=== PATIENT | male | born 1945 | race Caucasian/White ===

== ENCOUNTER 2016-09-23 19:52 | Observation (INO) | payer MEDICARE, BC ==
[2016-09-23] MEDS ORDERED: ASPIRIN 81 MG CHEW PO STA (20:30)
--- NOTE | 2016-09-23 20:42 | ED ---
General Adult HPI <NestorPepe - Last Filed: 09/23/16 22:08> - General Source: patient Mode of arrival: ambulatory Limitations: no limitations <Valery Fernandez - Last Filed: 09/23/16 22:27> - General Chief complaint: Extremity Problem,Nontraumatic Stated complaint: R arm injury Time Seen by Provider: 09/23/16 20:24 - History of Present Illness Initial comments: 71-year-old male patient presents to emergency department today for evaluation of right arm swelling and pain after he struck it on a mirror on his truck. The patient states that the area swelled up and seems bruised. Patient states that he is able to move the wrist and elbow without any difficulty. Patient states he does take anticoagulants which causes him to bruise and swell however he was concerned that he might have broken his arm. During exam patient noticed to be diaphoretic when asked about chest pain or shortness of breath he states that he is having some left posterior shoulder pain, shortness of breath , and was nauseated on the ride here. Patient states that he has had heart attack in the past and does have a pacemaker. Patient states that the pain in his shoulder has been intermittent and sharp. He states that he has his nitro with him however has not had to take a tablet. He denies any headache, neck pain, dizziness, weakness, abdominal pain, vomiting, hematuria, dysuria, urinary urgency or urinary frequency. Denies any trouble with bowel movements. (Valery Fernandez) - Related Data Home Medications Medication Instructions Recorded Confirmed Allopurinol [Zyloprim] 100 mg PO DAILY 04/23/15 09/23/16 Carvedilol [Coreg] 18.75 mg PO BID 04/23/15 09/23/16 Warfarin [Coumadin] 2.5 mg PO HS 07/04/15 09/23/16 Zolpidem Tartrate [Ambien] 10 mg PO HS 07/04/15 09/23/16 Multivitamins, Thera [Multivitamin 1 tab PO DAILY 12/17/15 09/23/16 (formulary)] [place]-3 Fatty Acids/Fish Oil [Fish 1 cap PO DAILY 12/17/15 09/23/16 Oil 1,000 mg Softgel] Cholecalciferol [Vitamin D3] 2,000 unit PO DAILY 12/22/15 09/23/16 Vitamin B Complex 1 cap PO DAILY 12/22/15 09/23/16 Furosemide [Lasix] 20 mg PO DAILY@1300 09/23/16 09/23/16 Furosemide [Lasix] 60 mg PO QAM 09/23/16 09/23/16 LORazepam [Ativan] 0.5 mg PO TID PRN 09/23/16 09/23/16 Previous Rx's Medication Instructions Recorded Isosorbide Mononitrate ER [Imdur] 30 mg PO DAILY #30 tab.er.24h 12/18/15 Aspirin 81 mg PO DAILY #30 chew 12/24/15 Atorvastatin [Lipitor] 80 mg PO HS #30 tab 12/24/15 Clopidogrel [Plavix] 75 mg PO DAILY #30 tab 12/24/15 Lisinopril [Zestril] 10 mg PO DAILY #30 tab 12/24/15 Nitroglycerin Sl Tabs [Nitrostat] 0.4 mg SUBLINGUAL Q5M PRN #25 tab 12/24/15 Allergies Allergy/AdvReac Type Severity Reaction Status Date / Time No Known Allergies Allergy Verified 09/23/16 21:31 Review of Systems ROS Other: All systems not noted in ROS Statement are negative. <Pepe Baez - Last Filed: 09/23/16 22:08> ROS Other: All systems not noted in ROS Statement are negative. <Valery Fernandez - Last Filed: 09/23/16 22:27> ROS Statement: Those systems with pertinent positive or pertinent negative responses have been documented in the HPI. Past Medical History Past Medical History: Heart Failure, Hyperlipidemia, Hypertension, Myocardial Infarction ([place]) Additional Past Medical History / Comment(s): gout Last Myocardial Infarction Date:: 2004 History of Any Multi-Drug Resistant Organisms: None Reported Past Surgical History: Back Surgery, Heart Catheterization With Stent, Pacemaker Past Anesthesia/Blood Transfusion Reactions: No Reported Reaction Date of Last Stent Placement:: 2013 Type of Cardiac Device: Permanent Pacemaker, AICD Device Placement Date:: 07-29-14 Past Psychological History: No Psychological Hx Reported Smoking Status: Former smoker Past Alcohol Use History: Daily Past Drug Use History: None Reported - Past Family History Father Family Medical History: CVA/TIA, Dementia Mother Family Medical History: CVA/TIA, Diabetes Mellitus, Skin Disorder Additional Family Medical History / Comment(s): skin CA <Valery Fernandez - Last Filed: 09/23/16 22:27> General Exam Limitations: no limitations General appearance: alert, in no apparent distress Head exam: Present: atraumatic, normocephalic, normal inspection Eye exam: Present: normal appearance, PERRL, EOMI. Absent: scleral icterus, conjunctival injection, periorbital swelling ENT exam: Present: normal exam, normal oropharynx, mucous membranes moist Neck exam: Present: normal inspection. Absent: tenderness, meningismus, lymphadenopathy Respiratory exam: Present: normal lung sounds bilaterally. Absent: respiratory distress, wheezes, rales, rhonchi, stridor Cardiovascular Exam: Present: regular rate, normal rhythm, normal heart sounds. Absent: systolic murmur, diastolic murmur, rubs, gallop, clicks GI/Abdominal exam: Present: soft, normal bowel sounds. Absent: distended, tenderness, guarding, rebound, rigid Extremities exam: Present: full ROM, normal capillary refill, other (Right forearm swelling and ecchymosis noted to the dorsal aspect near the antecubital fossa. Patient has full range of motion without pain or limitation to the right elbow, right wrist, and hand.). Absent: normal inspection, tenderness, pedal edema, joint swelling, calf tenderness Back exam: Present: normal inspection Neurological exam: Present: alert, oriented X3, CN II-XII intact Psychiatric exam: Present: normal affect, normal mood Skin exam: Present: warm, intact, normal color, diaphoretic. Absent: dry, rash <Valery Fernandez M - Last Filed: 09/23/16 22:27> Course <Pepe Baez - Last Filed: 09/23/16 22:08> <Valery Fernandez - Last Filed: 09/23/16 22:27> Vital Signs 09/23/16 20:00 Temperature 98.0 F Pulse Rate 69 Respiratory 20 Rate Blood Pressure 157/77 O2 Sat by Pulse 99 Oximetry - Reevaluation(s) Reevaluation #1: 09/23/16 22:09 Patient reevaluated by myself, Dr. Baez. Patient resting comfortably in bed. Patient did have left shoulder discomfort that was similar to his previous heart problems however has resolved at this time. Patient originally presented for striking his right forearm on the mere of his truck. Results reviewed. Troponin is slightly elevated however patient is on Coumadin which is therapeutic and does have a history of chronic elevation of his troponin. Case was discussed in detail with Dr. Clark, who will admit his patient. He agrees with no heparin at this time. Cardiology will be consult. (Pepe Baez) EKG Findings - EKG Comments: EKG Findings:: EKG obtained at 2034 reveals that patient is ventricularly paced at 62 bpm. QRS duration is 206. QTc 528. QTC 535. <Valery Fernandez - Last Filed: 09/23/16 22:27> Medical Decision Making - Lab Data Result diagrams: 09/23/16 20:41 09/23/16 20:41 <Pepe Baez - Last Filed: 09/23/16 22:08> - Lab Data Result diagrams: 09/23/16 20:41 09/23/16 20:41 - Radiology Data Radiology results: report reviewed, image reviewed <Valery Fernandez - Last Filed: 09/23/16 22:27> - Medical Decision Making 71-year-old male patient presented to the emergency department initially for a right forearm injury. During examination but no patient to be diaphoretic and he reported left upper back pain, nausea, and shortness of breath that started on his way here. Due to patient's cardiac history did do an EKG and labs which did show an elevated troponin at 0.054. Patient does seem to have a chronically elevated troponin however patient's symptoms are concerning for unstable angina. Dr. Baez my attending did speak to Dr. Clark who agreed to admit the patient for further evaluation. Patient does take Coumadin and INR at this time is 2.2. Patient will not be started on heparin at this time. Cardiology consultation was entered. (Valery Fernandez) - Lab Data Lab Results 09/23/16 09/23/16 09/23/16 Range/Units 20:41 20:41 20:41 WBC 8.7 (3.8-10.6) k/uL RBC 4.17 L (4.30-5.90) m/uL Hgb 13.8 (13.0-17.5) gm/dL Hct 40.0 (39.0-53.0) % MCV 95.8 (80.0-100.0) fL MCH 33.1 (25.0-35.0) pg MCHC 34.6 (31.0-37.0) g/dL RDW 14.7 (11.5-15.5) % Plt Count 153 (150-450) k/uL Neutrophils % 59 % Lymphocytes % 27 % Monocytes % 8 % Eosinophils % 3 % Basophils % 1 % Neutrophils # 5.2 (1.3-7.7) k/uL Lymphocytes # 2.4 (1.0-4.8) k/uL Monocytes # 0.7 (0-1.0) k/uL Eosinophils # 0.2 (0-0.7) k/uL Basophils # 0.1 (0-0.2) k/uL PT (9.0-12.0) sec INR (<1.2) APTT (22.0-30.0) sec Sodium 145 (137-145) mmol/L Potassium 4.1 (3.5-5.1) mmol/L Chloride 106 (98-107) mmol/L Carbon Dioxide 27 (22-30) mmol/L Anion Gap 12 mmol/L BUN 22 H (9-20) mg/dL Creatinine 1.00 (0.66-1.25) mg/dL Est GFR (MDRD) Af Amer >60 (>60 ml/min/1.73 sqM) Est GFR (MDRD) Non-Af >60 (>60 ml/min/1.73 sqM) Glucose 134 H (74-99) mg/dL Calcium 9.7 (8.4-10.2) mg/dL Magnesium 1.6 (1.6-2.3) mg/dL Total Bilirubin 0.4 (0.2-1.3) mg/dL AST 44 (17-59) U/L ALT 48 (21-72) U/L Alkaline Phosphatase 120 (38-126) U/L Total Creatine Kinase 81 (55-170) U/L CK-MB (CK-2) 1.5 (0.0-2.4) ng/mL CK-MB (CK-2) Rel Index 1.9 Troponin I 0.054 H* (0.000-0.034) ng/mL Total Protein 6.8 (6.3-8.2) g/dL Albumin 4.1 (3.5-5.0) g/dL 09/23/16 Range/Units 20:41 WBC (3.8-10.6) k/uL RBC (4.30-5.90) m/uL Hgb (13.0-17.5) gm/dL Hct (39.0-53.0) % MCV (80.0-100.0) fL MCH (25.0-35.0) pg MCHC (31.0-37.0) g/dL RDW (11.5-15.5) % Plt Count (150-450) k/uL Neutrophils % % Lymphocytes % % Monocytes % % Eosinophils % % Basophils % % Neutrophils # (1.3-7.7) k/uL Lymphocytes # (1.0-4.8) k/uL Monocytes # (0-1.0) k/uL Eosinophils # (0-0.7) k/uL Basophils # (0-0.2) k/uL PT 21.0 H (9.0-12.0) sec INR 2.2 H (<1.2) APTT 36.0 H (22.0-30.0) sec Sodium (137-145) mmol/L Potassium (3.5-5.1) mmol/L Chloride (98-107) mmol/L Carbon Dioxide (22-30) mmol/L Anion Gap mmol/L BUN (9-20) mg/dL Creatinine (0.66-1.25) mg/dL Est GFR (MDRD) Af Amer (>60 ml/min/1.73 sqM) Est GFR (MDRD) Non-Af (>60 ml/min/1.73 sqM) Glucose (74-99) mg/dL Calcium (8.4-10.2) mg/dL Magnesium (1.6-2.3) mg/dL Total Bilirubin (0.2-1.3) mg/dL AST (17-59) U/L ALT (21-72) U/L Alkaline Phosphatase (38-126) U/L Total Creatine Kinase (55-170) U/L CK-MB (CK-2) (0.0-2.4) ng/mL CK-MB (CK-2) Rel Index Troponin I (0.000-0.034) ng/mL Total Protein (6.3-8.2) g/dL Albumin (3.5-5.0) g/dL - Radiology Data Two-view of the forearm were obtained and showed spraining on the olecranon process of the ulna. The wrist joint appears intact. See no fracture nor dislocation. Impression by Dr. Sims shows mild posterior soft tissue swelling over the proximal ulna. No fracture. Two-view x-ray of the chest is obtained and shows that the heart is enlarged. There is no heart failure. There is left axillar pacemaker with a lead tips in the right ventricle. There is no pleural effusion. Bony thorax is intact. There are chest leads. Impression by Dr. Sims shows cardiomegaly. No active cardiopulmonary disease. No change. (Valery Fernandez) Disposition <Pepe Baez - Last Filed: 09/23/16 22:08> Decision to Admit Reason: Admit from EC Decision Date: 09/23/16 Decision Time: 22:19 <Valery Fernandez - Last Filed: 09/23/16 22:27> Clinical Impression: Unstable angina, Elevated troponin Disposition: ADMITTED IP TO THIS [facility] Condition: Fair Referrals: Giovanni Clark MD [Primary Care Provider] - 1-2 days
[2016-09-23 20:50] LABS: Basophils # (A) 0.1 k/uL (0-0.2); Basophils % (A) 1 %; CH 32.1; CHCM 33.7; Eosinophils # (A) 0.2 k/uL (0-0.7); Eosinophils % (A) 3 %; HDW 2.61; HGB 13.8 gm/dL (13.0-17.5); Luc # (Auto) 0.28; Luc % (Auto) 3; Lymphocytes # (A) 2.4 k/uL (1.0-4.8); Lymphocytes % (A) 27 %; MCH 33.1 pg (25.0-35.0); MCHC 34.6 g/dL (31.0-37.0); MCV 95.8 fL (80.0-100.0); Mean Platelet Volume 8.6; Monocytes # (A) 0.7 k/uL (0-1.0); Monocytes % (A) 8 %; Neutrophils # (A) 5.2 k/uL (1.3-7.7); Neutrophils % (A) 59 %; RBC 4.17 m/uL (4.30-5.90); RDW 14.7 % (11.5-15.5); WBC 8.7 k/uL (3.8-10.6); WBC (Perox) 8.88
[2016-09-23 21:00] LABS: INR 2.2 (<1.2)
[2016-09-23 21:09] LABS: ALT 48 U/L (21-72); AST 44 U/L (17-59); Alkaline Phosphatase 120 U/L (38-126); Anion Gap 12 mmol/L; Blood Urea Nitrogen 22 mg/dL (9-20); Calcium 9.7 mg/dL (8.4-10.2); Carbon Dioxide 27 mmol/L (22-30); Chloride 106 mmol/L (98-107); Glucose 134 mg/dL (74-99); Magnesium 1.6 mg/dL (1.6-2.3); Non-African American GFR(MDRD) >60 (>60 ml/min/1.73 sqM); Potassium 4.1 mmol/L (3.5-5.1); Sodium 145 mmol/L (137-145); Total Bilirubin 0.4 mg/dL (0.2-1.3); Total Protein 6.8 g/dL (6.3-8.2)
[2016-09-23 21:28] LABS: Creatine Kinase MB 1.5 ng/mL (0.0-2.4)
[2016-09-23 21:29] LABS: Troponin I 0.054 ng/mL (0.000-0.034)
--- NOTE | 2016-09-23 21:36 | XR ---
EXAMINATION TYPE: XR chest 2V DATE OF EXAM: 09/23/2016 COMPARISON: 12/21/2015 HISTORY: Chest pain TECHNIQUE: Frontal and lateral views of the chest are obtained. FINDINGS: Heart is enlarged. There is no heart failure. There is left axillary pacemaker with the le ad tips in the right ventricle. There is no pleural effusion. Bony thorax is intact. There are chest leads. IMPRESSION: Cardiomegaly. No active cardiopulmonary disease. No change.
--- NOTE | 2016-09-23 21:43 | XR ---
EXAMINATION TYPE: XR forearm RT DATE OF EXAM: 09/23/2016 COMPARISON: NONE HISTORY: Pain TECHNIQUE: 2 views FINDINGS: There is spurring on the olecranon process of the ulna. The wrist joint appears intact. I s ee no fracture nor dislocation. IMPRESSION: There is mild posterior soft tissue swelling over the proximal ulna. No fracture.
[2016-09-23] MEDS ORDERED: NITROGLYCERIN SL TABS 0.4 MG TAB SUBLINGUAL PRN (22:16)
[2016-09-23 23:07] VITALS: BMI 31.6
[2016-09-23] MEDS: WARFARIN 2.5 MG TAB PO SCH (23:39)
[2016-09-23] MEDS: ATORVASTATIN 80 MG TAB PO SCH (23:39)
[2016-09-23] MEDS: ZOLPIDEM 10 MG TAB PO SCH (23:39)
[2016-09-23] MEDS: CARVEDILOL 12.5 MG TAB PO SCH (23:39)
[2016-09-24 03:34] LABS: Cholesterol 89 mg/dL (<200); HDL Cholesterol 40 mg/dL (40-60)
[2016-09-24 03:42] LABS: Creatine Kinase MB 1.6 ng/mL (0.0-2.4)
[2016-09-24 03:45] LABS: Troponin I 0.081 ng/mL (0.000-0.034)
[2016-09-24] MEDS ORDERED: LORazepam 0.5 MG TAB PO PRN (08:22)
[2016-09-24] MEDS ORDERED: NITROGLYCERIN SL TABS 0.4 MG TAB SUBLINGUAL PRN (08:22)
--- NOTE | 2016-09-24 08:22 | P.PN ---
Subjective Principal diagnosis: Chest pressure with nausea and diaphoresis. This is a history and physical on a 71-year-old white male essentially admitted because he was having symptoms after injuring his arm/right elbow in a window. He came into the emergency room because he was concerned that he injured his elbow or fractured it. The patient also is worried about possible muscular skeletal damage her however, during the evaluation, he started developing shortness of breath of left shoulder pain and diaphoresis. Some mild nausea was also noted. Consequently, because of his history of stent placement 3 months ago, his appropriately admitted. Troponins been slightly elevated during this time. However, after aspirin therapy he is stabilized and not had any more symptomatology. He is therefore admitted for unstable angina with history of right upper extremity, and previous status post stent placement. Objective - Vital Signs Vital signs: Vital Signs Temp 98.1 F 09/24/16 04:00 Pulse 59 L 09/24/16 04:00 Resp 16 09/24/16 04:00 BP 124/59 09/24/16 04:00 Pulse Ox 100 09/24/16 04:00 Intake & Output 09/23/16 09/24/16 09/24/16 18:59 06:59 18:59 Weight 103.1 kg Other: Voiding Method Toilet # Voids 1 - Constitutional General appearance: Present: obese - EENT Eyes: Absent: abnormal pupil - Respiratory Respiratory: bilateral: CTA - Cardiovascular Rhythm: regular Heart sounds: normal: S1, S2 - Gastrointestinal General gastrointestinal: Present: soft. Absent: tenderness, umbilical hernia - Integumentary Integumentary: Absent: cellulitis - Neurologic Neurologic: Present: CNII-XII intact. Absent: focal deficits - Labs CBC & Chem 7: 09/23/16 20:41 09/23/16 20:41 Labs: Abnormal Lab Results - Last 24 Hours (Table) 09/23/16 09/23/16 09/23/16 Range/Units 20:41 20:41 20:41 RBC 4.17 L (4.30-5.90) m/uL PT (9.0-12.0) sec INR (<1.2) APTT (22.0-30.0) sec BUN 22 H (9-20) mg/dL Glucose 134 H (74-99) mg/dL Troponin I 0.054 H* (0.000-0.034) ng/mL 09/23/16 09/24/16 Range/Units 20:41 02:42 RBC (4.30-5.90) m/uL PT 21.0 H (9.0-12.0) sec INR 2.2 H (<1.2) APTT 36.0 H (22.0-30.0) sec BUN (9-20) mg/dL Glucose (74-99) mg/dL Troponin I 0.081 H* (0.000-0.034) ng/mL Assessment and Plan (1) Elevated troponin Status: Acute (2) Unstable angina Status: Acute (3) AICD (automatic cardioverter/defibrillator) present Status: Acute (4) CAD (coronary artery disease) Status: Acute (5) Ischemic cardiomyopathy Status: Acute Plan: Cardiology is consulted for appropriate evaluation. Question need for repeat cardiac catheterization. Otherwise, rule out myocardial infraction. Reconcile home medications. The patient does not wish to be a full code at this time. Change CODE STATUS. See orders otherwise. Time with Patient: Greater than 30
[2016-09-24 08:57] LABS: Creatine Kinase MB 1.5 ng/mL (0.0-2.4)
[2016-09-24] MEDS ORDERED: ASPIRIN 325 MG TAB PO SCH (09:00)
[2016-09-24] MEDS ORDERED: NON-FORMULARY DRUG (Omega-3 Fatty Acids/Fish Oil [Fish Oil 1,000 Mg Softgel] 1 CAP) PO SCH (09:00)
[2016-09-24 09:05] LABS: Troponin I 0.062 ng/mL (0.000-0.034)
--- NOTE | 2016-09-24 09:07 | P.CRDCN ---
History of Present Illness Consult date: 09/24/16 Requesting physician: Giovanni Clark Consult reason: chest pain Chief complaint: Right arm pain and swelling History of present illness: This is a pleasant 71-year-old gentleman who follows regularly with Dr. Blanche Myers in the office. He has a known history of coronary artery disease with prior stent placement he has history of circumflex stent and most recently underwent stenting of the RCA in December 2015. Patient also has history of hyperlipidemia, paroxysmal atrial fibrillation, hypertension, dual chamber AICD , and ascending aortic aneurysm. Patient was working outside, apparently hit his right arm against the near on his truck, it became quite swollen and red. Because the patient is on blood thinners at home he was concerned about bleeding and came to the emergency room. On the way to the emergency room patient became quite diaphoretic, short of breath and nauseated and had some mild discomfort in the left upper arm. For this reason cardiology consultation was requested. EKG on arrival here showed a ventricular paced rhythm with underlying atrial fibrillation. Chest x-ray reveals cardiomegaly with no active cardiopulmonary disease. X-ray of the forearm reveals mild posterior soft tissue swelling over the proximal ulna with no evidence of fracture. Blood pressure on arrival here 157/77, heart rate in the 60s, 99% on room air. CBC normal, potassium 4.1, BUN 22, creatinine 1.0. Troponins 0.054, 0.081. Patient does state that he recently had a stress test performed in the office with Dr. Myers. Upon reviewing his old records, patient is also noted to have abnormal troponins consistently. At the time of my examination this morning he is currently pain-free. No diaphoresis, no shortness of breath. Past Medical History Past Medical History: Heart Failure, Hyperlipidemia, Hypertension, Myocardial Infarction ([place]) Additional Past Medical History / Comment(s): gout Last Myocardial Infarction Date:: 2015 History of Any Multi-Drug Resistant Organisms: None Reported Past Surgical History: Back Surgery, Heart Catheterization With Stent, Pacemaker Additional Past Surgical History / Comment(s): stents x3 Past Anesthesia/Blood Transfusion Reactions: No Reported Reaction Date of Last Stent Placement:: 2015 Type of Cardiac Device: Permanent Pacemaker, AICD Device Placement Date:: 07-29-14 Past Psychological History: Anxiety Smoking Status: Former smoker Past Alcohol Use History: Daily Additional Past Alcohol Use History / Comment(s): drinks 2 drinks of whiskey daily Past Drug Use History: None Reported - Past Family History Father Family Medical History: CVA/TIA, Dementia Mother Family Medical History: CVA/TIA, Diabetes Mellitus, Skin Disorder Additional Family Medical History / Comment(s): skin CA Medications and Allergies Home Medications Medication Instructions Recorded Confirmed Type Allopurinol [Zyloprim] 100 mg PO DAILY 04/23/15 09/23/16 History Carvedilol [Coreg] 18.75 mg PO BID 04/23/15 09/23/16 History Warfarin [Coumadin] 2.5 mg PO HS 07/04/15 09/23/16 History Zolpidem Tartrate [Ambien] 10 mg PO HS 07/04/15 09/23/16 History Multivitamins, Thera [Multivitamin 1 tab PO DAILY 12/17/15 09/23/16 History (formulary)] [place]-3 Fatty Acids/Fish Oil [Fish 1 cap PO DAILY 12/17/15 09/23/16 History Oil 1,000 mg Softgel] Cholecalciferol [Vitamin D3] 2,000 unit PO DAILY 12/22/15 09/23/16 History Vitamin B Complex 1 cap PO DAILY 12/22/15 09/23/16 History Furosemide [Lasix] 20 mg PO DAILY@1300 09/23/16 09/23/16 History Furosemide [Lasix] 60 mg PO QAM 09/23/16 09/23/16 History LORazepam [Ativan] 0.5 mg PO TID PRN 09/23/16 09/23/16 History Allergies Allergy/AdvReac Type Severity Reaction Status Date / Time No Known Allergies Allergy Verified 09/23/16 22:53 Physical Exam Vitals: Vital Signs Temp Pulse Pulse Resp BP BP Pulse Ox 09/24/16 08:00 97.2 F L 60 128/70 100 09/24/16 04:00 98.1 F 59 L 16 124/59 100 09/23/16 23:59 60 16 09/23/16 23:54 97.3 F L 60 16 128/67 99 09/23/16 22:37 59 L 0 L 129/75 100 09/23/16 22:16 99 09/23/16 20:00 98.0 F 69 20 157/77 99 Intake and Output 0809/24/16 09/24/16 22:59 06:59 14:59 Other: Voiding Method Toilet # Voids 1 Weight 103.1 kg 103.1 kg PHYSICAL EXAMINATION: HEENT: Head is atraumatic, normocephalic. Pupils equal, round. Neck is supple. There is no elevated jugular venous pressure. HEART EXAMINATION: Heart S1-S2 irregularly irregular, systolic ejection murmur is heard. CHEST EXAMINATION: Lungs are clear to auscultation and precussion. No chest wall tenderness is noted on palpation or with deep breathing. ABDOMEN: Soft, nontender. Bowel sounds are heard. No organomegaly noted. EXTREMITIES: 2+ peripheral pulses with no evidence of peripheral edema and no calf tenderness noted]. Mild swelling noted to the right upper extremity, [place] wrap in place. NEUROLOGIC [patient is awake, alert and oriented -3.] . Results 09/23/16 20:41 09/23/16 20:41 Cardiac Enzymes 09/23/16 09/23/16 09/24/16 Range/Units 20:41 20:41 02:42 AST 44 (17-59) U/L CK-MB (CK-2) 1.5 1.6 (0.0-2.4) ng/mL Troponin I 0.054 H* 0.081 H* (0.000-0.034) ng/mL Coagulation 09/23/16 Range/Units 20:41 PT 21.0 H (9.0-12.0) sec APTT 36.0 H (22.0-30.0) sec Lipids 09/24/16 Range/Units 02:41 Triglycerides 109 (<150) mg/dL Cholesterol 89 (<200) mg/dL HDL Cholesterol 40 (40-60) mg/dL CBC 09/23/16 Range/Units 20:41 WBC 8.7 (3.8-10.6) k/uL RBC 4.17 L (4.30-5.90) m/uL Hgb 13.8 (13.0-17.5) gm/dL Hct 40.0 (39.0-53.0) % Plt Count 153 (150-450) k/uL Comprehensive Metabolic Panel 09/23/16 Range/Units 20:41 Sodium 145 (137-145) mmol/L Potassium 4.1 (3.5-5.1) mmol/L Chloride 106 (98-107) mmol/L Carbon Dioxide 27 (22-30) mmol/L BUN 22 H (9-20) mg/dL Creatinine 1.00 (0.66-1.25) mg/dL Glucose 134 H (74-99) mg/dL Calcium 9.7 (8.4-10.2) mg/dL AST 44 (17-59) U/L ALT 48 (21-72) U/L Alkaline Phosphatase 120 (38-126) U/L Total Protein 6.8 (6.3-8.2) g/dL Albumin 4.1 (3.5-5.0) g/dL Current Medications Generic Name Dose Route Start Last Admin Trade Name Freq PRN Reason Stop Dose Admin Allopurinol 100 mg 09/24/16 09:00 Zyloprim PO DAILY [facility] Aspirin 325 mg 09/24/16 09:00 Aspirin PO DAILY [facility] Atorvastatin Calcium 80 mg 09/23/16 23:15 09/23/16 23:39 Lipitor PO 80 mg HS [facility] Administration Carvedilol 18.75 mg 09/23/16 23:15 09/23/16 23:39 Coreg PO 18.75 mg BID [facility] Administration Cholecalciferol 2,000 unit 09/24/16 09:00 Vitamin D3 PO DAILY [facility] Clopidogrel Bisulfate 75 mg 09/24/16 09:00 Plavix PO DAILY [facility] Folic Acid 1 each 09/24/16 09:00 Folbic PO DAILY [facility] Furosemide 20 mg 09/24/16 13:00 Lasix PO DAILY@1300 [facility] Furosemide 60 mg 09/24/16 09:00 Lasix PO QAM [facility] Isosorbide Mononitrate 30 mg 09/24/16 09:00 Imdur PO DAILY [facility] Lisinopril 10 mg 09/24/16 09:00 Zestril PO DAILY [facility] Lorazepam 0.5 mg 09/24/16 08:22 Ativan PO TID PRN Anxiety Multivitamins 1 each 09/24/16 12:00 Theragran PO DAILY@1200 [facility] Nitroglycerin 0.4 mg 09/23/16 22:16 Nitrostat SUBLINGUAL Q5M PRN Chest Pain Nitroglycerin 0.4 mg 09/24/16 08:22 Nitrostat SUBLINGUAL Q5M PRN Chest Pain Warfarin Sodium 2.5 mg 09/23/16 23:15 09/23/16 23:39 Coumadin PO 2.5 mg HS [facility] Administration Zolpidem Tartrate 10 mg 09/23/16 23:15 09/23/16 23:39 Ambien PO 10 mg HS [facility] Administration Intake and Output 09/23/16 09/24/16 09/24/16 22:59 06:59 14:59 Other: Voiding Method Toilet # Voids 1 Weight 103.1 kg 103.1 kg 09/23/16 20:41 09/23/16 20:41 EKG Interpretations (text) EKG shows a ventricular paced rhythm with underlying atrial fibrillation. Assessment and Plan Plan: Assessment and plan #1 symptoms of diaphoresis, shortness of breath, and nausea with mild left arm discomfort. Abnormal troponins, suggesting possible acute coronary syndrome. EKG shows ventricular paced rhythm with underlying A. fib. #2 known history of coronary artery disease with prior circumflex and RCA stenting #3 ischemic cardiomyopathy with prior AICD implant #4 paroxysmal atrial fibrillation, on anticoagulation in the form of Coumadin. INR 2.2. Number 5 hypertension #6 hyperlipidemia Plan We will obtain an echocardiogram with Doppler study. We will also request a third troponin be obtained. States he recently had a stress test performed, we will get a copy of this from the office. Further recommendations to follow. DNP note has been reviewed, I agree with a documented findings and plan of care. Patient was seen and examined.
[2016-09-24] MEDS ORDERED: MULTIVITAMINS, THERA 1 EACH TAB PO SCH (12:00)
[2016-09-24] MEDS: CHOLECALCIFEROL 1,000 UNIT TAB PO SCH (12:30)
[2016-09-24] MEDS: ALLOPURINOL 100 MG TAB PO SCH (12:30)
[2016-09-24] MEDS: CLOPIDOGREL 75 MG TAB PO SCH (12:30)
[2016-09-24] MEDS: CYANOCOBALAMIN-FA-PYRIDOXINE 1 EACH TAB PO SCH (12:30)
[2016-09-24] MEDS: CARVEDILOL 12.5 MG TAB PO SCH ×2 (12:30→20:01)
[2016-09-24] MEDS: ISOSORBIDE MONONITRATE ER 30 MG TAB.ER.24H PO SCH (12:31)
[2016-09-24] MEDS: FUROSEMIDE 40 MG TAB PO SCH (12:31)
[2016-09-24] MEDS: LISINOPRIL 10 MG TAB PO SCH (12:33)
[2016-09-24] MEDS ORDERED: FUROSEMIDE 20 MG TAB PO SCH (13:00)
[2016-09-24] MEDS: WARFARIN 2.5 MG TAB PO SCH (20:01)
[2016-09-24] MEDS: ATORVASTATIN 80 MG TAB PO SCH (20:01)
--- NOTE | 2016-09-24 21:16 | ECHOF ---
Referral Reason:assess lvf MEASUREMENTS -------- HEIGHT: 157.5 cm WEIGHT: 103.0 kg BP: 128/70 IVSd: 1.2 cm (0.6 - 1.1) LVIDd: 6.0 cm (3.9 - 5.3) LVPWd: 1.0 cm (0.6 - 1.1) IVSs: 1.6 cm LVIDs: 5.0 cm LVPWs: 1.2 cm LA Diam: 4.7 cm (2.7 - 3.8) LAESV Index (A-L): 49.63 ml/m Ao Diam: 4.1 cm (2.0 - 3.7) AV Cusp: 2.4 cm (1.5 - 2.6) LA Diam: 5.0 cm (2.7 - 3.8) MV EXCURSION: 26.941 mm (> 18.000) MV EF SLOPE: 46 mm/s (70 - 150) EPSS: 1.7 cm MV E Sarthak: 0.76 m/s MV DecT: 122 ms MV A Sarthak: 0.20 m/s MV E/A Ratio: 3.85 RAP: 15.00 mmHg RVSP: 62.15 mmHg FINDINGS -------- Paced rhythm. This was a technically adequate study. There is mild concentric left ventricular hypertrophy. There is severe global hypokinesis of LV . Overall left ventricular systolic function is severely impaired with, an EF between 20 - 25 %. Base of LV contracts better. Consider Takatsubo apical ballooning Syndrome The right ventricle is normal in size. LA is severely dilated >40 ml/m2 The right atrial size is normal. 1.5MG OF DEFINITY UTLIZED: 2 OR MORE WALL SEGMENTS NOT VISUALIZED. There is mild aortic valve sclerosis. Trace to mild aortic regurgitation. Mild mitral annular calcification present. Mild mitral regurgitation is present. Mild tricuspid regurgitation present. There is moderate pulmonary hypertension. The right ventricular systolic pressure, as measured by Doppler, is 62.15mmHg. Trace/mild (physiologic) pulmonic regurgitation. The aortic root size is normal. There is no pericardial effusion. CONCLUSIONS -------- 1. There is mild concentric left ventricular hypertrophy. 2. Mild tricuspid regurgitation present. 3. There is moderate pulmonary hypertension. 4. The right ventricular systolic pressure, as measured by Doppler, is 62.15mmHg. 5. Trace/mild (physiologic) pulmonic regurgitation. 6. There is no pericardial effusion. 7. There is severe global hypokinesis of LV . 8. Overall left ventricular systolic function is severely impaired with, an EF between 20 - 25 %. 9. LA is severely dilated >40 ml/m2 10. 1.5MG OF DEFINITY UTLIZED: 2 OR MORE WALL SEGMENTS NOT VISUALIZED. 11. There is mild aortic valve sclerosis. 12. Trace to mild aortic regurgitation. 13. Mild mitral annular calcification present. 14. Mild mitral regurgitation is present. [employer] INSTRUCTOR: Heaven Garcia RDCS
[2016-09-24] MEDS: ZOLPIDEM 10 MG TAB PO SCH (21:59)
[2016-09-25 05:12] VITALS: TEMP 97.1
[2016-09-25] MEDS: ISOSORBIDE MONONITRATE ER 30 MG TAB.ER.24H PO SCH (08:00)
[2016-09-25] MEDS: ALLOPURINOL 100 MG TAB PO SCH (08:00)
[2016-09-25] MEDS: CLOPIDOGREL 75 MG TAB PO SCH (08:00)
[2016-09-25] MEDS: CYANOCOBALAMIN-FA-PYRIDOXINE 1 EACH TAB PO SCH (08:00)
[2016-09-25] MEDS: LISINOPRIL 10 MG TAB PO SCH (08:00)
[2016-09-25] MEDS: CARVEDILOL 12.5 MG TAB PO SCH (08:01)
[2016-09-25] MEDS: FUROSEMIDE 40 MG TAB PO SCH (08:02)
[2016-09-25 08:08] VITALS: BP 140/62; PULSE 56; RESP 18
--- NOTE | 2016-09-25 08:35 | P.DS ---
Providers Date of admission: 09/23/16 22:10 Expected date of discharge: 09/25/16 Attending physician: Giovanni Clark Consults: 09/23/16 22:09 Consult Physician Urgent Consulting Provider: Swetha Lemos Consult Reason/Comments: chest pain Do you want consulting provider notified?: Yes Primary care physician: Giovanni Clark - Discharge Diagnosis(es) (1) Elevated troponin Current Visit: Yes Status: Acute (2) Unstable angina Current Visit: Yes Status: Acute (3) AICD (automatic cardioverter/defibrillator) present Current Visit: No Status: Acute (4) CAD (coronary artery disease) Current Visit: No Status: Acute (5) Ischemic cardiomyopathy Current Visit: No Status: Acute Hospital Course: The patient is here essentially because of having chest pain after injuring his right upper extremity. The patient did echo cardiac which did not show any new changes. The patient and somatically still had elevation of troponin. He has had recent stress testing. Is now somewhat a symptomatic and walking without difficulty. He will be discharged once cleared by cardiology. Patient Condition at Discharge: Fair Plan - Discharge Summary New Discharge Prescriptions: Continue Allopurinol [Zyloprim] 100 mg PO DAILY Carvedilol [Coreg] 18.75 mg PO BID Warfarin [Coumadin] 2.5 mg PO HS Zolpidem Tartrate [Ambien] 10 mg PO HS [place]-3 Fatty Acids/Fish Oil [Fish Oil 1,000 mg Softgel] 1 cap PO DAILY Multivitamins, Thera [Multivitamin (formulary)] 1 tab PO DAILY Isosorbide Mononitrate ER [Imdur] 30 mg PO DAILY #30 tab.er.24h Vitamin B Complex 1 cap PO DAILY Cholecalciferol [Vitamin D3] 2,000 unit PO DAILY Aspirin 81 mg PO DAILY #30 chew Atorvastatin [Lipitor] 80 mg PO HS #30 tab Clopidogrel [Plavix] 75 mg PO DAILY #30 tab Lisinopril [Zestril] 10 mg PO DAILY #30 tab Nitroglycerin Sl Tabs [Nitrostat] 0.4 mg SUBLINGUAL Q5M PRN #25 tab PRN Reason: Chest Pain Furosemide [Lasix] 60 mg PO QAM Furosemide [Lasix] 20 mg PO DAILY@1300 LORazepam [Ativan] 0.5 mg PO TID PRN PRN Reason: Anxiety Discharge Medication List Allopurinol [Zyloprim] 100 mg PO DAILY 04/23/15 [History] Carvedilol [Coreg] 18.75 mg PO BID 04/23/15 [History] Warfarin [Coumadin] 2.5 mg PO HS 07/04/15 [History] Zolpidem Tartrate [Ambien] 10 mg PO HS 07/04/15 [History] Multivitamins, Thera [Multivitamin (formulary)] 1 tab PO DAILY 12/17/15 [History ] [place]-3 Fatty Acids/Fish Oil [Fish Oil 1,000 mg Softgel] 1 cap PO DAILY [History] Isosorbide Mononitrate ER [Imdur] 30 mg PO DAILY #30 tab.er.24h 12/18/15 [Rx] Cholecalciferol [Vitamin D3] 2,000 unit PO DAILY 12/22/15 [History] Vitamin B Complex 1 cap PO DAILY 12/22/15 [History] Aspirin 81 mg PO DAILY #30 chew 12/24/15 [Rx] Atorvastatin [Lipitor] 80 mg PO HS #30 tab 12/24/15 [Rx] Clopidogrel [Plavix] 75 mg PO DAILY #30 tab 12/24/15 [Rx] Lisinopril [Zestril] 10 mg PO DAILY #30 tab 12/24/15 [Rx] Nitroglycerin Sl Tabs [Nitrostat] 0.4 mg SUBLINGUAL Q5M PRN #25 tab 12/24/15 [Rx ] Furosemide [Lasix] 20 mg PO DAILY@1300 09/23/16 [History] Furosemide [Lasix] 60 mg PO QAM 09/23/16 [History] LORazepam [Ativan] 0.5 mg PO TID PRN 09/23/16 [History] Follow up Appointment(s)/Referral(s): Giovanni Clark MD [Primary Care Provider] - 1 Week Discharge Disposition: HOME SELF-CARE
[2016-09-25] MEDS ORDERED: ASPIRIN 81 MG CHEW PO SCH (09:00)
[2016-09-25] MEDS: CHOLECALCIFEROL 1,000 UNIT TAB PO SCH (09:28)
--- NOTE | 2016-09-25 11:53 | P.PN ---
Subjective Principal diagnosis: Right arm pain This is a pleasant 71-year-old gentleman who follows regularly with Dr. Blanche Myers in the office. He has a known history of coronary artery disease with prior stent placement he has history of circumflex stent and most recently underwent stenting of the RCA in December 2015. Patient also has history of hyperlipidemia, paroxysmal atrial fibrillation, hypertension, dual chamber AICD , and ascending aortic aneurysm. Patient was working outside, apparently hit his right arm against the near on his truck, it became quite swollen and red. Because the patient is on blood thinners at home he was concerned about bleeding and came to the emergency room. On the way to the emergency room patient became quite diaphoretic, short of breath and nauseated and had some mild discomfort in the left upper arm. For this reason cardiology consultation was requested. EKG on arrival here showed a ventricular paced rhythm with underlying atrial fibrillation. Chest x-ray reveals cardiomegaly with no active cardiopulmonary disease. X-ray of the forearm reveals mild posterior soft tissue swelling over the proximal ulna with no evidence of fracture. Blood pressure on arrival here 157/77, heart rate in the 60s, 99% on room air. CBC normal, potassium 4.1, BUN 22, creatinine 1.0. Troponins 0.054, 0.081. Patient does state that he recently had a stress test performed in the office with Dr. Myers. Upon reviewing his old records, patient is also noted to have abnormal troponins consistently. At the time of my examination this morning he is currently pain-free. No diaphoresis, no shortness of breath. 09/25/2016. Patient seen and examined this morning, he's been up ambulating in the hallway most of the day today. Denies any chest pain, still having some mild discomfort in that right arm, denies any diaphoresis, no shortness of breath. From cardiology's perspective, he should be able to be discharged home and follow-up with Dr. Myers as scheduled in the office. Objective - Vital Signs Vital signs: Vital Signs Temp 97.1 F L 09/25/16 08:00 Pulse 56 L 09/25/16 08:00 Resp 18 09/25/16 08:00 BP 140/62 09/25/16 08:00 Pulse Ox 97 09/25/16 08:00 Intake & Output 09/24/16 09/25/1609/25/17 18:59 06:59 18:59 Intake Total 480 300 Output Total 250 1 Balance 230 299 Weight 100.8 kg Intake: Oral 480 300 Blood Product 0 Output: Urine 250 Stool 1 Other: # Voids 1 1 - Exam PHYSICAL EXAMINATION: HEENT: Head is atraumatic, normocephalic. Pupils equal, round. Neck is supple. There is no elevated jugular venous pressure. HEART EXAMINATION: Heart S1-S2 irregularly irregular, systolic ejection murmur is heard. CHEST EXAMINATION: Lungs are clear to auscultation and precussion. No chest wall tenderness is noted on palpation or with deep breathing. ABDOMEN: Soft, nontender. Bowel sounds are heard. No organomegaly noted. EXTREMITIES: 2+ peripheral pulses with no evidence of peripheral edema and no calf tenderness noted]. Mild swelling noted to the right upper extremity, [place] wrap in place. NEUROLOGIC [patient is awake, alert and oriented -3.] . - Labs CBC & Chem 7: 09/23/16 20:41 09/23/16 20:41 Assessment and Plan Plan: Assessment and plan #1 symptoms of right arm pain and swelling. Abnormal troponins, patient is known in the past to always have troponins in this range. EKG shows ventricular paced rhythm with underlying A. fib. #2 known history of coronary artery disease with prior circumflex and RCA stenting #3 ischemic cardiomyopathy with prior AICD implant #4 paroxysmal atrial fibrillation, on anticoagulation in the form of Coumadin. INR 2.2. Number 5 hypertension #6 hyperlipidemia Plan From cardiology's perspective, patient may be able to be discharged home once cleared by the primary. He does have a follow-up appointment with Dr. Blanche Myers as an outpatient which he has been instructed to keep. DNP note has been reviewed, I agree with a documented findings and plan of care. Patient was seen and examined.
== END 2016-09-25 11:07 | disposition home or self-care (01) ==
LOC: EC 19:52 → 6SEL 22:10
PROVIDERS: ADMIT Family Medicine; ATTEND Family Medicine
DX: I25.110 Atherosclerotic heart disease of native coronary artery with unstable angina pectoris (principal); S49.91XA Unspecified injury of right shoulder and upper arm, initial encounter; W22.09XA Striking against other stationary object, initial encounter; I11.0 Hypertensive heart disease with heart failure; I50.9 Heart failure, unspecified; E78.5 Hyperlipidemia, unspecified; M10.9 Gout, unspecified; F41.9 Anxiety disorder, unspecified; I25.5 Ischemic cardiomyopathy; I48.0 Paroxysmal atrial fibrillation; I25.2 Old myocardial infarction; Z95.810 Presence of automatic (implantable) cardiac defibrillator; Z79.899 Other long term (current) drug therapy; Z79.01 Long term (current) use of anticoagulants; Z79.02 Long term (current) use of antithrombotics/antiplatelets; Z79.82 Long term (current) use of aspirin; Z95.5 Presence of coronary angioplasty implant and graft; Z87.891 Personal history of nicotine dependence; Z86.73 Personal history of transient ischemic attack (TIA), and cerebral infarction without residual deficits
CPT/HCPCS: 99285; 36415; 93005; 80061; 80053; 82550 ×2; 82553 ×2; 83735; 84484 ×2; 85025; 85610; 85730; 71020; 73090; G0378 ×3; C8929; Q9957; 93306

== ENCOUNTER 2017-05-27 10:50 | Inpatient (IN) | payer MEDICARE, BC ==
[2017-05-27] MEDS ORDERED: methylPREDNISolone SOD SUCCI 125 MG/2 ML VIAL IV STA (11:13)
[2017-05-27] MEDS ORDERED: IPRATROPIUM-ALBUTEROL 3 ML NEB INHALATION STA (11:13)
--- NOTE | 2017-05-27 11:20 | ED ---
SOB HPI - General Chief Complaint: Shortness of Breath Stated Complaint: LEAH, NAUSEA, Hx PACEMAKER Time Seen by Provider: 05/27/17 11:05 Source: patient, RN notes reviewed Mode of arrival: wheelchair Limitations: no limitations - History of Present Illness Initial Comments: This is a 72-year-old male with a history of heart disease with a pacemaker defibrillator implanted who presents with complaints of generally not feeling well for past 2 days with shortness of breath some sweats exertional dyspnea no chest pain he has had phlegm with some pale yellow color. No overt chest pain B states he did take some nitroglycerin last night it did help somewhat. No known history of congestive heart failure but per his he does have a "weak heart". He also complains some dry mouth and tingling to his hands and arms bilaterally. He denies any other complaints no peripheral edema no other modifying factors. He is a former smoker who quit about 20 years ago but he smoked for many years before that. He denies any diagnosed history of COPD MD Complaint: shortness of breath - Related Data Home Medications Medication Instructions Recorded Confirmed Allopurinol [Zyloprim] 100 mg PO DAILY 04/23/15 09/23/16 Carvedilol [Coreg] 18.75 mg PO BID 04/23/15 09/23/16 Warfarin [Coumadin] 2.5 mg PO HS 07/04/15 09/23/16 Zolpidem Tartrate [Ambien] 10 mg PO HS 07/04/15 09/23/16 Multivitamins, Thera [Multivitamin 1 tab PO DAILY 12/17/15 09/23/16 (formulary)] [place]-3 Fatty Acids/Fish Oil [Fish 1 cap PO DAILY 12/17/15 09/23/16 Oil 1,000 mg Softgel] Cholecalciferol [Vitamin D3] 2,000 unit PO DAILY 12/22/15 09/23/16 Vitamin B Complex 1 cap PO DAILY 12/22/15 09/23/16 Furosemide [Lasix] 20 mg PO DAILY@1300 09/23/16 09/23/16 Furosemide [Lasix] 60 mg PO QAM 09/23/16 09/23/16 LORazepam [Ativan] 0.5 mg PO TID PRN 09/23/16 09/23/16 Previous Rx's Medication Instructions Recorded Isosorbide Mononitrate ER [Imdur] 30 mg PO DAILY #30 tab.er.24h 12/18/15 Aspirin 81 mg PO DAILY #30 chew 12/24/15 Atorvastatin [Lipitor] 80 mg PO HS #30 tab 12/24/15 Clopidogrel [Plavix] 75 mg PO DAILY #30 tab 12/24/15 Lisinopril [Zestril] 10 mg PO DAILY #30 tab 12/24/15 Nitroglycerin Sl Tabs [Nitrostat] 0.4 mg SUBLINGUAL Q5M PRN #25 tab 12/24/15 Allergies Allergy/AdvReac Type Severity Reaction Status Date / Time No Known Allergies Allergy Verified 05/27/17 11:03 Review of Systems ROS Statement: Those systems with pertinent positive or pertinent negative responses have been documented in the HPI. ROS Other: All systems not noted in ROS Statement are negative. Past Medical History Past Medical History: Heart Failure, CVA/TIA, Hyperlipidemia, Hypertension Additional Past Medical History / Comment(s): gout Last Myocardial Infarction Date:: 2015 History of Any Multi-Drug Resistant Organisms: None Reported Past Surgical History: Back Surgery, Heart Catheterization With Stent, Pacemaker Additional Past Surgical History / Comment(s): stents x3 Past Anesthesia/Blood Transfusion Reactions: No Reported Reaction Date of Last Stent Placement:: 2015 Type of Cardiac Device: Permanent Pacemaker, AICD Device Placement Date:: 07-29-14 Past Psychological History: Anxiety Smoking Status: Former smoker Past Alcohol Use History: Daily Past Drug Use History: None Reported - Past Family History Father Family Medical History: CVA/TIA, Dementia Mother Family Medical History: CVA/TIA, Diabetes Mellitus, Skin Disorder Additional Family Medical History / Comment(s): skin CA General Exam - General Exam Comments Initial Comments: This is a well-developed well-nourished awake alert oriented times female he is audibly wheezing while trying to talk. Limitations: no limitations General appearance: alert, in distress Head exam: Present: atraumatic, normocephalic, normal inspection Eye exam: Present: normal appearance, PERRL, EOMI. Absent: scleral icterus, conjunctival injection, periorbital swelling ENT exam: Present: mucous membranes dry Neck exam: Present: normal inspection, full ROM. Absent: tenderness, meningismus, lymphadenopathy Respiratory exam: Present: wheezes, decreased breath sounds. Absent: respiratory distress, rales, rhonchi, stridor Cardiovascular Exam: Present: regular rate, normal rhythm, normal heart sounds. Absent: systolic murmur, diastolic murmur, rubs, gallop, clicks GI/Abdominal exam: Present: soft, normal bowel sounds. Absent: distended, tenderness, guarding, rebound, rigid Extremities exam: Present: normal inspection, full ROM, normal capillary refill. Absent: tenderness, pedal edema, joint swelling, calf tenderness Back exam: Present: normal inspection Neurological exam: Present: alert, oriented X3, CN II-XII intact Psychiatric exam: Present: normal affect, normal mood Skin exam: Present: warm, dry, intact, normal color. Absent: rash Course Vital Signs 05/27/17 05/27/17 05/27/17 10:59 11:31 11:42 Temperature Pulse Rate 60 60 64 Respiratory 20 Rate Blood Pressure 154/79 O2 Sat by Pulse 100 Oximetry 05/27/17 11:43 Temperature 98.2 F Pulse Rate 57 L Respiratory 20 Rate Blood Pressure O2 Sat by Pulse 99 Oximetry - Reevaluation(s) Reevaluation #1: 05/27/17 13:02 Reevaluation patient reveals he has some improvement with respect to go more cough he still somewhat short of breath. He still denies any chest pain though on later questioning he states he did have some left shoulder pain yesterday. Medical Decision Making - Medical Decision Making I did discuss findings with the patient and his . Patient will be admitted he does have elevation of his troponin there is a component of reversible airway disease he also has elevated BNP indicating some failure. Will be admitted case will be discussed with Dr. Clark cardiology will be consulted patient does see Dr. JOE Myers - Lab Data Result diagrams: 05/27/17 11:33 05/27/17 11:33 Lab Results 05/27/17 05/27/17 05/27/17 Range/Units 11:33 11:33 11:33 WBC 8.6 (3.8-10.6) k/uL RBC 3.98 L (4.30-5.90) m/uL Hgb 12.8 L (13.0-17.5) gm/dL Hct 38.0 L (39.0-53.0) % MCV 95.6 (80.0-100.0) fL MCH 32.2 (25.0-35.0) pg MCHC 33.6 (31.0-37.0) g/dL RDW 14.6 (11.5-15.5) % Plt Count 141 L (150-450) k/uL Neutrophils % 76 % Lymphocytes % 16 % Monocytes % 6 % Eosinophils % 1 % Basophils % 0 % Neutrophils # 6.6 (1.3-7.7) k/uL Lymphocytes # 1.4 (1.0-4.8) k/uL Monocytes # 0.5 (0-1.0) k/uL Eosinophils # 0.1 (0-0.7) k/uL Basophils # 0.0 (0-0.2) k/uL PT (9.0-12.0) sec INR (<1.2) APTT (22.0-30.0) sec Sodium 145 (137-145) mmol/L Potassium 4.0 (3.5-5.1) mmol/L Chloride 104 (98-107) mmol/L Carbon Dioxide 27 (22-30) mmol/L Anion Gap 14 mmol/L BUN 24 H (9-20) mg/dL Creatinine 0.96 (0.66-1.25) mg/dL Est GFR (CKD-EPI)AfAm >90 (>60 ml/min/1.73 sqM) Est GFR (CKD-EPI)NonAf 79 (>60 ml/min/1.73 sqM) Glucose 117 H (74-99) mg/dL Calcium 9.6 (8.4-10.2) mg/dL Magnesium 1.6 (1.6-2.3) mg/dL Total Bilirubin 0.7 (0.2-1.3) mg/dL AST 48 (17-59) U/L ALT 50 (21-72) U/L Alkaline Phosphatase 83 (38-126) U/L Total Creatine Kinase 49 L (55-170) U/L CK-MB (CK-2) 1.9 (0.0-2.4) ng/mL CK-MB (CK-2) Rel Index 3.9 Troponin I 0.063 H* (0.000-0.034) ng/mL NT-Pro-B Natriuret Pep pg/mL Total Protein 6.2 L (6.3-8.2) g/dL Albumin 3.7 (3.5-5.0) g/dL 05/27/17 05/27/17 Range/Units 11:33 11:33 WBC (3.8-10.6) k/uL RBC (4.30-5.90) m/uL Hgb (13.0-17.5) gm/dL Hct (39.0-53.0) % MCV (80.0-100.0) fL MCH (25.0-35.0) pg MCHC (31.0-37.0) g/dL RDW (11.5-15.5) % Plt Count (150-450) k/uL Neutrophils % % Lymphocytes % % Monocytes % % Eosinophils % % Basophils % % Neutrophils # (1.3-7.7) k/uL Lymphocytes # (1.0-4.8) k/uL Monocytes # (0-1.0) k/uL Eosinophils # (0-0.7) k/uL Basophils # (0-0.2) k/uL PT 18.8 H (9.0-12.0) sec INR 2.1 H (<1.2) APTT 32.8 H (22.0-30.0) sec Sodium (137-145) mmol/L Potassium (3.5-5.1) mmol/L Chloride (98-107) mmol/L Carbon Dioxide (22-30) mmol/L Anion Gap mmol/L BUN (9-20) mg/dL Creatinine (0.66-1.25) mg/dL Est GFR (CKD-EPI)AfAm (>60 ml/min/1.73 sqM) Est GFR (CKD-EPI)NonAf (>60 ml/min/1.73 sqM) Glucose (74-99) mg/dL Calcium (8.4-10.2) mg/dL Magnesium (1.6-2.3) mg/dL Total Bilirubin (0.2-1.3) mg/dL AST (17-59) U/L ALT (21-72) U/L Alkaline Phosphatase (38-126) U/L Total Creatine Kinase (55-170) U/L CK-MB (CK-2) (0.0-2.4) ng/mL CK-MB (CK-2) Rel Index Troponin I (0.000-0.034) ng/mL NT-Pro-B Natriuret Pep 1950 pg/mL Total Protein (6.3-8.2) g/dL Albumin (3.5-5.0) g/dL - EKG Data -: EKG Interpreted by Me (Some PVCs are noted. This is compared with an EKG dated showing si) - Radiology Data Radiology results: report reviewed (No acute findings or is evidence cardiomegaly and pacer for bladder is noted with wires appear to be intact), image reviewed Critical Care Time Critical Care Time: Yes Critical Care Time: 35 minutes of critical care time which includes initial presentation with history physical labs x-rays reevaluation patient responsive therapy discuss with the patient family regarding findings discussed with the admitting physician admission orders and documentation of the above. Disposition Clinical Impression: Non-ST elevation myocardial infarction (NSTEMI), Diastolic congestive heart failure, Acute bronchospasm Disposition: ADMITTED IP TO THIS [facility] Condition: Stable Is patient prescribed a controlled substance at discharge?: No Referrals: Giovanni Clark MD [Primary Care Provider] - 1-2 days
[2017-05-27 11:56] LABS: Basophils % (A) 0 %; Eosinophils # (A) 0.1 k/uL (0-0.7); Eosinophils % (A) 1 %; HGB 12.8 gm/dL (13.0-17.5); Lymphocytes # (A) 1.4 k/uL (1.0-4.8); Lymphocytes % (A) 16 %; MCH 32.2 pg (25.0-35.0); MCHC 33.6 g/dL (31.0-37.0); MCV 95.6 fL (80.0-100.0); Mean Platelet Volume 8.8; Monocytes # (A) 0.5 k/uL (0-1.0); Monocytes % (A) 6 %; Neutrophils # (A) 6.6 k/uL (1.3-7.7); Neutrophils % (A) 76 %; Platelet Count 141 k/uL (150-450); RBC 3.98 m/uL (4.30-5.90); RDW 14.6 % (11.5-15.5); WBC 8.6 k/uL (3.8-10.6)
[2017-05-27 12:03] LABS: ALT 50 U/L (21-72); AST 48 U/L (17-59); Albumin 3.7 g/dL (3.5-5.0); Alkaline Phosphatase 83 U/L (38-126); Anion Gap 14 mmol/L; Blood Urea Nitrogen 24 mg/dL (9-20); Calcium 9.6 mg/dL (8.4-10.2); Carbon Dioxide 27 mmol/L (22-30); Chloride 104 mmol/L (98-107); Glucose 117 mg/dL (74-99); Magnesium 1.6 mg/dL (1.6-2.3); Sodium 145 mmol/L (137-145); Total Bilirubin 0.7 mg/dL (0.2-1.3); Total Protein 6.2 g/dL (6.3-8.2)
--- NOTE | 2017-05-27 12:07 | XR ---
EXAMINATION TYPE: XR chest 2V DATE OF EXAM: 05/27/2017 COMPARISON: 09/23/2016 HISTORY: 72-year-old male difficulty in breathing, shortness of breath TECHNIQUE: PA and lateral views FINDINGS: Left anterior chest wall ICD generator with 2 right ventricular leads. Heart borderline enlarged. Mil d diffuse interstitial prominence is unchanged. No consolidation or pleural effusion. Mild hyperinfla tion. IMPRESSION: 1. Stable borderline heart size. 2. Chronic changes, possible underlying COPD. 3. No acute change seen.
[2017-05-27 12:12] LABS: INR 2.1 (<1.2); Partial Thromboplastin Time 32.8 sec (22.0-30.0); Prothrombin Time 18.8 sec (9.0-12.0)
[2017-05-27 12:26] LABS: Creatine Kinase MB 1.9 ng/mL (0.0-2.4)
[2017-05-27 12:30] LABS: Troponin I 0.063 ng/mL (0.000-0.034)
[2017-05-27] MEDS ORDERED: FUROSEMIDE 10 MG/ML 4 ML VIAL IV STA (12:41)
[2017-05-27] MEDS ORDERED: HEPARIN SODIUM,PORCINE 5,000 UNIT/ML 1 ML VIAL IV ONE (13:54)
[2017-05-27] MEDS ORDERED: NITROGLYCERIN SL TABS 0.4 MG TAB SUBLINGUAL PRN (13:54)
[2017-05-27] MEDS ORDERED: HEPARIN SOD,PORK IN 0.45% NACL 25,000 UNIT in 0.45% NACL 1 500ML.BAG IV SCH (14:00)
[2017-05-27] MEDS: NITROGLYCERIN OINT 1 INCH/GM PACKET TOPICAL SCH (17:24)
[2017-05-27] MEDS: CARVEDILOL 6.25 MG TAB PO SCH (17:25)
[2017-05-27 18:22] LABS: Creatine Kinase MB 1.9 ng/mL (0.0-2.4)
[2017-05-27 18:24] LABS: Troponin I 0.053 ng/mL (0.000-0.034)
[2017-05-27] MEDS: ATORVASTATIN 80 MG TAB PO SCH (22:32)
[2017-05-27] MEDS: LORazepam 0.5 MG TAB PO PRN (22:32)
[2017-05-27] MEDS: WARFARIN 2.5 MG TAB PO SCH (22:32)
[2017-05-27] MEDS: ZOLPIDEM 10 MG TAB PO SCH (22:32)
[2017-05-28 00:26] LABS: Creatine Kinase MB 1.5 ng/mL (0.0-2.4)
[2017-05-28 00:28] LABS: Troponin I 0.044 ng/mL (0.000-0.034)
[2017-05-28] MEDS: NITROGLYCERIN OINT 1 INCH/GM PACKET TOPICAL SCH (00:30)
[2017-05-28] MEDS: CARVEDILOL 6.25 MG TAB PO SCH ×2 (06:13→17:24)
[2017-05-28 06:39] LABS: Cholesterol 134 mg/dL (<200); HDL Cholesterol 57 mg/dL (40-60); LDL Cholesterol,Calculated 62 mg/dL (0-99); Triglycerides 75 mg/dL (<150)
[2017-05-28] MEDS: ISOSORBIDE MONONITRATE ER 30 MG TAB.ER.24H PO SCH (08:14)
[2017-05-28] MEDS: ALLOPURINOL 100 MG TAB PO SCH (08:14)
[2017-05-28] MEDS: ASPIRIN 81 MG PO SCH (08:14)
[2017-05-28] MEDS: LISINOPRIL 10 MG TAB PO SCH (08:15)
[2017-05-28] MEDS: CLOPIDOGREL 75 MG TAB PO SCH (08:15)
--- NOTE | 2017-05-28 08:42 | P.PN ---
Progress Note - Text This is an addendum to the dictated cardiology consultation. The patient has a known history of severe cardiomyopathy, post ICD implantation who presented with symptoms of cough, diaphoresis and wheezing was progressive dyspnea. He had minimal chest discomfort yesterday. He is followed on a regular basis at Dr. Myers. He denies any dizziness or palpitation ,no significant peripheral edema, no PND nor orthopnea. His physical examination shows scattered wheezes bilaterally. There is no evidence of peripheral edema. His presentation is consistent with respiratory infection, I do not see any evidence to suggest acute coronary syndrome or decompensated CHF. From the cardiac standpoint we will continue on the present medical regimen. We will follow his renal function closely and depending on his progress further recommendations will be made. Thank you for this consult we will follow with you.
--- NOTE | 2017-05-28 08:59 | P.CRDCN ---
History of Present Illness Consult date: 05/28/17 Requesting physician: Giovanni Clark Reason for Consult (text): NSTEMI, CHF Chief complaint: wheezing History of present illness: This is a pleasant 72-year-old gentleman who follows with Dr. JOE Myers in the office. 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 He presented to the emergency department mostly with complaints of wheezing and hoarseness in his voice. About 2 days ago he was sitting in a chair and broke out in a cold sweat she had no complaints of chest discomfort, palpitations, dizziness or syncope at that time. He did take one sublingual nitro and felt that that improved his symptoms of sweating. After that he began developing wheezing as well as change in his voice without hoarseness and also some shortness of breath at rest and with exertion. He's been coughing up initially a dark colored sputum which lightens up and becomes a pale yellow throughout the day. Patient has been exposed to influenza approximately 3 weeks ago. However he denies any fever but has not been feeling well over the last week with a decrease in his appetite. He did notice some mild chest pressure yesterday that lasted only a brief time. His symptoms of wheezing and shortness of breath improved quite a bit with breathing treatments in the ER. Upon arrival to the emergency department EKG showed underlying atrial fibrillation with paced ventricular rhythm. Laboratory values showed a mild troponin leak of 0.063, 0.053 and 0.044. In reviewing previous troponin results it appears patient's troponins are chronically mildly elevated. NT proBNP came back at 1950. Chest x-ray showed no signs of failure. He has no edema and has not had any weight gain. He has no orthopnea or PND. Past Medical History Past Medical History: Coronary Artery Disease (CAD), Heart Failure, CVA/TIA, Eye Disorder, Hyperlipidemia, Hypertension Additional Past Medical History / Comment(s): gout, cardomyopathy, previous charting listed mi 2016 pt unable to verify. arthrits rt index finger, cataracts , aaa, anxiety. Last Myocardial Infarction Date:: 2016 History of Any Multi-Drug Resistant Organisms: None Reported Past Surgical History: AICD, Back Surgery, Heart Catheterization With Stent, Pacemaker Additional Past Surgical History / Comment(s): stents x3, back fusion Past Anesthesia/Blood Transfusion Reactions: No Reported Reaction Date of Last Stent Placement:: 2015 Type of Cardiac Device: Permanent Pacemaker, AICD Device Placement Date:: 07-29-14 Smoking Status: Former smoker - Past Family History Father Family Medical History: CVA/TIA, Dementia Mother Family Medical History: CVA/TIA, Diabetes Mellitus, Skin Disorder Additional Family Medical History / Comment(s): skin CA Medications and Allergies Home Medications Medication Instructions Recorded Confirmed Type Allopurinol [Zyloprim] 100 mg PO DAILY 04/23/15 05/27/17 History Carvedilol [Coreg] 18.75 mg PO BID 04/23/15 05/27/17 History Warfarin [Coumadin] 2.5 mg PO SUMOTUWETHSA 07/04/15 05/27/17 History Zolpidem Tartrate [Ambien] 10 mg PO HS 07/04/15 05/27/17 History Multivitamins, Thera [Multivitamin 1 tab PO DAILY 12/17/15 05/27/17 History (formulary)] [place]-3 Fatty Acids/Fish Oil [Fish 1 cap PO DAILY 12/17/15 05/27/17 History Oil 1,000 mg Softgel] Cholecalciferol [Vitamin D3] 2,000 unit PO DAILY 12/22/15 05/27/17 History Vitamin B Complex 1 cap PO DAILY 12/22/15 05/27/17 History Aspirin 81 mg PO DAILY #30 chew 12/24/15 05/27/17 Rx Atorvastatin [Lipitor] 80 mg PO HS #30 tab 12/24/15 05/27/17 Rx Clopidogrel [Plavix] 75 mg PO DAILY #30 tab 12/24/15 05/27/17 Rx Lisinopril [Zestril] 10 mg PO DAILY #30 tab 12/24/15 05/27/17 Rx Nitroglycerin Sl Tabs [Nitrostat] 0.4 mg SUBLINGUAL Q5M PRN #25 tab 12/24/15 Rx Furosemide [Lasix] 20 mg PO DAILY@1430 09/23/16 05/27/17 History Furosemide [Lasix] 60 mg PO QAM 09/23/16 05/27/17 History LORazepam [Ativan] 0.5 mg PO DAILY 09/23/16 05/27/17 History Isosorbide Mononitrate ER [Imdur] 60 mg PO DAILY 05/27/17 05/27/17 History LORazepam [Ativan] 0.5 mg PO DAILY PRN 05/27/17 05/27/17 History Warfarin [Coumadin] 5 mg PO FR 05/27/17 05/27/17 History Allergies Allergy/AdvReac Type Severity Reaction Status Date / Time No Known Allergies Allergy Verified 05/27/17 14:28 Physical Exam Vitals: Vital Signs Temp Pulse Pulse Resp BP BP Pulse Ox 05/28/17 03:10 97.6 F 60 18 141/73 94 L 05/28/17 00:00 98.1 F 60 18 129/71 95 05/27/17 19:56 97.3 F L 60 18 127/87 98 05/27/17 15:21 18 05/27/17 15:20 96.4 F L 61 18 131/72 95 05/27/17 14:55 97.8 F 59 L 17 118/64 98 05/27/17 11:43 98.2 F 57 L 20 99 05/27/17 11:42 64 05/27/17 11:31 60 05/27/17 10:59 60 20 154/79 100 Intake and Output 05/27/17 05/28/17 05/28/17 22:59 06:59 14:59 Intake Total 0 Output Total 475 Balance 0 -475 Intake: Intake, IV Titration 0 Amount Heparin Sod,Pork in 0.45% 0 NaCl 25,000 unit In 0.45 % NaCl 1 500ml.bag @ 12 UNITS/KG/HR 23.94 mls/hr IV .[id number] [facility] Rx#: [id number] Output: Urine 475 Other: # Voids 1 Weight 99.5 kg PHYSICAL EXAMINATION: HEENT: Head is atraumatic, normocephalic. Pupils equal, round. Neck is supple. There is no elevated jugular venous pressure. HEART EXAMINATION: Heart sounds irregularly irregular, S1 and S2 normal. No murmur or gallop heard. CHEST EXAMINATION: Lungs reveal expiratory wheezing throughout. No chest wall tenderness is noted on palpation or with deep breathing. ABDOMEN: Soft, obese, nontender. Bowel sounds are heard. No organomegaly noted. EXTREMITIES: 2+ peripheral pulses with no evidence of peripheral edema and no calf tenderness noted. NEUROLOGIC patient is awake, alert and oriented x3. . Results 05/27/17 11:33 05/27/17 11:33 Cardiac Enzymes 05/27/17 05/27/17 05/27/17 Range/Units 11:33 11:33 17:23 AST 48 (17-59) U/L CK-MB (CK-2) 1.9 1.9 (0.0-2.4) ng/mL Troponin I 0.063 H* 0.053 H* (0.000-0.034) ng/mL 05/27/17 Range/Units 23:24 AST (17-59) U/L CK-MB (CK-2) 1.5 (0.0-2.4) ng/mL Troponin I 0.044 H* (0.000-0.034) ng/mL Coagulation 05/27/17 Range/Units 11:33 PT 18.8 H (9.0-12.0) sec APTT 32.8 H (22.0-30.0) sec Lipids 05/28/17 Range/Units 05:58 Triglycerides 75 (<150) mg/dL Cholesterol 134 (<200) mg/dL HDL Cholesterol 57 (40-60) mg/dL CBC 05/27/17 Range/Units 11:33 WBC 8.6 (3.8-10.6) k/uL RBC 3.98 L (4.30-5.90) m/uL Hgb 12.8 L (13.0-17.5) gm/dL Hct 38.0 L (39.0-53.0) % Plt Count 141 L (150-450) k/uL Comprehensive Metabolic Panel 05/27/17 Range/Units 11:33 Sodium 145 (137-145) mmol/L Potassium 4.0 (3.5-5.1) mmol/L Chloride 104 (98-107) mmol/L Carbon Dioxide 27 (22-30) mmol/L BUN 24 H (9-20) mg/dL Creatinine 0.96 (0.66-1.25) mg/dL Glucose 117 H (74-99) mg/dL Calcium 9.6 (8.4-10.2) mg/dL AST 48 (17-59) U/L ALT 50 (21-72) U/L Alkaline Phosphatase 83 (38-126) U/L Total Protein 6.2 L (6.3-8.2) g/dL Albumin 3.7 (3.5-5.0) g/dL Current Medications Generic Name Dose Route Start Last Admin Trade Name Freq PRN Reason Stop Dose Admin Allopurinol 100 mg 05/28/17 09:00 Zyloprim PO DAILY [facility] Aspirin 81 mg 05/28/17 09:00 Aspirin PO DAILY [facility] Atorvastatin Calcium 80 mg 05/27/17 21:00 05/27/17 22:32 Lipitor PO 80 mg HS [facility] Administration Carvedilol 18.75 mg 05/27/17 17:30 05/28/17 06:13 Coreg PO 18.75 mg BID-W/MEALS [facility] Administration Cholecalciferol 2,000 unit 05/28/17 12:00 Vitamin D3 PO 1200 [facility] Clopidogrel Bisulfate 75 mg 05/28/17 09:00 Plavix PO DAILY [facility] Furosemide 60 mg 05/28/17 09:00 Lasix PO QAM [facility] Furosemide 20 mg 05/28/17 13:00 Lasix PO DAILY@1300 [facility] Isosorbide Mononitrate 30 mg 05/28/17 09:00 Imdur PO DAILY [facility] Lisinopril 10 mg 05/28/17 09:00 Zestril PO DAILY [facility] Lorazepam 0.5 mg 05/27/17 14:01 05/27/17 22:32 Ativan PO 0.5 mg TID PRN Administration Anxiety Multivitamins 1 each 05/28/17 12:00 Theragran PO 1200 [facility] Nitroglycerin 0.4 mg 05/27/17 13:54 Nitrostat SUBLINGUAL Q5M PRN Chest Pain Vitamin B Complex/Vit C/Vit E/Zinc 1 each 05/28/17 12:00 Z-Bec PO 1200 [facility] Warfarin Sodium 2.5 mg 05/27/17 21:00 05/27/17 22:32 Coumadin PO 2.5 mg HS [facility] Administration Zolpidem Tartrate 10 mg 05/27/17 21:00 05/27/17 22:32 Ambien PO 10 mg HS [facility] Administration Intake and Output 05/27/17 05/28/17 05/28/17 22:59 06:59 14:59 Intake Total 0 Output Total 475 Balance 0 -475 Intake: Intake, IV Titration 0 Amount Heparin Sod,Pork in 0.45% 0 NaCl 25,000 unit In 0.45 % NaCl 1 500ml.bag @ 12 UNITS/KG/HR 23.94 mls/hr IV .[id number] [facility] Rx#: [id number] Output: Urine 475 Other: # Voids 1 Weight 99.5 kg 05/27/17 11:33 05/27/17 11:33 EKG Interpretations (text) Atrial fibrillation with ventricular paced rhythm Assessment and Plan Assessment: #1 symptoms of wheezing, cough and shortness of breath likely related to upper respiratory infection #2 cardiomyopathy, combination of ischemic and nonischemic with last known ejection fraction of 20-25%, status post AICD #3 chronic atrial fibrillation #4 known CAD, status post multivessel PCI #5 Plan: From cardiology perspective, we do not believe the patient is an over heart failure. Refill most of the patient's symptoms are due to a an upper respiratory infection. Patient's troponins are minimally elevated however this appears to be normal for the patient. We will obtain a 2-D echo with Doppler And likely pursue further evaluation as an outpatient once URI has improved. We will continue to follow the patient provide further recommendations accordingly. SPINE SPECIALIST note has been reviewed, I agree with a documented findings and plan of care. Patient was seen and examined.
[2017-05-28] MEDS ORDERED: FUROSEMIDE 20 MG TAB PO SCH ×2 (09:00→13:00)
[2017-05-28] MEDS ORDERED: ASPIRIN 325 MG TAB PO SCH (09:00)
[2017-05-28] MEDS ORDERED: NON-FORMULARY DRUG (Omega-3 Fatty Acids/Fish Oil [Fish Oil 1,000 Mg Softgel] 1 CAP) PO SCH (09:00)
--- NOTE | 2017-05-28 10:32 | ECHOF ---
Referral Reason:chest pressure, shortness of breath MEASUREMENTS -------- HEIGHT: 180.3 cm WEIGHT: 99.3 kg BP: 145/76 RVIDd: 3.1 cm (< 3.3) IVSd: 1.4 cm (0.6 - 1.1) LVIDd: 5.0 cm (3.9 - 5.3) LVPWd: 1.5 cm (0.6 - 1.1) IVSs: 1.9 cm LVIDs: 3.6 cm LVPWs: 1.9 cm LAESV Index (A-L): 57.56 ml/m Ao Diam: 3.1 cm (2.0 - 3.7) AV Cusp: 2.0 cm (1.5 - 2.6) LA Diam: 4.5 cm (2.7 - 3.8) MV EXCURSION: 18.742 mm (> 18.000) MV EF SLOPE: 66 mm/s (70 - 150) EPSS: 1.2 cm MV E Sarthak: 0.77 m/s MV DecT: 215 ms MV A Sarthak: 0.28 m/s MV E/A Ratio: 2.76 AR PHT: 528 ms RAP: 5.00 mmHg RVSP: 20.28 mmHg FINDINGS -------- Pacerwire seen in RV and RA. AICD This was a technically difficult study with suboptimal views. The left ventricular size is normal. There is mild concentric left ventricular hypertrophy. There is moderate global hypokinesis of LV . Overall left ventricular systolic function is moderate-sammi rely impaired with, an EF between 30 - 35 %. The right ventricle is normal in size. LA is severely dilated >40 ml/m2 The right atrium is normal in size. Aortic valve is trileaflet and is mildly thickened. There is mild aortic regurgitation. The mitral valve leaflets are mildly thickened. Mild mitral regurgitation is present. Mild tricuspid regurgitation present. The right ventricular systolic pressure, as measured by Doppl er, is 20.28mmHg. Pulmonic valve appears structurally normal. The aortic root size is normal. Echo free space indicative of a pericardial fat pad. Lumason used CONCLUSIONS -------- 1. Pacerwire seen in RV and RA. 2. AICD 3. This was a technically difficult study with suboptimal views. 4. The left ventricular size is normal. 5. There is mild concentric left ventricular hypertrophy. 6. The right ventricle is normal in size. 7. LA is severely dilated >40 ml/m2 8. The right atrium is normal in size. 9. Lumason used 10. Aortic valve is trileaflet and is mildly thickened. 11. There is mild aortic regurgitation. 12. The mitral valve leaflets are mildly thickened. 13. Mild mitral regurgitation is present. 14. Mild tricuspid regurgitation present. 15. The right ventricular systolic pressure, as measured by Doppler, is 20.28mmHg. 16. Pulmonic valve appears structurally normal. 17. The aortic root size is normal. 18. Echo free space indicative of a pericardial fat pad. SPLITTER TENDER: Ivon Johnson RDCS
[2017-05-28] MEDS: CHOLECALCIFEROL 1,000 UNIT TAB PO SCH (11:59)
[2017-05-28] MEDS: MULTIVITAMINS, THERA 1 EACH TAB PO SCH (12:00)
[2017-05-28] MEDS: B COMPLEX-VIT C-VIT E-ZINC 1 EACH TAB PO SCH (12:00)
[2017-05-28] MEDS ORDERED: TEMAZEPAM 15 MG CAP PO PRN (19:47)
[2017-05-28] MEDS ORDERED: ALPRAZolam 0.25 MG TAB PO PRN (19:47)
[2017-05-28] MEDS: WARFARIN 2.5 MG TAB PO SCH (20:35)
[2017-05-28] MEDS: ATORVASTATIN 80 MG TAB PO SCH (20:35)
[2017-05-28] MEDS: FUROSEMIDE 10 MG/ML 4 ML VIAL IV SCH (20:35)
--- NOTE | 2017-05-28 20:40 | HP ---
HISTORY AND PHYSICAL I am covering for Dr. Clark. CHIEF COMPLAINT: Shortness of breath. HISTORY OF PRESENT ILLNESS: This 72-year-old gentleman with a past medical history of multiple medical problems, including CAD, history of CHF, CVA, TIA, hypertension, hyperlipidemia, history of gout, cardiomyopathy, history AICD, back surgery, history of CAD and stent, being followed by Dr. Clark in the outpatient setting, was complaining of shortness of breath. The patient also had exertional shortness of breath which is progressive in nature. The patient came to [facility] and was admitted for further evaluation and treatment. Chest x-ray showed some chronic changes. A 2D echo showed ejection fraction about 35% to 40% as well as dilatation of the LA. BNP was elevated up to 1950. Troponins were 0.063 and 0.053 and 0.044. An EKG done on admission showed wide-complex QRS complex. There is no history of any fever, rigor or chills. No history of headache, loss of consciousness, seizures. PAST MEDICAL HISTORY: 1. History of CAD. 2. History of CHF. 3. CVA, TIA. 4. Hypertension. 5. Hyperlipidemia. 6. Gout. 7. Cardiomyopathy. 8. History of CAD, stent. 9. AICD. HOME MEDICATIONS: 1. Ambien 10 mg at bedtime. 2. Coumadin 5 mg p.o. Thursday and Coumadin 2.5 mg Thursday, Thursday, Thursday, Thursday, , Thursday. 3. Vitamin B complex 1 p.o. daily. 4. Fish oil 1 p.o. daily. 5. Nitrostat 0.4 sublingually p.r.n. 6. Multivitamins 1 p.o. daily. 7. Zestril 10 mg p.o. daily. 8. Ativan 0.5 mg daily p.r.n. 9. Imdur 60 mg p.o. daily. 10.Lasix 60 mg each morning and 20 mg daily. 11.Plavix 75 mg p.o. daily. 12.Vitamin D3 2000 daily. 13.Coreg 18.75 mg p.o. b.i.d. 14.Lipitor 80 mg at bedtime. 15.Aspirin 81 mg p.o. daily. 16.Zyloprim 100 mg p.o. daily. ALLERGIES: NONE. FAMILY HISTORY: History of CVA, TIA, dementia, skin cancer. SOCIAL HISTORY: Occasional alcohol. Previous history of smoking. The patient used to be a landa. REVIEW OF SYSTEMS: ENT: No diminished hearing. No diminished vision. CARDIOVASCULAR SYSTEM: As mentioned earlier. RESPIRATORY SYSTEM: As mentioned earlier. GI: No nausea, vomiting. : No dysuria or retention. NERVOUS SYSTEM: No numbness, weakness. ALLERGY/IMMUNOLOGY: No asthma, hayfever. MUSCULOSKELETAL: As mentioned earlier. HEMATOLOGY/ONCOLOGY: No history of anemia. ENDOCRINE: No history of diabetes, hypothyroidism. CONSTITUTIONAL: As mentioned earlier. DERMATOLOGY: Negative. RHEUMATOLOGY: Negative. PSYCHIATRY: As mentioned earlier. PHYSICAL EXAMINATION: Patient alert and oriented x3. Pulse is 60, blood pressure 142/83, respirations 16, temperature 97.3, pulse ox 97% on room air. HEENT: Conjunctivae normal. NECK: No jugular venous distention. No carotid bruit. No lymph node enlargement. CARDIOVASCULAR SYSTEM: S1, S2 muffled. No S3. No S4. RESPIRATORY SYSTEM: Breath sounds diminished at the bases. A few scattered rhonchi. No crackles. ABDOMEN: Soft, non-tender. No mass palpable. LEGS: No edema. No swelling. NERVOUS SYSTEM: Higher functions as mentioned earlier. Moves all 4 limbs. No focal motor or sensory deficit. LYMPHATICS: No lymph node palpable in neck, axillae or groin. SKIN: No ulcer, rash, bleeding. LABS: WBC 8.6, hemoglobin 12.8, platelets 141. PT is 18.8. INR is 2.1, APTT 32.2. Sodium 140, potassium 4. CO2 is 27. BUN is 24, creatinine 0.96. Glucose 117. Calcium is 9.6 and creatine kinase 49. Troponin 0.063, 0.053 and 0.044. Lipid panel is within normal limits. Chest x-ray noted. EKG reviewed. ASSESSMENT: 1. Shortness of breath for evaluation; possibly congestive heart failure, acute exacerbation, with acute on chronic diastolic dysfunction. 2. Rule out chronic obstructive pulmonary disease. 3. Troponin 0.053, indeterminate. 4. Anemia, chronic. 5. History of coronary artery disease. 6. History of cerebrovascular accident, transient ischemic attack. 7. History of hypertension. 8. Hyperlipidemia. 9. History of cardiomyopathy. 10.History of gout. 11.History of automated implantable cardioverter defibrillator. 12.Degenerative joint disease. 13.Coronary artery disease, stent. 14.History of anxiety. 15.Remote history of nicotine dependence. RECOMMENDATIONS AND DISCUSSION: In this 72-year-old gentleman who presented with multiple complex medical issues, we will monitor the patient closely, continue the current medications, continue with symptomatic treatment. We will initiate intravenous diuretics and also closely monitor with Cardiology. Also recommend a pulmonary consultation because of the presence of wheezing as well as the patient's history of smoking as well as exposure to farm environment. Resume the rest of medication. Monitor PT/INR closely. Repeat labs. Guarded prognosis because of multiple complex medical issues. The patient probably had CHF with elements of both systolic and diastolic elements. Guarded prognosis because of the multiple complex medical issues. Further recommendations to follow. A copy of this dictation is being forwarded to Dr. Clark, who is the primary physician. MMHERNESTO / MAGGIN: [id number] /
[2017-05-28] MEDS: LORazepam 0.5 MG TAB PO PRN (22:11)
[2017-05-28] MEDS: ZOLPIDEM 10 MG TAB PO SCH (22:11)
[2017-05-29 06:43] LABS: Basophils % (A) 0 %; Eosinophils % (A) 0 %; HCT 37.6 % (39.0-53.0); HGB 12.6 gm/dL (13.0-17.5); Lymphocytes # (A) 1.9 k/uL (1.0-4.8); Lymphocytes % (A) 14 %; MCH 32.4 pg (25.0-35.0); MCHC 33.6 g/dL (31.0-37.0); MCV 96.5 fL (80.0-100.0); Mean Platelet Volume 8.1; Monocytes # (A) 0.6 k/uL (0-1.0); Monocytes % (A) 4 %; Neutrophils # (A) 10.7 k/uL (1.3-7.7); Neutrophils % (A) 80 %; Platelet Count 155 k/uL (150-450); RDW 14.8 % (11.5-15.5); WBC 13.4 k/uL (3.8-10.6)
[2017-05-29 06:49] LABS: INR 2.1 (<1.2); Prothrombin Time 19.1 sec (9.0-12.0)
[2017-05-29] MEDS: CARVEDILOL 6.25 MG TAB PO SCH ×2 (06:53→19:42)
[2017-05-29 07:09] LABS: Calcium 9.4 mg/dL (8.4-10.2); Potassium 4.3 mmol/L (3.5-5.1)
[2017-05-29] MEDS: ALLOPURINOL 100 MG TAB PO SCH (08:27)
[2017-05-29] MEDS: CLOPIDOGREL 75 MG TAB PO SCH (08:27)
[2017-05-29] MEDS: ASPIRIN 81 MG PO SCH (08:27)
[2017-05-29] MEDS: FUROSEMIDE 10 MG/ML 4 ML VIAL IV SCH ×2 (08:27→15:58)
[2017-05-29] MEDS: ISOSORBIDE MONONITRATE ER 30 MG TAB.ER.24H PO SCH (08:28)
[2017-05-29] MEDS: LISINOPRIL 10 MG TAB PO SCH (08:30)
[2017-05-29] MEDS: B COMPLEX-VIT C-VIT E-ZINC 1 EACH TAB PO SCH (08:30)
[2017-05-29] MEDS: CHOLECALCIFEROL 1,000 UNIT TAB PO SCH (08:31)
[2017-05-29] MEDS: MULTIVITAMINS, THERA 1 EACH TAB PO SCH (08:31)
[2017-05-29] MEDS ORDERED: ISOSORBIDE MONONITRATE ER 30 MG TAB.ER.24H PO STA (10:03)
[2017-05-29] MEDS: cefTRIAXone IN SWFI 1,000 MG/10 ML SYRINGE IVP SCH (11:35)
[2017-05-29] MEDS: methylPREDNISolone SOD SUCCI 40 MG/ML 1 ML VIAL IV SCH ×3 (11:35→23:34)
[2017-05-29 12:04] LABS: Glucose,Whole Blood 94 mg/dL (75-99)
--- NOTE | 2017-05-29 12:31 | P.CNPUL ---
History of Present Illness Consult date: 05/29/17 Reason for consult: dyspnea, cough, asthma, COPD, pneumonia Chief complaint: Cough shortness of breath with exertional dyspnea 2-3 days History of present illness: This is a 72-year-old male with a history of heart disease with a pacemaker defibrillator implanted who presents with complaints of generally not feeling well for past 2 days with shortness of breath some sweats exertional dyspnea no chest pain he has had phlegm with some pale yellow color. No overt chest pain , a shunt states he did take some nitroglycerin last night it did help somewhat. Story of congestive heart failure but per his he does have a "weak heart". He also complains some dry mouth and tingling to his hands and arms bilaterally. He denies any other complaints no peripheral edema no other modifying factors. He is a former smoker who quit about 20 years ago but he smoked for many years before that. He denies any diagnosed history of COPD, patient has been eval by cardiovascular services on a echocardiogram performed earlier today reviewed, patient has a severely dilated LA, mild pulmonary hypertension noted, ejection fraction of 30-35% Patient noted to have audible wheezing as I walked into the room he is complaining of shortness of breath on minimal activity and exertion he does have cough which is predominantly dry nonproductive his labs and medications reviewed patient is not being started on IV steroids breathing treatments and antibiotics Review of Systems All systems: negative Past Medical History Past Medical History: Coronary Artery Disease (CAD), Heart Failure, CVA/TIA, Eye Disorder, Hyperlipidemia, Hypertension Additional Past Medical History / Comment(s): gout, cardomyopathy, previous charting listed mi 2016 pt unable to verify. arthrits rt index finger, cataracts , aaa, anxiety. Last Myocardial Infarction Date:: 2015 History of Any Multi-Drug Resistant Organisms: None Reported Past Surgical History: AICD, Back Surgery, Heart Catheterization With Stent, Pacemaker Additional Past Surgical History / Comment(s): stents x3, back fusion Past Anesthesia/Blood Transfusion Reactions: No Reported Reaction Date of Last Stent Placement:: 2015 Type of Cardiac Device: Permanent Pacemaker, AICD Device Placement Date:: 07-29-14 Smoking Status: Former smoker - Past Family History Father Family Medical History: CVA/TIA, Dementia Mother Family Medical History: CVA/TIA, Diabetes Mellitus, Skin Disorder Additional Family Medical History / Comment(s): skin CA Medications and Allergies Home Medications Medication Instructions Recorded Confirmed Type Allopurinol [Zyloprim] 100 mg PO DAILY 04/23/15 05/27/17 History Carvedilol [Coreg] 18.75 mg PO BID 04/23/15 05/27/17 History Warfarin [Coumadin] 2.5 mg PO SUMOTUWETHSA 07/04/15 05/27/17 History Zolpidem Tartrate [Ambien] 10 mg PO HS 07/04/15 05/27/17 History Multivitamins, Thera [Multivitamin 1 tab PO DAILY 12/17/15 05/27/17 History (formulary)] [place]-3 Fatty Acids/Fish Oil [Fish 1 cap PO DAILY 12/17/15 05/27/17 History Oil 1,000 mg Softgel] Cholecalciferol [Vitamin D3] 2,000 unit PO DAILY 12/22/15 05/27/17 History Vitamin B Complex 1 cap PO DAILY 12/22/15 05/27/17 History Aspirin 81 mg PO DAILY #30 chew 12/24/15 05/27/17 Rx Atorvastatin [Lipitor] 80 mg PO HS #30 tab 12/24/15 05/27/17 Rx Clopidogrel [Plavix] 75 mg PO DAILY #30 tab 12/24/15 05/27/17 Rx Lisinopril [Zestril] 10 mg PO DAILY #30 tab 12/24/15 05/27/17 Rx Nitroglycerin Sl Tabs [Nitrostat] 0.4 mg SUBLINGUAL Q5M PRN #25 tab 12/24/15 Rx Furosemide [Lasix] 20 mg PO DAILY@1430 09/23/16 05/27/17 History Furosemide [Lasix] 60 mg PO QAM 09/23/16 05/27/17 History LORazepam [Ativan] 0.5 mg PO DAILY 09/23/16 05/27/17 History Isosorbide Mononitrate ER [Imdur] 60 mg PO DAILY 05/27/17 05/27/17 History LORazepam [Ativan] 0.5 mg PO DAILY PRN 05/27/17 05/27/17 History Warfarin [Coumadin] 5 mg PO FR 05/27/17 05/27/17 History Allergies Allergy/AdvReac Type Severity Reaction Status Date / Time No Known Allergies Allergy Verified 05/27/17 14:28 Physical Exam Vitals: Vital Signs Temp Pulse Resp BP Pulse Ox 05/29/17 04:15 98.8 F 60 18 128/71 98 05/29/17 00:15 97.5 F L 56 L 17 128/63 96 05/28/17 19:50 97.2 F L 61 17 132/73 100 05/28/17 15:21 97.3 F L 60 16 142/83 98 Intake and Output 05/28/17 05/29/17 05/29/17 22:59 06:59 14:59 Intake Total 250 Output Total 400 800 400 Balance -400 -550 -400 Intake: IV 10 0.9 10 Oral 240 Output: Urine 400 800 400 Other: Voiding Method Toilet Toilet Weight 99.5 kg This is a well-developed well-nourished awake alert oriented times he has audibly wheezing while trying to talk. Limitations: no limitations General appearance: alert, in distress Head exam: Present: atraumatic, normocephalic, normal inspection Eye exam: Present: normal appearance, PERRL, EOMI. no evidence of scleral icterus, conjunctival injection, periorbital swelling ENT exam: Present: mucous membranes dry Neck exam: Present: normal inspection, full ROM. No evidence of tenderness, meningismus, lymphadenopathy Respiratory exam: Noted bilateral inspiratory and expiratory wheezes, decreased breath sounds. Lungs with mild respiratory distress, no evidence of rales, rhonchi, stridor Cardiovascular Exam: Present: regular rate, normal rhythm, normal heart sounds. No evidence of systolic murmur, diastolic murmur, rubs, gallop, clicks GI/Abdominal exam: Present: soft, normal bowel sounds. No evidence of distended , tenderness, guarding, rebound, rigid Extremities exam: Present: normal inspection, full ROM, normal capillary refill. No evidence of tenderness, pedal edema, joint swelling, calf tenderness Back exam: Present: normal inspection Neurological exam: Present: alert, oriented X3, CN II-XII intact Psychiatric exam: Present: normal affect, normal mood Skin exam: Present: warm, dry, intact, normal color. No rash Results - Laboratory Findings CBC and BMP: 05/29/17 05:47 05/29/17 05:47 PT/INR, D-dimer PT 19.1 sec (9.0-12.0) H 05/29/17 05:47 INR 2.1 (<1.2) H 05/29/17 05:47 Abnormal lab findings: Abnormal Labs 05/27/17 05/27/17 05/27/17 11:33 11:33 11:33 WBC RBC 3.98 L Hgb 12.8 L Hct 38.0 L Plt Count 141 L Neutrophils # PT INR APTT Carbon Dioxide BUN 24 H Glucose 117 H Total Creatine Kinase 49 L Troponin I 0.063 H* Total Protein 6.2 L 05/27/17 05/27/17 05/27/17 11:33 17:23 23:24 WBC RBC Hgb Hct Plt Count Neutrophils # PT 18.8 H INR 2.1 H APTT 32.8 H Carbon Dioxide BUN Glucose Total Creatine Kinase 48 L 39 L Troponin I 0.053 H* 0.044 H* Total Protein 05/29/17 05/29/17 05/29/17 05:47 05:47 05:47 WBC 13.4 H RBC 3.90 L Hgb 12.6 L Hct 37.6 L Plt Count Neutrophils # 10.7 H PT 19.1 H INR 2.1 H APTT Carbon Dioxide 32 H BUN 33 H Glucose 124 H Total Creatine Kinase Troponin I Total Protein - Diagnostic Findings Chest x-ray: report reviewed, image reviewed Assessment and Plan Assessment: Acute COPD exacerbation Tracheobronchitis Early Sirs-like process versus sepsis Acute asthma Chronic systolic heart failure baseline ejection fraction of 30% Baseline chronic persistent asthma and COPD Hypertension and hypertensive cardiovascular disease Dyslipidemia and chronic gout Plan: Gentle rehydration Broad-spectrum antibiotics with IV Rocephin Breathing treatment with nebulizers including DuoNeb and Pulmicort IV Solu-Medrol Continue current cardiac care along with anticoagulation Deep breathing sense incentive spirometry Further recommendations pending plan of care as per clinical response of the patient Time with Patient: Greater than 30
[2017-05-29] MEDS: INSULIN ASPART 100 UNIT/ML 1 ML 10 ML VIAL SQ SCH ×3 (12:33→21:17)
[2017-05-29] MEDS: IPRATROPIUM-ALBUTEROL 3 ML NEB INHALATION SCH ×3 (13:12→19:54)
[2017-05-29 13:54] VITALS: BMI 30.6
--- NOTE | 2017-05-29 14:34 | CDI ---
Last Revision, January 2017 Documentation Clarification Form Date: 05/29/2017 2:31:00 PM From: Olga ReichKhalilDANNIE, CCDS Admit Date: 05/27/2017 1:54:00 PM Patient Name: Juan Jackson Visit Number: [id number] Discharge Date: 05/30/2017 ATTENTION: The Clinical Documentation Specialists (CDI) and [facility] Coding Staff appreciate your assistance in clarifying documentation. Please respond to the clarification below the line at the bottom and electronically sign. The CDI & [facility] Coding staff will review the response and follow-up if needed. Please note: Queries are made part of the Legal Health Record. If you have any questions, please contact the author of this message via ITS. Dr. Flynn Cheung: Asthma is documented in the 05/29 pulmonary consult as Acute Asthma and also as Chronic Persistent Asthma. . Patient history/risk factors: COPD, CHF, Hypertension, Ischemic Cardiomyopathy & SSS with a pacemaker. Clinical Indicators: Presented with SOB w/exertion. Radiology: CXR: Chronic changes, possible COPD. Vital Signs: T 98.2, P 60-57*, R 20 (sob, labored), BP 154/79, PO 100 RA Treatment: Albuterol INH, IV Solumedrol, IV Lasix, IV Heparin, Nitro sl, IV Rocephin, O2 on standby In your professional opinion, can you please clarify the asthma diagnoses, if known? Acute Exacerbation Status asthmaticus Acute lower respiratory infection COPD (specify with or without exacerbation) Chronic obstructive bronchitis Other, please specify Unable to determine Severity: o Mild intermittent o Mild persistent o Moderate persistent o Severe persistent o Other, please specify o Unable to determine Form or Type: o Cough variant o Childhood o Exercise induced bronchospasm o Extrinsic allergic o Idiosyncratic o Intrinsic nonallergic o Late-onset o Mixed o Other, please specify o Unable to determine Please continue to document in your progress notes and discharge summary in order to capture severity of illness and risk of mortality. Include clinical findings that support your diagnosis. MTDD
--- NOTE | 2017-05-29 15:12 | P.PN ---
Subjective Progress Note Date: 05/29/17 This is a pleasant 72-year-old gentleman who follows with Dr. JOE Myers in the office. 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 He presented to the emergency department mostly with complaints of wheezing and hoarseness in his voice. About 2 days ago he was sitting in a chair and broke out in a cold sweat she had no complaints of chest discomfort, palpitations, dizziness or syncope at that time. He did take one sublingual nitro and felt that that improved his symptoms of sweating. After that he began developing wheezing as well as change in his voice without hoarseness and also some shortness of breath at rest and with exertion. He's been coughing up initially a dark colored sputum which lightens up and becomes a pale yellow throughout the day. Patient has been exposed to influenza approximately 3 weeks ago. However he denies any fever but has not been feeling well over the last week with a decrease in his appetite. He did notice some mild chest pressure yesterday that lasted only a brief time. His symptoms of wheezing and shortness of breath improved quite a bit with breathing treatments in the ER. Upon arrival to the emergency department EKG showed underlying atrial fibrillation with paced ventricular rhythm. Laboratory values showed a mild troponin leak of 0.063, 0.053 and 0.044. In reviewing previous troponin results it appears patient's troponins are chronically mildly elevated. NT proBNP came back at 1950. Chest x-ray showed no signs of failure. He has no edema and has not had any weight gain. He has no orthopnea or PND. 05/29/17 - patient was seen and examined today. He is feeling quite a bit better. He feels his wheezing and hoarseness has improved quite a bit. He has not been up ambulating much. Pulmonary was in to see the patient and started him on breathing treatments and Solu-Medrol. Vital signs are stable. Objective - Vital Signs Vital signs: Vital Signs Temp 97.1 F L 05/29/17 12:00 Pulse 62 05/29/17 13:26 Resp 16 05/29/17 12:00 BP 130/71 05/29/17 12:00 Pulse Ox 98 05/29/17 12:56 Intake & Output 05/28/17 05/29/17 05/29/17 18:59 06:59 18:59 Intake Total 250 520 Output Total 875 800 400 Balance -875 -550 120 Weight 99.5 kg 99.5 kg Intake: IV 10 0.9 10 Oral 240 520 Output: Urine 875 800 400 Other: Voiding Method Toilet Toilet - Exam PHYSICAL EXAMINATION: HEENT: Head is atraumatic, normocephalic. Pupils equal, round. Neck is supple. There is no elevated jugular venous pressure. HEART EXAMINATION: Heart sounds irregularly irregular, S1 and S2 normal. No murmur or gallop heard. CHEST EXAMINATION: Lungs are clear throughout. No chest wall tenderness is noted on palpation or with deep breathing. ABDOMEN: Soft, obese, nontender. Bowel sounds are heard. No organomegaly noted. EXTREMITIES: 2+ peripheral pulses with no evidence of peripheral edema and no calf tenderness noted. NEUROLOGIC patient is awake, alert and oriented x3. - Labs CBC & Chem 7: 05/29/17 05:47 05/29/17 05:47 Labs: Abnormal Lab Results - Last 24 Hours (Table) 05/29/17 05/29/17 05/29/17 Range/Units 05:47 05:47 05:47 WBC 13.4 H (3.8-10.6) k/uL RBC 3.90 L (4.30-5.90) m/uL Hgb 12.6 L (13.0-17.5) gm/dL Hct 37.6 L (39.0-53.0) % Neutrophils # 10.7 H (1.3-7.7) k/uL PT 19.1 H (9.0-12.0) sec INR 2.1 H (<1.2) Carbon Dioxide 32 H (22-30) mmol/L BUN 33 H (9-20) mg/dL Glucose 124 H (74-99) mg/dL Microbiology - Last 24 Hours (Table) 05/27/17 11:33 Blood Culture - Preliminary Blood No Growth after 48 hours Assessment and Plan Assessment: #1 symptoms of wheezing, cough and shortness of breath likely related to upper respiratory infection as well as acute COPD exacerbation #2 cardiomyopathy, combination of ischemic and nonischemic with last known ejection fraction of 20-25%, status post AICD #3 chronic atrial fibrillation #4 known CAD, status post multivessel PCI Plan: From cardiology perspective, medications were reviewed and we will continue the same. We will continue to follow the patient provide further recommendations accordingly. [employer] note has been reviewed, I agree with a documented findings and plan of care. Patient was seen and examined.
[2017-05-29 17:03] LABS: Glucose,Whole Blood 154 mg/dL (75-99)
--- NOTE | 2017-05-29 17:14 | PN ---
PROGRESS NOTE DATE OF SERVICE: 05/29/2017 I am covering for Dr. Clark. HISTORY OF PRESENT ILLNESS: This 72-year-old gentleman admitted with shortness of breath with possibly a combination of CHF acute exacerbation and COPD also. Dr. Cheung saw the patient from pulmonary point of view and recommended IV steroids and continue to monitoring also. No chest pain. No palpitations. No fever. EXAM: Alert and oriented x3. Pulse 60, blood pressure 130/75, respirations 16, temperature 97.1, pulse ox 98% on room air. HEENT: Conjunctivae normal. NECK: No jugular venous distention. CARDIOVASCULAR: S1, S2 muffled. RESPIRATORY: Breath sounds diminished in the bases. A few scattered rhonchi. No crackles. ABDOMEN: Soft, nontender. No mass palpable. LEGS: No edema. NERVOUS SYSTEM: No focal deficits. LAB STUDIES: WBC 13, hemoglobin 12.6. Troponins are noted. ASSESSMENT: 1. Shortness of breath, possibly multifactorial, possibly congestive heart failure acute exacerbation with acute on chronic diastolic dysfunction, as well as chronic obstructive pulmonary disease or bronchial asthma acute exacerbation. 2. Troponin 0.05 indeterminate. 3. Anemia, chronic. 4. History of coronary artery disease. 5. History of cerebrovascular accident, transient ischemic attack. 6. Hypertension. 7. Hyperlipidemia. 8. History of cardiomyopathy. 9. History of gout. RECOMMENDATIONS AND DISCUSSION: I recommend to continue current management and symptomatic treatment. Closely follow with Cardiology and pulmonology. Continue the steroids. Monitor blood sugars closely. Further recommendations to follow. MMODL / IJN: [id number] /
[2017-05-29 18:19] LABS: Hemoglobin A1C 6.9 % (4.0-6.0)
[2017-05-29] MEDS: BUDESONIDE 0.5 MG/2 ML NEBU INHALATION SCH (19:54)
[2017-05-29 21:10] LABS: Glucose,Whole Blood 228 mg/dL (75-99)
[2017-05-29] MEDS: ATORVASTATIN 80 MG TAB PO SCH (21:10)
[2017-05-29] MEDS: WARFARIN 2.5 MG TAB PO SCH (21:10)
[2017-05-29] MEDS: LORazepam 0.5 MG TAB PO PRN (21:10)
[2017-05-30 05:43] LABS: Glucose,Whole Blood 145 mg/dL (75-99)
[2017-05-30 06:35] LABS: Anion Gap 14 mmol/L; Blood Urea Nitrogen 39 mg/dL (9-20); Calcium 9.9 mg/dL (8.4-10.2); Carbon Dioxide 31 mmol/L (22-30); Chloride 97 mmol/L (98-107); Glucose 152 mg/dL (74-99); Potassium 4.4 mmol/L (3.5-5.1); Sodium 142 mmol/L (137-145)
[2017-05-30 06:37] LABS: INR 2.3 (<1.2); Prothrombin Time 20.4 sec (9.0-12.0)
[2017-05-30 06:40] LABS: Basophils % (A) 0 %; Eosinophils % (A) 0 %; HCT 42.6 % (39.0-53.0); HGB 13.8 gm/dL (13.0-17.5); Lymphocytes # (A) 0.9 k/uL (1.0-4.8); Lymphocytes % (A) 7 %; MCH 31.3 pg (25.0-35.0); MCHC 32.4 g/dL (31.0-37.0); MCV 96.7 fL (80.0-100.0); Mean Platelet Volume 8.9; Monocytes # (A) 0.3 k/uL (0-1.0); Monocytes % (A) 2 %; Neutrophils % (A) 91 %; Platelet Count 172 k/uL (150-450); RBC 4.41 m/uL (4.30-5.90); RDW 14.4 % (11.5-15.5); WBC 13.2 k/uL (3.8-10.6)
[2017-05-30] MEDS: INSULIN ASPART 100 UNIT/ML 1 ML 10 ML VIAL SQ SCH ×2 (07:00→12:19)
[2017-05-30] MEDS: BUDESONIDE 0.5 MG/2 ML NEBU INHALATION SCH (07:43)
[2017-05-30] MEDS: IPRATROPIUM-ALBUTEROL 3 ML NEB INHALATION SCH ×2 (07:43→12:37)
[2017-05-30] MEDS: ASPIRIN 81 MG PO SCH (08:47)
[2017-05-30] MEDS: LISINOPRIL 10 MG TAB PO SCH (08:47)
[2017-05-30] MEDS: CLOPIDOGREL 75 MG TAB PO SCH (08:47)
[2017-05-30] MEDS: ALLOPURINOL 100 MG TAB PO SCH (08:47)
[2017-05-30] MEDS: CARVEDILOL 6.25 MG TAB PO SCH (08:47)
[2017-05-30] MEDS: FUROSEMIDE 10 MG/ML 4 ML VIAL IV SCH (08:50)
[2017-05-30] MEDS: methylPREDNISolone SOD SUCCI 40 MG/ML 1 ML VIAL IV SCH (08:50)
--- NOTE | 2017-05-30 08:56 | P.PN ---
Subjective Progress Note Date: 05/30/17 Principal diagnosis: Acute COPD exacerbation, tracheobronchitis, severe degree of ischemic cardiomyopathy with chronic systolic heart failure, coronary artery disease 05/30/2017, patient seen eval reexamined during the rounds from [facility] standpoint doing much better wheezing is improved but still get mild degree or shortness of breath and finds wheezing on force expiration patient expresses that he wants to go home and finish his therapy does not want to stay in the hospital even though I recommended to stay on IV medicine with a high risk of readmission but he insisted, I've provided the scripts to him would recommend a follow-up in outpatient setting This is a 72-year-old male with a history of heart disease with a pacemaker defibrillator implanted who presents with complaints of generally not feeling well for past 2 days with shortness of breath some sweats exertional dyspnea no chest pain he has had phlegm with some pale yellow color. No overt chest pain , a shunt states he did take some nitroglycerin last night it did help somewhat. Story of congestive heart failure but per his he does have a "weak heart". He also complains some dry mouth and tingling to his hands and arms bilaterally. He denies any other complaints no peripheral edema no other modifying factors. He is a former smoker who quit about 20 years ago but he smoked for many years before that. He denies any diagnosed history of COPD, patient has been eval by cardiovascular services on a echocardiogram performed earlier today reviewed, patient has a severely dilated LA, mild pulmonary hypertension noted, ejection fraction of 30-35% Patient noted to have audible wheezing as I walked into the room he is complaining of shortness of breath on minimal activity and exertion he does have cough which is predominantly dry nonproductive his labs and medications reviewed patient is not being started on IV steroids breathing treatments and antibiotics Objective - Vital Signs Vital signs: Vital Signs Temp 97.1 F L 05/30/17 03:18 Pulse 61 05/30/17 03:23 Resp 17 05/30/17 03:23 BP 132/69 05/30/17 03:18 Pulse Ox 97 05/30/17 03:18 Intake & Output 05/29/17 05/30/17 05/30/17 18:59 06:59 18:59 Intake Total 520 500 Output Total 1650 Balance -1130 500 Weight 99.5 kg 98.8 kg Intake: Oral 520 500 Output: Urine 1650 Other: Voiding Method Toilet Toilet # Voids 5 1 - Exam This is a well-developed well-nourished awake alert oriented times he has audibly wheezing while trying to talk. Limitations: no limitations General appearance: alert, in distress Head exam: Present: atraumatic, normocephalic, normal inspection Eye exam: Present: normal appearance, PERRL, EOMI. no evidence of scleral icterus, conjunctival injection, periorbital swelling ENT exam: Present: mucous membranes dry Neck exam: Present: normal inspection, full ROM. No evidence of tenderness, meningismus, lymphadenopathy Respiratory exam: Noted significant improvement and wheezing very fine expiratory wheezes are present on forced expiration Cardiovascular Exam: Present: regular rate, normal rhythm, normal heart sounds. No evidence of systolic murmur, diastolic murmur, rubs, gallop, clicks GI/Abdominal exam: Present: soft, normal bowel sounds. No evidence of distended , tenderness, guarding, rebound, rigid Extremities exam: Present: normal inspection, full ROM, normal capillary refill. No evidence of tenderness, pedal edema, joint swelling, calf tenderness Back exam: Present: normal inspection Neurological exam: Present: alert, oriented X3, CN II-XII intact Psychiatric exam: Present: normal affect, normal mood Skin exam: Present: warm, dry, intact, normal color. No rash - Labs CBC & Chem 7: 05/30/17 05:44 05/30/17 05:44 Labs: Abnormal Lab Results - Last 24 Hours (Table) 05/29/17 05/29/17 05/30/17 Range/Units 17:01 21:09 05:41 WBC (3.8-10.6) k/uL Neutrophils # (1.3-7.7) k/uL Lymphocytes # (1.0-4.8) k/uL PT (9.0-12.0) sec INR (<1.2) Chloride (98-107) mmol/L Carbon Dioxide (22-30) mmol/L BUN (9-20) mg/dL Glucose (74-99) mg/dL POC Glucose (mg/dL) 154 H 228 H 145 H (75-99) mg/dL 04/21/18 04/21/18 04/21/18 Range/Units 05:44 05:44 05:44 WBC 13.2 H (3.8-10.6) k/uL Neutrophils # 12.0 H (1.3-7.7) k/uL Lymphocytes # 0.9 L (1.0-4.8) k/uL PT 20.4 H (9.0-12.0) sec INR 2.3 H (<1.2) Chloride 97 L (98-107) mmol/L Carbon Dioxide 31 H (22-30) mmol/L BUN 39 H (9-20) mg/dL Glucose 152 H (74-99) mg/dL POC Glucose (mg/dL) (75-99) mg/dL Microbiology - Last 24 Hours (Table) 05/27/17 11:33 Blood Culture - Preliminary Blood No Growth after 48 hours Assessment and Plan Assessment: Acute COPD exacerbation Tracheobronchitis Early Sirs-like process versus sepsis Acute asthma Chronic systolic heart failure baseline ejection fraction of 30% Baseline chronic persistent asthma and COPD Hypertension and hypertensive cardiovascular disease Dyslipidemia and chronic gout Plan: Gentle rehydration Broad-spectrum antibiotics with IV Rocephin however can finish up or antibiotics at home Breathing treatment with nebulizers including DuoNeb and Pulmicort, currently patient is not interested in more nebulizer therapy for now IV Solu-Medrol, as per patient request being switched to oral Continue current cardiac care along with anticoagulation Deep breathing sense incentive spirometry Further recommendations pending plan of care as per clinical response of the patient Time with Patient: Greater than 30
[2017-05-30 08:58] VITALS: BP 169/80; PULSE 60
[2017-05-30] MEDS ORDERED: ISOSORBIDE MONONITRATE ER 60 MG TAB.ER.24H PO SCH (09:00)
[2017-05-30] MEDS: cefTRIAXone IN SWFI 1,000 MG/10 ML SYRINGE IVP SCH (10:13)
[2017-05-30] MEDS ORDERED: CEFUROXIME 250 MG TAB PO SCH (11:00)
[2017-05-30 11:40] LABS: Glucose,Whole Blood 136 mg/dL (75-99)
--- NOTE | 2017-05-30 12:03 | PN ---
PROGRESS NOTE Mr. Jackson is a 72-year-old male with known history of coronary artery disease with history of ischemic and non-ischemic cardiomyopathy who presented with symptoms of progressive dyspnea, cough and upper respiratory infection. He is feeling much better today. He is ambulating without difficulty, denying any dizziness or palpitation. Denies any nausea. No cough or fever. He continues to be on: 1. Aspirin 81 mg daily. 2. Lipitor 80 mg daily. 3. Coreg 18.75 mg twice a day. 4. Plavix 75 mg daily. 5. Lasix 40 mg IV every 12 hours. 6. Isosorbide mononitrate 60 mg daily. 7. Lisinopril 10 mg daily. 8. Coumadin. PHYSICAL EXAMINATION: Blood pressure is running in the 130s over 60s with a heart rate in the 60s. LUNGS: No wheezes. Mild decrease in breath sounds. HEART: Regular rate and rhythm. S1, S2. No S3. No rub. ABDOMEN: Soft, nontender, obese. EXTREMITIES: No edema. LAB DATA: Lab data revealed BUN and creatinine of 39 and 0.9, potassium 4.4, INR of 2.3. Hemoglobin is 13.8. IMPRESSION: 1. Progressive dyspnea with upper respiratory infection, improved. 2. History of coronary artery disease with history of ischemic cardiomyopathy, stable. No clear evidence of active ischemic heart disease. 3. Status post ICD implant. 4. Chronic persistent atrial fibrillation. RECOMMENDATION: From the cardiac standpoint, I will switch him to oral diuretic, increase his level of activity. He should be able to be discharged home today and follow up on a regular basis with Dr. Russel Myers. MMARSALANL / IJN: [id number] /
[2017-05-30] MEDS: B COMPLEX-VIT C-VIT E-ZINC 1 EACH TAB PO SCH (12:24)
[2017-05-30] MEDS: CHOLECALCIFEROL 1,000 UNIT TAB PO SCH (12:24)
[2017-05-30] MEDS: MULTIVITAMINS, THERA 1 EACH TAB PO SCH (12:24)
[2017-05-30 14:04] VITALS: RESP 18; TEMP 97.4
[2017-05-30] MEDS ORDERED: FUROSEMIDE 40 MG TAB PO SCH (16:00)
--- NOTE | 2017-05-30 19:24 | DS ---
DISCHARGE SUMMARY I am covering for Dr. Clark. FINAL DIAGNOSES: 1. Shortness of breath, possibly multifactorial, with congestive heart failure acute exacerbation, acute on chronic diastolic dysfunction, as well as possibly chronic obstructive pulmonary disease or bronchial asthma acute exacerbation with tracheobronchitis. 2. Troponin 0.05, indeterminate. 3. Anemia, chronic. 4. History of coronary artery disease. 5. Cerebrovascular accident and transient ischemic attack. 6. Hypertension. 7. Hyperlipidemia. 8. History of cardiomyopathy. 9. History of gout. HISTORY OF PRESENT ILLNESS: This 72-year-old gentleman with a past medical history of multiple medical problems including shortness of breath which is probably multifactorial, treated symptomatically. Cardiology and Pulmonology saw the patient, recommended outpatient followup. On exam, vitals are stable. Cardiovascular, S1 and S2. Respiratory, no rhonchi, no crackles. Abdomen is soft. Nervous system, no deficits. Cardiology and Pulmonology cleared the patient for discharge. DIET: Cardiac. ACTIVITIES: Limited. FOLLOWUP: 1. Follow up with Cardiology, Dr. Russel Myers, in one week. 2. Follow up with Dr. Clark as advised. 3. Follow up with Dr. Cheung in one week. MEDICATIONS: 1. Ventolin 1 to 2 puffs t.i.d. and p.r.n. 2. Zyloprim 100 mg p.o. daily. 3. Aspirin 81 mg daily. 4. Lipitor 80 mg at bedtime. 5. Pulmicort 0.5 b.i.d. 6. Coreg 18.75 mg p.o. b.i.d. 7. Ceftin 250 mg p.o. b.i.d. for 3 days. 8. Vitamin D3, 2000 daily. 9. Plavix 75 mg p.o. daily. 10.Lasix 20 mg p.o. daily and 60 mg a.m. 11.Imdur 60 mg p.o. daily. 12.Zestril 10 mg. 13.Ativan 0.5 daily. 14.Multivitamins 1 p.o. daily. 15.Nitrostat 0.4 mg p.r.n. 16.[place]-3 fatty acids. 17.Vitamin B complex. 18.Coumadin 2.5 mg and 5 mg as before. 19.Ambien 10 mg at bedtime. 20.Steroid dose pack. 21.Prednisone taper 30 for 2 days, 20 for 2 days, 10 for 2 days. MMODL / IJN: [id number] /
--- NOTE | 2017-06-01 09:30 | CDI ---
Last Revision, January 2017 Documentation Clarification Form Date: 06/01/2017 9:53:00 AM From: Olga ReichKhalilDANNIE thomas, CCDS Admit Date: 05/27/2017 1:54:00 PM Patient Name: Juan Jackson Visit Number: [id number] Discharge Date: 05/30/2017 ATTENTION: The Clinical Documentation Specialists (CDI) and [facility] Coding Staff appreciate your assistance in clarifying documentation. Please respond to the clarification below the line at the bottom and electronically sign. The CDI & [facility] Coding staff will review the response and follow-up if needed. Please note: Queries are made part of the Legal Health Record. If you have any questions, please contact the author of this message via ITS. Dr. Ariel Worley: There is conflicting documentation in the record: Per the attending notes: Acute Exacerbation of Diastolic CHF. Per the cardiology notes: Chronic Systolic CHF History/Risk Factors: COPD, CHF, CAD, CVA or TIA. Previous LHC w/stent & Pacemaker. Clinical Indicators: Presented with sob & wheezing VS: P 60 - 57*, R 20 (sob, labored), BP 154/79, PO 100 RA BNP: 1950 Echocardiogram Results: Systolic function moderately-severely impaired EF 30-35% . Chest X Ray: Borderline heart size, Chronic changes, possible underlying COPD. Treatment: Albuterol INH, IV Solumedrol, IV Lasix, IV Heparin In your professional opinion, can you please clarify the acuity and type of CHF if known? Systolic Heart Failure: o Acute o Chronic o Acute on Chronic Diastolic Heart Failure: o Acute o Chronic o Acute on Chronic Systolic & Diastolic Heart Failure: o Acute o Chronic o Acute on Chronic Heart Failure Unable to Determine Other, please specify Please continue to document in your progress notes and discharge summary in order to capture severity of illness and risk of mortality. Include clinical findings that support your diagnosis. Acute on Chronic systolic Heart Failure MTDD
--- NOTE | 2017-06-01 12:06 | CDI ---
Last Revision, January 2017 Documentation Clarification Form Date: 06/01/2017 12:03:00 PM From: Olga Khalil, DANNIE, CCDS Admit Date: 05/29/2017 10:44:00 PM Patient Name: José Manuel Gonzalez Visit Number: [id number] Discharge Date: ATTENTION: The Clinical Documentation Specialists (CDI) and [facility] Coding Staff appreciate your assistance in clarifying documentation. Please respond to the clarification below the line at the bottom and electronically sign. The CDI & [facility] Coding staff will review the response and follow-up if needed. Please note: Queries are made part of the Legal Health Record. If you have any questions, please contact the author of this message via ITS. Dr. Trace Howard: Per your documentation in the History & Physical and the 05/31 progress note: "Acute delirium from sepsis." History/Risk factors: Osteomyelitis, MRSA, DM II, Hypertension. Clinical Indicators: Presented with pain, redness & swelling to left ankle. Became progressively more septic, transferred to ICU, underwent emergent I&D of left ankle. Diagnosed with septic shock, lethargic. VS: T 98.0 - 101.5; P 107, R 19-22; BP 125/75, 112/59; PO 94 RA - 84 RA Labs: WBC 20.3-23.0, Neut 18.9 Treatment: IV antibiotics, Insulin sl scale, IV toradol, IV Ms, IV fl boluses, IV fluids. Consults: ID, Pulmonary/Critical Care, Orthopedic In your professional opinion, can you please clarify the specific type of encephalopathy, if known? Anoxic Encephalopathy Metabolic Encephalopathy Septic Encephalopathy Toxic Encephalopathy Traumatic Encephalopathy Other, please specify Unable to determine Please continue to document in your progress notes and discharge summary in order to capture severity of illness and risk of mortality. Include clinical findings that support your diagnosis. MTDD
== END 2017-05-30 14:53 | disposition home or self-care (01) | DRG 190 ==
LOC: EC 10:50 → 6SEL 13:54
PROVIDERS: ADMIT Family Medicine; ATTEND Family Medicine
DX: J44.1 Chronic obstructive pulmonary disease with (acute) exacerbation (principal); I50.23 Acute on chronic systolic (congestive) heart failure; I48.1 Persistent atrial fibrillation; J45.31 Mild persistent asthma with (acute) exacerbation; I11.0 Hypertensive heart disease with heart failure; I25.10 Atherosclerotic heart disease of native coronary artery without angina pectoris; R77.8 Other specified abnormalities of plasma proteins; I25.5 Ischemic cardiomyopathy; J44.0 Chronic obstructive pulmonary disease with (acute) lower respiratory infection; M1A.9XX0 Chronic gout, unspecified, without tophus (tophi); E78.5 Hyperlipidemia, unspecified; D64.9 Anemia, unspecified; I27.20 Pulmonary hypertension, unspecified; J40 Bronchitis, not specified as acute or chronic; M19.90 Unspecified osteoarthritis, unspecified site; Z86.73 Personal history of transient ischemic attack (TIA), and cerebral infarction without residual deficits; Z95.5 Presence of coronary angioplasty implant and graft; Z95.810 Presence of automatic (implantable) cardiac defibrillator; Z79.01 Long term (current) use of anticoagulants; Z79.02 Long term (current) use of antithrombotics/antiplatelets; Z79.82 Long term (current) use of aspirin; Z79.899 Other long term (current) drug therapy; Z87.891 Personal history of nicotine dependence; I25.2 Old myocardial infarction; Z80.8 Family history of malignant neoplasm of other organs or systems; Z83.3 Family history of diabetes mellitus
CPT/HCPCS: 36415; 71046; 80048; 80053; 80061; 82550; 82553; 83036; 83735; 83880; 84484; 85025; 85610; 85730; 87040; 93005; 93306; 94640; 96374; 96375; 99291

== ENCOUNTER → 2017-07-14 | Outpatient (CLI) | payer MEDICARE, BC ==
--- NOTE | 2017-07-15 07:12 | US ---
EXAMINATION TYPE: US kidneys/renal and bladder DATE OF EXAM: 07/14/2017 COMPARISON: CLINICAL HISTORY: R79.89 ELEV BUN AND CREAT LEVEL. HX of bilateral renal cysts. No pain. Abnormal lab s. EXAM MEASUREMENTS: Right Kidney: 10.8 x 5.1 x 4.7 cm Left Kidney: 10.8 x 5.4 x 5.5 cm Right Kidney: Cortical thinning. Upper pole exophytic cystic appearing lesion = 1.9 x 1.5 x 1.9 cm Left Kidney: Multiple lower pole cystic appearing lesions seen. Mid cystic appearing lesion = 1.9 x 1.6 x 1.7 cm Bladder: wnl Bilateral Jets not seen There is no evidence for hydronephrosis at this point in time. No nephrolithiasis is seen. No solid masses are identified. The urinary bladder is anechoic. Bilateral ureteral jets are seen. IMPRESSION: 1. Renal atrophic change. 2. Renal cortical cysts.
== END | disposition home or self-care (01) ==
LOC: RADUSWWP 15:34
PROVIDERS: ATTEND Family Medicine
DX: N28.1 Cyst of kidney, acquired (principal); N26.1 Atrophy of kidney (terminal)
CPT/HCPCS: 76770

== ENCOUNTER 2017-08-07 11:19 | Emergency (ER) | payer MEDICARE, BC ==
[2017-08-07 11:32] VITALS: PULSE 60; TEMP 98.5
--- NOTE | 2017-08-07 11:59 | ED ---
General Adult HPI - General Chief complaint: Shortness of Breath Stated complaint: Difficulty Breathing Time Seen by Provider: 08/07/17 11:20 Source: patient, RN notes reviewed Mode of arrival: ambulatory Limitations: no limitations - History of Present Illness Initial comments: This is a 72-year-old male with a past medical history significant for congestive heart failure. Patient comes in today stating that over the last 3- 4 days been more short of breath. Patient states anytime he exerts himself he is becoming more short of breath. Patient states his pain is worse outside but he is also short of breath even getting out of his chair going to the bathroom inside. Patient denies any chest pain or palpitations. Patient denies any abdominal pain patient denies any headache patient denies numbness weakness. Patient denies being lightheaded or dizzy. Patient denies any increase in cough. Patient denies any recent fever chills. Patient denies any recent injury or trauma. Patient denies any recent trips or travel. - Related Data Home Medications Medication Instructions Recorded Confirmed Allopurinol [Zyloprim] 100 mg PO DAILY 04/23/15 08/07/17 Carvedilol [Coreg] 18.75 mg PO BID 04/23/15 08/07/17 Warfarin [Coumadin] 2.5 mg PO [place]ETHSA 07/04/15 08/07/17 Zolpidem Tartrate [Ambien] 10 mg PO HS PRN 07/04/15 08/07/17 Multivitamins, Thera [Multivitamin 1 tab PO DAILY 12/17/15 08/07/17 (formulary)] [place]-3 Fatty Acids/Fish Oil [Fish 1 cap PO DAILY 12/17/15 08/07/17 Oil 1,000 mg Softgel] Cholecalciferol [Vitamin D3] 1,000 unit PO DAILY 12/22/15 08/07/17 Vitamin B Complex 1 cap PO DAILY 12/22/15 08/07/17 Isosorbide Mononitrate ER [Imdur] 60 mg PO DAILY 05/27/17 08/07/17 LORazepam [Ativan] 0.5 mg PO BID 05/27/17 08/07/17 Albuterol Inhaler [Ventolin Hfa 1 - 2 puff INHALATION Q8HR PRN 08/07/17 08/07/17 Inhaler] Furosemide [Lasix] 40 mg PO BID 08/07/17 08/07/17 Isosorbide Mononitrate ER [Imdur] 30 mg PO DAILY 08/07/17 08/07/17 Warfarin [Coumadin] 3.75 mg PO TUFR 08/07/17 08/07/17 Previous Rx's Medication Instructions Recorded Aspirin 81 mg PO DAILY #30 chew 12/24/15 Atorvastatin [Lipitor] 80 mg PO HS #30 tab 12/24/15 Clopidogrel [Plavix] 75 mg PO DAILY #30 tab 12/24/15 Lisinopril [Zestril] 10 mg PO DAILY #30 tab 12/24/15 Nitroglycerin Sl Tabs [Nitrostat] 0.4 mg SUBLINGUAL Q5M PRN #25 tab 12/24/15 Allergies Allergy/AdvReac Type Severity Reaction Status Date / Time No Known Allergies Allergy Verified 08/07/17 11:58 Review of Systems ROS Statement: Those systems with pertinent positive or pertinent negative responses have been documented in the HPI. ROS Other: All systems not noted in ROS Statement are negative. Past Medical History Past Medical History: Coronary Artery Disease (CAD), Heart Failure, CVA/TIA, Eye Disorder, Hyperlipidemia, Hypertension Additional Past Medical History / Comment(s): gout, cardomyopathy, previous charting listed mi 2016 pt unable to verify. arthrits rt index finger, cataracts , aaa, anxiety. Last Myocardial Infarction Date:: 2015 History of Any Multi-Drug Resistant Organisms: None Reported Past Surgical History: AICD, Back Surgery, Heart Catheterization With Stent, Pacemaker Additional Past Surgical History / Comment(s): stents x3, back fusion Past Anesthesia/Blood Transfusion Reactions: No Reported Reaction Date of Last Stent Placement:: 2015 Type of Cardiac Device: Permanent Pacemaker, AICD Device Placement Date:: 07-29-14 Past Psychological History: Anxiety Smoking Status: Former smoker Past Alcohol Use History: Daily Past Drug Use History: None Reported - Past Family History Father Family Medical History: CVA/TIA, Dementia Mother Family Medical History: CVA/TIA, Diabetes Mellitus, Skin Disorder Additional Family Medical History / Comment(s): skin CA General Exam - General Exam Comments Initial Comments: GENERAL: Patient is well-developed and well-nourished. Patient is nontoxic and well- hydrated and is in mild distress. ENT: Neck is soft and supple. No significant lymphadenopathy is noted. Oropharynx is clear. Moist mucous membranes. Neck has full range of motion without eliciting any pain. EYES: The sclera were anicteric and conjunctiva were pink and moist. Extraocular movements were intact and pupils were equal round and reactive to light. Eyelids were unremarkable. PULMONARY: Unlabored respirations. Good breath sounds bilaterally. No audible rales rhonchi or wheezing was noted. CARDIOVASCULAR: There is a regular rate and rhythm without any murmurs gallops or rubs. ABDOMEN: Soft and nontender with normal bowel sounds. No palpable organomegaly was noted. There is no palpable pulsatile mass. SKIN: Skin is clear with no lesions or rashes and otherwise unremarkable. NEUROLOGIC: Patient is alert and oriented x3. Cranial nerves II through XII are grossly intact. Motor and sensory are also intact. Normal speech, volume and content. Symmetrical smile. MUSCULOSKELETAL: Normal extremities with adequate strength and full range of motion. No lower extremity swelling or edema. No calf tenderness. LYMPHATICS: No significant lymphadenopathy is noted PSYCHIATRIC: Normal psychiatric evaluation. Normal interpersonal interactions appears functionally intact in deals appropriately with others. No signs of depression. No signs of anxiety. Limitations: no limitations Course Vital Signs 08/07/17 08/07/17 08/07/17 11:29 12:29 12:59 Temperature 98.5 F Pulse Rate 60 60 Respiratory 18 20 18 Rate Blood Pressure 129/79 132/74 O2 Sat by Pulse 98 100 Oximetry 08/07/17 08/07/17 14:11 15:29 Temperature Pulse Rate 60 60 Respiratory 18 18 Rate Blood Pressure 136/80 128/60 O2 Sat by Pulse 100 98 Oximetry Medical Decision Making - Medical Decision Making EKG shows a ventricular paced rhythm at 60 bpm QRS is 210 QT interval is 540 QTC is 548. Patient's EKG shows no acute changes. Chest x-ray shows no acute abnormality Patient was feeling considerably better and did not want to be admitted stated he would follow-up with Dr. Clark tomorrow if the office is open and if she get any worse he stated he would come back to the emergency department. Patient states he thinks he was short of breath because he's been too much time outside working in the hot weather gets him. Patient is in no distress lungs are clear at this point - Lab Data Result diagrams: 08/07/17 12:23 08/07/17 12:23 Lab Results 08/07/17 08/07/17 08/07/17 Range/Units 12:23 12:23 12:23 WBC 7.8 (3.8-10.6) k/uL RBC 3.67 L (4.30-5.90) m/uL Hgb 12.4 L (13.0-17.5) gm/dL Hct 36.7 L (39.0-53.0) % MCV 100.0 (80.0-100.0) fL MCH 33.8 (25.0-35.0) pg MCHC 33.8 (31.0-37.0) g/dL RDW 14.5 (11.5-15.5) % Plt Count 155 (150-450) k/uL Neutrophils % 72 % Lymphocytes % 17 % Monocytes % 8 % Eosinophils % 2 % Basophils % 0 % Neutrophils # 5.5 (1.3-7.7) k/uL Lymphocytes # 1.3 (1.0-4.8) k/uL Monocytes # 0.6 (0-1.0) k/uL Eosinophils # 0.1 (0-0.7) k/uL Basophils # 0.0 (0-0.2) k/uL Macrocytosis Slight PT (9.0-12.0) sec INR (<1.2) APTT (22.0-30.0) sec D-Dimer (<0.60) mg/L FEU Sodium 142 (137-145) mmol/L Potassium 4.0 (3.5-5.1) mmol/L Chloride 103 (98-107) mmol/L Carbon Dioxide 28 (22-30) mmol/L Anion Gap 11 mmol/L BUN 24 H (9-20) mg/dL Creatinine 0.90 (0.66-1.25) mg/dL Est GFR (CKD-EPI)AfAm >90 (>60 ml/min/1.73 sqM) Est GFR (CKD-EPI)NonAf 85 (>60 ml/min/1.73 sqM) Glucose 178 H (74-99) mg/dL Calcium 9.7 (8.4-10.2) mg/dL Magnesium 1.7 (1.6-2.3) mg/dL Total Bilirubin 0.7 (0.2-1.3) mg/dL AST 34 (17-59) U/L ALT 36 (21-72) U/L Alkaline Phosphatase 60 (38-126) U/L Total Creatine Kinase 44 L (55-170) U/L CK-MB (CK-2) 1.0 (0.0-2.4) ng/mL CK-MB (CK-2) Rel Index 2.3 Troponin I 0.034 (0.000-0.034) ng/mL NT-Pro-B Natriuret Pep pg/mL Total Protein 6.4 (6.3-8.2) g/dL Albumin 4.1 (3.5-5.0) g/dL 08/07/17 08/07/17 Range/Units 12:23 12:23 WBC (3.8-10.6) k/uL RBC (4.30-5.90) m/uL Hgb (13.0-17.5) gm/dL Hct (39.0-53.0) % MCV (80.0-100.0) fL MCH (25.0-35.0) pg MCHC (31.0-37.0) g/dL RDW (11.5-15.5) % Plt Count (150-450) k/uL Neutrophils % % Lymphocytes % % Monocytes % % Eosinophils % % Basophils % % Neutrophils # (1.3-7.7) k/uL Lymphocytes # (1.0-4.8) k/uL Monocytes # (0-1.0) k/uL Eosinophils # (0-0.7) k/uL Basophils # (0-0.2) k/uL Macrocytosis PT 14.6 H (9.0-12.0) sec INR 1.6 H (<1.2) APTT 28.5 (22.0-30.0) sec D-Dimer 0.42 (<0.60) mg/L FEU Sodium (137-145) mmol/L Potassium (3.5-5.1) mmol/L Chloride (98-107) mmol/L Carbon Dioxide (22-30) mmol/L Anion Gap mmol/L BUN (9-20) mg/dL Creatinine (0.66-1.25) mg/dL Est GFR (CKD-EPI)AfAm (>60 ml/min/1.73 sqM) Est GFR (CKD-EPI)NonAf (>60 ml/min/1.73 sqM) Glucose (74-99) mg/dL Calcium (8.4-10.2) mg/dL Magnesium (1.6-2.3) mg/dL Total Bilirubin (0.2-1.3) mg/dL AST (17-59) U/L ALT (21-72) U/L Alkaline Phosphatase (38-126) U/L Total Creatine Kinase (55-170) U/L CK-MB (CK-2) (0.0-2.4) ng/mL CK-MB (CK-2) Rel Index Troponin I (0.000-0.034) ng/mL NT-Pro-B Natriuret Pep 1200 pg/mL Total Protein (6.3-8.2) g/dL Albumin (3.5-5.0) g/dL Disposition Clinical Impression: Dyspnea Disposition: HOME SELF-CARE Instructions: COPD (Chronic Obstructive Pulmonary Disease) (ED) Is patient prescribed a controlled substance at d/c from ED?: No Referrals: Giovanni Clark MD [Primary Care Provider] - 1-2 days Time of Disposition: 15:34
[2017-08-07 12:39] LABS: Basophils % (A) 0 %; Eosinophils # (A) 0.1 k/uL (0-0.7); Eosinophils % (A) 2 %; HCT 36.7 % (39.0-53.0); HGB 12.4 gm/dL (13.0-17.5); Lymphocytes # (A) 1.3 k/uL (1.0-4.8); Lymphocytes % (A) 17 %; MCH 33.8 pg (25.0-35.0); MCHC 33.8 g/dL (31.0-37.0); Macrocytosis Slight; Mean Platelet Volume 8.8; Monocytes # (A) 0.6 k/uL (0-1.0); Monocytes % (A) 8 %; Neutrophils # (A) 5.5 k/uL (1.3-7.7); Neutrophils % (A) 72 %; Platelet Count 155 k/uL (150-450); RBC 3.67 m/uL (4.30-5.90); RDW 14.5 % (11.5-15.5); WBC 7.8 k/uL (3.8-10.6)
[2017-08-07 12:51] LABS: ALT 36 U/L (21-72); AST 34 U/L (17-59); Albumin 4.1 g/dL (3.5-5.0); Alkaline Phosphatase 60 U/L (38-126); Anion Gap 11 mmol/L; Blood Urea Nitrogen 24 mg/dL (9-20); Calcium 9.7 mg/dL (8.4-10.2); Carbon Dioxide 28 mmol/L (22-30); Chloride 103 mmol/L (98-107); Glucose 178 mg/dL (74-99); Magnesium 1.7 mg/dL (1.6-2.3); Sodium 142 mmol/L (137-145); Total Bilirubin 0.7 mg/dL (0.2-1.3); Total Protein 6.4 g/dL (6.3-8.2)
[2017-08-07 12:55] LABS: D-Dimer 0.42 mg/L FEU (<0.60); INR 1.6 (<1.2); Partial Thromboplastin Time 28.5 sec (22.0-30.0); Prothrombin Time 14.6 sec (9.0-12.0)
[2017-08-07 13:00] VITALS: RESP 18
--- NOTE | 2017-08-07 13:03 | XR ---
EXAMINATION TYPE: XR chest 2V DATE OF EXAM: 08/07/2017 COMPARISON: 05/27/2017 HISTORY: 72 year-old male shortness of breath, difficulty breathing TECHNIQUE: Frontal and lateral views FINDINGS: Heart mildly enlarged. Stable from prior. Left anterior chest wall ICD generator with 2 right ventric ular leads. Atherosclerotic arch calcification. Coronary vasculature within normal limits. [place] at electasis right midlung. There is some patchy posterior basilar opacity on the lateral view. Mild hyp erinflation. IMPRESSION: 1. Mild cardiomegaly. 2. Mild hyperinflation, possible underlying COPD. 3. Patchy posterior basilar opacity on the lateral view could represent atelectasis or developing pne umonia.
[2017-08-07 13:11] LABS: Troponin I 0.034 ng/mL (0.000-0.034)
[2017-08-07 16:17] VITALS: BP 129/66
== END 2017-08-07 16:15 | disposition home or self-care (01) ==
LOC: EC 11:19
DX: R06.00 Dyspnea, unspecified (principal); I25.10 Atherosclerotic heart disease of native coronary artery without angina pectoris; I11.0 Hypertensive heart disease with heart failure; I50.9 Heart failure, unspecified; M10.9 Gout, unspecified; F41.9 Anxiety disorder, unspecified; Z86.73 Personal history of transient ischemic attack (TIA), and cerebral infarction without residual deficits; Z95.810 Presence of automatic (implantable) cardiac defibrillator; Z95.5 Presence of coronary angioplasty implant and graft; Z87.891 Personal history of nicotine dependence; Z79.01 Long term (current) use of anticoagulants; Z79.899 Other long term (current) drug therapy
CPT/HCPCS: 36415; 71046; 80053; 82550; 82553; 83735; 83880; 84484; 85025; 85379; 85610; 85730; 87040; 93005; 99285

== ENCOUNTER 2018-01-30 11:48 | Observation (INO) | payer MEDICARE, BC ==
[2018-01-30] MEDS ORDERED: ALBUTEROL NEBULIZED 2.5 MG/3 ML INHALATION STA (12:16)
[2018-01-30] MEDS ORDERED: IPRATROPIUM 0.5 MG/2.5 ML NEBU INHALATION STA (12:16)
[2018-01-30] MEDS ORDERED: DEXAMETHASONE SOD PHOSPHATE 10 MG/ML 1 ML VIAL IV STA (12:17)
--- NOTE | 2018-01-30 12:19 | ED ---
General Adult HPI - General Chief complaint: Shortness of Breath Stated complaint: SOB Time Seen by Provider: 01/30/18 12:10 Source: patient, RN notes reviewed, old records reviewed Mode of arrival: ambulatory Limitations: no limitations - History of Present Illness Initial comments: 72-year-old male presents for evaluation of cough and dyspnea. Patient was seen by his primary care physician 2 weeks ago, diagnosed with pneumonia, started on antibiotic. Patient will complete his antibiotic course today states he is not feeling better. Denies fever or chills. He does report rhinorrhea and mild sore throat. Patient denies chest pain but has had some epigastric abdominal pain over the past 24 hours. Patient denies radiating chest pain. He does have history of CAD and congestive heart failure. He is on Coumadin, Plavix, and diuretics. No lower extremity edema. Cough productive of white sputum. - Related Data Home Medications Medication Instructions Recorded Confirmed Allopurinol [Zyloprim] 100 mg PO DAILY 04/23/15 01/30/18 Carvedilol [Coreg] 12.5 mg PO BID 04/23/15 01/30/18 Warfarin [Coumadin] 2.5 mg PO SUTUWETHFRSA 07/04/15 01/30/18 Zolpidem Tartrate [Ambien] 10 mg PO HS PRN 07/04/15 01/30/18 Multivitamins, Thera [Multivitamin 1 tab PO DAILY 12/17/15 01/30/18 (formulary)] [place]-3 Fatty Acids/Fish Oil [Fish 1 cap PO DAILY 12/17/15 01/30/18 Oil 1,000 mg Softgel] Cholecalciferol [Vitamin D3] 1,000 unit PO DAILY 12/22/15 01/30/18 Vitamin B Complex 1 cap PO DAILY 12/22/15 01/30/18 Isosorbide Mononitrate ER [Imdur] 30 mg PO DAILY 05/27/17 01/30/18 LORazepam [Ativan] 0.5 mg PO BID PRN 05/27/17 01/30/18 Furosemide [Lasix] 40 mg PO BID 11/10/17 01/30/18 Warfarin [Coumadin] 3.75 mg PO MO 01/30/18 01/30/18 Previous Rx's Medication Instructions Recorded Aspirin 81 mg PO DAILY #30 chew 12/24/15 Atorvastatin [Lipitor] 80 mg PO HS #30 tab 12/24/15 Clopidogrel [Plavix] 75 mg PO DAILY #30 tab 12/24/15 Lisinopril [Zestril] 10 mg PO DAILY #30 tab 12/24/15 Nitroglycerin Sl Tabs [Nitrostat] 0.4 mg SUBLINGUAL Q5M PRN #25 tab 12/24/15 Allergies Allergy/AdvReac Type Severity Reaction Status Date / Time No Known Allergies Allergy Verified 01/30/18 13:31 Review of Systems ROS Statement: Those systems with pertinent positive or pertinent negative responses have been documented in the HPI. ROS Other: All systems not noted in ROS Statement are negative. Past Medical History Past Medical History: Coronary Artery Disease (CAD), Heart Failure, CVA/TIA, Eye Disorder, Hyperlipidemia, Hypertension Additional Past Medical History / Comment(s): gout, cardomyopathy, previous charting listed mi 2016 pt unable to verify. arthrits rt index finger, cataracts , aaa, anxiety. Last Myocardial Infarction Date:: 2015 History of Any Multi-Drug Resistant Organisms: None Reported Past Surgical History: AICD, Back Surgery, Heart Catheterization With Stent, Pacemaker Additional Past Surgical History / Comment(s): stents x3, back fusion Past Anesthesia/Blood Transfusion Reactions: No Reported Reaction Date of Last Stent Placement:: 2015 Type of Cardiac Device: Permanent Pacemaker, AICD Device Placement Date:: 07-29-14 Past Psychological History: Anxiety Smoking Status: Former smoker Past Alcohol Use History: Daily Past Drug Use History: None Reported - Past Family History Father Family Medical History: CVA/TIA, Dementia Mother Family Medical History: CVA/TIA, Diabetes Mellitus, Skin Disorder Additional Family Medical History / Comment(s): skin CA General Exam Limitations: no limitations General appearance: alert, in no apparent distress Head exam: Present: atraumatic, normocephalic Eye exam: Present: normal appearance, PERRL ENT exam: Present: normal exam Neck exam: Present: normal inspection. Absent: tenderness, meningismus Respiratory exam: Present: wheezes, stridor, decreased breath sounds Cardiovascular Exam: Present: regular rate, normal rhythm GI/Abdominal exam: Present: soft. Absent: distended, tenderness Extremities exam: Present: normal inspection, normal capillary refill. Absent: pedal edema Neurological exam: Present: alert, oriented X3, CN II-XII intact. Absent: motor sensory deficit Psychiatric exam: Present: normal affect, normal mood Skin exam: Present: warm, dry, intact. Absent: cyanosis, diaphoretic Course Vital Signs 01/30/18 01/30/18 01/30/18 11:52 12:37 13:01 Temperature 97.9 F Pulse Rate 89 60 75 Respiratory 26 H 22 Rate Blood Pressure 131/67 128/79 O2 Sat by Pulse 99 99 Oximetry 01/30/18 01/30/18 13:11 15:00 Temperature Pulse Rate 65 71 Respiratory 16 Rate Blood Pressure 125/62 O2 Sat by Pulse 98 Oximetry EKG Findings - EKG Comments: EKG Findings:: EKG: Demand pacemaker underlying atrial fibrillation left axis deviation, rate of 63, QRS duration 120, QTC 47, poor baseline secondary to artifact and dyspnea. Medical Decision Making - Medical Decision Making 72-year-old male history of COPD, remote history of tobacco, history of CHF presenting with several weeks of dyspnea and cough. On exam patient has both his current extremity wheezing. Chest x-rays obtained, there was bronchitis and concern for pulmonary vascular congestion, no focal pneumonia. Patient has normal white blood cell count, stable hemoglobin, both BNP and troponin are elevated. Symptoms likely related to a combination of bronchitis and heart failure. Patient is anticoagulated with an INR of 2.1. Troponin will be trended. He will be treated for heart failure, placed on Lasix for also be treated for reactive airway disease, started on steroids and bronchodilators. Admitted with cardiology on consult. Case discussed with the admitting physician. - Lab Data Result diagrams: 01/30/18 12:15 01/30/18 12:15 Lab Results 01/30/18 01/30/18 01/30/18 Range/Units 12:15 12:15 12:15 WBC 9.7 (3.8-10.6) k/uL RBC 4.07 L (4.30-5.90) m/uL Hgb 13.2 (13.0-17.5) gm/dL Hct 40.2 (39.0-53.0) % MCV 98.6 (80.0-100.0) fL MCH 32.5 (25.0-35.0) pg MCHC 33.0 (31.0-37.0) g/dL RDW 15.0 (11.5-15.5) % Plt Count 139 L (150-450) k/uL Neutrophils % 69 % Lymphocytes % 15 % Monocytes % 8 % Eosinophils % 6 % Basophils % 1 % Neutrophils # 6.7 (1.3-7.7) k/uL Lymphocytes # 1.4 (1.0-4.8) k/uL Monocytes # 0.7 (0-1.0) k/uL Eosinophils # 0.6 (0-0.7) k/uL Basophils # 0.1 (0-0.2) k/uL Macrocytosis Slight PT (9.0-12.0) sec INR (<1.2) APTT (22.0-30.0) sec Sodium 142 (137-145) mmol/L Potassium 4.2 (3.5-5.1) mmol/L Chloride 101 (98-107) mmol/L Carbon Dioxide 30 (22-30) mmol/L Anion Gap 11 mmol/L BUN 22 H (9-20) mg/dL Creatinine 1.08 (0.66-1.25) mg/dL Est GFR (CKD-EPI)AfAm 79 (>60 ml/min/1.73 sqM) Est GFR (CKD-EPI)NonAf 68 (>60 ml/min/1.73 sqM) Glucose 133 H (74-99) mg/dL Plasma Lactic Acid Chuy (0.7-2.0) mmol/L Calcium 10.2 (8.4-10.2) mg/dL Magnesium 1.7 (1.6-2.3) mg/dL Total Bilirubin 0.6 (0.2-1.3) mg/dL AST 36 (17-59) U/L ALT 35 (21-72) U/L Alkaline Phosphatase 80 (38-126) U/L Total Creatine Kinase 65 (55-170) U/L CK-MB (CK-2) 1.3 (0.0-2.4) ng/mL CK-MB (CK-2) Rel Index 2.0 Troponin I 0.057 H* (0.000-0.034) ng/mL NT-Pro-B Natriuret Pep pg/mL Total Protein 6.8 (6.3-8.2) g/dL Albumin 4.1 (3.5-5.0) g/dL Influenza Type A RNA (Not Detectd) Influenza Type B (PCR) (Not Detectd) 01/30/18 01/30/18 01/30/18 Range/Units 12:15 12:15 12:15 WBC (3.8-10.6) k/uL RBC (4.30-5.90) m/uL Hgb (13.0-17.5) gm/dL Hct (39.0-53.0) % MCV (80.0-100.0) fL MCH (25.0-35.0) pg MCHC (31.0-37.0) g/dL RDW (11.5-15.5) % Plt Count (150-450) k/uL Neutrophils % % Lymphocytes % % Monocytes % % Eosinophils % % Basophils % % Neutrophils # (1.3-7.7) k/uL Lymphocytes # (1.0-4.8) k/uL Monocytes # (0-1.0) k/uL Eosinophils # (0-0.7) k/uL Basophils # (0-0.2) k/uL Macrocytosis PT 20.8 H (9.0-12.0) sec INR 2.1 H (<1.2) APTT 36.3 H (22.0-30.0) sec Sodium (137-145) mmol/L Potassium (3.5-5.1) mmol/L Chloride (98-107) mmol/L Carbon Dioxide (22-30) mmol/L Anion Gap mmol/L BUN (9-20) mg/dL Creatinine (0.66-1.25) mg/dL Est GFR (CKD-EPI)AfAm (>60 ml/min/1.73 sqM) Est GFR (CKD-EPI)NonAf (>60 ml/min/1.73 sqM) Glucose (74-99) mg/dL Plasma Lactic Acid Chuy 2.1 H* (0.7-2.0) mmol/L Calcium (8.4-10.2) mg/dL Magnesium (1.6-2.3) mg/dL Total Bilirubin (0.2-1.3) mg/dL AST (17-59) U/L ALT (21-72) U/L Alkaline Phosphatase (38-126) U/L Total Creatine Kinase (55-170) U/L CK-MB (CK-2) (0.0-2.4) ng/mL CK-MB (CK-2) Rel Index Troponin I (0.000-0.034) ng/mL NT-Pro-B Natriuret Pep 1320 pg/mL Total Protein (6.3-8.2) g/dL Albumin (3.5-5.0) g/dL Influenza Type A RNA (Not Detectd) Influenza Type B (PCR) (Not Detectd) 01/30/18 Range/Units 12:15 WBC (3.8-10.6) k/uL RBC (4.30-5.90) m/uL Hgb (13.0-17.5) gm/dL Hct (39.0-53.0) % MCV (80.0-100.0) fL MCH (25.0-35.0) pg MCHC (31.0-37.0) g/dL RDW (11.5-15.5) % Plt Count (150-450) k/uL Neutrophils % % Lymphocytes % % Monocytes % % Eosinophils % % Basophils % % Neutrophils # (1.3-7.7) k/uL Lymphocytes # (1.0-4.8) k/uL Monocytes # (0-1.0) k/uL Eosinophils # (0-0.7) k/uL Basophils # (0-0.2) k/uL Macrocytosis PT (9.0-12.0) sec INR (<1.2) APTT (22.0-30.0) sec Sodium (137-145) mmol/L Potassium (3.5-5.1) mmol/L Chloride (98-107) mmol/L Carbon Dioxide (22-30) mmol/L Anion Gap mmol/L BUN (9-20) mg/dL Creatinine (0.66-1.25) mg/dL Est GFR (CKD-EPI)AfAm (>60 ml/min/1.73 sqM) Est GFR (CKD-EPI)NonAf (>60 ml/min/1.73 sqM) Glucose (74-99) mg/dL Plasma Lactic Acid Chuy (0.7-2.0) mmol/L Calcium (8.4-10.2) mg/dL Magnesium (1.6-2.3) mg/dL Total Bilirubin (0.2-1.3) mg/dL AST (17-59) U/L ALT (21-72) U/L Alkaline Phosphatase (38-126) U/L Total Creatine Kinase (55-170) U/L CK-MB (CK-2) (0.0-2.4) ng/mL CK-MB (CK-2) Rel Index Troponin I (0.000-0.034) ng/mL NT-Pro-B Natriuret Pep pg/mL Total Protein (6.3-8.2) g/dL Albumin (3.5-5.0) g/dL Influenza Type A RNA Not Detected (Not Detectd) Influenza Type B (PCR) Not Detected (Not Detectd) Disposition Clinical Impression: Elevated troponin, Ischemic cardiomyopathy, Acute exacerbation of chronic obstructive airways disease, CHF (congestive heart failure) Disposition: ADMITTED IP TO THIS [facility] Condition: Stable Is patient prescribed a controlled substance at d/c from ED?: No Referrals: Giovanni Clark MD [Primary Care Provider] - 1-2 days Decision to Admit Reason: Admit from EC Decision Date: 01/30/18 Decision Time: 15:16
[2018-01-30 12:47] LABS: Basophils # (A) 0.1 k/uL (0-0.2); Basophils % (A) 1 %; Eosinophils # (A) 0.6 k/uL (0-0.7); Eosinophils % (A) 6 %; HCT 40.2 % (39.0-53.0); HGB 13.2 gm/dL (13.0-17.5); Lymphocytes # (A) 1.4 k/uL (1.0-4.8); Lymphocytes % (A) 15 %; MCH 32.5 pg (25.0-35.0); MCV 98.6 fL (80.0-100.0); Macrocytosis Slight; Mean Platelet Volume 8.8; Monocytes # (A) 0.7 k/uL (0-1.0); Monocytes % (A) 8 %; Neutrophils # (A) 6.7 k/uL (1.3-7.7); Neutrophils % (A) 69 %; Platelet Count 139 k/uL (150-450); RBC 4.07 m/uL (4.30-5.90); WBC 9.7 k/uL (3.8-10.6)
[2018-01-30 13:01] LABS: Albumin 4.1 g/dL (3.5-5.0); Calcium 10.2 mg/dL (8.4-10.2); INR 2.1 (<1.2); Magnesium 1.7 mg/dL (1.6-2.3); Partial Thromboplastin Time 36.3 sec (22.0-30.0); Potassium 4.2 mmol/L (3.5-5.1); Prothrombin Time 20.8 sec (9.0-12.0); Total Bilirubin 0.6 mg/dL (0.2-1.3); Total Protein 6.8 g/dL (6.3-8.2)
[2018-01-30 13:20] LABS: Creatine Kinase MB 1.3 ng/mL (0.0-2.4)
[2018-01-30 13:24] LABS: Troponin I 0.057 ng/mL (0.000-0.034)
--- NOTE | 2018-01-30 13:44 | XR ---
EXAMINATION TYPE: XR chest 2V DATE OF EXAM: 01/30/2018 COMPARISON: 11/10/2017 HISTORY: 72-year-old male difficulty breathing TECHNIQUE: PA and lateral views FINDINGS: Heart is mildly enlarged. Mild elongation thoracic aorta. Mild atherosclerotic arch calcifications. M ild interstitial prominence and peribronchial cuffing is unchanged. Left anterior chest wall pacer AI CD generator with 2 right ventricular leads. No consolidation or pleural effusion. IMPRESSION: Mild cardiomegaly and chronic changes, possible bronchitis or asthma. Correlate to exclude mild pulmo nary vascular congestion.
[2018-01-30] MEDS ORDERED: FUROSEMIDE 10 MG/ML 4 ML VIAL IV STA (14:05)
[2018-01-30] MEDS ORDERED: ACETAMINOPHEN TAB 325 MG TAB PO PRN (14:59)
[2018-01-30] MEDS ORDERED: NALOXONE 0.4 MG/ML 1 ML VIAL IV PRN (14:59)
[2018-01-30] MEDS ORDERED: NITROGLYCERIN SL TABS 0.4 MG TAB SUBLINGUAL PRN (15:05)
--- NOTE | 2018-01-30 15:58 | P.HPIM ---
History of Present Illness 72-year-old pleasant gentleman came in with compensative cough has been going on for about 3-4 days. Patient was diagnosed with the pneumonia recently recently completed the antibiotic therapy. Patient has chronic dry cough this time patient's cough is productive bringing up yellowish sputum. Patient denied any fever chills chest x-ray did not show any pneumonic process patient used to be a smoker 20 years ago never had any history of COPD does have history of congestive heart failure ejection fraction of 25% patient chest x- ray did show mild pulmonary edema patient denied not toxic dyspnea proximal nocturnal dyspnea minimally elevated BNP of 1100. Patient does have history of atrial fibrillation on Coumadin. Patient was recently on steroids as well patient is complaining of epigastric abdominal burning sensation worse when he eats. She has minimally elevated troponin of 0.05 EKG did not show any new acute ST-T wave changes. Patient was wheezing earlier when he came. Improved with breathing treatments. Review of Systems REVIEW OF SYSTEMS: CONSTITUTIONAL: No fever, no malaise, no fatigue. HEENT: No recent visual problems or hearing problems. Denied any sore throat. CARDIOVASCULAR: No chest pain, orthopnea, PND, no palpitations, no syncope. PULMONARY: N no hemoptysis. GASTROINTESTINAL: No diarrhea, no nausea, no vomiting, no abdominal pain. NEUROLOGICAL: No headaches, no weakness, no numbness. HEMATOLOGICAL: Denies any bleeding or petechiae. GENITOURINARY: Denies any burning micturition, frequency, or urgency. MUSCULOSKELETAL/RHEUMATOLOGICAL: Denies any joint pain, swelling, or any muscle pain. ENDOCRINE: Denies any polyuria or polydipsia. The rest of the 14-point review of systems is negative. Past Medical History Past Medical History: Coronary Artery Disease (CAD), Heart Failure, CVA/TIA, Eye Disorder, Hyperlipidemia, Hypertension Additional Past Medical History / Comment(s): gout, cardomyopathy, previous charting listed mi 2016 pt unable to verify. arthrits rt index finger, cataracts , aaa, anxiety. Last Myocardial Infarction Date:: 2016 History of Any Multi-Drug Resistant Organisms: None Reported Past Surgical History: AICD, Back Surgery, Heart Catheterization With Stent, Pacemaker Additional Past Surgical History / Comment(s): stents x3, back fusion Past Anesthesia/Blood Transfusion Reactions: No Reported Reaction Date of Last Stent Placement:: 2016 Type of Cardiac Device: Permanent Pacemaker, AICD Device Placement Date:: 07-29-14 Past Psychological History: Anxiety Smoking Status: Former smoker Past Alcohol Use History: Daily Past Drug Use History: None Reported - Past Family History Father Family Medical History: CVA/TIA, Dementia Mother Family Medical History: CVA/TIA, Diabetes Mellitus, Skin Disorder Additional Family Medical History / Comment(s): skin CA Medications and Allergies Home Medications Medication Instructions Recorded Confirmed Type Allopurinol [Zyloprim] 100 mg PO DAILY 04/23/15 01/30/18 History Carvedilol [Coreg] 12.5 mg PO BID 04/23/15 01/30/18 History Warfarin [Coumadin] 2.5 mg PO SUTUWETHFRSA 07/04/15 01/30/18 History Zolpidem Tartrate [Ambien] 10 mg PO HS PRN 07/04/15 01/30/18 History Multivitamins, Thera [Multivitamin 1 tab PO DAILY 12/17/15 01/30/18 History (formulary)] [place]-3 Fatty Acids/Fish Oil [Fish 1 cap PO DAILY 12/17/15 01/30/18 History Oil 1,000 mg Softgel] Cholecalciferol [Vitamin D3] 1,000 unit PO DAILY 12/22/15 01/30/18 History Vitamin B Complex 1 cap PO DAILY 12/22/15 01/30/18 History Aspirin 81 mg PO DAILY #30 chew 12/24/15 01/30/18 Rx Atorvastatin [Lipitor] 80 mg PO HS #30 tab 12/24/15 01/30/18 Rx Clopidogrel [Plavix] 75 mg PO DAILY #30 tab 12/24/15 01/30/18 Rx Lisinopril [Zestril] 10 mg PO DAILY #30 tab 12/24/15 01/30/18 Rx Nitroglycerin Sl Tabs [Nitrostat] 0.4 mg SUBLINGUAL Q5M PRN #25 tab 12/24/15 Rx Isosorbide Mononitrate ER [Imdur] 30 mg PO DAILY 05/27/17 01/30/18 History LORazepam [Ativan] 0.5 mg PO BID PRN 05/27/17 01/30/18 History Furosemide [Lasix] 40 mg PO BID 11/10/17 01/30/18 History Warfarin [Coumadin] 3.75 mg PO MO 01/30/18 01/30/18 History Allergies Allergy/AdvReac Type Severity Reaction Status Date / Time No Known Allergies Allergy Verified 01/30/18 13:31 Physical Exam Vitals: Vital Signs Temp Pulse Resp BP Pulse Ox 01/30/18 15:00 71 16 125/62 98 01/30/18 14:30 64 16 123/66 98 01/30/18 13:30 61 15 126/72 99 01/30/18 13:11 65 01/30/18 13:01 75 01/30/18 12:37 60 22 128/79 99 01/30/18 11:52 97.9 F 89 26 H 131/67 99 Intake and Output 01/30/18 01/30/18 01/30/18 06:59 14:59 22:59 Other: Weight 99.79 kg PHYSICAL EXAMINATION: GENERAL: The patient is alert and oriented x3, not in any acute distress. Well developed, well nourished. HEENT: Pupils are round and equally reacting to light. EOMI. No scleral icterus. No conjunctival pallor. Normocephalic, atraumatic. No pharyngeal erythema. No thyromegaly. CARDIOVASCULAR: S1 and S2 present. No murmurs, rubs, or gallops. PULMONARY: Decreased air entry into bilateral lung mcmanus no significant wheezing was appreciated ABDOMEN: Soft, nontender, nondistended, normoactive bowel sounds. No palpable organomegaly. MUSCULOSKELETAL: No joint swelling or deformity. EXTREMITIES: No cyanosis, clubbing, or pedal edema. NEUROLOGICAL: Gross neurological examination did not reveal any focal deficits. SKIN: No rashes. Results CBC & Chem 7: 01/30/18 12:15 01/30/18 12:15 Labs: Abnormal Lab Results - Last 24 Hours (Table) 01/30/18 01/30/18 01/30/18 Range/Units 12:15 12:15 12:15 RBC 4.07 L (4.30-5.90) m/uL Plt Count 139 L (150-450) k/uL PT (9.0-12.0) sec INR (<1.2) APTT (22.0-30.0) sec BUN 22 H (9-20) mg/dL Glucose 133 H (74-99) mg/dL Plasma Lactic Acid Chuy (0.7-2.0) mmol/L Troponin I 0.057 H* (0.000-0.034) ng/mL 01/30/18 01/30/18 Range/Units 12:15 12:15 RBC (4.30-5.90) m/uL Plt Count (150-450) k/uL PT 20.8 H (9.0-12.0) sec INR 2.1 H (<1.2) APTT 36.3 H (22.0-30.0) sec BUN (9-20) mg/dL Glucose (74-99) mg/dL Plasma Lactic Acid Chuy 2.1 H* (0.7-2.0) mmol/L Troponin I (0.000-0.034) ng/mL Assessment and Plan Plan: -Short of breath most probably secondary to bronchitis and undiagnosed COPD patient was started on oral steroids inhalational treatments. Since oral steroids and tract with Coumadin not decrease the dose of Coumadin. Patient was started on doxycycline for bronchitis no pneumonia at this time. -Congestive heart failure chronic systolic dysfunction ischemic cardiac myopathy ejection fraction of 25% with mild acute exacerbation patient will be switched to IV steroids today probably can be switched back to oral steroids tomorrow. Patient has an AICD -Atrial fibrillation: Presently rate controlled chronic A. fib will be resumed on Coumadin at a lower dose because of its interaction with systemic steroids. Coreg will be continued -Coronary artery disease -Hyperlipidemia -Hypertension next and-chronic cough probably secondary to lisinopril which will be switched to losartan Minimally elevated troponins are do not believe secondary to myocardial infarction patient does have chronic elevations of troponin and this elevation of troponin is secondary to to hypoxemia rather than microinfarction. -Epigastric abdominal burning sensation: Secondary to stress ulcers and steroid induced gastritis. Patient was started on Protonix
[2018-01-30] MEDS: PANTOPRAZOLE 40 MG/10 ML VIAL IVP SCH ×2 (16:19→20:50)
[2018-01-30] MEDS: predniSONE 20 MG TAB PO SCH (16:20)
[2018-01-30] MEDS: ALBUTEROL NEBULIZED 2.5 MG/3 ML INHALATION SCH ×2 (16:31→19:24)
[2018-01-30 17:40] LABS: Creatine Kinase MB 1.3 ng/mL (0.0-2.4)
[2018-01-30 17:53] LABS: Troponin I 0.039 ng/mL (0.000-0.034)
[2018-01-30] MEDS ORDERED: WARFARIN 2.5 MG TAB PO SCH ×2 (18:00→18:57)
[2018-01-30] MEDS: CARVEDILOL 12.5 MG TAB PO SCH (18:04)
[2018-01-30] MEDS ORDERED: LORazepam 0.5 MG TAB PO PRN (18:54)
[2018-01-30] MEDS ORDERED: guaiFENesin SYRUP 100MG/5ML 200 MG/10 ML CUP PO PRN (18:58)
[2018-01-30] MEDS ORDERED: ATORVASTATIN 80 MG TAB PO SCH (21:00)
[2018-01-30] MEDS ORDERED: FUROSEMIDE 10 MG/ML 4 ML VIAL IV SCH (21:00)
[2018-01-30] MEDS: ZOLPIDEM 10 MG TAB PO PRN ×2 (22:05→22:06)
[2018-01-30] MEDS: DOXYCYCLINE 50 MG CAP PO SCH (22:05)
[2018-01-31 00:36] LABS: Creatine Kinase MB 1.2 ng/mL (0.0-2.4); Troponin I 0.041 ng/mL (0.000-0.034)
[2018-01-31 06:33] LABS: INR 1.8 (<1.2); Prothrombin Time 17.8 sec (9.0-12.0)
[2018-01-31] MEDS: CARVEDILOL 12.5 MG TAB PO SCH (06:47)
[2018-01-31] MEDS: ALBUTEROL NEBULIZED 2.5 MG/3 ML INHALATION SCH ×2 (07:38→11:14)
[2018-01-31] MEDS ORDERED: ASPIRIN 81 MG PO SCH (09:00)
[2018-01-31] MEDS ORDERED: CLOPIDOGREL 75 MG TAB PO SCH (09:00)
[2018-01-31] MEDS ORDERED: LISINOPRIL 10 MG TAB PO SCH (09:00)
[2018-01-31] MEDS ORDERED: LOSARTAN 50 MG TAB PO SCH (09:00)
[2018-01-31] MEDS: PANTOPRAZOLE 40 MG/10 ML VIAL IVP SCH (10:44)
[2018-01-31] MEDS: predniSONE 20 MG TAB PO SCH (10:45)
[2018-01-31] MEDS: DOXYCYCLINE 50 MG CAP PO SCH (10:45)
--- NOTE | 2018-01-31 11:13 | P.CRDCN ---
History of Present Illness Consult date: 01/31/18 History of present illness: This is a 72-year-old female with history of multivessel coronary artery disease and multiple percutaneous interventions, ischemic cardiomyopathy, chronic atrial fibrillation and history of single-chamber AICD implantation with an ejection fraction of 20-50%. Patient was admitted yesterday to the hospital with complaints of epigastric burning pain and some increasing shortness of breath. Patient has known abdominal aortic aneurysm which was infrarenal. Last measurement showed 4.2 cm aneurysm. Since admission patient was treated with IV Lasix with improvement of his symptoms. Patient's troponin was mildly elevated but they're not consistent with acute myocardial injury pattern. Patient is feeling much better and wants to be discharged home. His proBNP is elevated but less than previous values. EKG showed pacemaker rhythm. Patient seemed to be stable enough to be discharged. Patient will have follow -up with Dr. JOE Myers in about one week to 10 days Review of Systems As per the chart Past Medical History Past Medical History: Coronary Artery Disease (CAD), Heart Failure, CVA/TIA, Eye Disorder, Hyperlipidemia, Hypertension Additional Past Medical History / Comment(s): gout, cardomyopathy, previous charting listed mi 2016 pt unable to verify. arthrits rt index finger, cataracts , aaa, anxiety. Last Myocardial Infarction Date:: 2015 History of Any Multi-Drug Resistant Organisms: None Reported Past Surgical History: AICD, Back Surgery, Heart Catheterization With Stent, Pacemaker Additional Past Surgical History / Comment(s): stents x3, back fusion Past Anesthesia/Blood Transfusion Reactions: No Reported Reaction Date of Last Stent Placement:: 2015 Type of Cardiac Device: Permanent Pacemaker, AICD Device Placement Date:: 07-29-14 Smoking Status: Former smoker - Past Family History Father Family Medical History: CVA/TIA, Dementia Mother Family Medical History: CVA/TIA, Diabetes Mellitus, Skin Disorder Additional Family Medical History / Comment(s): skin CA Medications and Allergies Home Medications Medication Instructions Recorded Confirmed Type Allopurinol [Zyloprim] 100 mg PO DAILY 04/23/15 01/30/18 History Carvedilol [Coreg] 12.5 mg PO BID 04/23/15 01/30/18 History Warfarin [Coumadin] 2.5 mg PO SUTUWETHFRSA 07/04/15 01/30/18 History Zolpidem Tartrate [Ambien] 10 mg PO HS PRN 07/04/15 01/30/18 History Multivitamins, Thera [Multivitamin 1 tab PO DAILY 12/17/15 01/30/18 History (formulary)] [place]-3 Fatty Acids/Fish Oil [Fish 1 cap PO DAILY 12/17/15 01/30/18 History Oil 1,000 mg Softgel] Cholecalciferol [Vitamin D3] 1,000 unit PO DAILY 12/22/15 01/30/18 History Vitamin B Complex 1 cap PO DAILY 12/22/15 01/30/18 History Aspirin 81 mg PO DAILY #30 chew 12/24/15 01/30/18 Rx Atorvastatin [Lipitor] 80 mg PO HS #30 tab 12/24/15 01/30/18 Rx Clopidogrel [Plavix] 75 mg PO DAILY #30 tab 12/24/15 01/30/18 Rx Lisinopril [Zestril] 10 mg PO DAILY #30 tab 12/24/15 01/30/18 Rx Nitroglycerin Sl Tabs [Nitrostat] 0.4 mg SUBLINGUAL Q5M PRN #25 tab 12/24/15 Rx Isosorbide Mononitrate ER [Imdur] 30 mg PO DAILY 05/27/17 01/30/18 History LORazepam [Ativan] 0.5 mg PO BID PRN 05/27/17 01/30/18 History Furosemide [Lasix] 40 mg PO BID 11/10/17 01/30/18 History Warfarin [Coumadin] 3.75 mg PO MO 01/30/18 01/30/18 History Allergies Allergy/AdvReac Type Severity Reaction Status Date / Time No Known Allergies Allergy Verified 01/30/18 13:31 Physical Exam Vitals: Vital Signs Temp Pulse Pulse Resp BP BP Pulse Ox 01/31/18 07:51 64 01/31/18 07:39 61 97 01/31/18 03:18 98.4 F 54 L 18 150/92 96 01/30/18 23:00 59 L 16 125/69 96 01/30/18 21:00 98.4 F 60 16 134/79 97 01/30/18 19:31 74 01/30/18 19:25 72 96 01/30/18 17:00 98.1 F 58 L 18 124/73 96 01/30/18 16:41 70 01/30/18 16:33 63 01/30/18 16:00 58 L 16 126/58 96 01/30/18 15:00 71 16 125/62 98 01/30/18 14:30 64 16 123/66 98 01/30/18 13:30 61 15 126/72 99 01/30/18 13:11 65 01/30/18 13:01 75 01/30/18 12:37 60 22 128/79 99 01/30/18 11:52 97.9 F 89 26 H 131/67 99 Intake and Output 01/30/18 01/31/18 01/31/18 22:59 06:59 14:59 Other: # Voids 1 Weight 101.9 kg GENERAL EXAM: Patient is alert and oriented and doesn't appear to be in any acute distress. He is up and walking in the hallways without any distress HEENT: Normocephalic. Normal reaction of pupils, equal size, normal range of extraocular motion. No erythema or exudates in the throat. NECK: No masses, no nuchal rigidity. CHEST: No chest wall deformity. LUNGS: Equal air entry with no crackles or wheeze. Diminished breath sounds at bases HEART: S1 and S2 normal with no audible mumurs or gallops. Regular rhythm, femorals equal on both sides.. ABDOMEN: No hepatosplenomegaly, normal bowel sounds, no guarding or rigidity. SKIN: No rashes CENTRAL NERVOUS SYSTEM: No focal deficits. EXTREMITIES: No cyanosis, clubbing or edema. Results 01/30/18 12:15 01/30/18 12:15 Cardiac Enzymes 01/30/18 01/30/18 01/30/18 Range/Units 12:15 12:15 17:00 AST 36 (17-59) U/L CK-MB (CK-2) 1.3 1.3 (0.0-2.4) ng/mL Troponin I 0.057 H* 0.039 H* (0.000-0.034) ng/mL 01/30/18 Range/Units 23:42 AST (17-59) U/L CK-MB (CK-2) 1.2 (0.0-2.4) ng/mL Troponin I 0.041 H* (0.000-0.034) ng/mL Coagulation 12/22/18 12/23/18 Range/Units 12:15 05:43 PT 20.8 H 17.8 H (9.0-12.0) sec APTT 36.3 H (22.0-30.0) sec CBC 01/30/18 Range/Units 12:15 WBC 9.7 (3.8-10.6) k/uL RBC 4.07 L (4.30-5.90) m/uL Hgb 13.2 (13.0-17.5) gm/dL Hct 40.2 (39.0-53.0) % Plt Count 139 L (150-450) k/uL Comprehensive Metabolic Panel 01/30/18 Range/Units 12:15 Sodium 142 (137-145) mmol/L Potassium 4.2 (3.5-5.1) mmol/L Chloride 101 (98-107) mmol/L Carbon Dioxide 30 (22-30) mmol/L BUN 22 H (9-20) mg/dL Creatinine 1.08 (0.66-1.25) mg/dL Glucose 133 H (74-99) mg/dL Calcium 10.2 (8.4-10.2) mg/dL AST 36 (17-59) U/L ALT 35 (21-72) U/L Alkaline Phosphatase 80 (38-126) U/L Total Protein 6.8 (6.3-8.2) g/dL Albumin 4.1 (3.5-5.0) g/dL Current Medications Generic Name Dose Route Start Last Admin Trade Name Freq PRN Reason Stop Dose Admin Acetaminophen 650 mg 01/30/18 14:59 Tylenol Tab PO Q6HR PRN Mild Pain or Fever > 100.5 Albuterol Sulfate 2.5 mg 01/30/18 16:00 01/31/18 07:38 Ventolin Nebulized INHALATION 2.5 mg RT-QID DAVID Administration Aspirin 81 mg 01/31/18 09:00 01/31/18 10:45 Aspirin PO 81 mg DAILY DAVID Administration Atorvastatin Calcium 80 mg 01/30/18 21:00 01/30/18 20:50 Lipitor PO 80 mg HS DAVID Administration Carvedilol 12.5 mg 01/30/18 17:30 01/31/18 06:47 Coreg PO 12.5 mg BID-W/MEALS DAVID Administration Clopidogrel Bisulfate 75 mg 01/31/18 09:00 01/31/18 10:45 Plavix PO 75 mg DAILY DAVID Administration Doxycycline Monohydrate 100 mg 01/30/18 21:00 01/31/18 10:45 Vibramycin PO 100 mg BID DAVDI Administration Guaifenesin 200 mg 01/30/18 18:58 01/31/18 03:16 Robitussin PO 200 mg Q4H PRN Administration Cough Lorazepam 0.5 mg 01/30/18 18:54 01/30/18 20:50 Ativan PO 0.5 mg BID PRN Administration Anxiety Losartan Potassium 50 mg 01/31/18 09:00 01/31/18 10:45 Cozaar PO 50 mg DAILY DAVID Administration Naloxone HCl 0.2 mg 01/30/18 14:59 Narcan IV Q2M PRN Opioid Reversal Nitroglycerin 0.4 mg 01/30/18 15:05 Nitrostat SUBLINGUAL Q5M PRN Chest Pain Pantoprazole Sodium 40 mg 01/30/18 15:49 01/31/18 10:44 Protonix IVP 40 mg BID DAVID Administration Prednisone 40 mg 01/30/18 16:00 01/31/18 10:45 PO 40 mg DAILY DAVID Administration Warfarin Sodium 2.5 mg 01/30/18 18:57 01/30/18 20:50 Coumadin PO 2.5 mg DAILY@1800 DAVID Administration Zolpidem Tartrate 10 mg 01/30/18 18:54 01/30/18 22:06 Ambien PO 10 mg HS PRN Administration Insomnia Intake and Output 01/30/18 01/31/18 01/31/18 22:59 06:59 14:59 Other: # Voids 1 Weight 101.9 kg 01/30/18 12:15 01/30/18 12:15 EKG Interpretations (text) Pacemaker rhythm Assessment and Plan (1) Chronic systolic CHF (congestive heart failure) Current Visit: Yes Status: Acute Code(s): I50.22 - CHRONIC SYSTOLIC ( CONGESTIVE) HEART FAILURE SNOMED Code(s): 679461765 (2) Acute exacerbation of chronic obstructive airways disease Current Visit: Yes Status: Acute Code(s): J44.1 - CHRONIC OBSTRUCTIVE PULMONARY DISEASE W (ACUTE) EXACERBATION SNOMED Code(s): 959736308 (3) Elevated troponin Current Visit: Yes Status: Acute Code(s): R74.8 - ABNORMAL LEVELS OF OTHER SERUM ENZYMES SNOMED Code(s): 489978491 (4) Ischemic cardiomyopathy Current Visit: Yes Status: Acute Code(s): I25.5 - ISCHEMIC CARDIOMYOPATHY SNOMED Code(s): 914318893 (5) AICD (automatic cardioverter/defibrillator) present Current Visit: No Status: Acute Code(s): Z95.810 - PRESENCE OF AUTOMATIC ( IMPLANTABLE) CARDIAC DEFIBRILLATOR SNOMED Code(s): 864362025 (6) Aortic aneurysm Current Visit: No Status: Acute Code(s): I71.9 - AORTIC ANEURYSM OF UNSPECIFIED SITE, WITHOUT RUPTURE SNOMED Code(s): 10277993 Plan: Patient is clinically stable and tolerating activity. He could be discharged home. Follow-up with Dr. JOE Myers in one week. The dose of the Lasix could be increased to 80 mg. Follow-up BMP as an outpatient
[2018-01-31 11:19] VITALS: RESP 16; TEMP 97.8
--- NOTE | 2018-01-31 11:49 | P.DS ---
Providers Date of admission: 01/30/18 14:59 Attending physician: René Anderson Consults: 01/30/18 15:04 Consult Physician Routine Consulting Provider: Mireya Myers Consult Reason/Comments: CHF Do you want consulting provider notified?: Yes Primary care physician: Giovanni Clark [facility] Course: 72-year-old pleasant gentleman came in with compensative cough has been going on for about 3-4 days. Patient was diagnosed with the pneumonia recently recently completed the antibiotic therapy. Patient has chronic dry cough this time patient's cough is productive bringing up yellowish sputum. Patient denied any fever chills chest x-ray did not show any pneumonic process patient used to be a smoker 20 years ago never had any history of COPD does have history of congestive heart failure ejection fraction of 25% patient chest x- ray did show mild pulmonary edema patient denied not toxic dyspnea proximal nocturnal dyspnea minimally elevated BNP of 1100. Patient does have history of atrial fibrillation on Coumadin. Patient was recently on steroids as well patient is complaining of epigastric abdominal burning sensation worse when he eats. She has minimally elevated troponin of 0.05 EKG did not show any new acute ST-T wave changes. Patient was wheezing earlier when he came. Improved with breathing treatments. 01/31/2018 Patient is clinically doing well will be discharged today. Patient is bit bit bradycardic because of which I'm cutting down the dose of beta armen. Patient was evaluated by cardiology no further intervention patient has chronic elevation and mild elevation of troponins. Patient's gastritis symptoms improved will discharge him was a short course of steroids along with Prilosec twice a day and doxycycline for 3 days for bronchitis. Patient's INR need to be tested in about 3 days as Coumadin interacts with the prednisone PHYSICAL EXAMINATION: GENERAL: The patient is alert and oriented x3, not in any acute distress. Well developed, well nourished. HEENT: Pupils are round and equally reacting to light. EOMI. No scleral icterus. No conjunctival pallor. Normocephalic, atraumatic. No pharyngeal erythema. No thyromegaly. CARDIOVASCULAR: S1 and S2 present. No murmurs, rubs, or gallops. PULMONARY: Chest is clear to auscultation, no wheezing or crackles. ABDOMEN: Soft, nontender, nondistended, normoactive bowel sounds. No palpable organomegaly. MUSCULOSKELETAL: No joint swelling or deformity. EXTREMITIES: No cyanosis, clubbing, or pedal edema. NEUROLOGICAL: Gross neurological examination did not reveal any focal deficits. SKIN: No rashes. Assessment and Plan Plan: -Short of breath most probably secondary to bronchitis and undiagnosed COPD patient was started on oral steroids inhalational treatments. -Congestive heart failure chronic systolic dysfunction ischemic cardio myopathy ejection fraction of 25% with mild acute exacerbation patient is presently euvolemic can continue his home dose of Lasix Patient has an AICD -Atrial fibrillation: Presently rate controlled mildly bradycardic cutting down the dose of beta armen -Coronary artery disease -Hyperlipidemia -Hypertension -chronic cough probably secondary to lisinopril which was switched to losartan Minimally elevated troponins are do not believe secondary to myocardial infarction patient does have chronic elevations of troponin and this elevation of troponin is secondary to to hypoxemia rather than myocardial infarction -Epigastric abdominal burning sensation: Secondary to stress ulcers and steroid induced gastritis. Being discharged on Prilosec Patient Condition at Discharge: Stable Plan - Discharge Summary Discharge Rx Participant: No New Discharge Prescriptions: New Budesonide-Formot 160-4.5 Mcg [Symbicort 160-4.5 Mcg Inhaler] 2 puff INHALATION BID #1 inhaler Carvedilol [Coreg*] 6.25 mg PO BID-W/MEALS tab Doxycycline Monohydrate [Monodox] 100 mg PO BID 3 Days #6 cap Losartan [Cozaar] 50 mg PO DAILY #30 tab Omeprazole [PriLOSEC] 20 mg PO AC-BID #60 capsule. predniSONE 10 mg PO DAILY #15 tab Continue Allopurinol [Zyloprim] 100 mg PO DAILY Warfarin [Coumadin] 2.5 mg PO SUTUWETHFRSA Zolpidem Tartrate [Ambien] 10 mg PO HS PRN PRN Reason: Insomnia [place]-3 Fatty Acids/Fish Oil [Fish Oil 1,000 mg Softgel] 1 cap PO DAILY Multivitamins, Thera [Multivitamin (formulary)] 1 tab PO DAILY Vitamin B Complex 1 cap PO DAILY Cholecalciferol [Vitamin D3] 1,000 unit PO DAILY Aspirin 81 mg PO DAILY #30 chew Atorvastatin [Lipitor] 80 mg PO HS #30 tab Clopidogrel [Plavix] 75 mg PO DAILY #30 tab Nitroglycerin Sl Tabs [Nitrostat] 0.4 mg SUBLINGUAL Q5M PRN #25 tab PRN Reason: Chest Pain Isosorbide Mononitrate ER [Imdur] 30 mg PO DAILY LORazepam [Ativan] 0.5 mg PO BID PRN PRN Reason: Anxiety Furosemide [Lasix] 40 mg PO BID Warfarin [Coumadin] 3.75 mg PO MO Discontinued Carvedilol [Coreg] 12.5 mg PO BID Lisinopril [Zestril] 10 mg PO DAILY #30 tab Discharge Medication List Allopurinol [Zyloprim] 100 mg PO DAILY 04/23/15 [History] Warfarin [Coumadin] 2.5 mg PO SUTUWETHFRSA 07/04/15 [History] Zolpidem Tartrate [Ambien] 10 mg PO HS PRN 07/04/15 [History] Multivitamins, Thera [Multivitamin (formulary)] 1 tab PO DAILY 12/17/15 [History ] [place]-3 Fatty Acids/Fish Oil [Fish Oil 1,000 mg Softgel] 1 cap PO DAILY [History] Cholecalciferol [Vitamin D3] 1,000 unit PO DAILY 12/22/15 [History] Vitamin B Complex 1 cap PO DAILY 12/22/15 [History] Aspirin 81 mg PO DAILY #30 chew 12/24/15 [Rx] Atorvastatin [Lipitor] 80 mg PO HS #30 tab 12/24/15 [Rx] Clopidogrel [Plavix] 75 mg PO DAILY #30 tab 12/24/15 [Rx] Nitroglycerin Sl Tabs [Nitrostat] 0.4 mg SUBLINGUAL Q5M PRN #25 tab 12/24/15 [Rx ] Isosorbide Mononitrate ER [Imdur] 30 mg PO DAILY 05/27/17 [History] LORazepam [Ativan] 0.5 mg PO BID PRN 05/27/17 [History] Furosemide [Lasix] 40 mg PO BID 11/10/17 [History] Warfarin [Coumadin] 3.75 mg PO MO 01/30/18 [History] Budesonide-Formot 160-4.5 Mcg [Symbicort 160-4.5 Mcg Inhaler] 2 puff INHALATION BID #1 inhaler 01/31/18 [Rx] Carvedilol [Coreg*] 6.25 mg PO BID-W/MEALS tab 12/23/18 [Rx] Doxycycline Monohydrate [Monodox] 100 mg PO BID 3 Days #6 cap 01/31/18 [Rx] Losartan [Cozaar] 50 mg PO DAILY #30 tab 01/31/18 [Rx] Omeprazole [PriLOSEC] 20 mg PO AC-BID #60 capsule. 01/31/18 [Rx] predniSONE 10 mg PO DAILY #15 tab 01/31/18 [Rx] Follow up Appointment(s)/Referral(s): Mireya Myers MD [STAFF PHYSICIAN] - 1 Week Giovanni Clark MD [Primary Care Provider] - 3 Days Ambulatory/Diagnostic Orders: Prothrombin Time INR [LAB.AMB] Time Frame: 3 Days, Location: None Selected Discharge Disposition: HOME SELF-CARE
[2018-01-31 13:34] VITALS: BP 121/64; PULSE 58
[2018-01-31] MEDS ORDERED: PANTOPRAZOLE 40 MG TABLET PO SCH (17:30)
[2018-01-31] MEDS ORDERED: WARFARIN 2.5 MG TAB PO SCH (18:00)
[2018-02-01] MEDS ORDERED: WARFARIN 1.25 MG TAB PO SCH (18:00)
== END 2018-01-31 14:30 | disposition home or self-care (01) ==
LOC: EC 11:48 → 3SCARD 14:59
PROVIDERS: ADMIT Internal Medicine; ATTEND Internal Medicine
DX: R06.02 Shortness of breath (principal); J44.1 Chronic obstructive pulmonary disease with (acute) exacerbation; I50.23 Acute on chronic systolic (congestive) heart failure; I11.0 Hypertensive heart disease with heart failure; I48.2 Chronic atrial fibrillation; R09.02 Hypoxemia; I25.10 Atherosclerotic heart disease of native coronary artery without angina pectoris; E78.5 Hyperlipidemia, unspecified; I25.5 Ischemic cardiomyopathy; K29.60 Other gastritis without bleeding; T38.0X5A Adverse effect of glucocorticoids and synthetic analogues, initial encounter; K27.9 Peptic ulcer, site unspecified, unspecified as acute or chronic, without hemorrhage or perforation; R77.8 Other specified abnormalities of plasma proteins; H57.9 Unspecified disorder of eye and adnexa; M10.9 Gout, unspecified; F41.9 Anxiety disorder, unspecified; I71.4 Abdominal aortic aneurysm, without rupture; H26.9 Unspecified cataract; M19.041 Primary osteoarthritis, right hand; Z95.810 Presence of automatic (implantable) cardiac defibrillator; Z95.5 Presence of coronary angioplasty implant and graft; Z79.01 Long term (current) use of anticoagulants; Z79.82 Long term (current) use of aspirin; Z79.02 Long term (current) use of antithrombotics/antiplatelets; Z79.899 Other long term (current) drug therapy; Z86.73 Personal history of transient ischemic attack (TIA), and cerebral infarction without residual deficits; I25.2 Old myocardial infarction; Z87.891 Personal history of nicotine dependence; Z98.1 Arthrodesis status; Z87.01 Personal history of pneumonia (recurrent); Z83.3 Family history of diabetes mellitus; Z82.3 Family history of stroke; Z80.8 Family history of malignant neoplasm of other organs or systems; Z81.8 Family history of other mental and behavioral disorders
CPT/HCPCS: 96376 ×2; 96374; 96375; 99285; 36415; 94640 ×3; 93005; 83880; 80053; 82550; 82553; 83605; 83735; 84484; 85025; 85610 ×2; 85730; 87040; 87502; 71046; G0378 ×2; J1100; J1940; J7512 ×2; C9113 ×2

== ENCOUNTER 2018-03-18 19:45 | Observation (INO) | payer MEDICARE, BC ==
[2018-03-18] MEDS ORDERED: SODIUM CHLORIDE 0.9% 500 ML 500 ML IV STA (20:13)
[2018-03-18] MEDS ORDERED: IPRATROPIUM 0.5 MG/2.5 ML NEBU INHALATION STA (20:22)
[2018-03-18] MEDS ORDERED: ALBUTEROL NEBULIZED 2.5 MG/3 ML INHALATION STA (20:22)
[2018-03-18] MEDS ORDERED: DEXAMETHASONE SOD PHOSPHATE 10 MG/ML 1 ML VIAL IV STA (20:25)
--- NOTE | 2018-03-18 20:27 | ED ---
General Adult HPI - General Chief complaint: Shortness of Breath Stated complaint: LEAH Time Seen by Provider: 03/18/18 19:52 Source: patient, family Mode of arrival: wheelchair Limitations: no limitations - History of Present Illness Initial comments: Dictation was produced using [employer] dictation software. please excuse any grammatical, word or spelling errors. Chief Complaint: 73-year-old male with past medical history of coronary artery disease, heart failure, CVA presents with cough and dyspnea. History of Present Illness: 73-year-old male. Patient states that he's been having symptoms of shortness of breath and cough for the past 2-3 days. Patient has breathing treatment apparatus at home however his symptoms have not improved with albuterol. Patient denies any constitutional symptoms. Denies any history of COPD or asthma. There is suspicion he has COPD however he has never formally been told this and denies any constitutional symptoms. Patient has no pain complex. Denies any worsening shortness of breath with lying flat. No lower extremity edema. The ROS documented in this emergency department record has been reviewed and confirmed by me. Those systems with pertinent positive or negative responses have been documented in the HPI. All other systems are other negative and/or noncontributory. PHYSICAL EXAM: General Impression: Alert and oriented x3, acute respiratory distress, tachypnea HEENT: Normocephalic atraumatic, extra-ocular movements intact, pupils equal and reactive to light bilaterally, mucous membranes moist. Cardiovascular: Heart regular rate and rhythm, S1&S2 audible, no murmurs, rubs or gallops Chest: Bilateral lung crackles and rhonchi Abdomen: Bowel sounds present, abdomen soft, non-tender, non-distended, no organomegaly Musculoskeletal: Pulses present and equal in all extremities, no peripheral edema Motor: Power 5/5 bilaterally, no focal deficits noted Neurological: CN II-XII grossly intact, no focal motor or sensory deficits noted Skin: Intact with no visualized rashes ED course: 73-year-old male presents with acute shortness of breath. Vital signs upon arrival shows respiratory rate of 24. Patient is showing signs of respiratory distress. He is not hypoxic. Rest of vital signs within acceptable limits. Patient has a AICD/pacemaker. He is on Coumadin. Laboratory evaluation obtained. CBC, coag panel, blood gases, metabolic panel was obtained. CBC, coag panel, blood gases obtained from the be within acceptable limits. Patient is on Coumadin with INR 2.4. Metabolic panel is within normal limits. Patient has magnesium 1.5. He is given IV magnesium. Patient reevaluated after being on BiPAP and given breathing treatment. Patient respiratory symptoms are improved. Patient be admitted for respiratory failure. Discussed patient case Dr. Clark who is willing to accept admission. Patient symptoms is a likely secondary to acute bronchitis. Patient troponin elevated likely secondary troponin leak. We will trend his troponins. EKG interpretation: Ventricular rate 77, right bundle branch block, QS 144, QTC 574. No KS prolongation, intermittently paced rhythm. There is no pacemaker spikes in front of each QRS complex - Related Data Home Medications Medication Instructions Recorded Confirmed Allopurinol [Zyloprim] 100 mg PO DAILY 04/23/15 03/18/18 Warfarin [Coumadin] 2.5 mg PO SUMOTUWETHSA 07/04/15 03/18/18 Zolpidem Tartrate [Ambien] 10 mg PO HS PRN 07/04/15 03/18/18 Multivitamins, Thera [Multivitamin 1 tab PO DAILY 12/17/15 03/18/18 (formulary)] [place]-3 Fatty Acids/Fish Oil [Fish 1 cap PO DAILY 12/17/15 03/18/18 Oil 1,000 mg Softgel] Cholecalciferol [Vitamin D3] 1,000 unit PO DAILY 12/22/15 03/18/18 Vitamin B Complex 1 cap PO DAILY 12/22/15 03/18/18 Isosorbide Mononitrate ER [Imdur] 30 mg PO BID 05/27/17 03/18/18 LORazepam [Ativan] 0.5 mg PO TID PRN 05/27/17 03/18/18 Furosemide [Lasix] 40 mg PO BID 11/10/17 03/18/18 Warfarin [Coumadin] 5 mg PO FR 01/30/18 03/18/18 Carvedilol [Coreg*] 12.5 mg PO TID 03/18/18 03/18/18 Lisinopril [Zestril] 10 mg PO DAILY 03/18/18 03/18/18 Previous Rx's Medication Instructions Recorded Aspirin 81 mg PO DAILY #30 chew 12/24/15 Atorvastatin [Lipitor] 80 mg PO HS #30 tab 12/24/15 Clopidogrel [Plavix] 75 mg PO DAILY #30 tab 12/24/15 Nitroglycerin Sl Tabs [Nitrostat] 0.4 mg SUBLINGUAL Q5M PRN #25 tab 12/24/15 Losartan [Cozaar] 50 mg PO DAILY #30 tab 01/31/18 Allergies Allergy/AdvReac Type Severity Reaction Status Date / Time No Known Allergies Allergy Verified 03/18/18 20:38 Review of Systems ROS Statement: Those systems with pertinent positive or pertinent negative responses have been documented in the HPI. ROS Other: All systems not noted in ROS Statement are negative. Past Medical History Past Medical History: Coronary Artery Disease (CAD), Heart Failure, CVA/TIA, Eye Disorder, Hyperlipidemia, Hypertension Additional Past Medical History / Comment(s): gout, cardomyopathy, previous charting listed mi 2016 pt unable to verify. arthrits rt index finger, cataracts , aaa, anxiety. Last Myocardial Infarction Date:: 2015 History of Any Multi-Drug Resistant Organisms: None Reported Past Surgical History: AICD, Back Surgery, Heart Catheterization With Stent, Pacemaker Additional Past Surgical History / Comment(s): stents x3, back fusion Past Anesthesia/Blood Transfusion Reactions: No Reported Reaction Date of Last Stent Placement:: 2015 Type of Cardiac Device: Permanent Pacemaker, AICD Device Placement Date:: 07-29-14 Past Psychological History: Anxiety Smoking Status: Former smoker Past Alcohol Use History: Occasional Past Drug Use History: None Reported - Past Family History Father Family Medical History: CVA/TIA, Dementia Mother Family Medical History: CVA/TIA, Diabetes Mellitus, Skin Disorder Additional Family Medical History / Comment(s): skin CA General Exam Limitations: no limitations Course Vital Signs 03/18/18 03/18/18 03/18/18 19:46 20:02 20:20 Temperature 97.7 F Pulse Rate 70 79 Respiratory 24 22 24 Rate Blood Pressure 161/73 150/83 O2 Sat by Pulse 97 99 Oximetry 03/18/18 03/18/18 20:39 21:06 Temperature 98.8 F Pulse Rate 66 63 Respiratory 20 Rate Blood Pressure 131/69 O2 Sat by Pulse 100 Oximetry Medical Decision Making - Lab Data Result diagrams: 03/18/18 20:10 03/18/18 20:10 Lab Results 03/18/18 03/18/1819 Range/Units 20:10 20:10 20:10 WBC 9.2 (3.8-10.6) k/uL RBC 4.11 L (4.30-5.90) m/uL Hgb 12.9 L (13.0-17.5) gm/dL Hct 40.2 (39.0-53.0) % MCV 97.9 (80.0-100.0) fL MCH 31.4 (25.0-35.0) pg MCHC 32.1 (31.0-37.0) g/dL RDW 14.4 (11.5-15.5) % Plt Count 191 (150-450) k/uL Neutrophils % 59 % Lymphocytes % 25 % Monocytes % 7 % Eosinophils % 7 % Basophils % 1 % Neutrophils # 5.4 (1.3-7.7) k/uL Lymphocytes # 2.3 (1.0-4.8) k/uL Monocytes # 0.6 (0-1.0) k/uL Eosinophils # 0.6 (0-0.7) k/uL Basophils # 0.1 (0-0.2) k/uL PT (9.0-12.0) sec INR (<1.2) APTT (22.0-30.0) sec VBG pH (7.31-7.41) VBG pCO2 (37-51) mmHg VBG HCO3 (24-28) mmol/L Sodium 143 (137-145) mmol/L Potassium 3.6 (3.5-5.1) mmol/L Chloride 106 (98-107) mmol/L Carbon Dioxide 24 (22-30) mmol/L Anion Gap 13 mmol/L BUN 21 H (9-20) mg/dL Creatinine 1.37 H (0.66-1.25) mg/dL Est GFR (CKD-EPI)AfAm 59 (>60 ml/min/1.73 sqM) Est GFR (CKD-EPI)NonAf 51 (>60 ml/min/1.73 sqM) Glucose 142 H (74-99) mg/dL Calcium 9.5 (8.4-10.2) mg/dL Magnesium 1.5 L (1.6-2.3) mg/dL Total Bilirubin 0.5 (0.2-1.3) mg/dL AST 38 (17-59) U/L ALT 32 (21-72) U/L Alkaline Phosphatase 82 (38-126) U/L Total Creatine Kinase 104 (55-170) U/L CK-MB (CK-2) 1.9 (0.0-2.4) ng/mL CK-MB (CK-2) Rel Index 1.8 Troponin I 0.095 H* (0.000-0.034) ng/mL NT-Pro-B Natriuret Pep pg/mL Total Protein 6.6 (6.3-8.2) g/dL Albumin 4.1 (3.5-5.0) g/dL 03/18/18 03/18/18 03/18/18 Range/Units 20:10 20:10 20:57 WBC (3.8-10.6) k/uL RBC (4.30-5.90) m/uL Hgb (13.0-17.5) gm/dL Hct (39.0-53.0) % MCV (80.0-100.0) fL MCH (25.0-35.0) pg MCHC (31.0-37.0) g/dL RDW (11.5-15.5) % Plt Count (150-450) k/uL Neutrophils % % Lymphocytes % % Monocytes % % Eosinophils % % Basophils % % Neutrophils # (1.3-7.7) k/uL Lymphocytes # (1.0-4.8) k/uL Monocytes # (0-1.0) k/uL Eosinophils # (0-0.7) k/uL Basophils # (0-0.2) k/uL PT 23.4 H (9.0-12.0) sec INR 2.4 H (<1.2) APTT 41.2 H (22.0-30.0) sec VBG pH 7.50 H (7.31-7.41) VBG pCO2 32 L (37-51) mmHg VBG HCO3 24 (24-28) mmol/L Sodium (137-145) mmol/L Potassium (3.5-5.1) mmol/L Chloride (98-107) mmol/L Carbon Dioxide (22-30) mmol/L Anion Gap mmol/L BUN (9-20) mg/dL Creatinine (0.66-1.25) mg/dL Est GFR (CKD-EPI)AfAm (>60 ml/min/1.73 sqM) Est GFR (CKD-EPI)NonAf (>60 ml/min/1.73 sqM) Glucose (74-99) mg/dL Calcium (8.4-10.2) mg/dL Magnesium (1.6-2.3) mg/dL Total Bilirubin (0.2-1.3) mg/dL AST (17-59) U/L ALT (21-72) U/L Alkaline Phosphatase (38-126) U/L Total Creatine Kinase (55-170) U/L CK-MB (CK-2) (0.0-2.4) ng/mL CK-MB (CK-2) Rel Index Troponin I (0.000-0.034) ng/mL NT-Pro-B Natriuret Pep 1210 pg/mL Total Protein (6.3-8.2) g/dL Albumin (3.5-5.0) g/dL Disposition Clinical Impression: Respiratory failure Disposition: ADMITTED IP TO THIS HOSP Condition: Fair Referrals: Giovanni Clark MD [Primary Care Provider] - 1-2 days Decision Time: 22:15
[2018-03-18 20:30] LABS: Basophils # (A) 0.1 k/uL (0-0.2); Basophils % (A) 1 %; Eosinophils # (A) 0.6 k/uL (0-0.7); Eosinophils % (A) 7 %; HCT 40.2 % (39.0-53.0); HGB 12.9 gm/dL (13.0-17.5); Lymphocytes # (A) 2.3 k/uL (1.0-4.8); Lymphocytes % (A) 25 %; MCH 31.4 pg (25.0-35.0); MCHC 32.1 g/dL (31.0-37.0); MCV 97.9 fL (80.0-100.0); Mean Platelet Volume 8.8; Monocytes # (A) 0.6 k/uL (0-1.0); Monocytes % (A) 7 %; Neutrophils # (A) 5.4 k/uL (1.3-7.7); Neutrophils % (A) 59 %; Platelet Count 191 k/uL (150-450); RBC 4.11 m/uL (4.30-5.90); RDW 14.4 % (11.5-15.5); WBC 9.2 k/uL (3.8-10.6)
[2018-03-18 20:39] LABS: Albumin 4.1 g/dL (3.5-5.0); Calcium 9.5 mg/dL (8.4-10.2); Magnesium 1.5 mg/dL (1.6-2.3); Potassium 3.6 mmol/L (3.5-5.1); Total Bilirubin 0.5 mg/dL (0.2-1.3); Total Protein 6.6 g/dL (6.3-8.2)
--- NOTE | 2018-03-18 20:43 | XR ---
EXAMINATION TYPE: XR chest 1V portable DATE OF EXAM: 03/18/2018 COMPARISON: 01/28/2018 HISTORY: Breathing TECHNIQUE: Single frontal view of the chest is obtained. FINDINGS: Heart is enlarged. There is no heart failure. Lungs are clear of consolidation. There is l eft axillary pacemaker with the lead tips in the right ventricle. IMPRESSION: Moderate cardiomegaly. No change compared to old exam. No heart failure seen.
[2018-03-18 20:46] LABS: INR 2.4 (<1.2); Partial Thromboplastin Time 41.2 sec (22.0-30.0); Prothrombin Time 23.4 sec (9.0-12.0)
[2018-03-18 20:55] LABS: Creatine Kinase MB 1.9 ng/mL (0.0-2.4)
[2018-03-18 21:00] LABS: Troponin I 0.095 ng/mL (0.000-0.034)
[2018-03-18 21:08] LABS: VBG PH 7.5 (7.31-7.41)
[2018-03-18] MEDS: MAGNESIUM SULFATE-D5W PMX 1 GM in DEXTROSE/WATER 1 100ML.BAG IVPB SCH ×2 (21:30→22:52)
[2018-03-18] MEDS ORDERED: IPRATROPIUM-ALBUTEROL 3 ML NEB INHALATION PRN (22:04)
[2018-03-18] MEDS ORDERED: WARFARIN 2.5 MG TAB PO SCH (22:30)
[2018-03-19] MEDS: ZOLPIDEM 10 MG TAB PO PRN ×2 (00:36→22:15)
[2018-03-19 02:20] VITALS: BMI 30.7
[2018-03-19] MEDS: CARVEDILOL 12.5 MG TAB PO SCH ×3 (06:45→17:32)
--- NOTE | 2018-03-19 08:00 | P.HPIM ---
History of Present Illness H&P Date: 03/19/18 Chief Complaint: Shortness of breath and dyspnea on exertion. This is a 73-year-old white male who states yesterday worsening dyspnea on exertion. Question element of COPD but the patient is never been told that he' s had this. The patient has history of pacemaker but no signs of heart failure on chest x-ray. He had element of hypoxia on admission and was placed on BiPAP and is not complaining of significant fatigue. He states worsening cough which is not cleared with breathing treatments at home. He is been compliant with his medication otherwise because of his respiratory failure he is appropriately admitted. Review of Systems Constitutional: Denies chills, Denies fever Eyes: denies blurred vision, denies pain Ears, nose, mouth and throat: Denies headache, Denies sore throat Cardiovascular: Denies chest pain, Denies shortness of breath Respiratory: Reports as per HPI Genitourinary: Denies dysuria Musculoskeletal: Denies myalgias Integumentary: Denies pruritus, Denies rash Neurological: Denies numbness, Denies weakness Past Medical History Past Medical History: Coronary Artery Disease (CAD), Heart Failure, CVA/TIA, Eye Disorder, Hyperlipidemia, Hypertension Additional Past Medical History / Comment(s): gout, cardomyopathy, previous charting listed mi 2016 pt unable to verify. arthrits rt index finger, cataracts , aaa, anxiety. Last Myocardial Infarction Date:: 2015 History of Any Multi-Drug Resistant Organisms: None Reported Past Surgical History: AICD, Back Surgery, Heart Catheterization With Stent, Pacemaker Additional Past Surgical History / Comment(s): stents x3, back fusion Past Anesthesia/Blood Transfusion Reactions: No Reported Reaction Date of Last Stent Placement:: 2015 Type of Cardiac Device: Permanent Pacemaker, AICD Device Placement Date:: 07-29-14 Past Psychological History: Anxiety Smoking Status: Former smoker Past Alcohol Use History: Occasional Additional Past Alcohol Use History / Comment(s): drinks 2 drinks of whiskey daily. quit smoking 1977, smoked 1 ppd. Past Drug Use History: None Reported - Past Family History Father Family Medical History: CVA/TIA, Dementia Mother Family Medical History: CVA/TIA, Diabetes Mellitus, Skin Disorder Additional Family Medical History / Comment(s): skin CA Medications and Allergies Home Medications Medication Instructions Recorded Confirmed Type Allopurinol [Zyloprim] 100 mg PO DAILY 04/23/15 03/18/18 History Warfarin [Coumadin] 2.5 mg PO SUMOTUWETHSA 07/04/15 03/18/18 History Zolpidem Tartrate [Ambien] 10 mg PO HS PRN 07/04/15 03/18/18 History Multivitamins, Thera [Multivitamin 1 tab PO DAILY 12/17/15 03/18/18 History (formulary)] [place]-3 Fatty Acids/Fish Oil [Fish 1 cap PO DAILY 12/17/15 03/18/18 History Oil 1,000 mg Softgel] Cholecalciferol [Vitamin D3] 1,000 unit PO DAILY 12/22/15 03/18/18 History Vitamin B Complex 1 cap PO DAILY 12/22/15 03/18/18 History Aspirin 81 mg PO DAILY #30 chew 12/24/15 03/18/18 Rx Atorvastatin [Lipitor] 80 mg PO HS #30 tab 12/24/15 03/18/18 Rx Clopidogrel [Plavix] 75 mg PO DAILY #30 tab 12/24/15 03/18/18 Rx Nitroglycerin Sl Tabs [Nitrostat] 0.4 mg SUBLINGUAL Q5M PRN #25 tab 12/24/1508/27 Rx Isosorbide Mononitrate ER [Imdur] 30 mg PO BID 05/27/17 03/18/18 History LORazepam [Ativan] 0.5 mg PO TID PRN 05/27/17 03/18/18 History Furosemide [Lasix] 40 mg PO BID 11/10/17 03/18/18 History Warfarin [Coumadin] 5 mg PO FR 01/30/18 03/18/18 History Losartan [Cozaar] 50 mg PO DAILY #30 tab 01/31/18 03/18/18 Rx Carvedilol [Coreg*] 12.5 mg PO TID 03/18/18 03/18/18 History Lisinopril [Zestril] 10 mg PO DAILY 03/18/18 03/18/18 History Allergies Allergy/AdvReac Type Severity Reaction Status Date / Time No Known Allergies Allergy Verified 03/18/18 20:38 Physical Exam Vitals: Vital Signs Temp Pulse Pulse Resp BP BP Pulse Ox 03/19/18 03:29 98 F 61 18 154/82 95 02/08/19 03:28 84 18 03/19/18 00:00 97.9 F 84 18 117/76 96 03/18/18 23:36 97.9 F 61 18 133/72 99 03/18/18 22:35 97.6 F 60 20 150/87 99 03/18/18 22:15 64 18 130/85 98 03/18/18 21:06 98.8 F 63 20 131/69 100 03/18/18 20:39 66 03/18/18 20:20 79 24 150/83 99 03/18/18 20:02 22 03/18/18 19:46 97.7 F 70 24 161/73 97 Intake and Output 03/18/18 03/19/18 03/19/18 22:59 06:59 14:59 Other: # Voids 1 1 Weight 100.698 kg 105.9 kg - Constitutional General appearance: mild distress, obese - EENT Eyes: EOMI - Neck Neck: no lymphadenopathy - Respiratory Respiratory: bilateral: diminished - Cardiovascular Rhythm: regular Heart sounds: normal: S1, S2 - Gastrointestinal General gastrointestinal: soft, no tenderness - Integumentary Integumentary: no cyanotic - Neurologic Neurologic: CNII-XII intact - Psychiatric Psychiatric: A&O x's 3, appropriate affect Results CBC & Chem 7: 03/18/18 20:10 03/18/18 20:10 Labs: Abnormal Lab Results - Last 24 Hours (Table) 03/18/18 03/18/18 03/18/18 Range/Units 20:10 20:10 20:10 RBC 4.11 L (4.30-5.90) m/uL Hgb 12.9 L (13.0-17.5) gm/dL PT (9.0-12.0) sec INR (<1.2) APTT (22.0-30.0) sec VBG pH (7.31-7.41) VBG pCO2 (37-51) mmHg BUN 21 H (9-20) mg/dL Creatinine 1.37 H (0.66-1.25) mg/dL Glucose 142 H (74-99) mg/dL Magnesium 1.5 L (1.6-2.3) mg/dL Troponin I 0.095 H* (0.000-0.034) ng/mL 03/18/18 03/18/18 03/19/18 Range/Units 20:10 20:57 01:51 RBC (4.30-5.90) m/uL Hgb (13.0-17.5) gm/dL PT 23.4 H (9.0-12.0) sec INR 2.4 H (<1.2) APTT 41.2 H (22.0-30.0) sec VBG pH 7.50 H (7.31-7.41) VBG pCO2 32 L (37-51) mmHg BUN (9-20) mg/dL Creatinine (0.66-1.25) mg/dL Glucose (74-99) mg/dL Magnesium (1.6-2.3) mg/dL Troponin I 0.080 H* (0.000-0.034) ng/mL Thrombosis Risk Factor Assmnt - Choose All That Apply Each Factor Represents 1 point: Abnormal pulmonary function (COPD), Obesity ( BMI >25) Other Risk Factors: Yes Each Risk Factor Represents 2 Points: Age 61-74 years Other congenital or acquired thrombophilia - If yes, enter type in comment: No Thrombosis Risk Factor Assessment Total Risk Factor Score: 4 Thrombosis Risk Factor Assessment Level: Moderate Risk Assessment and Plan (1) Respiratory failure Current Visit: Yes Status: Acute Code(s): J96.90 - RESPIRATORY FAILURE, UNSP , UNSP W HYPOXIA OR HYPERCAPNIA SNOMED Code(s): 679746415 (2) AICD (automatic cardioverter/defibrillator) present Current Visit: No Status: Acute Code(s): Z95.810 - PRESENCE OF AUTOMATIC ( IMPLANTABLE) CARDIAC DEFIBRILLATOR SNOMED Code(s): 070782415 (3) CAD (coronary artery disease) Current Visit: No Status: Acute Code(s): I25.10 - ATHSCL HEART DISEASE OF [place] CORONARY ARTERY W/O ANG PCTRS SNOMED Code(s): 91199797 (4) Dyspnea Current Visit: No Status: Acute Code(s): R06.00 - DYSPNEA, UNSPECIFIED SNOMED Code(s): 043148893 (5) HTN (hypertension) Current Visit: No Status: Acute Code(s): I10 - ESSENTIAL (PRIMARY) HYPERTENSION SNOMED Code(s): 78390631 (6) Hyperlipemia Current Visit: No Status: Acute Code(s): E78.5 - HYPERLIPIDEMIA, UNSPECIFIED SNOMED Code(s): 46484177 (7) Ischemic cardiomyopathy Current Visit: No Status: Acute Code(s): I25.5 - ISCHEMIC CARDIOMYOPATHY SNOMED Code(s): 009156365 Plan: We'll go ahead and ask pulmonology to see the patient. Check CBC and CMP in a.m. I doubt exacerbation of heart failure given chest x-ray and resolution with without significant diuresis. However, if the patient does decompensate we will ask cardiology to assist. See orders otherwise. Dr. Worley's covering for the weekend. Time with Patient: Greater than 30
[2018-03-19] MEDS: FUROSEMIDE 40 MG TAB PO SCH ×2 (08:38→15:31)
[2018-03-19] MEDS: ASPIRIN 81 MG PO SCH (08:38)
[2018-03-19] MEDS: LOSARTAN 50 MG TAB PO SCH (08:38)
[2018-03-19 08:53] LABS: INR 2.4 (<1.2); Prothrombin Time 23.6 sec (9.0-12.0)
[2018-03-19] MEDS: IPRATROPIUM-ALBUTEROL 3 ML NEB INHALATION SCH ×3 (11:07→20:11)
--- NOTE | 2018-03-19 12:05 | P.CNPUL ---
History of Present Illness Consult date: 03/19/18 Requesting physician: Giovanni Clark Reason for consult: dyspnea Chief complaint: shortness of breath History of present illness: HPI: Patient is being seen examined and evaluated today for consultation while covering for Dr. Cheung. This patient follows with Dr. Cheung in the office. The patient came into the hospital with shortness of breath cough and congestion that had been ongoing for the past 2 or 3 days. He has been using nebulizer treatments at home and his symptoms did not improve. He states he has a nebulizer at home and does use DuoNeb and budesonide. He states he has never been told he has COPD but he feels as if he does have COPD. Patient has a known ex-smoker and used to smoke 1 pack per day for approximately 40 years. His chest x-ray was reviewed and does show mild cardiomegaly. The patient did require BiPAP while in the emergency room due to desaturations and he was admitted to the hospital for further evaluation and treatment. He currently is afebrile. Upon examination he is resting up in bed on 3 L of supplemental oxygen via nasal cannula. Does have shortness of breath with exertion and activity. Does not utilize home oxygen. Does have a cough that is congested with pink/garcia sputum. Review of Systems 14 point review of systems was completed and is negative unless noted above in the HPI Past Medical History Past Medical History: Coronary Artery Disease (CAD), Heart Failure, CVA/TIA, Eye Disorder, Hyperlipidemia, Hypertension Additional Past Medical History / Comment(s): gout, cardomyopathy, previous charting listed mi 2016 pt unable to verify. arthrits rt index finger, cataracts , aaa, anxiety. Last Myocardial Infarction Date:: 2015 History of Any Multi-Drug Resistant Organisms: None Reported Past Surgical History: AICD, Back Surgery, Heart Catheterization With Stent, Pacemaker Additional Past Surgical History / Comment(s): stents x3, back fusion Past Anesthesia/Blood Transfusion Reactions: No Reported Reaction Date of Last Stent Placement:: 2015 Type of Cardiac Device: Permanent Pacemaker, AICD Device Placement Date:: 07-29-14 Past Psychological History: Anxiety Smoking Status: Former smoker Past Alcohol Use History: Occasional Additional Past Alcohol Use History / Comment(s): drinks 2 drinks of whiskey daily. quit smoking 1977, smoked 1 ppd. Past Drug Use History: None Reported - Past Family History Father Family Medical History: CVA/TIA, Dementia Mother Family Medical History: CVA/TIA, Diabetes Mellitus, Skin Disorder Additional Family Medical History / Comment(s): skin CA Medications and Allergies Home Medications Medication Instructions Recorded Confirmed Type Allopurinol [Zyloprim] 100 mg PO DAILY 04/23/15 03/18/18 History Warfarin [Coumadin] 2.5 mg PO SUMOTUWETHSA 07/04/15 03/18/18 History Zolpidem Tartrate [Ambien] 10 mg PO HS PRN 07/04/15 03/18/18 History Multivitamins, Thera [Multivitamin 1 tab PO DAILY 12/17/15 03/18/18 History (formulary)] Grandy-3 Fatty Acids/Fish Oil [Fish 1 cap PO DAILY 12/17/15 03/18/18 History Oil 1,000 mg Softgel] Cholecalciferol [Vitamin D3] 1,000 unit PO DAILY 12/22/15 03/18/18 History Vitamin B Complex 1 cap PO DAILY 12/22/15 03/18/18 History Aspirin 81 mg PO DAILY #30 chew 12/24/15 03/18/18 Rx Atorvastatin [Lipitor] 80 mg PO HS #30 tab 12/24/15 03/18/18 Rx Clopidogrel [Plavix] 75 mg PO DAILY #30 tab 12/24/15 03/18/18 Rx Nitroglycerin Sl Tabs [Nitrostat] 0.4 mg SUBLINGUAL Q5M PRN #25 tab 12/24/1508/27 Rx Isosorbide Mononitrate ER [Imdur] 30 mg PO BID 05/27/17 03/18/18 History LORazepam [Ativan] 0.5 mg PO TID PRN 05/27/17 03/18/18 History Furosemide [Lasix] 40 mg PO BID 11/10/17 03/18/18 History Warfarin [Coumadin] 5 mg PO FR 01/30/18 03/18/18 History Losartan [Cozaar] 50 mg PO DAILY #30 tab 01/31/18 03/18/18 Rx Carvedilol [Coreg*] 12.5 mg PO TID 03/18/18 03/18/18 History Lisinopril [Zestril] 10 mg PO DAILY 03/18/18 03/18/18 History Allergies Allergy/AdvReac Type Severity Reaction Status Date / Time No Known Allergies Allergy Verified 03/18/18 20:38 Physical Exam Vitals: Vital Signs Temp Pulse Pulse Resp BP BP Pulse Ox 03/19/18 11:20 98.0 F 63 18 130/74 100 03/19/18 11:19 68 03/19/18 11:14 72 03/19/18 08:41 60 18 03/19/18 08:40 60 18 135/65 99 03/19/18 03:29 98 F 61 18 154/82 95 03/19/18 03:28 84 18 03/19/18 00:00 97.9 F 84 18 117/76 96 03/18/18 23:36 97.9 F 61 18 133/72 99 03/18/18 22:35 97.6 F 60 20 150/87 99 03/18/18 22:15 64 18 130/85 98 03/18/18 21:06 98.8 F 63 20 131/69 100 03/18/18 20:39 66 03/18/18 20:20 79 24 150/83 99 03/18/18 20:02 22 03/18/18 19:46 97.7 F 70 24 161/73 97 Intake and Output 03/18/18 03/19/18 03/19/18 22:59 06:59 14:59 Intake Total 200 Balance 200 Intake: Oral 200 Other: Voiding Method Toilet Urinal # Voids 1 1 Weight 100.698 kg 105.9 kg GENERAL EXAM: Alert, active, comfortable in no apparent distress. HEAD: Normocephalic. EYES: Normal reaction of pupils, equal size. NOSE: Clear with pink turbinates. THROAT: No erythema or exudates. NECK: No masses, no JVD. CHEST: No chest wall deformity. LUNGS: Equal air entry with no crackles, wheeze, rhonchi or dullness. Bases diminished CVS: S1 and S2 normal with no audible mumurs, regular rhythm. ABDOMEN: No hepatosplenomegaly, normal bowel sounds, no guarding or rigidity. EXTREMITIES: No edema noted, pedal pulses palpable. CENTRAL NERVOUS SYSTEM: No focal deficits, tone is normal in all 4 extremities. Results - Laboratory Findings CBC and BMP: 03/18/18 20:10 03/18/18 20:10 PT/INR, D-dimer PT 23.6 sec (9.0-12.0) H 03/19/18 07:30 INR 2.4 (<1.2) H 03/19/18 07:30 Abnormal lab findings: Abnormal Labs 03/18/18 03/18/18 03/18/18 20:10 20:10 20:10 RBC 4.11 L Hgb 12.9 L PT INR APTT VBG pH VBG pCO2 BUN 21 H Creatinine 1.37 H Glucose 142 H Magnesium 1.5 L Troponin I 0.095 H* 03/18/18 03/18/18 03/19/18 20:10 20:57 01:51 RBC Hgb PT 23.4 H INR 2.4 H APTT 41.2 H VBG pH 7.50 H VBG pCO2 32 L BUN Creatinine Glucose Magnesium Troponin I 0.080 H* 03/19/18 03/19/18 07:30 07:30 RBC Hgb PT 23.6 H INR 2.4 H APTT VBG pH VBG pCO2 BUN Creatinine Glucose Magnesium Troponin I 0.058 H* - Diagnostic Findings Chest x-ray: report reviewed, image reviewed Assessment and Plan Assessment: Assessment Acute hypoxic respiratory failure requiring supplemental oxygen Acute exacerbation of COPD Possible tracheobronchitis History of CAD History of CHF Plan Pulmonary status stable, Ok to discharge from a pulmonary standpoint. Medications have been reviewed and will be continued as ordered. Hold off on systemic steroids at this point Short course of antibiotics Obtain sputum culture Initiate and encourage incentive spirometer Continue with pulmonary hygiene, coughing and deep breathing exercises, and supportive care. Supplemental oxygen to maintain oxygen saturations of 92% or better. Continue nebulizer treatments in the form of DuoNeb and budesonide. GI and DVT prophylaxis. We will continue to monitor labs/results and adjust treatment as necessary. Further recommendations pending. I, the signing physician performed an examination of the patient, discussed and directed their management with the nurse practitioner. I have reviewed the nurse practitioner's note and agree with the documented findings, orders and plan of care. Nurse practitioner acting as a scribe for the signing physician. Please note we are covering for Dr. Cheung
[2018-03-19] MEDS ORDERED: LORazepam 0.5 MG TAB PO PRN (17:36)
[2018-03-19] MEDS ORDERED: WARFARIN 5 MG TAB PO SCH (18:00)
[2018-03-19] MEDS: BUDESONIDE 0.5 MG/2 ML NEBU INHALATION SCH (20:11)
[2018-03-19] MEDS ORDERED: ATORVASTATIN 80 MG TAB PO SCH (21:00)
[2018-03-19] MEDS: FAMOTIDINE 20 MG TAB PO SCH (22:16)
[2018-03-19] MEDS: DOXYCYCLINE 100 MG CAP PO SCH (22:16)
[2018-03-19] MEDS: ISOSORBIDE MONONITRATE ER 30 MG TAB.ER.24H PO SCH (22:16)
[2018-03-20 01:17] VITALS: RESP 20
[2018-03-20] MEDS: CARVEDILOL 12.5 MG TAB PO SCH ×2 (06:21→12:28)
[2018-03-20 07:43] LABS: HCT 37.2 % (39.0-53.0); HGB 12.2 gm/dL (13.0-17.5); MCH 32.9 pg (25.0-35.0); MCHC 32.8 g/dL (31.0-37.0); MCV 100.4 fL (80.0-100.0); Macrocytosis Slight; Mean Platelet Volume 8.6; Platelet Count 167 k/uL (150-450); RBC 3.71 m/uL (4.30-5.90); RDW 14.7 % (11.5-15.5); WBC 13.3 k/uL (3.8-10.6)
[2018-03-20 07:57] LABS: Prothrombin Time 29.4 sec (9.0-12.0)
[2018-03-20 08:04] LABS: Albumin 3.8 g/dL (3.5-5.0); Calcium 9.2 mg/dL (8.4-10.2); Magnesium 1.8 mg/dL (1.6-2.3); Potassium 4.1 mmol/L (3.5-5.1); Total Bilirubin 0.5 mg/dL (0.2-1.3); Total Protein 6.3 g/dL (6.3-8.2)
[2018-03-20] MEDS: ASPIRIN 81 MG PO SCH (08:47)
[2018-03-20] MEDS: DOXYCYCLINE 100 MG CAP PO SCH (08:47)
[2018-03-20] MEDS: ISOSORBIDE MONONITRATE ER 30 MG TAB.ER.24H PO SCH (08:48)
[2018-03-20] MEDS: FUROSEMIDE 40 MG TAB PO SCH ×2 (08:48→14:33)
[2018-03-20] MEDS: FAMOTIDINE 20 MG TAB PO SCH (08:48)
[2018-03-20] MEDS: LOSARTAN 50 MG TAB PO SCH (08:48)
[2018-03-20] MEDS: IPRATROPIUM-ALBUTEROL 3 ML NEB INHALATION SCH ×2 (08:49→12:09)
[2018-03-20] MEDS: BUDESONIDE 0.5 MG/2 ML NEBU INHALATION SCH (08:49)
[2018-03-20] MEDS ORDERED: CHOLECALCIFEROL 1,000 UNIT TAB PO SCH (09:00)
[2018-03-20] MEDS ORDERED: CLOPIDOGREL 75 MG TAB PO SCH (09:00)
[2018-03-20] MEDS ORDERED: LISINOPRIL 10 MG TAB PO SCH (09:00)
[2018-03-20] MEDS ORDERED: ALLOPURINOL 100 MG TAB PO SCH (09:00)
[2018-03-20] MEDS ORDERED: MULTIVITAMINS, THERA 1 EACH TAB PO SCH (12:00)
--- NOTE | 2018-03-20 12:49 | P.PN ---
Subjective Progress Note Date: 03/20/18 HPI: Patient is being seen examined and evaluated today for consultation while covering for Dr. Cheung. This patient follows with Dr. Cheung in the office. The patient came into the hospital with shortness of breath cough and congestion that had been ongoing for the past 2 or 3 days. He has been using nebulizer treatments at home and his symptoms did not improve. He states he has a nebulizer at home and does use DuoNeb and budesonide. He states he has never been told he has COPD but he feels as if he does have COPD. Patient has a known ex-smoker and used to smoke 1 pack per day for approximately 40 years. His chest x-ray was reviewed and does show mild cardiomegaly. The patient did require BiPAP while in the emergency room due to desaturations and he was admitted to the hospital for further evaluation and treatment. He currently is afebrile. Upon examination he is resting up in bed on 3 L of supplemental oxygen via nasal cannula. Does have shortness of breath with exertion and activity. Does not utilize home oxygen. Does have a cough that is congested with pink/garcia sputum. 03/20/2018: Patient seen and examined. Patient states that he is feeling back to baseline. He is currently on room air with O2 saturation 98%. The patient denies any fevers or chills. He states he is planning to go home today. 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 Objective - Vital Signs Vital signs: Vital Signs Temp 97.4 F L 03/20/18 08:00 Pulse 60 03/20/18 12:26 Resp 20 03/20/18 08:00 BP 132/75 03/20/18 08:00 Pulse Ox 98 03/20/18 08:00 Intake & Output 03/19/18 03/20/18 03/20/18 18:59 06:59 18:59 Intake Total 640 480 360 Output Total 300 Balance 340 480 360 Weight 105.3 kg Intake: Oral 640 480 360 Output: Urine 300 Other: Voiding Method Toilet Toilet Toilet Urinal # Voids 1 3 - Exam GENERAL EXAM: Alert, active, comfortable in no apparent distress. HEAD: Normocephalic. EYES: Normal reaction of pupils, equal size. NOSE: Clear with pink turbinates. THROAT: No erythema or exudates. NECK: No masses, no JVD. CHEST: No chest wall deformity. LUNGS: Equal air entry with no crackles, wheeze, rhonchi or dullness. Bases diminished CVS: S1 and S2 normal with no audible mumurs, regular rhythm. ABDOMEN: No hepatosplenomegaly, normal bowel sounds, no guarding or rigidity. EXTREMITIES: No edema noted, pedal pulses palpable. CENTRAL NERVOUS SYSTEM: No focal deficits, tone is normal in all 4 extremities. - Labs CBC & Chem 7: 03/20/18 07:09 03/20/18 07:09 Labs: Abnormal Lab Results - Last 24 Hours (Table) 03/20/18 03/20/18 03/20/18 Range/Units 07:09 07:09 07:09 WBC 13.3 H (3.8-10.6) k/uL RBC 3.71 L (4.30-5.90) m/uL Hgb 12.2 L (13.0-17.5) gm/dL Hct 37.2 L (39.0-53.0) % MCV 100.4 H (80.0-100.0) fL PT 29.4 H (9.0-12.0) sec INR 3.0 H (<1.2) BUN 31 H (9-20) mg/dL Glucose 154 H (74-99) mg/dL Microbiology - Last 24 Hours (Table) 03/19/18 Unknown Gram Stain - Preliminary Sputum Assessment and Plan Assessment: Acute hypoxic respiratory failure requiring supplemental oxygen Acute exacerbation of COPD Possible tracheobronchitis History of CAD History of CHF Plan Pulmonary status stable, Ok to discharge from a pulmonary standpoint. Medications have been reviewed and will be continued as ordered. Hold off on systemic steroids at this point Short course of antibiotics Obtain sputum culture Initiate and encourage incentive spirometer Continue with pulmonary hygiene, coughing and deep breathing exercises, and supportive care. Supplemental oxygen to maintain oxygen saturations of 92% or better. Continue nebulizer treatments in the form of DuoNeb and budesonide. GI and DVT prophylaxis. Okay to DC from pulmonary standpoint. Patient should follow-up in 2-3 days. He should wear a mask when around inhalational exposures.
[2018-03-20 16:12] VITALS: BP 119/81; PULSE 67; TEMP 96.7
--- NOTE | 2018-03-20 16:19 | P.DS ---
Providers Date of admission: 03/18/18 22:04 Attending physician: Giovanni Clark Consults: 03/19/18 07:55 Consult Physician Routine Consulting Provider: Flynn Cheung Consult Reason/Comments: respiratory distress Do you want consulting provider notified?: Yes Primary care physician: Giovanni Clark Hospital Course: 73-year-old resident admitted for COPD exacerbation patient is clinically doing well until be discharged on doxycycline and weaning dose of steroids. Patient is on Coumadin because of Coumadin is in traction with systemic steroids and cutting down his Thursday 5 mg Coumadin 2.5 making it 2.5 mg daily and patient had INR checked in couple days. Patient is both on ANNA inhibitor and angiotensin receptor armen ANNA inhibitor was discontinued dose of angiotensin receptor armen armen armen was increased. Patient does have ischemic cardiomyopathy is on Lasix and patient is euvolemic at this time. PHYSICAL EXAMINATION: GENERAL: The patient is alert and oriented x3, not in any acute distress. Well developed, well nourished. HEENT: Pupils are round and equally reacting to light. EOMI. No scleral icterus. No conjunctival pallor. Normocephalic, atraumatic. No pharyngeal erythema. No thyromegaly. CARDIOVASCULAR: S1 and S2 present. No murmurs, rubs, or gallops. PULMONARY: Clear liquid air entry with minimal expiratory wheeze ABDOMEN: Soft, nontender, nondistended, normoactive bowel sounds. No palpable organomegaly. MUSCULOSKELETAL: No joint swelling or deformity. EXTREMITIES: No cyanosis, clubbing, or pedal edema. NEUROLOGICAL: Gross neurological examination did not reveal any focal deficits. SKIN: No rashes. Acute hypercapnic respiratory failure secondary to COPD exacerbation congestive heart failure ischemic myopathy hypertension Coronary artery disease Hyperlipidemia He is referred to Dr. Clark's dictation for further details of hospitalization course and other chronic medical problems Patient Condition at Discharge: Fair Plan - Discharge Summary Discharge Rx Participant: Yes New Discharge Prescriptions: New Doxycycline Monohydrate [Monodox] 100 mg PO BID 3 Days #6 cap predniSONE 10 mg PO DAILY #30 tab Continue Allopurinol [Zyloprim] 100 mg PO DAILY Zolpidem Tartrate [Ambien] 10 mg PO HS PRN PRN Reason: Insomnia Sibley-3 Fatty Acids/Fish Oil [Fish Oil 1,000 mg Softgel] 1 cap PO DAILY Multivitamins, Thera [Multivitamin (formulary)] 1 tab PO DAILY Vitamin B Complex 1 cap PO DAILY Cholecalciferol [Vitamin D3] 1,000 unit PO DAILY Aspirin 81 mg PO DAILY #30 chew Atorvastatin [Lipitor] 80 mg PO HS #30 tab Clopidogrel [Plavix] 75 mg PO DAILY #30 tab Nitroglycerin Sl Tabs [Nitrostat] 0.4 mg SUBLINGUAL Q5M PRN #25 tab PRN Reason: Chest Pain Isosorbide Mononitrate ER [Imdur] 30 mg PO BID LORazepam [Ativan] 0.5 mg PO TID PRN PRN Reason: Anxiety Furosemide [Lasix] 40 mg PO BID Carvedilol [Coreg*] 12.5 mg PO TID Changed Losartan [Cozaar] 100 mg PO DAILY #30 tab Warfarin [Coumadin] 2.5 mg PO DAILY #0 Discontinued Warfarin [Coumadin] 5 mg PO FR Lisinopril [Zestril] 10 mg PO DAILY Discharge Medication List Allopurinol [Zyloprim] 100 mg PO DAILY 04/23/15 [History] Zolpidem Tartrate [Ambien] 10 mg PO HS PRN 07/04/15 [History] Multivitamins, Thera [Multivitamin (formulary)] 1 tab PO DAILY 12/17/15 [History ] Sibley-3 Fatty Acids/Fish Oil [Fish Oil 1,000 mg Softgel] 1 cap PO DAILY [History] Cholecalciferol [Vitamin D3] 1,000 unit PO DAILY 12/22/15 [History] Vitamin B Complex 1 cap PO DAILY 12/22/15 [History] Aspirin 81 mg PO DAILY #30 chew 12/24/15 [Rx] Atorvastatin [Lipitor] 80 mg PO HS #30 tab 12/24/15 [Rx] Clopidogrel [Plavix] 75 mg PO DAILY #30 tab 12/24/15 [Rx] Nitroglycerin Sl Tabs [Nitrostat] 0.4 mg SUBLINGUAL Q5M PRN #25 tab 12/24/15 [Rx ] Isosorbide Mononitrate ER [Imdur] 30 mg PO BID 05/27/17 [History] LORazepam [Ativan] 0.5 mg PO TID PRN 05/27/17 [History] Furosemide [Lasix] 40 mg PO BID 11/10/17 [History] Carvedilol [Coreg*] 12.5 mg PO TID 03/18/18 [History] Doxycycline Monohydrate [Monodox] 100 mg PO BID 3 Days #6 cap 03/20/18 [Rx] Losartan [Cozaar] 100 mg PO DAILY #30 tab 03/20/18 [Rx] Warfarin [Coumadin] 2.5 mg PO DAILY #0 03/20/18 [Rx] predniSONE 10 mg PO DAILY #30 tab 03/20/18 [Rx] Follow up Appointment(s)/Referral(s): Giovanni Clark MD [Primary Care Provider] - 03/26/18 11:00 am (Thursday)
== END 2018-03-20 16:54 | disposition home or self-care (01) ==
LOC: EC 19:45 → 3SCARD 22:04 → INTOOBSV 22:04
PROVIDERS: ADMIT Family Medicine; ATTEND Family Medicine
DX: J44.1 Chronic obstructive pulmonary disease with (acute) exacerbation (principal); J96.01 Acute respiratory failure with hypoxia; I11.0 Hypertensive heart disease with heart failure; I50.9 Heart failure, unspecified; I25.5 Ischemic cardiomyopathy; I25.10 Atherosclerotic heart disease of native coronary artery without angina pectoris; E78.5 Hyperlipidemia, unspecified; H57.9 Unspecified disorder of eye and adnexa; M10.9 Gout, unspecified; F41.9 Anxiety disorder, unspecified; M19.041 Primary osteoarthritis, right hand; E66.9 Obesity, unspecified; Z68.32 Body mass index [BMI] 32.0-32.9, adult; I71.4 Abdominal aortic aneurysm, without rupture; Z79.01 Long term (current) use of anticoagulants; Z79.02 Long term (current) use of antithrombotics/antiplatelets; Z79.82 Long term (current) use of aspirin; Z79.899 Other long term (current) drug therapy; Z86.73 Personal history of transient ischemic attack (TIA), and cerebral infarction without residual deficits; Z87.891 Personal history of nicotine dependence; Z95.810 Presence of automatic (implantable) cardiac defibrillator; I25.2 Old myocardial infarction; Z98.1 Arthrodesis status; Z95.5 Presence of coronary angioplasty implant and graft; Z83.3 Family history of diabetes mellitus; Z80.8 Family history of malignant neoplasm of other organs or systems; Z82.3 Family history of stroke; Z81.8 Family history of other mental and behavioral disorders
CPT/HCPCS: 96366 ×3; 96365; 96375; 99285; 36415; 94660; 94640 ×5; 93005; 83880; 80053 ×2; 82550; 82553; 82803; 83735 ×2; 84484 ×2; 85025; 85027; 85610 ×3; 85730; 87070; 87205; 71045; G0378 ×4; J1100; J3475

== ENCOUNTER 2018-05-05 09:16 | Observation (INO) | payer MEDICARE, BC ==
[2018-05-05] MEDS ORDERED: IPRATROPIUM-ALBUTEROL 3 ML NEB INHALATION STA ×2 (09:35→11:47)
[2018-05-05] MEDS ORDERED: methylPREDNISolone SOD SUCCI 125 MG/2 ML VIAL IV STA (09:35)
--- NOTE | 2018-05-05 09:42 | ED ---
SOB HPI - General Source: patient, RN notes reviewed Mode of arrival: ambulatory Limitations: no limitations <Rajendra Aponte - Last Filed: 05/05/18 11:31> <Pepe Baez - Last Filed: 05/05/18 11:48> - General Chief Complaint: Shortness of Breath Stated Complaint: LEAH Time Seen by Provider: 05/05/18 09:26 - History of Present Illness Initial Comments: 73-year-old male presents emergency Department chief complaint of increased shortness of breath. Patient states that he had a recent hospitalization for similar symptoms. 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 Patient states that last few days he felt he's had increased cough, runny nose. Patient states that he's had no fever or chills. No body aches. Patient states that he just states that his breathing treatments are not helping. Denies any leg swelling. Patient states that he always has chest discomfort with the shortness of breath which has been ongoing. Patient does take Coumadin daily. (Rajendra Aponte) - Related Data Home Medications Medication Instructions Recorded Confirmed Allopurinol [Zyloprim] 100 mg PO DAILY 04/23/15 05/05/18 Zolpidem Tartrate [Ambien] 10 mg PO HS PRN 07/04/15 05/05/18 Multivitamins, Thera [Multivitamin 1 tab PO DAILY 12/17/15 05/05/18 (formulary)] Cholecalciferol [Vitamin D3] 1,000 unit PO DAILY 12/22/15 05/05/18 Vitamin B Complex 1 cap PO DAILY 12/22/15 05/05/18 Isosorbide Mononitrate ER [Imdur] 30 mg PO BID 05/27/17 05/05/18 LORazepam [Ativan] 0.5 mg PO TID PRN 05/27/17 05/05/18 Carvedilol [Coreg*] 12.5 mg PO TID 03/18/18 05/05/18 Furosemide [Lasix] 80 mg PO BID 05/05/18 05/05/18 Losartan [Cozaar] 50 mg PO BID 05/05/18 05/05/18 Warfarin [Coumadin] 1.25 mg PO MOFR 05/05/18 05/05/18 Warfarin [Coumadin] 2.5 mg PO SUTUWETHSA 05/05/18 05/05/18 Previous Rx's Medication Instructions Recorded Aspirin 81 mg PO DAILY #30 chew 12/24/15 Atorvastatin [Lipitor] 80 mg PO HS #30 tab 12/24/15 Clopidogrel [Plavix] 75 mg PO DAILY #30 tab 12/24/15 Nitroglycerin Sl Tabs [Nitrostat] 0.4 mg SUBLINGUAL Q5M PRN #25 tab 12/24/15 Allergies Allergy/AdvReac Type Severity Reaction Status Date / Time No Known Allergies Allergy Verified 05/05/18 09:41 Review of Systems ROS Other: All systems not noted in ROS Statement are negative. <Rajendra Aponte - Last Filed: 05/05/18 11:31> ROS Other: All systems not noted in ROS Statement are negative. <Pepe Baez - Last Filed: 05/05/18 11:48> ROS Statement: Those systems with pertinent positive or pertinent negative responses have been documented in the HPI. Past Medical History Past Medical History: Coronary Artery Disease (CAD), Heart Failure, CVA/TIA, Eye Disorder, Hyperlipidemia, Hypertension Additional Past Medical History / Comment(s): gout, cardomyopathy, previous charting listed mi 2016 pt unable to verify. arthrits rt index finger, cataracts, aaa, anxiety. Last Myocardial Infarction Date:: 2015 History of Any Multi-Drug Resistant Organisms: None Reported Past Surgical History: AICD, Back Surgery, Heart Catheterization With Stent, Pacemaker Additional Past Surgical History / Comment(s): stents x3, back fusion Past Anesthesia/Blood Transfusion Reactions: No Reported Reaction Date of Last Stent Placement:: 2015 Type of Cardiac Device: Permanent Pacemaker, AICD Device Placement Date:: 07-29-14 Past Psychological History: Anxiety Smoking Status: Former smoker Past Alcohol Use History: Occasional Past Drug Use History: None Reported - Past Family History Father Family Medical History: CVA/TIA, Dementia Mother Family Medical History: CVA/TIA, Diabetes Mellitus, Skin Disorder Additional Family Medical History / Comment(s): skin CA <Rajendra Aponte - Last Filed: 05/05/18 11:31> General Exam Limitations: no limitations General appearance: alert, in no apparent distress Head exam: Present: atraumatic, normocephalic, normal inspection Neck exam: Present: normal inspection. Absent: tenderness, meningismus, lymphad enopathy Respiratory exam: Present: respiratory distress (Mild), wheezes. Absent: normal lung sounds bilaterally, rales, rhonchi, stridor Cardiovascular Exam: Present: regular rate, normal rhythm, normal heart sounds. Absent: systolic murmur, diastolic murmur, rubs, gallop, clicks GI/Abdominal exam: Present: soft, normal bowel sounds. Absent: distended, tenderness, guarding, rebound, rigid Extremities exam: Present: pedal edema Neurological exam: Present: alert, oriented X3, CN II-XII intact Skin exam: Present: warm, dry, intact, normal color. Absent: rash <Rajendra Aponte - Last Filed: 05/05/18 11:31> Course Vital Signs 05/05/18 05/05/18 05/05/18 09:21 09:54 09:59 Temperature 97.3 F L Pulse Rate 60 60 Respiratory 27 H 20 Rate Blood Pressure 131/76 O2 Sat by Pulse 99 Oximetry 05/05/18 10:15 Temperature Pulse Rate 67 Respiratory Rate Blood Pressure O2 Sat by Pulse Oximetry Medical Decision Making - Lab Data Result diagrams: 05/05/18 09:50 05/05/18 09:50 <Rajendra Aponte - Last Filed: 05/05/18 11:31> - Lab Data Result diagrams: 05/05/18 09:50 05/05/18 09:50 <Pepe Baez - Last Filed: 05/05/18 11:48> - Medical Decision Making 73-year-old male presented emergency department for increased shortness of breath. Patient son have mild COPD exacerbation and possible early signs of pneumonia versus atelectasis on chest x-ray. Patient was initially tachypnea of this is related to COPD. Patient is not septic. Patient will be started on Rocephin, azithromycin and admitted for repeat breathing treatments, steroids. Patient's troponin is mildly elevated though this is not felt to be related to acute coronary syndrome. (Rajendra Aponte) Patient reevaluated and reexamined by myself, Dr. Baez. Patient is resting comfortably in bed. Patient has continued wheezing. Patient presents mostly is a COPD case. There is questionable infiltrate on x-ray and patient will be covered with antibiotics. Patient does not meet sepsis criteria. Patient does see Dr. Ali with pulmonary and he will be placed on consult. I do agree with PA findings. This includes all diagnostic interpretations and treatment plan. (Pepe Baez) - Lab Data Lab Results 05/05/18 05/05/18 05/05/18 Range/Units 09:50 09:50 09:50 WBC 7.1 (3.8-10.6) k/uL RBC 4.05 L (4.30-5.90) m/uL Hgb 12.8 L (13.0-17.5) gm/dL Hct 39.4 (39.0-53.0) % MCV 97.4 (80.0-100.0) fL MCH 31.6 (25.0-35.0) pg MCHC 32.5 (31.0-37.0) g/dL RDW 15.2 (11.5-15.5) % Plt Count 162 (150-450) k/uL Neutrophils % 57 % Lymphocytes % 22 % Monocytes % 9 % Eosinophils % 9 % Basophils % 1 % Neutrophils # 4.0 (1.3-7.7) k/uL Lymphocytes # 1.6 (1.0-4.8) k/uL Monocytes # 0.6 (0-1.0) k/uL Eosinophils # 0.6 (0-0.7) k/uL Basophils # 0.1 (0-0.2) k/uL VBG pH (7.31-7.41) VBG pCO2 (37-51) mmHg VBG HCO3 (24-28) mmol/L Sodium 143 (137-145) mmol/L Potassium 4.1 (3.5-5.1) mmol/L Chloride 107 (98-107) mmol/L Carbon Dioxide 29 (22-30) mmol/L Anion Gap 7 mmol/L BUN 20 (9-20) mg/dL Creatinine 0.93 (0.66-1.25) mg/dL Est GFR (CKD-EPI)AfAm >90 (>60 ml/min/1.73 sqM) Est GFR (CKD-EPI)NonAf 81 (>60 ml/min/1.73 sqM) Glucose 116 H (74-99) mg/dL Calcium 9.4 (8.4-10.2) mg/dL Magnesium 1.6 (1.6-2.3) mg/dL Total Bilirubin 0.6 (0.2-1.3) mg/dL AST 34 (17-59) U/L ALT 36 (21-72) U/L Alkaline Phosphatase 75 (38-126) U/L Troponin I (0.000-0.034) ng/mL NT-Pro-B Natriuret Pep 912 pg/mL Total Protein 6.3 (6.3-8.2) g/dL Albumin 4.0 (3.5-5.0) g/dL 05/05/18 05/05/18 Range/Units 09:50 09:50 WBC (3.8-10.6) k/uL RBC (4.30-5.90) m/uL Hgb (13.0-17.5) gm/dL Hct (39.0-53.0) % MCV (80.0-100.0) fL MCH (25.0-35.0) pg MCHC (31.0-37.0) g/dL RDW (11.5-15.5) % Plt Count (150-450) k/uL Neutrophils % % Lymphocytes % % Monocytes % % Eosinophils % % Basophils % % Neutrophils # (1.3-7.7) k/uL Lymphocytes # (1.0-4.8) k/uL Monocytes # (0-1.0) k/uL Eosinophils # (0-0.7) k/uL Basophils # (0-0.2) k/uL VBG pH 7.45 H (7.31-7.41) VBG pCO2 38 (37-51) mmHg VBG HCO3 26 (24-28) mmol/L Sodium (137-145) mmol/L Potassium (3.5-5.1) mmol/L Chloride (98-107) mmol/L Carbon Dioxide (22-30) mmol/L Anion Gap mmol/L BUN (9-20) mg/dL Creatinine (0.66-1.25) mg/dL Est GFR (CKD-EPI)AfAm (>60 ml/min/1.73 sqM) Est GFR (CKD-EPI)NonAf (>60 ml/min/1.73 sqM) Glucose (74-99) mg/dL Calcium (8.4-10.2) mg/dL Magnesium (1.6-2.3) mg/dL Total Bilirubin (0.2-1.3) mg/dL AST (17-59) U/L ALT (21-72) U/L Alkaline Phosphatase (38-126) U/L Troponin I 0.043 H* (0.000-0.034) ng/mL NT-Pro-B Natriuret Pep pg/mL Total Protein (6.3-8.2) g/dL Albumin (3.5-5.0) g/dL - EKG Data EKG Comments: EKG performed at time: 10 ventricle paced rhythm at a rate of 68 QRS to 28 QT/QTC 554/554 (Rajendra Aponte) Disposition <Rajendra Aponte - Last Filed: 05/05/18 11:31> <Pepe Baez - Last Filed: 05/05/18 11:48> Clinical Impression: Acute exacerbation of chronic obstructive airways disease Disposition: ADMITTED IP TO THIS HOSP Condition: Fair Referrals: Giovanni Clark MD [Primary Care Provider] - 1-2 days
[2018-05-05 10:24] LABS: Basophils # (A) 0.1 k/uL (0-0.2); Basophils % (A) 1 %; Eosinophils # (A) 0.6 k/uL (0-0.7); Eosinophils % (A) 9 %; HCT 39.4 % (39.0-53.0); HGB 12.8 gm/dL (13.0-17.5); Lymphocytes # (A) 1.6 k/uL (1.0-4.8); Lymphocytes % (A) 22 %; MCH 31.6 pg (25.0-35.0); MCHC 32.5 g/dL (31.0-37.0); MCV 97.4 fL (80.0-100.0); Mean Platelet Volume 9.5; Monocytes # (A) 0.6 k/uL (0-1.0); Monocytes % (A) 9 %; Neutrophils % (A) 57 %; Platelet Count 162 k/uL (150-450); RBC 4.05 m/uL (4.30-5.90); RDW 15.2 % (11.5-15.5); WBC 7.1 k/uL (3.8-10.6)
--- NOTE | 2018-05-05 10:30 | XR ---
EXAMINATION TYPE: XR chest 2V DATE OF EXAM: 05/05/2018 COMPARISON: 03/18/2018 HISTORY: Difficulty breathing with history of COPD. TECHNIQUE: Frontal and lateral views of the chest are obtained. FINDINGS: Right midlung linear opacity has developed in the interim. Remainder the lungs are clear. Cardiomediastinal silhouette is mildly enlarged with dual lead left-sided cardiac device unchanged fr om the prior. No sizable pneumothorax or pleural effusion. Pulmonary hyperinflation relates to underl kristen COPD as there is flattening of the diaphragms on the lateral view. Mild multilevel degenerative change of the spine is noted. IMPRESSION: New right midlung linear opacities favored to represent atelectasis. Less likely conside ration is for developing pneumonia.
[2018-05-05 10:34] LABS: ALT 36 U/L (21-72); AST 34 U/L (17-59); Alkaline Phosphatase 75 U/L (38-126); Anion Gap 7 mmol/L; Blood Urea Nitrogen 20 mg/dL (9-20); Calcium 9.4 mg/dL (8.4-10.2); Carbon Dioxide 29 mmol/L (22-30); Chloride 107 mmol/L (98-107); Glucose 116 mg/dL (74-99); Magnesium 1.6 mg/dL (1.6-2.3); Potassium 4.1 mmol/L (3.5-5.1); Sodium 143 mmol/L (137-145); Total Bilirubin 0.6 mg/dL (0.2-1.3); Total Protein 6.3 g/dL (6.3-8.2)
[2018-05-05 10:44] LABS: VBG PH 7.45 (7.31-7.41)
[2018-05-05] MEDS ORDERED: AZITHROMYCIN 500 MG in SODIUM CHLORIDE 0.9% 250 ML IVPB STA (11:34)
[2018-05-05 11:57] LABS: INR 1.7 (<1.2); Partial Thromboplastin Time 31.2 sec (22.0-30.0); Prothrombin Time 16.6 sec (9.0-12.0)
[2018-05-05] MEDS: IPRATROPIUM-ALBUTEROL 3 ML NEB INHALATION SCH ×3 (12:33→19:15)
[2018-05-05 12:37] VITALS: BMI 32.8
[2018-05-05] MEDS ORDERED: NITROGLYCERIN SL TABS 0.4 MG TAB SUBLINGUAL PRN (13:55)
[2018-05-05] MEDS: methylPREDNISolone SOD SUCCI 125 MG/2 ML VIAL IV SCH ×2 (14:25→17:35)
[2018-05-05] MEDS: LORazepam 0.5 MG TAB PO PRN ×2 (14:31→20:53)
[2018-05-05] MEDS: WARFARIN 2.5 MG TAB PO SCH (17:34)
[2018-05-05] MEDS: FUROSEMIDE 80 MG TAB PO SCH (17:34)
[2018-05-05] MEDS: CARVEDILOL 12.5 MG TAB PO SCH (17:34)
[2018-05-05] MEDS: INSULIN ASPART (NovoLOG) 100 UNIT/ML VIAL SQ SCH ×2 (19:09→20:53)
[2018-05-05 20:08] LABS: Glucose,Whole Blood 251 mg/dL (75-99)
[2018-05-05] MEDS: ISOSORBIDE MONONITRATE ER 30 MG TAB.ER.24H PO SCH (20:53)
[2018-05-05] MEDS: ATORVASTATIN 80 MG TAB PO SCH (20:53)
[2018-05-05] MEDS: LOSARTAN 50 MG TAB PO SCH (20:53)
[2018-05-05] MEDS: ZOLPIDEM 10 MG TAB PO PRN (22:05)
[2018-05-06] MEDS: methylPREDNISolone SOD SUCCI 125 MG/2 ML VIAL IV SCH ×5 (01:08→23:23)
--- NOTE | 2018-05-06 07:45 | P.PN ---
Subjective Progress Note Date: 05/06/18 Principal diagnosis: Exacerbation COPD with history of AICD placement and cardiac myopathy. This is a continue present on a 73-year-old white male essentially admitted for exacerbation of COPD. The patient seems much better than expected that he states he supposed take 80 mg of Lasix in the a.m. and at lunch and he has been only taking 40 mg last several days. Some shortness of breath is noted on admission. However, he seems much more stable today. No significant nausea, vomiting or diarrhea. He is tolerating diet. Hopefully we can start increasing ambulation today. Objective - Vital Signs Vital signs: Vital Signs Temp 98.0 F 05/06/18 06:50 Pulse 60 05/06/18 06:50 Resp 14 05/06/18 06:50 BP 142/73 05/06/18 06:50 Pulse Ox 97 05/06/18 06:50 Intake & Output 05/05/18 05/06/18 05/06/18 18:59 06:59 18:59 Intake Total 1096 480 Balance 1096 480 Weight 106.594 kg Intake: Oral 1096 480 Other: # Voids 1 1 - Constitutional General appearance: Present: obese - EENT Eyes: Absent: abnormal pupil - Respiratory Respiratory: bilateral: rhonchi - Cardiovascular Rhythm: regular Heart sounds: normal: S1, S2 Abnormal Heart Sounds: Present: S3 Gallop - Gastrointestinal General gastrointestinal: Present: soft. Absent: tenderness - Integumentary Integumentary: Present: normal - Neurologic Neurologic: Present: CNII-XII intact. Absent: focal deficits - Labs CBC & Chem 7: 05/05/18 09:50 05/05/18 09:50 Labs: Abnormal Lab Results - Last 24 Hours (Table) 05/05/18 05/05/18 05/05/18 Range/Units 09:50 09:50 09:50 RBC 4.05 L (4.30-5.90) m/uL Hgb 12.8 L (13.0-17.5) gm/dL PT 16.6 H (9.0-12.0) sec INR 1.7 H (<1.2) APTT 31.2 H (22.0-30.0) sec VBG pH (7.31-7.41) Glucose 116 H (74-99) mg/dL POC Glucose (mg/dL) (75-99) mg/dL Troponin I (0.000-0.034) ng/mL 05/05/18 05/05/18 05/05/18 Range/Units 09:50 09:50 20:05 RBC (4.30-5.90) m/uL Hgb (13.0-17.5) gm/dL PT (9.0-12.0) sec INR (<1.2) APTT (22.0-30.0) sec VBG pH 7.45 H (7.31-7.41) Glucose (74-99) mg/dL POC Glucose (mg/dL) 251 H (75-99) mg/dL Troponin I 0.043 H* (0.000-0.034) ng/mL Assessment and Plan (1) Acute exacerbation of chronic obstructive airways disease Current Visit: Yes Status: Acute Code(s): J44.1 - CHRONIC OBSTRUCTIVE PULMONARY DISEASE W (ACUTE) EXACERBATION SNOMED Code(s): 484942913 (2) AICD (automatic cardioverter/defibrillator) present Current Visit: No Status: Acute Code(s): Z95.810 - PRESENCE OF AUTOMATIC (IMPLANTABLE) CARDIAC DEFIBRILLATOR SNOMED Code(s): 211904414 (3) CAD (coronary artery disease) Current Visit: No Status: Acute Code(s): I25.10 - ATHSCL HEART DISEASE OF [place] CORONARY ARTERY W/O ANG PCTRS SNOMED Code(s): 89875646 (4) Congestive heart failure Current Visit: No Status: Acute Code(s): I50.9 - HEART FAILURE, UNSPECIFIED SNOMED Code(s): 16528059 (5) HTN (hypertension) Current Visit: No Status: Acute Code(s): I10 - ESSENTIAL (PRIMARY) HYPERTENSION SNOMED Code(s): 54909274 (6) Ischemic cardiomyopathy Current Visit: No Status: Acute Code(s): I25.5 - ISCHEMIC CARDIOMYOPATHY SNOMED Code(s): 506917672 (7) Systolic CHF Current Visit: No Status: Acute Code(s): I50.20 - UNSPECIFIED SYSTOLIC (CONGESTIVE) HEART FAILURE SNOMED Code(s): 923797862 Plan: Continue current regimen of treatment. Slowly wean off of steroid treatment. Reconcile home medications. The patient is requesting refill for primary insomnia. New. Check CBC CMP and PT/INR in a.m. Question need to titrate Coumadin dosing.
--- NOTE | 2018-05-06 07:46 | P.HPIM ---
History of Present Illness H&P Date: 05/05/18 Chief Complaint: Shortness of breath This is a history and physical on a 73-year-old white male who presented after having significant signs of exacerbation of COPD. Chest x-ray in the ER showed possible atelectasis versus pneumonia. The patient has had similar hospitaliza tions in the last 6 months. No overt anginal chest equivalent stated. The patient was examined in the emergency room and because of his skull multiple comorbidities was appropriately admitted. Review of Systems Constitutional: Reports fatigue, Reports weakness Eyes: denies blurred vision, denies pain Ears, nose, mouth and throat: Denies headache, Denies sore throat Cardiovascular: Denies chest pain Respiratory: Reports dyspnea Gastrointestinal: Denies abdominal pain, Denies diarrhea, Denies nausea, Denies vomiting Musculoskeletal: Denies myalgias Integumentary: Denies pruritus, Denies rash Past Medical History Past Medical History: Atrial Fibrillation, Coronary Artery Disease (CAD), Heart Failure, COPD, CVA/TIA, Eye Disorder, Hyperlipidemia, Hypertension, Osteoarthritis (OA), Pneumonia Additional Past Medical History / Comment(s): Pt recently admitted to [facility] on 03/18/18 with aucte hypercapnic respiratory failure 2ndary to exacerbation COPD. 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 Last Myocardial Infarction Date:: 2015 History of Any Multi-Drug Resistant Organisms: None Reported Past Surgical History: AICD, Back Surgery, Heart Catheterization With Stent, Pacemaker Additional Past Surgical History / Comment(s): PCI with stents, AICD/pacer, low back fusion, oral surgery. Past Anesthesia/Blood Transfusion Reactions: No Reported Reaction Date of Last Stent Placement:: 2015 Type of Cardiac Device: Permanent Pacemaker, AICD Device Placement Date:: 05/09/10 Past Psychological History: Anxiety Additional Psychological History / Comment(s): Pt resides with his spouse. He is independent. He drives. He has a nebulizer. Smoking Status: Former smoker Past Alcohol Use History: Occasional Additional Past Alcohol Use History / Comment(s): Pt started smoking as a teen and quit in 1990. He was a ppd smoker. Pt drinks 2 drinks of whiskey daily until past 2 weeks-he states he has cut down. Past Drug Use History: None Reported - Past Family History Father Family Medical History: CVA/TIA, Dementia Mother Family Medical History: CVA/TIA, Diabetes Mellitus, Skin Disorder Additional Family Medical History / Comment(s): skin CA Medications and Allergies Home Medications Medication Instructions Recorded Confirmed Type Allopurinol [Zyloprim] 100 mg PO DAILY 04/23/15 05/05/18 History Zolpidem Tartrate [Ambien] 10 mg PO HS PRN 07/04/15 05/05/18 History Multivitamins, Thera [Multivitamin 1 tab PO DAILY 12/17/15 05/05/18 History (formulary)] Cholecalciferol [Vitamin D3] 1,000 unit PO DAILY 12/22/15 05/05/18 History Vitamin B Complex 1 cap PO DAILY 12/22/15 05/05/18 History Aspirin 81 mg PO DAILY #30 chew 12/24/15 05/05/18 Rx Atorvastatin [Lipitor] 80 mg PO HS #30 tab 12/24/15 05/05/18 Rx Clopidogrel [Plavix] 75 mg PO DAILY #30 tab 12/24/15 05/05/18 Rx Nitroglycerin Sl Tabs [Nitrostat] 0.4 mg SUBLINGUAL Q5M PRN #25 tab 12/24/15 05/05/18 Rx Isosorbide Mononitrate ER [Imdur] 30 mg PO BID 05/27/17 05/05/18 History LORazepam [Ativan] 0.5 mg PO TID PRN 05/27/17 05/05/18 History Carvedilol [Coreg*] 12.5 mg PO TID 03/18/18 05/05/18 History Furosemide [Lasix] 80 mg PO BID 05/05/18 05/05/18 History Losartan [Cozaar] 50 mg PO BID 05/05/18 05/05/18 History Warfarin [Coumadin] 1.25 mg PO MOFR 05/05/18 05/05/18 History Warfarin [Coumadin] 2.5 mg PO SUTUWETHSA 05/05/18 05/05/18 History Allergies Allergy/AdvReac Type Severity Reaction Status Date / Time No Known Allergies Allergy Verified 05/05/18 13:21 Physical Exam Vitals: Vital Signs Temp Pulse Pulse Resp BP BP Pulse Ox 05/05/18 19:24 67 05/05/18 19:17 65 05/05/18 19:13 97.6 F 62 16 150/74 96 05/05/18 17:39 70 18 134/73 98 05/05/18 16:34 64 05/05/18 16:25 60 05/05/18 16:00 20 05/05/18 13:47 97.5 F L 60 18 126/79 98 05/05/18 12:15 98.0 F 69 18 132/80 99 05/05/18 10:15 67 05/05/18 09:59 20 05/05/18 09:54 60 05/05/18 09:21 97.3 F L 60 27 H 131/76 99 Intake and Output 05/05/18 05/05/18 05/05/18 06:59 14:59 22:59 Intake Total 500 596 Balance 500 596 Intake: Oral 500 596 Other: # Voids 1 Weight 106.594 kg - Constitutional General appearance: obese - EENT Eyes: no abnormal pupil - Neck Neck: no lymphadenopathy - Respiratory Respiratory: bilateral: diminished - Cardiovascular Rhythm: regular Heart sounds: normal: S1, S2 Abnormal Heart Sounds: no S3 Gallop - Gastrointestinal General gastrointestinal: soft, no tenderness - Integumentary Integumentary: no cellulitis, no jaundiced - Neurologic Neurologic: CNII-XII intact - Psychiatric Psychiatric: A&O x's 3 Results CBC & Chem 7: 05/05/18 09:50 05/05/18 09:50 Labs: Abnormal Lab Results - Last 24 Hours (Table) 05/05/18 05/05/18 05/05/18 Range/Units 09:50 09:50 09:50 RBC 4.05 L (4.30-5.90) m/uL Hgb 12.8 L (13.0-17.5) gm/dL PT 16.6 H (9.0-12.0) sec INR 1.7 H (<1.2) APTT 31.2 H (22.0-30.0) sec VBG pH (7.31-7.41) Glucose 116 H (74-99) mg/dL POC Glucose (mg/dL) (75-99) mg/dL Troponin I (0.000-0.034) ng/mL 05/05/18 05/05/18 05/05/18 Range/Units 09:50 09:50 20:05 RBC (4.30-5.90) m/uL Hgb (13.0-17.5) gm/dL PT (9.0-12.0) sec INR (<1.2) APTT (22.0-30.0) sec VBG pH 7.45 H (7.31-7.41) Glucose (74-99) mg/dL POC Glucose (mg/dL) 251 H (75-99) mg/dL Troponin I 0.043 H* (0.000-0.034) ng/mL Thrombosis Risk Factor Assmnt - Choose All That Apply Any of the Below Risk Factors Present?: Yes Each Factor Represents 1 point: Abnormal pulmonary function (COPD), Obesity (BMI >25) Other Risk Factors: Yes Each Risk Factor Represents 2 Points: Age 61-74 years Other congenital or acquired thrombophilia - If yes, enter type in comment: No Thrombosis Risk Factor Assessment Total Risk Factor Score: 4 Thrombosis Risk Factor Assessment Level: Moderate Risk Assessment and Plan (1) Acute exacerbation of chronic obstructive airways disease Current Visit: Yes Status: Acute Code(s): J44.1 - CHRONIC OBSTRUCTIVE PULMONARY DISEASE W (ACUTE) EXACERBATION SNOMED Code(s): 580454250 (2) AICD (automatic cardioverter/defibrillator) present Current Visit: No Status: Acute Code(s): Z95.810 - PRESENCE OF AUTOMATIC (IMPLANTABLE) CARDIAC DEFIBRILLATOR SNOMED Code(s): 757462576 (3) CAD (coronary artery disease) Current Visit: No Status: Acute Code(s): I25.10 - ATHSCL HEART DISEASE OF [place] CORONARY ARTERY W/O ANG PCTRS SNOMED Code(s): 16853820 (4) Congestive heart failure Current Visit: No Status: Acute Code(s): I50.9 - HEART FAILURE, UNSPECIFIED SNOMED Code(s): 34610093 (5) HTN (hypertension) Current Visit: No Status: Acute Code(s): I10 - ESSENTIAL (PRIMARY) HYPERTENSION SNOMED Code(s): 97786335 (6) Ischemic cardiomyopathy Current Visit: No Status: Acute Code(s): I25.5 - ISCHEMIC CARDIOMYOPATHY SNOMED Code(s): 186634526 (7) Systolic CHF Current Visit: No Status: Acute Code(s): I50.20 - UNSPECIFIED SYSTOLIC (CONGESTIVE) HEART FAILURE SNOMED Code(s): 954903157 Plan: Continue appropriate court protocol for COPD exacerbation. Check CBC and CMP in a.m. Ascertain home medications. Consult pulmonology as necessary. Prognosis is guarded secondary to his multiple comorbidities.
[2018-05-06] MEDS: IPRATROPIUM-ALBUTEROL 3 ML NEB INHALATION SCH ×4 (07:55→20:33)
[2018-05-06] MEDS: CARVEDILOL 12.5 MG TAB PO SCH ×3 (07:57→17:16)
[2018-05-06] MEDS: INSULIN ASPART (NovoLOG) 100 UNIT/ML VIAL SQ SCH ×4 (07:58→21:46)
[2018-05-06 08:03] LABS: Glucose,Whole Blood 188 mg/dL (75-99)
[2018-05-06 08:17] LABS: HGB 12.6 gm/dL (13.0-17.5); Hypochromasia Slight; MCH 31.4 pg (25.0-35.0); MCHC 31.6 g/dL (31.0-37.0); MCV 99.5 fL (80.0-100.0); Macrocytosis Slight; Mean Platelet Volume 9.2; Platelet Count 165 k/uL (150-450); RBC 4.02 m/uL (4.30-5.90); RDW 14.3 % (11.5-15.5); WBC 14.8 k/uL (3.8-10.6)
[2018-05-06 08:24] LABS: INR 2.1 (<1.2); Prothrombin Time 20.4 sec (9.0-12.0)
[2018-05-06 08:31] LABS: Albumin 4.2 g/dL (3.5-5.0); Calcium 9.6 mg/dL (8.4-10.2); Total Bilirubin 0.6 mg/dL (0.2-1.3); Total Protein 6.6 g/dL (6.3-8.2)
[2018-05-06] MEDS: Vitamin B Complex [Vitamin B Complex] 1 CAP PO SCH (09:04)
[2018-05-06] MEDS: FUROSEMIDE 80 MG TAB PO SCH ×2 (09:04→16:13)
[2018-05-06] MEDS: ASPIRIN 81 MG PO SCH (09:04)
[2018-05-06] MEDS: CLOPIDOGREL 75 MG TAB PO SCH (09:04)
[2018-05-06] MEDS: ALLOPURINOL 100 MG TAB PO SCH (09:04)
[2018-05-06] MEDS: LOSARTAN 50 MG TAB PO SCH ×2 (09:04→21:10)
[2018-05-06] MEDS: ISOSORBIDE MONONITRATE ER 30 MG TAB.ER.24H PO SCH ×2 (09:04→21:11)
[2018-05-06 11:59] LABS: Glucose,Whole Blood 226 mg/dL (75-99)
[2018-05-06] MEDS ORDERED: CHOLECALCIFEROL 1,000 UNIT TAB PO SCH (12:00)
[2018-05-06] MEDS ORDERED: MULTIVITAMINS, THERA 1 EACH TAB PO SCH (12:00)
--- NOTE | 2018-05-06 12:14 | P.CNPUL ---
History of Present Illness Consult date: 05/06/18 Reason for consult: dyspnea, COPD Chief complaint: Shortness of breath History of present illness: This is a 73-year-old gentleman who presented to the emergency department complaining of shortness of breath and wheezing. He states that he started getting short of breath around a year ago. However it seems to have gotten worse recently. He has had recent hospitalizations for similar complaint. He does have a history of COPD. The patient states that he did not have a fever home but he did have chills. He did have a cough which was productive of pale white yellow phlegm. He states that he is a former smoker and quit 30 years ago. He used to smoke 1 pack per day for about 30 years. He does use a [place], pro-air, albuterol nebulizer at home. He states he uses his nebulizer 4 times per day. He also noticed history of coronary artery disease. He states he has a pacemaker/defibrillator as well as stents. The patient's chest x-rays reviewed and shows right mid lung atelectasis. Review of Systems All systems: negative Past Medical History Past Medical History: Atrial Fibrillation, Coronary Artery Disease (CAD), Heart Failure, COPD, CVA/TIA, Eye Disorder, Hyperlipidemia, Hypertension, Osteoarthritis (OA), Pneumonia Additional Past Medical History / Comment(s): Pt recently admitted to [facility] on 03/18/18 with aucte hypercapnic respiratory failure 2ndary to exacerbation COPD. 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 Last Myocardial Infarction Date:: 2015 History of Any Multi-Drug Resistant Organisms: None Reported Past Surgical History: AICD, Back Surgery, Heart Catheterization With Stent, Pacemaker Additional Past Surgical History / Comment(s): PCI with stents, AICD/pacer, low back fusion, oral surgery. Past Anesthesia/Blood Transfusion Reactions: No Reported Reaction Date of Last Stent Placement:: 2015 Type of Cardiac Device: Permanent Pacemaker, AICD Device Placement Date:: 05/09/10 Past Psychological History: Anxiety Additional Psychological History / Comment(s): Pt resides with his spouse. He is independent. He drives. He has a nebulizer. Smoking Status: Former smoker Past Alcohol Use History: Occasional Additional Past Alcohol Use History / Comment(s): Pt started smoking as a teen and quit in 1990. He was a ppd smoker. Pt drinks 2 drinks of whiskey daily until past 2 weeks-he states he has cut down. Past Drug Use History: None Reported - Past Family History Father Family Medical History: CVA/TIA, Dementia Mother Family Medical History: CVA/TIA, Diabetes Mellitus, Skin Disorder Additional Family Medical History / Comment(s): skin CA Medications and Allergies Home Medications Medication Instructions Recorded Confirmed Type Allopurinol [Zyloprim] 100 mg PO DAILY 04/23/15 05/05/18 History Zolpidem Tartrate [Ambien] 10 mg PO HS PRN 07/04/15 05/05/18 History Multivitamins, Thera [Multivitamin 1 tab PO DAILY 12/17/15 05/05/18 History (formulary)] Cholecalciferol [Vitamin D3] 1,000 unit PO DAILY 12/22/15 05/05/18 History Vitamin B Complex 1 cap PO DAILY 12/22/15 05/05/18 History Aspirin 81 mg PO DAILY #30 chew 12/24/15 05/05/18 Rx Atorvastatin [Lipitor] 80 mg PO HS #30 tab 12/24/15 05/05/18 Rx Clopidogrel [Plavix] 75 mg PO DAILY #30 tab 12/24/15 05/05/18 Rx Nitroglycerin Sl Tabs [Nitrostat] 0.4 mg SUBLINGUAL Q5M PRN #25 tab 12/24/15 05/05/18 Rx Isosorbide Mononitrate ER [Imdur] 30 mg PO BID 05/27/17 05/05/18 History LORazepam [Ativan] 0.5 mg PO TID PRN 05/27/17 05/05/18 History Carvedilol [Coreg*] 12.5 mg PO TID 03/18/18 05/05/18 History Furosemide [Lasix] 80 mg PO BID 05/05/18 05/05/18 History Losartan [Cozaar] 50 mg PO BID 05/05/18 05/05/18 History Warfarin [Coumadin] 1.25 mg PO MOFR 05/05/18 05/05/18 History Warfarin [Coumadin] 2.5 mg PO SUTUWETHSA 05/05/18 05/05/18 History Allergies Allergy/AdvReac Type Severity Reaction Status Date / Time No Known Allergies Allergy Verified 05/05/18 13:21 Physical Exam Osteopathic Statement: *. No significant issues noted on an osteopathic structural exam other than those noted in the History and Physical/Consult. Vitals: Vital Signs Temp Pulse Pulse Resp BP BP Pulse Ox 05/06/18 08:13 64 05/06/18 07:56 64 05/06/18 06:50 98.0 F 60 14 142/73 97 05/06/18 00:45 98.0 F 60 16 113/70 96 05/05/18 19:24 67 05/05/18 19:17 65 05/05/18 19:13 97.6 F 62 16 150/74 96 05/05/18 17:39 70 18 134/73 98 05/05/18 16:34 64 05/05/18 16:25 60 05/05/18 16:00 20 05/05/18 13:47 97.5 F L 60 18 126/79 98 05/05/18 12:15 98.0 F 69 18 132/80 99 Intake and Output 05/05/18 05/06/18 05/06/18 22:59 06:59 14:59 Intake Total 596 480 240 Balance 596 480 240 Intake: Oral 596 480 240 Other: # Voids 2 1 Gen.: Patient is alert and oriented 3, no acute distress, obese Cardiovascular: Regular rate and rhythm, S1/S2 Lungs: Diminished breath sounds bilaterally otherwise clear Abdomen: Soft nontender nondistended positive bowel sounds Extremities: No edema Results - Laboratory Findings CBC and BMP: 05/06/18 07:51 05/06/18 07:51 PT/INR, D-dimer PT 20.4 sec (9.0-12.0) H 05/06/18 07:51 INR 2.1 (<1.2) H 05/06/18 07:51 Abnormal lab findings: Abnormal Labs 05/05/18 05/05/18 05/05/18 09:50 09:50 09:50 WBC RBC 4.05 L Hgb 12.8 L PT 16.6 H INR 1.7 H APTT 31.2 H VBG pH BUN Glucose 116 H POC Glucose (mg/dL) Troponin I 05/05/18 05/05/18 05/05/18 09:50 09:50 20:05 WBC RBC Hgb PT INR APTT VBG pH 7.45 H BUN Glucose POC Glucose (mg/dL) 251 H Troponin I 0.043 H* 05/06/18 05/06/18 05/06/18 07:51 07:51 07:51 WBC 14.8 H RBC 4.02 L Hgb 12.6 L PT 20.4 H INR 2.1 H APTT VBG pH BUN 25 H Glucose 193 H POC Glucose (mg/dL) Troponin I 05/06/18 05/06/18 07:51 11:58 WBC RBC Hgb PT INR APTT VBG pH BUN Glucose POC Glucose (mg/dL) 188 H 226 H Troponin I - Diagnostic Findings Chest x-ray: report reviewed, image reviewed Assessment and Plan Assessment: Acute exacerbation of COPD Possible tracheobronchitis Atelectasis, doubt pneumonia History of CAD, stents, PPM/AICD Hypertension History of CHF, ICM, systolic, EF 30-35% Leukocytosis likely secondary to steroids Anemia, normochromic, normocytic, chronic and stable Coumadin coagulopathy, therapeutic INR DM2 NSTEMI Plan Medications have been reviewed and will be continued as ordered. Solumedrol taper Short course of antibiotics Obtain sputum culture Initiate and encourage incentive spirometer Continue with pulmonary hygiene, coughing and deep breathing exercises, and supportive care. Supplemental oxygen to maintain oxygen saturations of 92% or better. Continue nebulizer treatments in the form of DuoNeb and budesonide. GI and DVT prophylaxis. Hold Anoro for now, patient is on Duonebs Add Pulmicort and Perforomist Thank you for this consultation. We will continue to follow along.
[2018-05-06] MEDS: LORazepam 0.5 MG TAB PO PRN ×2 (16:16→23:22)
[2018-05-06 17:04] LABS: Glucose,Whole Blood 295 mg/dL (75-99)
[2018-05-06 17:31] VITALS: TEMP 97.5
[2018-05-06] MEDS: WARFARIN 2.5 MG TAB PO SCH (18:25)
[2018-05-06 18:26] LABS: Hemoglobin A1C 7.4 % (4.0-6.0)
[2018-05-06 19:38] LABS: Glucose,Whole Blood 219 mg/dL (75-99)
[2018-05-06] MEDS: FORMOTEROL FUMARATE 20 MCG/2 ML NEBU INHALATION SCH (20:33)
[2018-05-06] MEDS: BUDESONIDE 0.5 MG/2 ML NEBU INHALATION SCH (20:33)
[2018-05-06] MEDS ORDERED: MONTELUKAST 10 MG TAB PO SCH (21:00)
[2018-05-06] MEDS: ATORVASTATIN 80 MG TAB PO SCH (21:11)
[2018-05-06] MEDS: ZOLPIDEM 10 MG TAB PO PRN (21:36)
[2018-05-07] MEDS: methylPREDNISolone SOD SUCCI 125 MG/2 ML VIAL IV SCH (06:03)
[2018-05-07 07:02] VITALS: BP 137/81; RESP 18
[2018-05-07] MEDS: CARVEDILOL 12.5 MG TAB PO SCH (07:03)
[2018-05-07] MEDS: CLOPIDOGREL 75 MG TAB PO SCH (07:03)
[2018-05-07] MEDS: ALLOPURINOL 100 MG TAB PO SCH (07:03)
[2018-05-07] MEDS: ISOSORBIDE MONONITRATE ER 30 MG TAB.ER.24H PO SCH (07:03)
[2018-05-07] MEDS: ASPIRIN 81 MG PO SCH (07:03)
[2018-05-07 07:04] LABS: Glucose,Whole Blood 182 mg/dL (75-99)
[2018-05-07] MEDS: LOSARTAN 50 MG TAB PO SCH (07:04)
[2018-05-07] MEDS: FUROSEMIDE 80 MG TAB PO SCH (07:04)
[2018-05-07] MEDS: Vitamin B Complex [Vitamin B Complex] 1 CAP PO SCH (07:05)
[2018-05-07] MEDS: INSULIN ASPART (NovoLOG) 100 UNIT/ML VIAL SQ SCH (07:07)
[2018-05-07] MEDS: LORazepam 0.5 MG TAB PO PRN (07:10)
[2018-05-07] MEDS: IPRATROPIUM-ALBUTEROL 3 ML NEB INHALATION SCH (08:08)
[2018-05-07] MEDS: BUDESONIDE 0.5 MG/2 ML NEBU INHALATION SCH (08:08)
[2018-05-07] MEDS: FORMOTEROL FUMARATE 20 MCG/2 ML NEBU INHALATION SCH (08:08)
--- NOTE | 2018-05-07 08:14 | P.DS ---
Providers Date of admission: 05/05/18 11:49 Attending physician: Giovanni Clark Consults: 05/05/18 11:33 Consult Physician Stat Consulting Provider: Flynn Cheung Consult Reason/Comments: COPD exacerbation Do you want consulting provider notified?: Yes Primary care physician: Giovanni Clark - Discharge Diagnosis(es) (1) Acute exacerbation of chronic obstructive airways disease Current Visit: Yes Status: Acute (2) AICD (automatic cardioverter/defibrillator) present Current Visit: No Status: Acute (3) CAD (coronary artery disease) Current Visit: No Status: Acute (4) Congestive heart failure Current Visit: No Status: Acute (5) HTN (hypertension) Current Visit: No Status: Acute (6) Ischemic cardiomyopathy Current Visit: No Status: Acute (7) Systolic CHF Current Visit: No Status: Acute Hospital Course: This is a discharge summary on a 70-year-old white male essentially admitted for exacerbation of COPD. The patient was stabilized appropriately. Appreciate pulmonology input. The patient will placed on steroid taper with appropriate short-term antibiotic treatment. We will continue to follow and he is to follow-up with me in about one week. Patient Condition at Discharge: Fair Plan - Discharge Summary Discharge Rx Participant: No New Discharge Prescriptions: No Action Allopurinol [Zyloprim] 100 mg PO DAILY Zolpidem Tartrate [Ambien] 10 mg PO HS PRN PRN Reason: Insomnia Multivitamins, Thera [Multivitamin (formulary)] 1 tab PO DAILY Vitamin B Complex 1 cap PO DAILY Cholecalciferol [Vitamin D3] 1,000 unit PO DAILY Aspirin 81 mg PO DAILY #30 chew Atorvastatin [Lipitor] 80 mg PO HS #30 tab Clopidogrel [Plavix] 75 mg PO DAILY #30 tab Nitroglycerin Sl Tabs [Nitrostat] 0.4 mg SUBLINGUAL Q5M PRN #25 tab PRN Reason: Chest Pain Isosorbide Mononitrate ER [Imdur] 30 mg PO BID LORazepam [Ativan] 0.5 mg PO TID PRN PRN Reason: Anxiety Carvedilol [Coreg*] 12.5 mg PO TID Warfarin [Coumadin] 2.5 mg PO SUTUWETHSA Losartan [Cozaar] 50 mg PO BID Furosemide [Lasix] 80 mg PO BID Warfarin [Coumadin] 1.25 mg PO MOFR Discharge Medication List Allopurinol [Zyloprim] 100 mg PO DAILY 04/23/15 [History] Zolpidem Tartrate [Ambien] 10 mg PO HS PRN 07/04/15 [History] Multivitamins, Thera [Multivitamin (formulary)] 1 tab PO DAILY 12/17/15 [History] Cholecalciferol [Vitamin D3] 1,000 unit PO DAILY 12/22/15 [History] Vitamin B Complex 1 cap PO DAILY 12/22/15 [History] Aspirin 81 mg PO DAILY #30 chew 12/24/15 [Rx] Atorvastatin [Lipitor] 80 mg PO HS #30 tab 12/24/15 [Rx] Clopidogrel [Plavix] 75 mg PO DAILY #30 tab 12/24/15 [Rx] Nitroglycerin Sl Tabs [Nitrostat] 0.4 mg SUBLINGUAL Q5M PRN #25 tab 12/24/15 [Rx] Isosorbide Mononitrate ER [Imdur] 30 mg PO BID 05/27/17 [History] LORazepam [Ativan] 0.5 mg PO TID PRN 05/27/17 [History] Carvedilol [Coreg*] 12.5 mg PO TID 03/18/18 [History] Furosemide [Lasix] 80 mg PO BID 05/05/18 [History] Losartan [Cozaar] 50 mg PO BID 05/05/18 [History] Warfarin [Coumadin] 1.25 mg PO MOFR 05/05/18 [History] Warfarin [Coumadin] 2.5 mg PO SUTUWETHSA 05/05/18 [History] Follow up Appointment(s)/Referral(s): Giovanni Clark MD [Primary Care Provider] - 1-2 days
[2018-05-07 08:15] LABS: HCT 38.8 % (39.0-53.0); HGB 12.5 gm/dL (13.0-17.5); MCH 31.1 pg (25.0-35.0); MCHC 32.4 g/dL (31.0-37.0); MCV 96.3 fL (80.0-100.0); Mean Platelet Volume 9.6; Platelet Count 161 k/uL (150-450); RBC 4.03 m/uL (4.30-5.90); RDW 14.5 % (11.5-15.5); WBC 19.2 k/uL (3.8-10.6)
[2018-05-07 08:19] LABS: INR 2.9 (<1.2); Prothrombin Time 28.4 sec (9.0-12.0)
[2018-05-07 08:25] VITALS: PULSE 56
[2018-05-07 08:26] LABS: Calcium 9.3 mg/dL (8.4-10.2); Potassium 3.7 mmol/L (3.5-5.1); Total Bilirubin 0.5 mg/dL (0.2-1.3); Total Protein 6.4 g/dL (6.3-8.2)
[2018-05-07] MEDS ORDERED: WARFARIN 1 MG TAB PO ONE (18:00)
[2018-05-07] MEDS ORDERED: WARFARIN 1.25 MG TAB PO SCH (18:00)
== END 2018-05-07 09:53 | disposition home or self-care (01) ==
LOC: EC 09:16 → 4SSUR 11:49 → INTOOBSV 11:49
PROVIDERS: ADMIT Family Medicine; ATTEND Family Medicine
DX: J44.1 Chronic obstructive pulmonary disease with (acute) exacerbation (principal); D64.9 Anemia, unspecified; E11.9 Type 2 diabetes mellitus without complications; E78.5 Hyperlipidemia, unspecified; F17.210 Nicotine dependence, cigarettes, uncomplicated; F41.9 Anxiety disorder, unspecified; H54.7 Unspecified visual loss; I11.0 Hypertensive heart disease with heart failure; I25.10 Atherosclerotic heart disease of native coronary artery without angina pectoris; I25.2 Old myocardial infarction; I25.5 Ischemic cardiomyopathy; I50.22 Chronic systolic (congestive) heart failure; Z95.810 Presence of automatic (implantable) cardiac defibrillator; Z98.1 Arthrodesis status; Z95.5 Presence of coronary angioplasty implant and graft; Z86.73 Personal history of transient ischemic attack (TIA), and cerebral infarction without residual deficits; Z83.3 Family history of diabetes mellitus; Z79.899 Other long term (current) drug therapy; Z79.82 Long term (current) use of aspirin; Z79.02 Long term (current) use of antithrombotics/antiplatelets; Z79.01 Long term (current) use of anticoagulants
CPT/HCPCS: 96376 ×3; 96365; 96366; 96375; 99285; 36415; 94640 ×6; 83880; 80053 ×3; 82803; 83735; 84484; 85025; 85027 ×2; 85610 ×3; 85730; 87040; 83036; 71046; G0378 ×4; J2930 ×3; J0456; J0696

== ENCOUNTER 2018-06-26 16:33 | Inpatient (IN) | payer MEDICARE, BC ==
[2018-06-26] MEDS ORDERED: AZITHROMYCIN 500 MG in SODIUM CHLORIDE 0.9% 250 ML IVPB STA (16:55)
[2018-06-26] MEDS ORDERED: IPRATROPIUM 0.5 MG/2.5 ML NEBU INHALATION STA (16:55)
[2018-06-26] MEDS ORDERED: DEXAMETHASONE SOD PHOSPHATE 10 MG/ML 1 ML VIAL IV STA (16:55)
[2018-06-26] MEDS ORDERED: ALBUTEROL NEBULIZED 2.5 MG/3 ML INHALATION STA (16:55)
[2018-06-26] MEDS ORDERED: SODIUM CHLORIDE 0.9% 500 ML 500 ML IV STA (16:55)
--- NOTE | 2018-06-26 16:58 | ED ---
General Adult HPI - General Chief complaint: Shortness of Breath Stated complaint: Diff Breathing Time Seen by Provider: 06/26/18 16:48 Source: patient Mode of arrival: wheelchair Limitations: physical limitation - History of Present Illness Initial comments: Dictation was produced using [employer] dictation software. please excuse any gra mmatical, word or spelling errors. Chief Complaint: 73-year-old male with past medical history of atrial fibrillation, COPD, heart failure presents with cough, shortness of breath. History of Present Illness: His 73-year-old male has history of COPD and heart failure. Patient states that since 6 this morning he is been having difficulty breathing. Patient states been coughing profusely. Denies any overt sick contacts. Denies any chest pain. Patient also has a history of heart failure. Denies any constitutional symptoms. Patient is on blood thinners and respiratory medications. The ROS documented in this emergency department record has been reviewed and confirmed by me. Those systems with pertinent positive or negative responses have been documented in the HPI. All other systems are other negative and/or noncontributory. PHYSICAL EXAM: General Impression: Alert and oriented x3, dyspneic HEENT: Normocephalic atraumatic, extra-ocular movements intact, pupils equal and reactive to light bilaterally, mucous membranes moist. Cardiovascular: Heart regular rate and rhythm, S1&S2 audible, no murmurs, rubs or gallops Chest: Bilateral lung wheezing Abdomen: Bowel sounds present, abdomen soft, non-tender, non-distended, no organomegaly Musculoskeletal: Pulses present and equal in all extremities, no peripheral edema Motor: no focal deficits noted Neurological: CN II-XII grossly intact, no focal motor or sensory deficits noted Skin: Intact with no visualized rashes ED course: 73 yo male presents with clinical presentation consistent with COPD. Patient does have a history of heart failure his dyspnea may be multifactorial however clinical presentation suggests COPD vital signs upon arrival shows respiratory rate of 26. Patient is clearly dyspneic on physical examination.Patient given breathing treatment, steroids. Metabolic panel is obtained showing no acute process. No Acidosis. Coag panel unremarkable. CBC is unremarkable. Patient's troponin elevation of 0.044 which is at around his baseline secondary to troponin leak. Chest x-ray shows findings to suggest COPD. Patient was reevaluated with mild improvement of symptoms however he did continue to have respiratory distress. Patient's best on BiPAP. She had some chest pressure. Repeat EKG was performed to be stable. Patient given aspirin. Discussed patient case with Dr. Grover. Cardiology and pulmonology on consultation. EKG interpretation: Ventricular rate 60, paced rhythm, QRS 212, QTc 536. No ND prolongation, no QTC prolongation, no ST or T-wave changes noted. EKG compared to 05/05/2018 showing no changes. Overall, this EKG is unremarkable - Related Data Home Medications Medication Instructions Recorded Confirmed Allopurinol [Zyloprim] 100 mg PO DAILY 04/23/15 06/26/18 Zolpidem Tartrate [Ambien] 10 mg PO HS PRN 07/04/15 06/26/18 Multivitamins, Thera [Multivitamin 1 tab PO DAILY 12/17/15 06/26/18 (formulary)] Cholecalciferol [Vitamin D3 (25 1,000 unit PO DAILY 12/22/15 06/26/18 Mcg = 1000 Iu)] Vitamin B Complex 1 cap PO DAILY 12/22/15 06/26/18 Isosorbide Mononitrate ER [Imdur] 30 mg PO BID 05/27/17 06/26/18 LORazepam [Ativan] 0.5 mg PO TID PRN 05/27/17 06/26/18 Carvedilol [Coreg*] 12.5 mg PO TID 03/18/18 06/26/18 Furosemide [Lasix] 80 mg PO BID 05/05/18 06/26/18 Losartan [Cozaar] 50 mg PO BID 05/05/18 06/26/18 Warfarin [Coumadin] 1.25 mg PO TUFR 05/05/18 06/26/18 Warfarin [Coumadin] 2.5 mg PO SUTUWETHSA 05/05/18 06/26/18 Albuterol Nebulized [Ventolin 2.5 mg INHALATION RT-QID 06/26/18 06/26/18 Nebulized] Ipratropium Nebulized [Atrovent 0.5 mg INHALATION RT-QID 06/26/18 06/26/18 Nebulized 0.2 MG/ML] Previous Rx's Medication Instructions Recorded Aspirin 81 mg PO DAILY #30 chew 12/24/15 Atorvastatin [Lipitor] 80 mg PO HS #30 tab 12/24/15 Clopidogrel [Plavix] 75 mg PO DAILY #30 tab 12/24/15 Nitroglycerin Sl Tabs [Nitrostat] 0.4 mg SUBLINGUAL Q5M PRN #25 tab 12/24/15 Budesonide [Pulmicort] 0.5 mg INHALATION RT-BID #30 nebu 05/07/18 Allergies Allergy/AdvReac Type Severity Reaction Status Date / Time No Known Allergies Allergy Verified 06/26/18 17:15 Review of Systems ROS Statement: Those systems with pertinent positive or pertinent negative responses have been documented in the HPI. ROS Other: All systems not noted in ROS Statement are negative. Past Medical History Past Medical History: Atrial Fibrillation, Coronary Artery Disease (CAD), Heart Failure, COPD, CVA/TIA, Eye Disorder, Hyperlipidemia, Hypertension, Osteoarthritis (OA), Pneumonia Additional Past Medical History / Comment(s): Pt recently admitted to [facility] on 03/18/18 with aucte hypercapnic respiratory failure 2ndary to exacerbation COPD. 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 Last Myocardial Infarction Date:: 2015 History of Any Multi-Drug Resistant Organisms: None Reported Past Surgical History: AICD, Back Surgery, Heart Catheterization With Stent, Pacemaker Additional Past Surgical History / Comment(s): PCI with stents, AICD/pacer, low back fusion, oral surgery. Past Anesthesia/Blood Transfusion Reactions: No Reported Reaction Date of Last Stent Placement:: 2015 Type of Cardiac Device: Permanent Pacemaker, AICD Device Placement Date:: 05/09/10 Past Psychological History: Anxiety Smoking Status: Former smoker Past Alcohol Use History: Daily Past Drug Use History: None Reported - Past Family History Father Family Medical History: CVA/TIA, Dementia Mother Family Medical History: CVA/TIA, Diabetes Mellitus, Skin Disorder Additional Family Medical History / Comment(s): skin CA General Exam Limitations: physical limitation Course Vital Signs 06/26/18 06/26/18 06/26/18 16:35 17:04 17:43 Temperature 98.4 F Pulse Rate 63 63 63 Pulse Rate [ Junior Software Engineer ] Respiratory 26 H Rate Blood Pressure 169/88 O2 Sat by Pulse 100 Oximetry 06/26/18 06/26/18 17:56 18:11 Temperature Pulse Rate 60 Pulse Rate [ 60 Junior Software Engineer ] Respiratory 22 Rate Blood Pressure 118/47 O2 Sat by Pulse 100 Oximetry Medical Decision Making - Lab Data Result diagrams: 06/26/18 16:50 06/26/18 16:50 Lab Results 06/26/18 06/26/18 06/26/18 Range/Units 16:50 16:50 16:50 WBC 8.3 (3.8-10.6) k/uL RBC 4.24 L (4.30-5.90) m/uL Hgb 13.1 (13.0-17.5) gm/dL Hct 40.3 (39.0-53.0) % MCV 95.1 (80.0-100.0) fL MCH 30.8 (25.0-35.0) pg MCHC 32.4 (31.0-37.0) g/dL RDW 15.7 H (11.5-15.5) % Plt Count 160 (150-450) k/uL Neutrophils % 47 % Lymphocytes % 27 % Monocytes % 9 % Eosinophils % 12 % Basophils % 1 % Neutrophils # 3.9 (1.3-7.7) k/uL Lymphocytes # 2.2 (1.0-4.8) k/uL Monocytes # 0.7 (0-1.0) k/uL Eosinophils # 1.0 H (0-0.7) k/uL Basophils # 0.1 (0-0.2) k/uL PT 12.5 H (9.0-12.0) sec INR 1.2 H (<1.2) APTT 29.7 (22.0-30.0) sec Sodium 142 (137-145) mmol/L Potassium 3.7 (3.5-5.1) mmol/L Chloride 105 (98-107) mmol/L Carbon Dioxide 26 (22-30) mmol/L Anion Gap 11 mmol/L BUN 23 H (9-20) mg/dL Creatinine 0.94 (0.66-1.25) mg/dL Est GFR (CKD-EPI)AfAm >90 (>60 ml/min/1.73 sqM) Est GFR (CKD-EPI)NonAf 81 (>60 ml/min/1.73 sqM) Glucose 138 H (74-99) mg/dL Calcium 9.9 (8.4-10.2) mg/dL Total Bilirubin 0.6 (0.2-1.3) mg/dL AST 42 (17-59) U/L ALT 23 (21-72) U/L Alkaline Phosphatase 88 (38-126) U/L Troponin I (0.000-0.034) ng/mL NT-Pro-B Natriuret Pep pg/mL Total Protein 6.6 (6.3-8.2) g/dL Albumin 4.2 (3.5-5.0) g/dL 06/26/18 06/26/18 Range/Units 16:50 16:50 WBC (3.8-10.6) k/uL RBC (4.30-5.90) m/uL Hgb (13.0-17.5) gm/dL Hct (39.0-53.0) % MCV (80.0-100.0) fL MCH (25.0-35.0) pg MCHC (31.0-37.0) g/dL RDW (11.5-15.5) % Plt Count (150-450) k/uL Neutrophils % % Lymphocytes % % Monocytes % % Eosinophils % % Basophils % % Neutrophils # (1.3-7.7) k/uL Lymphocytes # (1.0-4.8) k/uL Monocytes # (0-1.0) k/uL Eosinophils # (0-0.7) k/uL Basophils # (0-0.2) k/uL PT (9.0-12.0) sec INR (<1.2) APTT (22.0-30.0) sec Sodium (137-145) mmol/L Potassium (3.5-5.1) mmol/L Chloride (98-107) mmol/L Carbon Dioxide (22-30) mmol/L Anion Gap mmol/L BUN (9-20) mg/dL Creatinine (0.66-1.25) mg/dL Est GFR (CKD-EPI)AfAm (>60 ml/min/1.73 sqM) Est GFR (CKD-EPI)NonAf (>60 ml/min/1.73 sqM) Glucose (74-99) mg/dL Calcium (8.4-10.2) mg/dL Total Bilirubin (0.2-1.3) mg/dL AST (17-59) U/L ALT (21-72) U/L Alkaline Phosphatase (38-126) U/L Troponin I 0.044 H* (0.000-0.034) ng/mL NT-Pro-B Natriuret Pep 746 pg/mL Total Protein (6.3-8.2) g/dL Albumin (3.5-5.0) g/dL Disposition Clinical Impression: COPD exacerbation, Chest pain Disposition: ADMITTED IP TO THIS HOSP Condition: Fair Referrals: Giovanni Clark MD [Primary Care Provider] - 1-2 days Decision Time: 19:03
[2018-06-26 17:03] LABS: Basophils # (A) 0.1 k/uL (0-0.2); Basophils % (A) 1 %; Eosinophils % (A) 12 %; HCT 40.3 % (39.0-53.0); HGB 13.1 gm/dL (13.0-17.5); Lymphocytes # (A) 2.2 k/uL (1.0-4.8); Lymphocytes % (A) 27 %; MCH 30.8 pg (25.0-35.0); MCHC 32.4 g/dL (31.0-37.0); MCV 95.1 fL (80.0-100.0); Mean Platelet Volume 9.3; Monocytes # (A) 0.7 k/uL (0-1.0); Monocytes % (A) 9 %; Neutrophils # (A) 3.9 k/uL (1.3-7.7); Neutrophils % (A) 47 %; Platelet Count 160 k/uL (150-450); RBC 4.24 m/uL (4.30-5.90); RDW 15.7 % (11.5-15.5); WBC 8.3 k/uL (3.8-10.6)
[2018-06-26 17:13] LABS: INR 1.2 (<1.2); Partial Thromboplastin Time 29.7 sec (22.0-30.0); Prothrombin Time 12.5 sec (9.0-12.0)
[2018-06-26 17:18] LABS: ALT 23 U/L (21-72); AST 42 U/L (17-59); Albumin 4.2 g/dL (3.5-5.0); Alkaline Phosphatase 88 U/L (38-126); Anion Gap 11 mmol/L; Blood Urea Nitrogen 23 mg/dL (9-20); Calcium 9.9 mg/dL (8.4-10.2); Carbon Dioxide 26 mmol/L (22-30); Chloride 105 mmol/L (98-107); Glucose 138 mg/dL (74-99); Potassium 3.7 mmol/L (3.5-5.1); Sodium 142 mmol/L (137-145); Total Bilirubin 0.6 mg/dL (0.2-1.3); Total Protein 6.6 g/dL (6.3-8.2)
--- NOTE | 2018-06-26 18:37 | XR ---
EXAMINATION TYPE: XR chest 2V DATE OF EXAM: 06/26/2018 COMPARISON: 05/05/2018 HISTORY: Difficulty breathing. History of COPD. TECHNIQUE: Frontal and lateral views of the chest are obtained. FINDINGS: There is an enlarged cardiac mediastinal silhouette with dual lead left-sided cardiac hui ce. No new focal consolidation, pleural effusion or pneumothorax. Pulmonary hyperinflation compatible with underlying COPD. Mild degenerative changes of the spine. IMPRESSION: No acute cardiopulmonary process. Underlying COPD.
[2018-06-26] MEDS ORDERED: ASPIRIN 81 MG PO STA (19:02)
[2018-06-26] MEDS ORDERED: IPRATROPIUM-ALBUTEROL 3 ML NEB INHALATION PRN (19:04)
[2018-06-26] MEDS ORDERED: CARVEDILOL 12.5 MG TAB PO SCH (22:00)
[2018-06-26] MEDS: ATORVASTATIN 80 MG TAB PO SCH (23:25)
[2018-06-26] MEDS: ZOLPIDEM 10 MG TAB PO PRN (23:25)
[2018-06-26] MEDS: CARVEDILOL 12.5 MG TAB PO SCH (23:26)
[2018-06-26] MEDS: ISOSORBIDE MONONITRATE ER 30 MG TAB.ER.24H PO SCH (23:26)
[2018-06-27] MEDS: WARFARIN 2.5 MG TAB PO SCH ×2 (01:25→17:12)
[2018-06-27 01:54] LABS: HCT 38.3 % (39.0-53.0); HGB 12.3 gm/dL (13.0-17.5); MCHC 32.1 g/dL (31.0-37.0); MCV 96.5 fL (80.0-100.0); Mean Platelet Volume 9.1; Platelet Count 157 k/uL (150-450); RBC 3.97 m/uL (4.30-5.90); RDW 14.6 % (11.5-15.5); WBC 7.3 k/uL (3.8-10.6)
[2018-06-27] MEDS: CARVEDILOL 12.5 MG TAB PO SCH ×2 (06:32→17:12)
[2018-06-27 07:17] LABS: Anion Gap 9 mmol/L; Blood Urea Nitrogen 25 mg/dL (9-20); Calcium 9.7 mg/dL (8.4-10.2); Carbon Dioxide 26 mmol/L (22-30); Chloride 107 mmol/L (98-107); Glucose 187 mg/dL (74-99); Potassium 4.1 mmol/L (3.5-5.1); Sodium 142 mmol/L (137-145)
[2018-06-27 07:18] LABS: INR 1.2 (<1.2); Prothrombin Time 12.6 sec (9.0-12.0)
[2018-06-27] MEDS: ISOSORBIDE MONONITRATE ER 30 MG TAB.ER.24H PO SCH ×2 (08:46→21:08)
[2018-06-27] MEDS: AZITHROMYCIN 500 MG TAB PO SCH (08:46)
[2018-06-27] MEDS: predniSONE 20 MG TAB PO SCH (08:46)
[2018-06-27] MEDS ORDERED: ASPIRIN 81 MG PO SCH (09:00)
[2018-06-27] MEDS: ALLOPURINOL 100 MG TAB PO SCH (09:15)
[2018-06-27] MEDS: CLOPIDOGREL 75 MG TAB PO SCH (09:15)
[2018-06-27] MEDS: MULTIVITAMINS, THERA 1 EACH TAB PO SCH (09:15)
[2018-06-27] MEDS: FUROSEMIDE 80 MG TAB PO SCH ×2 (09:15→17:12)
[2018-06-27] MEDS: LOSARTAN 50 MG TAB PO SCH ×2 (09:15→21:08)
[2018-06-27] MEDS: CHOLECALCIFEROL 1,000 UNIT TAB PO SCH (09:15)
[2018-06-27] MEDS: LORazepam 0.5 MG TAB PO PRN ×2 (11:06→19:30)
--- NOTE | 2018-06-27 11:53 | CONS ---
CONSULTATION Mr. Jackson is a 73-year-old male with known history of severe coronary artery disease, severe ischemic cardiomyopathy, status post ICD, atrial fibrillations and history of chronic obstructive lung disease who yesterday was working outside and then became quite dyspneic with cough and was unable to improve his breathing in spite of his updraft. Came into the emergency room. He is feeling much better today and anxious to go home. He had chest discomfort when he was coughing, but no anginal pain. He has been followed on a regular basis by Dr. Russel Myers. His ejection fraction in the past has been in the 30 to 35%. He has no history of recent peripheral edema. No clear PND, no orthopnea, and no anginal pain. His coronary risk factors are positive for hypertension and hyperlipidemia. He is nondiabetic. He is nonsmoking at this time. His medications include Coreg 12.5 mg twice a day, Coumadin, losartan 50 mg twice a day, isosorbide mononitrate 30 mg twice a day, Lasix 80 mg twice a day, Plavix 75 mg daily, Lipitor 80 mg daily, aspirin, Allopurinol and albuterol. REVIEW OF SYSTEMS: RESPIRATORY system: He has a history of chronic obstructive lung disease with dyspnea and cough. GI system: No recent GI bleed. No peptic ulcer disease. system: No dysuria or hematuria. NERVOUS SYSTEM: No stroke or seizure. PHYSICAL EXAMINATION: GENERAL: 73 year-old male, alert, oriented, in no apparent distress. VITAL SIGNS: Blood pressure 124/60 with a heart rate in the 60. HEAD: Normocephalic. EYES: Sclerae anicteric. NECK: No bruit. LUNGS with decreased air exchange, but no wheezes or rales. HEART: Irregularly, irregular S1, S2. No S3 with systolic ejection murmur at the base. No diastolic murmur. ABDOMEN: Soft, nontender. Positive bowel sounds. No organomegaly. EXTREMITIES: No edema. LAB DATA: Lab data revealed BUN and creatinine 25 and 0.93. NT proBNP of 746. Troponin 0.044, which has been flat compared with the prior admission dating back to 2016. Hemoglobin of 12.3. EKG revealed atrial fibrillation with 100% ventricle pacing. IMPRESSION: 1. Dyspnea on exertion with exacerbation of congestive heart failure. I do not see any evidence to suggest congestive heart failure. 2. History of coronary artery disease status post multivessel stenting, stable. The elevation of troponin has been chronic without any changes no evidence of acute coronary syndrome. 3. History of ischemic cardiomyopathy, status post ICD. 4. Chronic atrial fibrillation. 5. Hypertension. 6. Hyperlipidemia. RECOMMENDATION: From the cardiac standpoint, no cardiac workup is needed at this time. I will continue on the Plavix and the Coumadin. I will stop the aspirin. The patient will continue present therapy and follow up as an outpatient with Dr. Myers as planned. Thank you for this consult. We will follow with you. ISAMAR / IJN: [id number] /
[2018-06-27] MEDS: IPRATROPIUM-ALBUTEROL 3 ML NEB INHALATION SCH ×3 (11:56→21:35)
[2018-06-27] MEDS ORDERED: IPRATROPIUM 0.5 MG/2.5 ML NEBU INHALATION SCH (12:00)
[2018-06-27] MEDS ORDERED: ALBUTEROL NEBULIZED 2.5 MG/3 ML INHALATION SCH (12:00)
--- NOTE | 2018-06-27 15:04 | P.HPIM ---
History of Present Illness H&P Date: 06/27/18 Chief Complaint: Difficulty in breathing Mr. Jackson is a 73-year-old male, who is a patient of Dr. Clark, with a past medical history of atrial fibrillation, COPD, coronary artery disease, cardiomyopathy, osteoarthritis coming in with a chief complaint of difficulty in breathing. Patient states that he has been mowing his lawn and later heard himself wheezing and was very short of breath. He tried to take his breathing treatments 3 times but did not have improvement in the difficulty in breathing and continued to wheeze. Patient denies having any chest pain or palpitations. No cough. Patient denies having any sick contacts. No fevers chills or rigors. Denies having any orthopnea or PND. No lower extremity edema. Patient denies having any weakness of his extremities. No headaches blurring of vision or neck stiffness. No abdominal pain nausea vomiting or diarrhea. No hematuria or dysuria. No recent travel. Patient has history of COPD and follows with Dr. Cheung. In the emergency department patient had a chest x-ray done, which was negative for any acute cardiopulmonary process but quit showing underlying COPD. Patient had CBC and BMP done in the ED that are within normal limits. He received couple of breathing treatments in the emergency department and started on steroids and patient has been admitted to the general medical floors for further management. Review of Systems REVIEW OF SYSTEMS: PSYCH: No anxiety or depression NEURO:No c/o weakness of the extremties, No facial droop, No speech abnormalities. VASCULAR: Peripheral nervous system within the normal limits no edema HEMATOLOGIC: No history of easy bleeding and bruising . No recent infections . RESPIRATORY: As per HPI IMMUNE: No infections INTEGUMENT: no rashes OPHTHALMOLOGIC: No blurry vision and no eye discharge : No dysuria or hematuria CARDIAC: No chest pain , shortness of breath , paroxysmal nocturnal dyspnea MUSCULOSKELETAL : No Aches or pains in the joints or muscles. GI: No abdominal pain, Nausea or vomiting. No constipation or diarrhea. Past Medical History Past Medical History: Atrial Fibrillation, Coronary Artery Disease (CAD), Heart Failure, COPD, CVA/TIA, Eye Disorder, Hyperlipidemia, Hypertension, Osteoarthritis (OA), Pneumonia Additional Past Medical History / Comment(s): Pt was admitted to [facility] on 03/18/18 with aucte hypercapnic respiratory failure 2ndary to exacerbation COPD. 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 Last Myocardial Infarction Date:: 2015 History of Any Multi-Drug Resistant Organisms: None Reported Past Surgical History: AICD, Back Surgery, Heart Catheterization With Stent, P acemaker Additional Past Surgical History / Comment(s): PCI with stents, AICD/pacer, low back fusion, oral surgery. Past Anesthesia/Blood Transfusion Reactions: No Reported Reaction Date of Last Stent Placement:: 2015 Type of Cardiac Device: Permanent Pacemaker, AICD Device Placement Date:: 05/09/10 Smoking Status: Former smoker - Past Family History Father Family Medical History: CVA/TIA, Dementia Mother Family Medical History: CVA/TIA, Diabetes Mellitus, Skin Disorder Additional Family Medical History / Comment(s): skin CA Medications and Allergies Home Medications Medication Instructions Recorded Confirmed Type Allopurinol [Zyloprim] 100 mg PO DAILY 04/23/15 06/26/18 History Zolpidem Tartrate [Ambien] 10 mg PO HS PRN 07/04/15 06/26/18 History Multivitamins, Thera [Multivitamin 1 tab PO DAILY 12/17/15 06/26/18 History (formulary)] Cholecalciferol [Vitamin D3 (25 1,000 unit PO DAILY 12/22/15 06/26/18 History Mcg = 1000 Iu)] Vitamin B Complex 1 cap PO DAILY 12/22/15 06/26/18 History Aspirin 81 mg PO DAILY #30 chew 12/24/15 06/26/18 Rx Atorvastatin [Lipitor] 80 mg PO HS #30 tab 12/24/15 06/26/18 Rx Clopidogrel [Plavix] 75 mg PO DAILY #30 tab 12/24/15 06/26/18 Rx Nitroglycerin Sl Tabs [Nitrostat] 0.4 mg SUBLINGUAL Q5M PRN #25 tab 12/24/15 06/26/18 Rx Isosorbide Mononitrate ER [Imdur] 30 mg PO BID 05/27/17 06/26/18 History LORazepam [Ativan] 0.5 mg PO TID PRN 05/27/17 06/26/18 History Carvedilol [Coreg*] 12.5 mg PO BID 03/18/18 06/26/18 History Furosemide [Lasix] 80 mg PO BID 05/05/18 06/26/18 History Losartan [Cozaar] 50 mg PO BID 05/05/18 06/26/18 History Warfarin [Coumadin] 1.25 mg PO TUFR 05/05/18 06/26/18 History Warfarin [Coumadin] 2.5 mg PO SUTUWETHSA 05/05/18 06/26/18 History Budesonide [Pulmicort] 0.5 mg INHALATION RT-BID #30 nebu 05/07/18 06/26/18 Rx Albuterol Nebulized [Ventolin 2.5 mg INHALATION RT-QID 06/26/18 06/26/18 History Nebulized] Ipratropium Nebulized [Atrovent 0.5 mg INHALATION RT-QID 06/26/18 06/26/18 History Nebulized 0.2 MG/ML] Allergies Allergy/AdvReac Type Severity Reaction Status Date / Time No Known Allergies Allergy Verified 06/26/18 17:15 Physical Exam Vitals: Vital Signs Temp Pulse Pulse Resp BP BP Pulse Ox 06/27/18 12:09 66 06/27/18 11:58 62 06/27/18 11:05 75 16 136/67 99 06/27/18 07:59 62 06/27/18 07:49 60 98 06/27/18 07:41 97.4 F L 60 16 124/68 99 06/27/18 03:43 61 17 06/27/18 03:42 98.2 F 61 17 113/71 95 06/27/18 00:00 98.6 F 60 18 129/61 97 06/26/18 21:42 98.2 F 60 18 133/65 94 L 06/26/18 21:29 98 06/26/18 21:18 97.9 F 68 20 123/68 100 06/26/18 19:37 62 20 106/52 100 06/26/18 18:11 60 06/26/18 17:56 60 22 118/47 100 06/26/18 17:43 63 06/26/18 17:04 63 06/26/18 16:35 98.4 F 63 26 H 169/88 100 Intake and Output 06/26/18 06/27/18 06/27/18 22:59 06:59 14:59 Intake Total 520 400 480 Output Total 775 Balance -255 400 480 Intake: Oral 520 400 480 Output: Urine 775 Other: Voiding Method Toilet # Voids 1 1 2 Weight 101.9 kg 102 kg PHYSICAL EXAMINATION: GENERAL: The patient is alert and oriented x3, not in any acute distress. Well developed, well nourished. HEENT: Pupils are round and equally reacting to light. EOMI. No scleral icterus. No conjunctival pallor. Normocephalic, atraumatic. CARDIOVASCULAR: S1 and S2 present. No murmurs, rubs, or gallops. PULMONARY: Decreased bilateral air entry. No wheezes or crackles. ABDOMEN: Soft, nontender, nondistended, normoactive bowel sounds. No palpable organomegaly. MUSCULOSKELETAL: No joint swelling or deformity. EXTREMITIES: No edema. No cyanosis. No clubbing. NEUROLOGICAL: Gross neurological examination did not reveal any focal deficits. SKIN: No rashes. Results CBC & Chem 7: 06/27/18 01:25 06/27/18 06:27 Labs: Abnormal Lab Results - Last 24 Hours (Table) 06/26/18 06/26/18 06/26/18 Range/Units 16:50 16:50 16:50 RBC 4.24 L (4.30-5.90) m/uL Hgb (13.0-17.5) gm/dL Hct (39.0-53.0) % RDW 15.7 H (11.5-15.5) % Eosinophils # 1.0 H (0-0.7) k/uL PT 12.5 H (9.0-12.0) sec INR 1.2 H (<1.2) BUN 23 H (9-20) mg/dL Glucose 138 H (74-99) mg/dL Troponin I (0.000-0.034) ng/mL 06/26/18 06/27/18 06/27/18 Range/Units 16:50 01:25 06:27 RBC 3.97 L (4.30-5.90) m/uL Hgb 12.3 L (13.0-17.5) gm/dL Hct 38.3 L (39.0-53.0) % RDW (11.5-15.5) % Eosinophils # (0-0.7) k/uL PT 12.6 H (9.0-12.0) sec INR 1.2 H (<1.2) BUN (9-20) mg/dL Glucose (74-99) mg/dL Troponin I 0.044 H* (0.000-0.034) ng/mL 06/27/18 Range/Units 06:27 RBC (4.30-5.90) m/uL Hgb (13.0-17.5) gm/dL Hct (39.0-53.0) % RDW (11.5-15.5) % Eosinophils # (0-0.7) k/uL PT (9.0-12.0) sec INR (<1.2) BUN 25 H (9-20) mg/dL Glucose 187 H (74-99) mg/dL Troponin I (0.000-0.034) ng/mL Thrombosis Risk Factor Assmnt - Choose All That Apply Each Factor Represents 1 point: Abnormal pulmonary function (COPD) Each Risk Factor Represents 2 Points: Age 61-74 years Thrombosis Risk Factor Assessment Total Risk Factor Score: 3 Thrombosis Risk Factor Assessment Level: Moderate Risk Assessment and Plan Assessment: ASSESSMENT Shortness of breath - Acute COPD exacerbation vs CHF exacerbation Coronary artery disease status post multivessel stenting Ischemic cardiomyopathy status post AICD Hypertension Chronic atrial fibrillation Hyperlipidemia Multi-joint osteoarthritis History of carpal History of stroke/TIA PLAN: Patient showed significant improvement with breathing treatments and steroid initiation. Most likely COPD exacerbation and CHF exacerbation. Patient has been evaluated by cardiology and cleared for discharge. Pending pulmonary consult. Patient has been restarted on all his home medications. Patient is very eager to go home. Further recommendations to follow depending on the progress of the patient.
--- NOTE | 2018-06-27 18:27 | P.CNPUL ---
History of Present Illness Reason for consult: dyspnea, cough, asthma, hypoxemia, obstructive sleep apnea Chief complaint: Shortness of breath of acute onset History of present illness: Mr. Jackson is 73-year-old male who was seen evaluated examined on medical for he was admitted with acute onset of shortness of breath severe wheezing and congestion one day prior to coming to the hospital he had more days lawn and went to tractor supply store where he had acute shortness of breath required BiPAP support as well his past medical history of atrial fibrillation, COPD, coronary artery disease, cardiomyopathy, osteoarthritis coming in with a chief complaint of difficulty in breathing. Patient states that he has been mowing his lawn and later heard himself wheezing and was very short of breath. He tried to take his breathing treatments 3 times but did not have improvement in the difficulty in breathing and continued to wheeze. Patient denies having any chest pain or palpitations. No cough. Patient denies having any sick contacts. No fevers chills or rigors. Denies having any orthopnea or PND. No lower extremity edema. Patient denies having any weakness of his extremities. No headaches blurring of vision or neck stiffness. No abdominal pain nausea vomiting or diarrhea. No hematuria or dysuria. No recent travel. In the emergency department patient had a chest x-ray done, which was negative for any acute cardiopulmonary process but quit showing underlying COPD. Patient had CBC and BMP done in the ED that are within normal limits. He received couple of breathing treatments in the emergency department and started on steroids with BiPAP support which according to the really opened him up and patient has been admitted to the general medical floors for further management. On specific questioning he does have problems associated with loud snoring Review of Systems All systems: negative Past Medical History Past Medical History: Atrial Fibrillation, Coronary Artery Disease (CAD), Heart Failure, COPD, CVA/TIA, Eye Disorder, Hyperlipidemia, Hypertension, Osteoarthritis (OA), Pneumonia Additional Past Medical History / Comment(s): Pt was admitted to [facility] on 03/18/18 with aucte hypercapnic respiratory failure 2ndary to exacerbation COPD. 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 Last Myocardial Infarction Date:: 2015 History of Any Multi-Drug Resistant Organisms: None Reported Past Surgical History: AICD, Back Surgery, Heart Catheterization With Stent, Pacemaker Additional Past Surgical History / Comment(s): PCI with stents, AICD/pacer, low back fusion, oral surgery. Past Anesthesia/Blood Transfusion Reactions: No Reported Reaction Date of Last Stent Placement:: 2015 Type of Cardiac Device: Permanent Pacemaker, AICD Device Placement Date:: 05/09/10 Smoking Status: Former smoker - Past Family History Father Family Medical History: CVA/TIA, Dementia Mother Family Medical History: CVA/TIA, Diabetes Mellitus, Skin Disorder Additional Family Medical History / Comment(s): skin CA Medications and Allergies Home Medications Medication Instructions Recorded Confirmed Type Allopurinol [Zyloprim] 100 mg PO DAILY 04/23/15 06/26/18 History Zolpidem Tartrate [Ambien] 10 mg PO HS PRN 07/04/15 06/26/18 History Multivitamins, Thera [Multivitamin 1 tab PO DAILY 12/17/15 06/26/18 History (formulary)] Cholecalciferol [Vitamin D3 (25 1,000 unit PO DAILY 12/22/15 06/26/18 History Mcg = 1000 Iu)] Vitamin B Complex 1 cap PO DAILY 12/22/15 06/26/18 History Aspirin 81 mg PO DAILY #30 chew 12/24/15 06/26/18 Rx Atorvastatin [Lipitor] 80 mg PO HS #30 tab 12/24/15 06/26/18 Rx Clopidogrel [Plavix] 75 mg PO DAILY #30 tab 12/24/15 06/26/18 Rx Nitroglycerin Sl Tabs [Nitrostat] 0.4 mg SUBLINGUAL Q5M PRN #25 tab 12/24/15 06/26/18 Rx Isosorbide Mononitrate ER [Imdur] 30 mg PO BID 05/27/17 06/26/18 History LORazepam [Ativan] 0.5 mg PO TID PRN 05/27/17 06/26/18 History Carvedilol [Coreg*] 12.5 mg PO BID 03/18/18 06/26/18 History Furosemide [Lasix] 80 mg PO BID 05/05/18 06/26/18 History Losartan [Cozaar] 50 mg PO BID 05/05/18 06/26/18 History Warfarin [Coumadin] 1.25 mg PO TUFR 05/05/18 06/26/18 History Warfarin [Coumadin] 2.5 mg PO SUTUWETHSA 05/05/18 06/26/18 History Budesonide [Pulmicort] 0.5 mg INHALATION RT-BID #30 nebu 05/07/18 06/26/18 Rx Albuterol Nebulized [Ventolin 2.5 mg INHALATION RT-QID 06/26/18 06/26/18 History Nebulized] Ipratropium Nebulized [Atrovent 0.5 mg INHALATION RT-QID 06/26/18 06/26/18 History Nebulized 0.2 MG/ML] Allergies Allergy/AdvReac Type Severity Reaction Status Date / Time No Known Allergies Allergy Verified 06/26/18 17:15 Physical Exam Vitals: Vital Signs Temp Pulse Pulse Resp BP BP Pulse Ox 06/27/18 15:42 97.7 F 60 16 128/70 98 06/27/18 15:24 66 06/27/18 15:11 68 06/27/18 12:09 66 06/27/18 11:58 62 06/27/18 11:05 75 16 136/67 99 06/27/18 07:59 62 06/27/18 07:49 60 98 06/27/18 07:41 97.4 F L 60 16 124/68 99 06/27/18 03:43 61 17 06/27/18 03:42 98.2 F 61 17 113/71 95 06/27/18 00:00 98.6 F 60 18 129/61 97 06/26/18 21:42 98.2 F 60 18 133/65 94 L 06/26/18 21:29 98 06/26/18 21:18 97.9 F 68 20 123/68 100 06/26/18 19:37 62 20 106/52 100 Intake and Output 06/27/18 06/27/18 06/27/18 06:59 14:59 22:59 Intake Total 400 480 600 Balance 400 480 600 Intake: Oral 400 480 600 Other: Voiding Method Toilet # Voids 1 2 Weight 102 kg - Constitutional General appearance: disheveled, mild distress, morbidly obese - EENT Eyes: anicteric sclerae, EOMI, PERRLA, poor dentition, normal appearance Ears: bilateral: normal - Neck Neck: normal ROM Carotids: bilateral: upstroke normal Thyroid: bilateral: normal size - Respiratory Respiratory: bilateral: CTA, diminished, negative: dullness, rales, rhonchi, wheezing, prolonged expiration, prolonged inspiration - Cardiovascular Rhythm: regular Heart sounds: normal: S1, S2 - Gastrointestinal General gastrointestinal: distended, normal bowel sounds - Integumentary Integumentary: normal turgor - Neurologic Neurologic: CNII-XII intact - Musculoskeletal Musculoskeletal: gait normal, generalized weakness, strength equal bilaterally - Psychiatric Psychiatric: A&O x's 3, appropriate affect, intact judgment & insight Results - Laboratory Findings CBC and BMP: 06/27/18 01:25 06/27/18 06:27 PT/INR, D-dimer PT 12.6 sec (9.0-12.0) H 06/27/18 06:27 INR 1.2 (<1.2) H 06/27/18 06:27 Abnormal lab findings: Abnormal Labs 06/26/18 06/26/18 06/26/18 16:50 16:50 16:50 RBC 4.24 L Hgb Hct RDW 15.7 H Eosinophils # 1.0 H PT 12.5 H INR 1.2 H BUN 23 H Glucose 138 H Troponin I 06/26/18 06/27/18 06/27/18 16:50 01:25 06:27 RBC 3.97 L Hgb 12.3 L Hct 38.3 L RDW Eosinophils # PT 12.6 H INR 1.2 H BUN Glucose Troponin I 0.044 H* 06/27/18 06:27 RBC Hgb Hct RDW Eosinophils # PT INR BUN 25 H Glucose 187 H Troponin I - Diagnostic Findings Chest x-ray: report reviewed, image reviewed (COPD-like changes no active infilt rate have been identified) Assessment and Plan Assessment: Acute asthma exacerbation Baseline COPD Likely sleep disorder breathing and sleep apnea Multivessel coronary artery disease with history of multiple stent Chronic systolic heart failure status post AICD Chronic atrial fibrillation Hypertension hypertensive cardiovascular disease Dyslipidemia Prior history of stroke TIA Plan: Continue deep breathing exercise Bronchodilator IV steroids Patient wants to go home lungs have improved will follow recommendation of cardiology if there is no workup is scheduled skin with discharged home with follow-up in outpatient Given his significant cardiovascular disease consider sleep study, will arrange his outpatient Time with Patient: Greater than 30
[2018-06-27] MEDS: ATORVASTATIN 80 MG TAB PO SCH (21:08)
[2018-06-27] MEDS: BUDESONIDE 0.5 MG/2 ML NEBU INHALATION SCH (21:36)
[2018-06-27] MEDS: ZOLPIDEM 10 MG TAB PO PRN (23:02)
[2018-06-28 02:20] VITALS: TEMP 97.7
[2018-06-28] MEDS: CARVEDILOL 12.5 MG TAB PO SCH (06:39)
[2018-06-28 07:05] LABS: INR 1.4 (<1.2); Prothrombin Time 14.3 sec (9.0-12.0)
--- NOTE | 2018-06-28 07:31 | P.DS ---
Providers Date of admission: 06/26/18 19:04 Attending physician: René Anderson Consults: 06/26/18 19:06 Consult Physician Routine Consulting Provider: Flynn Cheung Consult Reason/Comments: copd Do you want consulting provider notified?: Yes Consult Physician Routine Consulting Provider: Gui Jung Consult Reason/Comments: chest pain Do you want consulting provider notified?: Yes Primary care physician: Giovanni Clark Hospital Course: This discharge summary 73-year-old white male essentially admitted for exacerbation see him at shortness of breath. The patient was stabilized with appropriate treatment and is now back to 90% of baseline. He is an voiding and tolerating diet and voiding without difficulty. He is been cleared by consultants and will follow-up with me in 5-7 days. Patient Condition at Discharge: Fair Plan - Discharge Summary Discharge Rx Participant: No New Discharge Prescriptions: New predniSONE 40 mg PO DAILY #5 tab Azithromycin [Zithromax] 500 mg PO DAILY #3 tab Continue Allopurinol [Zyloprim] 100 mg PO DAILY Zolpidem Tartrate [Ambien] 10 mg PO HS PRN PRN Reason: Insomnia Multivitamins, Thera [Multivitamin (formulary)] 1 tab PO DAILY Vitamin B Complex 1 cap PO DAILY Cholecalciferol [Vitamin D3 (25 Mcg = 1000 Iu)] 1,000 unit PO DAILY Aspirin 81 mg PO DAILY #30 chew Atorvastatin [Lipitor] 80 mg PO HS #30 tab Clopidogrel [Plavix] 75 mg PO DAILY #30 tab Nitroglycerin Sl Tabs [Nitrostat] 0.4 mg SUBLINGUAL Q5M PRN #25 tab PRN Reason: Chest Pain Isosorbide Mononitrate ER [Imdur] 30 mg PO BID LORazepam [Ativan] 0.5 mg PO TID PRN PRN Reason: Anxiety Carvedilol [Coreg*] 12.5 mg PO BID Warfarin [Coumadin] 2.5 mg PO SUTUWETHSA Losartan [Cozaar] 50 mg PO BID Furosemide [Lasix] 80 mg PO BID Warfarin [Coumadin] 1.25 mg PO TUFR Budesonide [Pulmicort] 0.5 mg INHALATION RT-BID #30 nebu Albuterol Nebulized [Ventolin Nebulized] 2.5 mg INHALATION RT-QID Ipratropium Nebulized [Atrovent Nebulized 0.2 MG/ML] 0.5 mg INHALATION RT-QID Discharge Medication List Allopurinol [Zyloprim] 100 mg PO DAILY 04/23/15 [History] Zolpidem Tartrate [Ambien] 10 mg PO HS PRN 07/04/15 [History] Multivitamins, Thera [Multivitamin (formulary)] 1 tab PO DAILY 12/17/15 [History] Cholecalciferol [Vitamin D3 (25 Mcg = 1000 Iu)] 1,000 unit PO DAILY 12/22/15 [History] Vitamin B Complex 1 cap PO DAILY 12/22/15 [History] Aspirin 81 mg PO DAILY #30 chew 12/24/15 [Rx] Atorvastatin [Lipitor] 80 mg PO HS #30 tab 12/24/15 [Rx] Clopidogrel [Plavix] 75 mg PO DAILY #30 tab 12/24/15 [Rx] Nitroglycerin Sl Tabs [Nitrostat] 0.4 mg SUBLINGUAL Q5M PRN #25 tab 12/24/15 [Rx] Isosorbide Mononitrate ER [Imdur] 30 mg PO BID 05/27/17 [History] LORazepam [Ativan] 0.5 mg PO TID PRN 05/27/17 [History] Carvedilol [Coreg*] 12.5 mg PO BID 03/18/18 [History] Furosemide [Lasix] 80 mg PO BID 05/05/18 [History] Losartan [Cozaar] 50 mg PO BID 05/05/18 [History] Warfarin [Coumadin] 1.25 mg PO TUFR 05/05/18 [History] Warfarin [Coumadin] 2.5 mg PO SUTUWETHSA 05/05/18 [History] Budesonide [Pulmicort] 0.5 mg INHALATION RT-BID #30 nebu 05/07/18 [Rx] Albuterol Nebulized [Ventolin Nebulized] 2.5 mg INHALATION RT-QID 06/26/18 [History] Ipratropium Nebulized [Atrovent Nebulized 0.2 MG/ML] 0.5 mg INHALATION RT-QID 06/26/18 [History] Azithromycin [Zithromax] 500 mg PO DAILY #3 tab 06/28/18 [Rx] predniSONE 40 mg PO DAILY #5 tab 06/28/18 [Rx] Follow up Appointment(s)/Referral(s): Flynn Cheung MD [STAFF PHYSICIAN] - 1 Week Giovanni Clark MD [Primary Care Provider] - 1 Week
[2018-06-28 07:32] VITALS: BP 135/88; RESP 16
[2018-06-28] MEDS: AZITHROMYCIN 500 MG TAB PO SCH (08:11)
[2018-06-28] MEDS: FUROSEMIDE 80 MG TAB PO SCH (08:11)
[2018-06-28] MEDS: CLOPIDOGREL 75 MG TAB PO SCH (08:11)
[2018-06-28] MEDS: LOSARTAN 50 MG TAB PO SCH (08:11)
[2018-06-28] MEDS: ISOSORBIDE MONONITRATE ER 30 MG TAB.ER.24H PO SCH (08:11)
[2018-06-28] MEDS: MULTIVITAMINS, THERA 1 EACH TAB PO SCH (08:11)
[2018-06-28] MEDS: predniSONE 20 MG TAB PO SCH (08:11)
[2018-06-28] MEDS: ALLOPURINOL 100 MG TAB PO SCH (08:11)
[2018-06-28] MEDS: CHOLECALCIFEROL 1,000 UNIT TAB PO SCH (08:11)
[2018-06-28] MEDS: IPRATROPIUM-ALBUTEROL 3 ML NEB INHALATION SCH (08:23)
[2018-06-28] MEDS: BUDESONIDE 0.5 MG/2 ML NEBU INHALATION SCH (08:23)
[2018-06-28 08:37] VITALS: PULSE 62
--- NOTE | 2018-06-28 10:17 | PN ---
PROGRESS NOTE Mr. Jackson is a 73-year-old male who has a history of chronic obstructive lung disease, history of coronary artery disease who presented with exacerbation of COPD, has a history of ischemic cardiomyopathy. He is feeling much better today, his breathing is stable, he is denying any symptoms of chest pain. He denies any dizziness, palpitation. He denies any nausea. He continues to be at this time on Coreg 12.5 mg twice a day, Plavix 75 mg daily, Lasix 80 mg twice a day, isosorbide mononitrate 30 mg daily, losartan 50 mg twice a day, Coumadin. PHYSICAL EXAMINATION: Blood pressure 135/80 with a heart in 60. LUNGS: With decreased air exchange, no wheezes. HEART: Irregular, regular, S1, S2. No S3. No rub. ABDOMEN: Soft, nontender. EXTREMITIES: No edema. LAB DATA: Revealed an INR of 1.4. IMPRESSION: 1. Symptoms of dyspnea with exacerbation of chronic obstructive pulmonary disease. 2. Atrial fibrillation, chronic, persistent, anticoagulated. 3. History of coronary artery disease with ischemic cardiomyopathy. 4. History of hypertension. RECOMMENDATION: From the cardiac standpoint, he should be able to be discharged home today and follow as an outpatient. MMODL / IJN: [id number] /
--- NOTE | 2018-06-28 16:19 | P.PN ---
Subjective Progress Note Date: 06/28/18 Principal diagnosis: Acute asthma exacerbation, baseline COPD, sleep disorder breathing and sleep apnea, multivessel coronary artery disease, chronic systolic heart failure status post AICD, chronic atrial fibrillation, hypertension hypertensive cardiovascular disease, dyslipidemia, prior history of stroke 06/28/2018, patient seen and evaluated examined during the rounds seen earlier this morning cough and congestion shortness breath is improved he is back to baseline and was to go home, and agree with discharge planning, labs reviewed medications reviewed Mr. Jackson is 73-year-old male who was seen evaluated examined on medical for he was admitted with acute onset of shortness of breath severe wheezing and congestion one day prior to coming to the hospital he had more days lawn and went to [employer] where he had acute shortness of breath required BiPAP support as well his past medical history of atrial fibrillation, COPD, coronary artery disease, cardiomyopathy, osteoarthritis coming in with a chief complaint of difficulty in breathing. Patient states that he has been mowing his lawn and later heard himself wheezing and was very short of breath. He tried to take his breathing treatments 3 times but did not have improvement in the difficulty in breathing and continued to wheeze. Patient denies having any chest pain or palpitations. No cough. Patient denies having any sick contacts. No fevers chills or rigors. Denies having any orthopnea or PND. No lower extremity edema. Patient denies having any weakness of his extremities. No headaches blurring of vision or neck stiffness. No abdominal pain nausea vomiting or diarrhea. No hematuria or dysuria. No recent travel. In the emergency department patient had a chest x-ray done, which was negative for any acute cardiopulmonary process but quit showing underlying COPD. Patient had CBC and BMP done in the ED that are within normal limits. He received couple of breathing treatments in the emergency department and started on steroids with BiPAP support which according to the really opened him up and patient has been admitted to the general medical floors for further management. On specific questioning he does have problems associated with loud snoring Objective - Vital Signs Vital signs: Vital Signs Temp 97.7 F 06/28/18 07:30 Pulse 62 06/28/18 08:36 Resp 16 06/28/18 07:30 BP 135/88 06/28/18 07:30 Pulse Ox 99 06/28/18 07:30 Intake & Output 06/27/18 06/28/18 06/28/18 18:59 06:59 18:59 Intake Total 1080 120 240 Balance 1080 120 240 Weight 102.8 kg Intake: Oral 1080 120 240 Other: Voiding Method Toilet # Voids 2 1 - Exam - Constitutional General appearance: disheveled, mild distress, morbidly obese - EENT Eyes: anicteric sclerae, EOMI, PERRLA, poor dentition, normal appearance Ears: bilateral: normal - Neck Neck: normal ROM Carotids: bilateral: upstroke normal Thyroid: bilateral: normal size - Respiratory Respiratory: bilateral: CTA, diminished, negative: dullness, rales, rhonchi, wheezing, prolonged expiration, prolonged inspiration - Cardiovascular Rhythm: regular Heart sounds: normal: S1, S2 - Gastrointestinal General gastrointestinal: distended, normal bowel sounds - Integumentary Integumentary: normal turgor - Neurologic Neurologic: CNII-XII intact - Musculoskeletal Musculoskeletal: gait normal, generalized weakness, strength equal bilaterally - Psychiatric Psychiatric: A&O x's 3, appropriate affect, intact judgment & insight - Labs CBC & Chem 7: 06/27/18 01:25 06/27/18 06:27 Labs: Abnormal Lab Results - Last 24 Hours (Table) 06/28/18 Range/Units 06:15 PT 14.3 H (9.0-12.0) sec INR 1.4 H (<1.2) Microbiology - Last 24 Hours (Table) 06/26/18 17:06 Blood Culture - Preliminary Blood No Growth after 24 hours Assessment and Plan Assessment: Acute asthma exacerbation Baseline COPD Likely sleep disorder breathing and sleep apnea Multivessel coronary artery disease with history of multiple stent Chronic systolic heart failure status post AICD Chronic atrial fibrillation Hypertension hypertensive cardiovascular disease Dyslipidemia Prior history of stroke TIA Plan: Continue deep breathing exercise Bronchodilator Can be switched to oral prednisone steroids Can be discharged home later on today with further recommendations pending on evaluation in the outpatient Given his significant cardiovascular disease consider sleep study, will arrange his outpatient Time with Patient: Greater than 30
[2018-06-28] MEDS ORDERED: WARFARIN 2 MG TAB PO ONE (18:00)
== END 2018-06-28 10:21 | disposition home or self-care (01) | DRG 202 ==
LOC: EC 16:33 → 3SCARD 19:04
PROVIDERS: ADMIT Family Medicine; ATTEND Family Medicine
PROC: 5A09357 Assistance with Respiratory Ventilation, Less than 24 Consecutive Hours, Continuous Positive Airway Pressure (ICD-10-PCS; principal; 2018-06-26)
DX: J45.901 Unspecified asthma with (acute) exacerbation (principal); J44.1 Chronic obstructive pulmonary disease with (acute) exacerbation; I50.22 Chronic systolic (congestive) heart failure; E78.5 Hyperlipidemia, unspecified; G47.33 Obstructive sleep apnea (adult) (pediatric); H54.7 Unspecified visual loss; I11.0 Hypertensive heart disease with heart failure; I25.10 Atherosclerotic heart disease of native coronary artery without angina pectoris; I25.2 Old myocardial infarction; I25.5 Ischemic cardiomyopathy; I48.2 Chronic atrial fibrillation; M19.041 Primary osteoarthritis, right hand; R09.02 Hypoxemia; Z79.01 Long term (current) use of anticoagulants; Z79.02 Long term (current) use of antithrombotics/antiplatelets; Z79.82 Long term (current) use of aspirin; Z79.899 Other long term (current) drug therapy; Z83.3 Family history of diabetes mellitus; Z86.73 Personal history of transient ischemic attack (TIA), and cerebral infarction without residual deficits; Z87.891 Personal history of nicotine dependence; Z95.5 Presence of coronary angioplasty implant and graft; Z95.810 Presence of automatic (implantable) cardiac defibrillator; Z98.1 Arthrodesis status; Z82.3 Family history of stroke; Z82.0 Family history of epilepsy and other diseases of the nervous system; Z87.01 Personal history of pneumonia (recurrent)
CPT/HCPCS: 36415; 71046; 80048; 80053; 83880; 84484; 85025; 85027; 85610; 85730; 87040; 93005; 94640; 94645; 94660; 94760; 96365; 96375; 99285

== ENCOUNTER → 2018-08-23 | Outpatient (CLI) | payer MEDICARE, BC ==
[2018-08-23 14:31] LABS: Anisocytosis Slight; HCT 38.1 % (39.0-53.0); HGB 12.6 gm/dL (13.0-17.5); MCH 31.5 pg (25.0-35.0); MCHC 33.1 g/dL (31.0-37.0); MCV 95.3 fL (80.0-100.0); Mean Platelet Volume 9.6; Platelet Count 134 k/uL (150-450); WBC 7.5 k/uL (3.8-10.6)
[2018-08-23 15:03] LABS: Magnesium 1.9 mg/dL (1.6-2.3); Potassium 3.5 mmol/L (3.5-5.1)
== END | disposition home or self-care (01) ==
LOC: LABPAT 14:14
PROVIDERS: ATTEND Internal Medicine Interventional Cardiology
DX: Z01.812 Encounter for preprocedural laboratory examination (principal); I48.1 Persistent atrial fibrillation; I25.10 Atherosclerotic heart disease of native coronary artery without angina pectoris
CPT/HCPCS: 36415; 80051; 82565; 82947; 83735; 84520; 85027

== ENCOUNTER → 2018-08-31 | Day surgery (SDC) | payer MEDICARE, BC ==
[2018-08-26 11:53] VITALS: BMI 30.7
[~2018-08-31] MED LIST: ALPRAZolam 0.25 MG TAB PO PRN; ALPRAZolam 0.5 MG TAB PO PRN; ASPIRIN 325 MG TAB PO STA; ATORVASTATIN 80 MG TAB PO STA; HEPARIN SODIUM 1,000 UN/ML (10ML VL) IV ONE; HEPARIN SODIUM 1,000 UN/ML (10ML VL) ONE; IOPAMIDOL-370 100ML BTL INJ ONE; LIDOCAINE 1% INJ 10MG/ML (20 ML MDV) ONE; LIDOCAINE 1% INJ 10MG/ML (20 ML MDV) SQ ONE; MIDAZOLAM (PF) 2 MG/2 ML VIAL IVP ONE; NITROGLYCERIN SL TABS 0.4 MG TAB SUBLINGUAL PRN; SODIUM CHLORIDE 0.9% 1,000 ML IV SCH; SODIUM CHLORIDE 0.9% 1,000 ML in EMPTY BAG 1 BAG IV ONE; VERAPAMIL 2.5 MG/ML 2 ML AMP ONE
[2018-08-31 09:42] VITALS: RESP 18; TEMP 97.9
[2018-08-31 09:51] LABS: INR 1.1 (<1.2); Prothrombin Time 11.9 sec (9.0-12.0)
[2018-08-31] MEDS: VERAPAMIL SYRINGE (5 MG/10 ML) INTRAARTER ONE ×2 (10:44→10:55)
--- NOTE | 2018-08-31 11:38 | CC ---
CARDIAC CATHETERIZATION REPORT DATE OF SERVICE: 08/31/2018 PROCEDURE: Left heart catheterization and coronary angiography. PERFORMED BY: Dr. Russel Myers. Moderate conscious sedation time was 23 minutes. Patient was administered Versed. His oxygen saturation, hemodynamics and EKG were monitored closely. CLINICAL INFORMATION: Juan Jackson are a 73-year-old gentleman with a history of a combination of ischemic and nonischemic cardiomyopathy with ICD in place. In 2010, I performed stenting of a circumflex coronary artery on this gentleman. Subsequently in 2016 he presented with symptoms of shortness of breath, chest discomfort, mild troponin elevation and at that time I performed stenting of his mid RCA. Circumflex was widely patent at that time. He also has about a 15% left main lesion as well. This left main lesion was not addressed and was not thought to be significant. He has been having symptoms of exertional chest tightness, shortness of breath with predominantly fixed defect on the stress test. Given the fact, he had two-vessel PCI and symptoms, I recommended coronary angiography and explained to him the rationale, risks, benefits, and options. PROCEDURE NOTE: Under local anesthesia and strict aseptic precautions, a 6-English introducer was placed in the right radial artery. Using standard Moustapha catheters, I performed coronary angiography and the same right Moustapha catheter was used to check LV pressure but LV gram was not performed. The sheath was taken out and TR band applied as per protocol and good hemostasis was secured. Saturation in the fingers of the right hand was 98%. CARDIAC CATHETERIZATION FINDINGS: The left ventricular end-diastolic pressure was 20 mmHg without any gradient across the aortic valve. CORONARY ANGIOGRAPHY FINDINGS: RIGHT CORONARY ARTERY: Technically a dominant vessel has mild irregularities. No significant disease in the mid segment where there was a stent placed in 2016 is widely patent with good flow. LEFT MAIN CORONARY ARTERY: This is a short patent vessel. The ostium is clear without significant disease. The body of the graft has about a 15% to 20% narrowing of the left main, does not seem to be significant. This is very much comparable to the previous one or maybe a little worse, but it is not a significant lesion. It is about 20% or less. The vessel then bifurcates into LAD and circumflex. LEFT ANTERIOR DESCENDING CORONARY ARTERY: This vessel has a smooth 35% narrowing proximally. Then the caliber improves and vessel extends all the way to the apex without any significant areas of narrowing. The LAD gives off 2 diagonal and several septal branches, but no significant disease is noted. LEFT POSTERIOR CIRCUMFLEX CORONARY ARTERY: This vessel was stented in the midportion appears to be widely patent. No significant disease. Distally, has minor irregularities no significant disease. LEFT VENTRICULOGRAM: This was not performed. The left ventricular pressures were checked. The left ventricle end-diastolic pressure was 20 mmHg without any gradient across the aortic valve. FINAL IMPRESSION: This patient has a right dominant system. No significant disease in the RCA and circumflex, which were stented. Left main has a 15% to 20% narrowing in the body of the vessel. The LAD has a 35% proximal smooth narrowing, unchanged from before. No other significant disease was noted. Filling pressures were elevated without any gradient across aortic valve. RECOMMENDATION: I am recommending continued medical therapy with risk factor modification. Patient will be discharged today and I will see him in the office on the . Findings were discussed with the patient and . MMARSALANL / IJN: [id number] /
[2018-08-31 12:39] VITALS: PULSE 60
[2018-08-31 16:54] VITALS: BP 128/83
== END ==
LOC: CATHCVL 09:13
PROVIDERS: ATTEND Internal Medicine Interventional Cardiology
DX: I25.110 Atherosclerotic heart disease of native coronary artery with unstable angina pectoris (principal); I10 Essential (primary) hypertension; Z87.891 Personal history of nicotine dependence; E78.00 Pure hypercholesterolemia, unspecified; E78.5 Hyperlipidemia, unspecified; Z95.5 Presence of coronary angioplasty implant and graft; I48.1 Persistent atrial fibrillation; I25.5 Ischemic cardiomyopathy; I42.8 Other cardiomyopathies; I49.5 Sick sinus syndrome; Z95.810 Presence of automatic (implantable) cardiac defibrillator; I71.2 Thoracic aortic aneurysm, without rupture; Z79.01 Long term (current) use of anticoagulants; Z79.02 Long term (current) use of antithrombotics/antiplatelets; Z79.899 Other long term (current) drug therapy
CPT/HCPCS: 93458; 85610; C1769 ×2; C1894; J2001; J1644; Q9967; J2250

== ENCOUNTER → 2019-10-14 | Outpatient (CLI) | payer MEDICARE, BC ==
--- NOTE | 2019-10-17 20:59 | CT ---
EXAMINATION TYPE: CT angio thor/abd pel aorta DATE OF EXAM: 10/14/2019 COMPARISON: CT chest 08/11/2018. CT abdomen pelvis 04/23/2015. HISTORY: AAA. Patient also complains of hernia and history of prostate cancer. CT DLP: 1374.3 mGycm. Automated Exposure Control for Dose Reduction was Utilized. CONTRAST: CT scan of the thorax, abdomen and pelvis is performed with IV Contrast, patient injected with 100 mL of Isovue 370. FINDINGS: LUNGS: Lungs are grossly clear. No concerning parenchymal mass or nodule identified. No pleural effus ion. Pleural thickening at the left base. No pneumothorax. The tracheobronchial tree is patent. MEDIASTINUM/SOFT TISSUES: No axillary, hilar, or mediastinal lymphadenopathy greater than 1 cm. Sever e cardiomegaly redemonstrated. Calcified coronary artery disease. No pericardial effusion. No thoraci c aortic aneurysm. Ascending aorta measures up to 3.8 cm. Main pulmonary arterial trunk measures 3.5 cm. LIVER: Fatty liver. Redemonstrated small density of the left dome of the liver likely hepatic cyst. BILIARY SYSTEM: No intrahepatic or extrahepatic biliary ductal dilatation. Cholelithiasis. PANCREAS: Normal. SPLEEN: Normal. Splenule. ADRENALS: Normal. KIDNEYS: No hydronephrosis or hydroureter bilaterally. There are bilateral renal cysts and left too s mall to characterize hypodensities. BOWEL: No evidence of obstruction or thickening. Colonic diverticulosis. No acute diverticulitis. PERITONEUM: No pneumoperitoneum or free fluid. Fat-containing umbilical hernia. LYMPH NODES: Right retrocrural nonspecific main pulmonary arterial lymph node measures 9 mm in short est axial dimension, previously 5 mm on 08/11/2018 comparison. PELVIS: Normal urinary bladder and appearance of the prostate. Right hydrocele. VASCULATURE: There is infrarenal abdominal aortic aneurysm measuring up to 4.1 x 3.5 cm AP and trans verse respectively. Redemonstrated intramural thrombus and tiny dissection at the inferior posterior aspect of the aneurysm sac. Findings appear not significantly changed from 04/23/2015. Scattered mild to moderate calcified atheromatous plaque disease. There is high-grade narrowing at the ostium of the celiac artery due to noncalcified atherosclerotic disease. The superior mesenteric artery, single ri ght and double left renal arteries, and KRIS are patent. Left common iliac artery upper limits of norm al measuring 1.5 cm. There is chronic redemonstrated occlusion of the left external iliac artery shor tly after the bifurcation, with reconstitution at the left common femoral artery. MUSCULOSKELETAL: There are degenerative changes of the spine. Postsurgical changes at L5-S1 posterio r elements. IMPRESSION: 1. Infrarenal abdominal aortic aneurysm measures up to 4.1 cm AP, unchanged from 04/23/2015 comparison . 2. High-grade narrowing at the celiac artery ostium. 3. 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 4. Main pulmonary arterial trunk 3.5 cm. Findings may represent pulmonary arterial hypertension. 5. Additional unchanged findings as above.
== END | disposition home or self-care (01) ==
LOC: RADCTMAIN 12:42
PROVIDERS: ATTEND Internal Medicine Interventional Cardiology
DX: I71.4 Abdominal aortic aneurysm, without rupture (principal); I77.1 Stricture of artery; I74.5 Embolism and thrombosis of iliac artery; I51.7 Cardiomegaly; I25.10 Atherosclerotic heart disease of native coronary artery without angina pectoris; K76.0 Fatty (change of) liver, not elsewhere classified; N28.1 Cyst of kidney, acquired; K42.9 Umbilical hernia without obstruction or gangrene; N43.3 Hydrocele, unspecified; I77.4 Celiac artery compression syndrome; I70.0 Atherosclerosis of aorta
CPT/HCPCS: 82565; 84520; 71275; 36415; 74174; Q9967

== ENCOUNTER 2019-10-15 13:18 | Inpatient (IN) | payer MEDICARE, BC ==
[2019-10-15] MEDS ORDERED: methylPREDNISolone SOD SUCCI 125 MG/2 ML VIAL IV STA (13:37)
[2019-10-15] MEDS ORDERED: IPRATROPIUM 0.5 MG/2.5 ML NEBU INHALATION STA (13:37)
[2019-10-15] MEDS ORDERED: ALBUTEROL NEBULIZED 2.5 MG/3 ML INHALATION STA (13:37)
[2019-10-15] MEDS ORDERED: SODIUM CHLORIDE 0.9% 500 ML 500 ML IV STA (13:37)
--- NOTE | 2019-10-15 13:39 | ED ---
General Adult HPI - General Chief complaint: Shortness of Breath Stated complaint: SOB Time Seen by Provider: 10/15/19 13:25 Source: patient, RN notes reviewed, old records reviewed Mode of arrival: ambulatory Limitations: no limitations - History of Present Illness Initial comments: This is a 74-year-old male who presents emergency Department complaining of an exacerbation of COPD per patient states started this morning while he was drinking coffee. Patient states he no longer smokes. Patient states he took 2 breathing treatments at home and it did not help psychiatric emergency department. Patient denies any chest pain or palpitations. Patient denies any recent fever chills. Patient states he has had a dry cough. Patient denies any leg swelling or calf tenderness. Patient denies abdominal pain patient denies nausea vomiting diarrhea per patient denies any lightheadedness dizziness or near syncopal episode. Patient denies headache patient denies numbness weakness. - Related Data Home Medications Medication Instructions Recorded Confirmed allopurinoL [Zyloprim] 100 mg PO DAILY 04/23/15 08/31/18 Zolpidem Tartrate [Ambien] 10 mg PO HS PRN 07/04/15 08/31/18 Multivitamins, Thera [Multivitamin 1 tab PO DAILY 12/17/15 08/31/18 (formulary)] Cholecalciferol [Vitamin D3 (25 1,000 unit PO DAILY 12/22/15 08/31/18 Mcg = 1000 Iu)] Vitamin B Complex 1 cap PO DAILY 12/22/15 08/26/18 Isosorbide Mononitrate ER [Imdur] 30 mg PO BID 05/27/17 08/31/18 LORazepam [Ativan] 0.5 mg PO TID PRN 05/27/17 08/31/18 carvediloL [Coreg*] 12.5 mg PO TID 03/18/18 08/31/18 Furosemide [Lasix] 80 mg PO BID 05/05/18 08/31/18 Losartan [Cozaar] 50 mg PO BID 05/05/18 08/31/18 Warfarin [Coumadin] 1.25 mg PO TUFR 05/05/18 08/31/18 Warfarin [Coumadin] 2.5 mg PO SUTUWETHSA 05/05/18 08/31/18 Albuterol Nebulized [Ventolin 2.5 mg INHALATION RT-QID 06/26/18 08/26/18 Nebulized] Ipratropium Nebulized [Atrovent 0.5 mg INHALATION RT-QID 06/26/18 08/31/18 Nebulized 0.2 MG/ML] Previous Rx's Medication Instructions Recorded Aspirin 81 mg PO DAILY #30 chew 12/24/15 Atorvastatin [Lipitor] 80 mg PO HS #30 tab 12/24/15 Clopidogrel [Plavix] 75 mg PO DAILY #30 tab 12/24/15 Nitroglycerin Sl Tabs [Nitrostat] 0.4 mg SUBLINGUAL Q5M PRN #25 tab 12/24/15 Budesonide [Pulmicort] 0.5 mg INHALATION RT-BID #30 nebu 05/07/18 Allergies Allergy/AdvReac Type Severity Reaction Status Date / Time No Known Allergies Allergy Verified 10/15/19 13:23 Review of Systems ROS Statement: Those systems with pertinent positive or pertinent negative responses have been documented in the HPI. ROS Other: All systems not noted in ROS Statement are negative. Past Medical History Past Medical History: Atrial Fibrillation, Coronary Artery Disease (CAD), Heart Failure, COPD, CVA/TIA, Eye Disorder, Hyperlipidemia, Hypertension, Osteoarthritis (OA), Pneumonia Additional Past Medical History / Comment(s): Hx respiratory failure due to exacerbation of COPD. 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 Last Myocardial Infarction Date:: 2015 History of Any Multi-Drug Resistant Organisms: None Reported Past Surgical History: AICD, Back Surgery, Heart Catheterization With Stent, Pacemaker Additional Past Surgical History / Comment(s): PCI with stents, AICD/pacer, low back fusion, oral surgery. Past Anesthesia/Blood Transfusion Reactions: No Reported Reaction Date of Last Stent Placement:: 2015 Type of Cardiac Device: Permanent Pacemaker, AICD Device Placement Date:: 05/09/10 Past Psychological History: Anxiety Smoking Status: Former smoker Past Alcohol Use History: Daily Past Drug Use History: None Reported - Past Family History Father Family Medical History: CVA/TIA, Dementia Mother Family Medical History: Cancer, CVA/TIA, Diabetes Mellitus, Skin Disorder Additional Family Medical History / Comment(s): Skin cancer. Brother(s) Family Medical History: Cancer Additional Family Medical History / Comment(s): Bladder cancer. General Exam - General Exam Comments Initial Comments: GENERAL: Patient is well-developed and well-nourished. Patient is nontoxic and well- hydrated and is in moderate distress. ENT: Neck is soft and supple. No significant lymphadenopathy is noted. Oropharynx is clear. Moist mucous membranes. Neck has full range of motion without eliciting any pain. EYES: The sclera were anicteric and conjunctiva were pink and moist. Extraocular movements were intact and pupils were equal round and reactive to light. Eyelids were unremarkable. PULMONARY: Unlabored respirations. Good breath sounds bilaterally. Diffuse wheezing CARDIOVASCULAR: There is a regular rate and rhythm without any murmurs gallops or rubs. ABDOMEN: Soft and nontender with normal bowel sounds. SKIN: Skin is clear with no lesions or rashes and otherwise unremarkable. NEUROLOGIC: Patient is alert and oriented x3. Cranial nerves II through XII are grossly intact. Motor and sensory are also intact. Normal speech, volume and content. Symmetrical smile. MUSCULOSKELETAL: Normal extremities with adequate strength and full range of motion. No lower extremity swelling or edema. No calf tenderness. LYMPHATICS: No significant lymphadenopathy is noted PSYCHIATRIC: Normal psychiatric evaluation. Limitations: no limitations Course Vital Signs 10/15/19 10/15/19 10/15/19 13:24 13:42 14:00 Temperature 97.9 F Pulse Rate 60 63 66 Respiratory 18 Rate Blood Pressure 137/76 O2 Sat by Pulse 100 Oximetry 10/15/19 14:33 Temperature 98.3 F Pulse Rate 60 Respiratory 18 Rate Blood Pressure 125/67 O2 Sat by Pulse 96 Oximetry Medical Decision Making - Medical Decision Making EKG shows a ventricular paced rhythm with occasional PVC at 60 bpm QRS is 200 QT interval is 528 QTC is 535 per patient's EKG shows no ST segment elevation or depression. Patient received 2 breathing treatments in the emergency department as well as steroids. Patient continued to wheeze and feel comfortable going home. I spoke with Dr. lea he agreed to admit the patient admitted the patient wrote admitting orders. Patient will be placed on breathing treatments upstairs as well as steroids. Because the patient has a cough and a lactic acid 2.1 I will start the patient on antibiotics after he got blood cultures. - Lab Data Result diagrams: 10/15/19 13:54 10/15/19 13:54 Lab Results 10/15/19 10/15/19 10/15/19 Range/Units 13:54 13:54 13:54 WBC 10.1 (3.8-10.6) k/uL RBC 3.86 L (4.30-5.90) m/uL Hgb 12.5 L (13.0-17.5) gm/dL Hct 38.4 L (39.0-53.0) % MCV 99.6 (80.0-100.0) fL MCH 32.3 (25.0-35.0) pg MCHC 32.4 (31.0-37.0) g/dL RDW 15.7 H (11.5-15.5) % Plt Count 158 (150-450) k/uL Neutrophils % 69 % Lymphocytes % 17 % Monocytes % 7 % Eosinophils % 3 % Basophils % 1 % Neutrophils # 7.0 (1.3-7.7) k/uL Lymphocytes # 1.7 (1.0-4.8) k/uL Monocytes # 0.7 (0-1.0) k/uL Eosinophils # 0.3 (0-0.7) k/uL Basophils # 0.1 (0-0.2) k/uL Macrocytosis Slight PT 22.6 H (9.0-12.0) sec INR 2.3 H (<1.2) APTT 34.5 H (22.0-30.0) sec Sodium 138 (137-145) mmol/L Potassium 4.3 (3.5-5.1) mmol/L Chloride 103 (98-107) mmol/L Carbon Dioxide 27 (22-30) mmol/L Anion Gap 8 mmol/L BUN 24 H (9-20) mg/dL Creatinine 1.12 (0.66-1.25) mg/dL Est GFR (CKD-EPI)AfAm 75 (>60 ml/min/1.73 sqM) Est GFR (CKD-EPI)NonAf 65 (>60 ml/min/1.73 sqM) Glucose 116 H (74-99) mg/dL Plasma Lactic Acid Chuy (0.7-2.0) mmol/L Calcium 9.5 (8.4-10.2) mg/dL Magnesium 1.7 (1.6-2.3) mg/dL Total Bilirubin 0.6 (0.2-1.3) mg/dL AST 35 (17-59) U/L ALT 22 (4-49) U/L Alkaline Phosphatase 100 (38-126) U/L Total Protein 6.6 (6.3-8.2) g/dL Albumin 4.1 (3.5-5.0) g/dL 10/15/19 Range/Units 13:54 WBC (3.8-10.6) k/uL RBC (4.30-5.90) m/uL Hgb (13.0-17.5) gm/dL Hct (39.0-53.0) % MCV (80.0-100.0) fL MCH (25.0-35.0) pg MCHC (31.0-37.0) g/dL RDW (11.5-15.5) % Plt Count (150-450) k/uL Neutrophils % % Lymphocytes % % Monocytes % % Eosinophils % % Basophils % % Neutrophils # (1.3-7.7) k/uL Lymphocytes # (1.0-4.8) k/uL Monocytes # (0-1.0) k/uL Eosinophils # (0-0.7) k/uL Basophils # (0-0.2) k/uL Macrocytosis PT (9.0-12.0) sec INR (<1.2) APTT (22.0-30.0) sec Sodium (137-145) mmol/L Potassium (3.5-5.1) mmol/L Chloride (98-107) mmol/L Carbon Dioxide (22-30) mmol/L Anion Gap mmol/L BUN (9-20) mg/dL Creatinine (0.66-1.25) mg/dL Est GFR (CKD-EPI)AfAm (>60 ml/min/1.73 sqM) Est GFR (CKD-EPI)NonAf (>60 ml/min/1.73 sqM) Glucose (74-99) mg/dL Plasma Lactic Acid Chuy 2.1 H* (0.7-2.0) mmol/L Calcium (8.4-10.2) mg/dL Magnesium (1.6-2.3) mg/dL Total Bilirubin (0.2-1.3) mg/dL AST (17-59) U/L ALT (4-49) U/L Alkaline Phosphatase (38-126) U/L Total Protein (6.3-8.2) g/dL Albumin (3.5-5.0) g/dL Critical Care Time Critical Care Time: Yes Total Critical Care Time: 35 Disposition Clinical Impression: Acute exacerbation of chronic obstructive pulmonary disease (COPD) Disposition: ADMITTED IP TO THIS HOSP Referrals: Goivanni Clark MD [Primary Care Provider] - 1-2 days Time of Disposition: 14:51
[2019-10-15 14:13] LABS: Basophils # (A) 0.1 k/uL (0-0.2); Basophils % (A) 1 %; Eosinophils # (A) 0.3 k/uL (0-0.7); Eosinophils % (A) 3 %; HCT 38.4 % (39.0-53.0); HGB 12.5 gm/dL (13.0-17.5); Lymphocytes # (A) 1.7 k/uL (1.0-4.8); Lymphocytes % (A) 17 %; MCH 32.3 pg (25.0-35.0); MCHC 32.4 g/dL (31.0-37.0); MCV 99.6 fL (80.0-100.0); Macrocytosis Slight; Monocytes # (A) 0.7 k/uL (0-1.0); Monocytes % (A) 7 %; Neutrophils % (A) 69 %; Platelet Count 158 k/uL (150-450); RBC 3.86 m/uL (4.30-5.90); RDW 15.7 % (11.5-15.5); WBC 10.1 k/uL (3.8-10.6)
[2019-10-15 14:23] LABS: INR 2.3 (<1.2); Partial Thromboplastin Time 34.5 sec (22.0-30.0); Prothrombin Time 22.6 sec (9.0-12.0)
[2019-10-15 14:26] LABS: Albumin 4.1 g/dL (3.5-5.0); Calcium 9.5 mg/dL (8.4-10.2); Magnesium 1.7 mg/dL (1.6-2.3); Potassium 4.3 mmol/L (3.5-5.1); Total Bilirubin 0.6 mg/dL (0.2-1.3); Total Protein 6.6 g/dL (6.3-8.2)
--- NOTE | 2019-10-15 14:29 | XR ---
EXAMINATION TYPE: XR chest 2V DATE OF EXAM: 10/15/2019 COMPARISON: 06/26/2018 HISTORY: Difficulty breathing TECHNIQUE: Single view FINDINGS: Heart is enlarged. There is coarsening of the lung markings. There is mild pulmonary conges tion. There is left axillary pacemaker. There are chest leads. IMPRESSION: Pulmonary vascularity increased slightly compared to old exam. No overt heart failure. St able cardiomegaly.
[2019-10-15] MEDS ORDERED: cefTRIAXone IN SWFI 1,000 MG/10 ML SYRINGE IVP STA (14:51)
[2019-10-15] MEDS: methylPREDNISolone SOD SUCCI 125 MG/2 ML VIAL IV SCH (17:27)
[2019-10-15] MEDS: IPRATROPIUM-ALBUTEROL 3 ML NEB INHALATION PRN (18:19)
[2019-10-15] MEDS ORDERED: NITROGLYCERIN SL TABS 0.4 MG TAB SUBLINGUAL PRN (19:57)
[2019-10-15] MEDS: ZOLPIDEM 10 MG TAB PO PRN (20:57)
[2019-10-15] MEDS: WARFARIN 2.5 MG TAB PO SCH (20:57)
[2019-10-15] MEDS: LORazepam 0.5 MG TAB PO PRN (20:57)
[2019-10-15] MEDS: FUROSEMIDE 80 MG TAB PO SCH (20:58)
[2019-10-15] MEDS: ATORVASTATIN 80 MG TAB PO SCH (20:58)
[2019-10-15] MEDS: carvediloL 12.5 MG TAB PO SCH (20:58)
[2019-10-16] MEDS: methylPREDNISolone SOD SUCCI 125 MG/2 ML VIAL IV SCH ×4 (00:06→17:02)
[2019-10-16] MEDS ORDERED: [UNRECOGNIZED DRUG - OTHER] INHALATION SCH (08:00)
[2019-10-16 08:03] LABS: INR 2.2 (<1.2); Prothrombin Time 21.5 sec (9.0-12.0)
[2019-10-16] MEDS: IPRATROPIUM 0.5 MG/2.5 ML NEBU INHALATION SCH ×4 (08:10→20:40)
[2019-10-16] MEDS: FORMOTEROL FUMARATE 20 MCG/2 ML NEBU INHALATION SCH ×2 (08:10→20:40)
[2019-10-16] MEDS: allopurinoL 300 MG TAB PO SCH (08:43)
[2019-10-16] MEDS: MULTIVITAMINS, THERA 1 EACH TAB PO SCH (08:43)
[2019-10-16] MEDS: CHOLECALCIFEROL 1,000 UNIT TAB PO SCH (08:43)
[2019-10-16] MEDS: ASPIRIN 81 MG PO SCH (08:43)
[2019-10-16] MEDS: LOSARTAN 50 MG TAB PO SCH (08:43)
[2019-10-16] MEDS: carvediloL 12.5 MG TAB PO SCH ×2 (08:43→17:02)
[2019-10-16] MEDS: ISOSORBIDE MONONITRATE ER 60 MG TAB.ER.24H PO SCH (08:44)
[2019-10-16] MEDS: AZITHROMYCIN 500 MG TAB PO SCH (08:44)
[2019-10-16] MEDS: FUROSEMIDE 80 MG TAB PO SCH ×2 (08:44→20:31)
[2019-10-16] MEDS ORDERED: NON FORMULARY DRUG (Vitamin B Complex [Vitamin B Complex] 1 CAP) PO SCH (09:00)
[2019-10-16] MEDS: WARFARIN 2.5 MG TAB PO SCH (17:03)
--- NOTE | 2019-10-16 17:41 | P.HPIM ---
History of Present Illness H&P Date: 10/16/19 Chief Complaint: Shortness of breath 74-year-old male who presents emergency Department complaining of an exacerbation of COPD per patient states started this morning while he was drinking coffee. Patient states he no longer smokes. Patient states he took 2 breathing treatments at home and it did not help psychiatric emergency department. Patient denies any chest pain or palpitations. Patient denies any recent fever chills. Patient states he has had a dry cough. Patient denies any leg swelling or calf tenderness. Patient denies abdominal pain patient denies nausea vomiting diarrhea per patient denies any lightheadedness dizziness or near syncopal episode. Patient denies headache patient denies numbness weakness. In the ED patient was given 2 breathing treatments and was started on IV steroids and is admitted for further treatment of COPD exacerbation Review of Systems REVIEW OF SYSTEMS: CONSTITUTIONAL: No fever, no malaise, no fatigue. HEENT: No recent visual problems or hearing problems. Denied any sore throat. CARDIOVASCULAR: No chest pain, orthopnea, PND, no palpitations, no syncope. PULMONARY: No shortness of breath, no cough, no hemoptysis. GASTROINTESTINAL: No diarrhea, no nausea, no vomiting, no abdominal pain. NEUROLOGICAL: No headaches, no weakness, no numbness. HEMATOLOGICAL: Denies any bleeding or petechiae. GENITOURINARY: Denies any burning micturition, frequency, or urgency. MUSCULOSKELETAL/RHEUMATOLOGICAL: Denies any joint pain, swelling, or any muscle pain. ENDOCRINE: Denies any polyuria or polydipsia. The rest of the 14-point review of systems is negative. Past Medical History Past Medical History: Atrial Fibrillation, Coronary Artery Disease (CAD), Heart Failure, COPD, CVA/TIA, Eye Disorder, Hyperlipidemia, Hypertension, Osteoarthritis (OA), Pneumonia Additional Past Medical History / Comment(s): Hx respiratory failure due to exacerbation of COPD. 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 Past Anesthesia/Blood Transfusion Reactions: No Reported Reaction Date of Last Stent Placement:: 2015 Type of Cardiac Device: Permanent Pacemaker, AICD Device Placement Date:: 05/09/10 Past Psychological History: Anxiety Additional Psychological History / Comment(s): Pt resides with his spouse. He is independent. He drives. He has a nebulizer. Smoking Status: Former smoker Past Alcohol Use History: Daily Additional Past Alcohol Use History / Comment(s): Pt started smoking as a teen and quit in 1990. He was a ppd smoker. Pt currently has 1 drink of whiskey daily. Aware no use 24 hrs prior to procedure. Past Drug Use History: None Reported - Past Family History Father Family Medical History: CVA/TIA, Dementia Mother Family Medical History: Cancer, CVA/TIA, Diabetes Mellitus, Skin Disorder Additional Family Medical History / Comment(s): Skin cancer. Brother(s) Family Medical History: Cancer Additional Family Medical History / Comment(s): Bladder cancer. Medications and Allergies Home Medications Medication Instructions Recorded Confirmed Type Zolpidem Tartrate [Ambien] 10 mg PO HS PRN 07/04/15 10/15/19 History Multivitamins, Thera [Multivitamin 1 tab PO DAILY 12/17/15 10/15/19 History (formulary)] Cholecalciferol [Vitamin D3 (25 1,000 unit PO DAILY 12/22/15 10/15/19 History Mcg = 1000 Iu)] Vitamin B Complex 1 cap PO DAILY 12/22/15 10/15/19 History Aspirin 81 mg PO DAILY #30 chew 12/24/15 10/15/19 Rx Atorvastatin [Lipitor] 80 mg PO HS #30 tab 12/24/15 10/15/19 Rx Nitroglycerin Sl Tabs [Nitrostat] 0.4 mg SUBLINGUAL Q5M PRN #25 tab 12/24/15 10/15/19 Rx Isosorbide Mononitrate ER [Imdur] 60 mg PO DAILY 05/27/17 10/15/19 History LORazepam [Ativan] 0.5 mg PO TID PRN 05/27/17 10/15/19 History carvediloL [Coreg*] 18.75 mg PO BID 03/18/18 10/15/19 History Furosemide [Lasix] 80 mg PO BID 05/05/18 10/15/19 History Losartan [Cozaar] 100 mg PO DAILY 05/05/18 10/15/19 History Warfarin [Coumadin] 1.25 mg PO WEFR 05/05/18 10/15/19 History Warfarin [Coumadin] 2.5 mg PO SUMOTUTHSA 05/05/18 10/15/19 History Umeclidinium Brm/Vilanterol Tr 1 puff INHALATION RT-DAILY 10/15/19 10/15/19 History [Anoro Ellipta 62.5-25 Mcg INH] allopurinoL [Zyloprim] 300 mg PO DAILY 10/15/19 10/15/19 History Allergies Allergy/AdvReac Type Severity Reaction Status Date / Time No Known Allergies Allergy Verified 10/15/19 15:01 Physical Exam Vitals: Vital Signs Temp Pulse Pulse Resp BP BP Pulse Ox 10/16/19 12:02 60 10/16/19 11:49 60 10/16/19 08:32 56 L 10/16/19 08:22 56 L 10/16/19 08:21 56 L 10/16/19 08:10 56 L 10/16/19 07:12 98.1 F 56 L 16 125/77 97 10/16/19 04:05 18 10/16/19 00:06 18 10/15/19 19:59 97.8 F 58 L 18 134/70 98 10/15/19 19:16 18 10/15/19 18:31 67 10/15/19 18:19 65 10/15/19 16:40 98 F 54 L 18 143/83 98 10/15/19 14:33 98.3 F 60 18 125/67 96 10/15/19 14:00 66 10/15/19 13:42 63 10/15/19 13:24 97.9 F 60 18 137/76 100 Intake and Output 10/15/19 10/16/19 10/16/19 22:59 06:59 14:59 Other: Voiding Method Toilet Toilet Toilet # Voids 2 1 Weight 104.326 kg - Constitutional General appearance: Present: average body habitus, cooperative, no acute distress - EENT Eyes: Present: anicteric sclerae, EOMI, PERRLA, normal appearance ENT: Present: hearing grossly normal, normal oropharynx Ears: bilateral: normal - Neck Neck: Present: normal ROM. Absent: lymphadenopathy, rigidity, thyromegaly Carotids: negative: bruit present Thyroid: bilateral: normal size, negative: enlarged, nodule - Respiratory Respiratory: bilateral: CTA, negative: rales, rhonchi, wheezing - Cardiovascular Rhythm: regular Heart sounds: normal: S1, S2 Abnormal Heart Sounds: Absent: systolic murmur, diastolic murmur - Gastrointestinal General gastrointestinal: Present: normal bowel sounds, soft. Absent: distended, organomegaly, tenderness - Genitourinary Genitourinary Comment(s): deferred - Integumentary Integumentary: Present: normal turgor. Absent: jaundiced, rash, ulcer - Neurologic Neurologic: Present: CNII-XII intact. Absent: focal deficits - Musculoskeletal Musculoskeletal: Present: gait normal, strength equal bilaterally - Psychiatric Psychiatric: Present: A&O x's 3, appropriate affect, intact judgment & insight Results CBC & Chem 7: 10/15/19 13:54 10/15/19 13:54 Labs: Abnormal Lab Results - Last 24 Hours (Table) 10/15/19 10/15/19 10/15/19 Range/Units 13:54 13:54 13:54 RBC 3.86 L (4.30-5.90) m/uL Hgb 12.5 L (13.0-17.5) gm/dL Hct 38.4 L (39.0-53.0) % RDW 15.7 H (11.5-15.5) % PT 22.6 H (9.0-12.0) sec INR 2.3 H (<1.2) APTT 34.5 H (22.0-30.0) sec BUN 24 H (9-20) mg/dL Glucose 116 H (74-99) mg/dL Plasma Lactic Acid Chuy (0.7-2.0) mmol/L Troponin I (0.000-0.034) ng/mL 10/15/19 10/15/19 10/15/19 Range/Units 13:54 13:54 16:57 RBC (4.30-5.90) m/uL Hgb (13.0-17.5) gm/dL Hct (39.0-53.0) % RDW (11.5-15.5) % PT (9.0-12.0) sec INR (<1.2) APTT (22.0-30.0) sec BUN (9-20) mg/dL Glucose (74-99) mg/dL Plasma Lactic Acid Chuy 2.1 H* (0.7-2.0) mmol/L Troponin I 0.076 H* 0.077 H* (0.000-0.034) ng/mL 10/15/19 10/16/19 Range/Units 21:28 07:26 RBC (4.30-5.90) m/uL Hgb (13.0-17.5) gm/dL Hct (39.0-53.0) % RDW (11.5-15.5) % PT 21.5 H (9.0-12.0) sec INR 2.2 H (<1.2) APTT (22.0-30.0) sec BUN (9-20) mg/dL Glucose (74-99) mg/dL Plasma Lactic Acid Chuy (0.7-2.0) mmol/L Troponin I 0.068 H* (0.000-0.034) ng/mL Thrombosis Risk Factor Assmnt - Choose All That Apply Any of the Below Risk Factors Present?: Yes Each Factor Represents 1 point: Abnormal pulmonary function (COPD), Obesity (BMI >25) Other Risk Factors: Yes Each Risk Factor Represents 2 Points: Age 61-74 years Other congenital or acquired thrombophilia - If yes, enter type in comment: No Thrombosis Risk Factor Assessment Total Risk Factor Score: 4 Thrombosis Risk Factor Assessment Level: Moderate Risk Assessment and Plan Assessment: 1. Acute exacerbation COPD - Continue with bronchodilator nebulizer treatments along with IV Solu-Medrol; O2 per nasal cannula keeping SpO2 greater than 90%; patient sees Dr. Cheung from pulmonary; we will consult 2. Severe purulent tracheobronchitis; patient is started on IV ceftriaxone and azithromycin; we will continue to patient is seen by pulmonary service 3. Acute renal injury; patient did receive IV fluids in ED; we will monitor renal function and electrolytes and restart on IV fluids if renal function r emains elevated 4. Atrial fibrillation; rate controlled on Coreg 18.75 mg twice a day; continue anticoagulation with Coumadin 5. Hypertension; losartan 100 mg daily; Imdur 60 mg daily; Coreg 18.75 mg twice a day 6. Hyperlipidemia; 80 mg by mouth daily at bedtime of Lipitor 7. CAD; stable on aspirin, statins, beta blockers and nitrates DVT prophylaxis; SCDs/systemic anticoagulation with Coumadin CODE STATUS; full code
[2019-10-16] MEDS: LORazepam 0.5 MG TAB PO PRN (20:31)
[2019-10-16] MEDS: ATORVASTATIN 80 MG TAB PO SCH (20:31)
[2019-10-16] MEDS: ZOLPIDEM 10 MG TAB PO PRN (20:31)
[2019-10-17] MEDS: methylPREDNISolone SOD SUCCI 125 MG/2 ML VIAL IV SCH ×2 (00:46→05:58)
--- NOTE | 2019-10-17 01:18 | P.CNPUL ---
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, patient has been working in the backyard has been having increasing shortness of breath cough and ongoing wheezing which was progressive for the last 2 days decided to come into the hospital for further evaluation as they did not response to nebulizer treatment, patient denies any swelling denies any chest pain abdominal pain denies an nausea vomiting Review of Systems All systems: negative Past Medical History Past Medical History: Atrial Fibrillation, Coronary Artery Disease (CAD), Heart Failure, COPD, CVA/TIA, Eye Disorder, Hyperlipidemia, Hypertension, Osteoarthritis (OA), Pneumonia Additional Past Medical History / Comment(s): Hx respiratory failure due to exacerbation of COPD. 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 Past Anesthesia/Blood Transfusion Reactions: No Reported Reaction Date of Last Stent Placement:: 2015 Type of Cardiac Device: Permanent Pacemaker, AICD Device Placement Date:: 05/09/10 Past Psychological History: Anxiety Additional Psychological History / Comment(s): Pt resides with his spouse. He is independent. He drives. He has a nebulizer. Smoking Status: Former smoker Past Alcohol Use History: Daily Additional Past Alcohol Use History / Comment(s): Pt started smoking as a teen a nd quit in 1990. He was a ppd smoker. Pt currently has 1 drink of whiskey daily. Aware no use 24 hrs prior to procedure. Past Drug Use History: None Reported - Past Family History Father Family Medical History: CVA/TIA, Dementia Mother Family Medical History: Cancer, CVA/TIA, Diabetes Mellitus, Skin Disorder Additional Family Medical History / Comment(s): Skin cancer. Brother(s) Family Medical History: Cancer Additional Family Medical History / Comment(s): Bladder cancer. Medications and Allergies Home Medications Medication Instructions Recorded Confirmed Type Zolpidem Tartrate [Ambien] 10 mg PO HS PRN 07/04/15 10/15/19 History Multivitamins, Thera [Multivitamin 1 tab PO DAILY 12/17/15 10/15/19 History (formulary)] Cholecalciferol [Vitamin D3 (25 1,000 unit PO DAILY 12/22/15 10/15/19 History Mcg = 1000 Iu)] Vitamin B Complex 1 cap PO DAILY 12/22/15 10/15/19 History Aspirin 81 mg PO DAILY #30 chew 12/24/15 10/15/19 Rx Atorvastatin [Lipitor] 80 mg PO HS #30 tab 12/24/15 10/15/19 Rx Nitroglycerin Sl Tabs [Nitrostat] 0.4 mg SUBLINGUAL Q5M PRN #25 tab 12/24/15 10/15/19 Rx Isosorbide Mononitrate ER [Imdur] 60 mg PO DAILY 05/27/17 10/15/19 History LORazepam [Ativan] 0.5 mg PO TID PRN 05/27/17 10/15/19 History carvediloL [Coreg*] 18.75 mg PO BID 03/18/18 10/15/19 History Furosemide [Lasix] 80 mg PO BID 05/05/18 10/15/19 History Losartan [Cozaar] 100 mg PO DAILY 05/05/18 10/15/19 History Warfarin [Coumadin] 1.25 mg PO WEFR 05/05/18 10/15/19 History Warfarin [Coumadin] 2.5 mg PO SUMOTUTHSA 05/05/18 10/15/19 History Umeclidinium Brm/Vilanterol Tr 1 puff INHALATION RT-DAILY 10/15/19 10/15/19 History [Anoro Ellipta 62.5-25 Mcg INH] allopurinoL [Zyloprim] 300 mg PO DAILY 10/15/19 10/15/19 History Allergies Allergy/AdvReac Type Severity Reaction Status Date / Time No Known Allergies Allergy Verified 10/15/19 15:01 Physical Exam Vitals: Vital Signs Temp Pulse Pulse Resp BP Pulse Ox 10/16/19 20:56 64 10/16/19 20:48 64 10/16/19 20:42 62 10/16/19 20:11 18 10/16/19 19:46 97.8 F 56 L 18 128/70 98 10/16/19 15:15 60 10/16/19 15:05 60 10/16/19 14:20 97.7 F 60 18 104/58 97 10/16/19 12:02 60 10/16/19 11:49 60 10/16/19 08:32 56 L 10/16/19 08:22 56 L 10/16/19 08:21 56 L 10/16/19 08:10 56 L 10/16/19 07:12 98.1 F 56 L 16 125/77 97 10/16/19 04:05 18 Intake and Output 10/16/19 10/16/19 10/17/19 14:59 22:59 06:59 Other: Voiding Method Toilet Toilet # Voids 1 1 - Constitutional General appearance: average body habitus, cooperative, disheveled - EENT Eyes: PERRLA ENT: hearing grossly normal Ears: bilateral: normal - Neck Neck: normal ROM Carotids: bilateral: upstroke normal Thyroid: bilateral: normal size - Respiratory Respiratory: bilateral: wheezing, prolonged expiration - Cardiovascular Rhythm: regular Heart sounds: normal: S1, S2 - Gastrointestinal General gastrointestinal: distended, normal bowel sounds, soft - Integumentary Integumentary: normal - Neurologic Neurologic: CNII-XII intact - Musculoskeletal Musculoskeletal: gait normal, generalized weakness, strength equal bilaterally - Psychiatric Psychiatric: A&O x's 3, appropriate affect, intact judgment & insight Results - Laboratory Findings CBC and BMP: 10/15/19 13:54 10/15/19 13:54 PT/INR, D-dimer PT 21.5 sec (9.0-12.0) H 10/16/19 07:26 INR 2.2 (<1.2) H 10/16/19 07:26 Abnormal lab findings: Abnormal Labs 10/15/19 10/15/19 10/15/19 13:54 13:54 13:54 RBC 3.86 L Hgb 12.5 L Hct 38.4 L RDW 15.7 H PT 22.6 H INR 2.3 H APTT 34.5 H BUN 24 H Glucose 116 H Plasma Lactic Acid Chuy Troponin I 10/15/19 10/15/19 10/15/19 13:54 13:54 16:57 RBC Hgb Hct RDW PT INR APTT BUN Glucose Plasma Lactic Acid Chuy 2.1 H* Troponin I 0.076 H* 0.077 H* 10/15/19 10/16/19 21:28 07:26 RBC Hgb Hct RDW PT 21.5 H INR 2.2 H APTT BUN Glucose Plasma Lactic Acid Chuy Troponin I 0.068 H* - Diagnostic Findings Chest x-ray: report reviewed, image reviewed (Increased lung marking appears to be chronic) Assessment and Plan Assessment: Acute COPD exacerbation Tracheobronchitis Chronic severe persistent asthma with acute exacerbation Generalized anxiety disorder Acute kidney injury Chronic atrial fibrillation on anticoagulation with Coumadin Dyslipidemia Coronary artery disease Plan: Agree with bronchodilators and IV steroids and antibiotics continuation of home medications of follow clinical course closely further recommendations pending plan of care as per clinical response of the patient Time with Patient: Greater than 30
--- NOTE | 2019-10-17 01:21 | P.PN ---
Subjective Progress Note Date: 10/16/19 Principal diagnosis: Acute COPD exacerbation Tracheobronchitis Chronic severe persistent asthma with acute exacerbation Generalized anxiety disorder Acute kidney injury Chronic atrial fibrillation on anticoagulation with Coumadin Dyslipidemia Coronary artery disease 10/16/2019, patient seen eval examined during the rounds labs reviewed medications reviewed care plan discussed, patient remains on IV steroids antibiotics breathing is slightly better with still very congested bilateral audible wheezing is present we'll continue current plan of care I'll observe him closely This is a 74-year-old well-known to me from office patient has severe COPD however has a component of 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, patient has been working in the backyard has been having increasing shortness of breath cough and ongoing wheezing which was progressive for the last 2 days decided to come into the hospital for further evaluation as they did not response to nebulizer treatment, patient denies any swelling denies any chest pain abdominal pain denies an nausea vomiting Objective - Vital Signs Vital signs: Vital Signs Temp 97.8 F 10/16/19 19:46 Pulse 64 10/16/19 20:56 Resp 18 10/16/19 20:11 BP 128/70 10/16/19 19:46 Pulse Ox 98 10/16/19 19:46 Intake & Output 10/16/19 10/16/19 10/17/19 06:59 18:59 06:59 Other: Voiding Method Toilet Toilet Toilet # Voids 1 1 1 - Exam - Constitutional General appearance: average body habitus, cooperative, disheveled - EENT Eyes: PERRLA ENT: hearing grossly normal Ears: bilateral: normal - Neck Neck: normal ROM Carotids: bilateral: upstroke normal Thyroid: bilateral: normal size - Respiratory Respiratory: bilateral: wheezing, prolonged expiration - Cardiovascular Rhythm: regular Heart sounds: normal: S1, S2 - Gastrointestinal General gastrointestinal: distended, normal bowel sounds, soft - Integumentary Integumentary: normal - Neurologic Neurologic: CNII-XII intact - Musculoskeletal Musculoskeletal: gait normal, generalized weakness, strength equal bilaterally - Psychiatric Psychiatric: A&O x's 3, appropriate affect, intact judgment & insight - Labs CBC & Chem 7: 10/15/19 13:54 10/15/19 13:54 Labs: Abnormal Lab Results - Last 24 Hours (Table) 10/16/19 Range/Units 07:26 PT 21.5 H (9.0-12.0) sec INR 2.2 H (<1.2) Microbiology - Last 24 Hours (Table) 10/15/19 15:17 Blood Culture - Preliminary Blood No Growth after 24 hours Assessment and Plan Assessment: Acute COPD exacerbation Tracheobronchitis Chronic severe persistent asthma with acute exacerbation Generalized anxiety disorder Acute kidney injury Chronic atrial fibrillation on anticoagulation with Coumadin Dyslipidemia Coronary artery disease Plan: We will continue bronchodilators and IV steroids and antibiotics continuation of home medications of follow clinical course closely further recommendations pending plan of care as per clinical response of the patient Time with Patient: Greater than 30
[2019-10-17] MEDS: IPRATROPIUM 0.5 MG/2.5 ML NEBU INHALATION SCH ×4 (07:58→21:32)
[2019-10-17] MEDS: FORMOTEROL FUMARATE 20 MCG/2 ML NEBU INHALATION SCH ×2 (07:58→21:32)
[2019-10-17] MEDS: carvediloL 12.5 MG TAB PO SCH ×2 (08:25→17:22)
[2019-10-17] MEDS: FUROSEMIDE 80 MG TAB PO SCH ×2 (08:25→21:14)
[2019-10-17] MEDS: ASPIRIN 81 MG PO SCH (08:25)
[2019-10-17] MEDS: AZITHROMYCIN 500 MG TAB PO SCH (08:25)
[2019-10-17] MEDS: MULTIVITAMINS, THERA 1 EACH TAB PO SCH (08:26)
[2019-10-17] MEDS: ISOSORBIDE MONONITRATE ER 60 MG TAB.ER.24H PO SCH (08:26)
[2019-10-17] MEDS: allopurinoL 300 MG TAB PO SCH (08:26)
[2019-10-17] MEDS: LOSARTAN 50 MG TAB PO SCH (08:26)
[2019-10-17] MEDS: CHOLECALCIFEROL 1,000 UNIT TAB PO SCH (08:26)
[2019-10-17 08:27] LABS: Calcium 9.5 mg/dL (8.4-10.2); Potassium 4.1 mmol/L (3.5-5.1)
[2019-10-17 08:42] LABS: Basophils % (A) 0 %; Eosinophils % (A) 0 %; HCT 37.6 % (39.0-53.0); HGB 11.8 gm/dL (13.0-17.5); Hypochromasia Slight; Lymphocytes # (A) 0.7 k/uL (1.0-4.8); Lymphocytes % (A) 4 %; MCH 31.7 pg (25.0-35.0); MCHC 31.3 g/dL (31.0-37.0); MCV 101.1 fL (80.0-100.0); Macrocytosis Slight; Monocytes # (A) 0.4 k/uL (0-1.0); Monocytes % (A) 2 %; Neutrophils # (A) 16.1 k/uL (1.3-7.7); Neutrophils % (A) 93 %; Platelet Count 162 k/uL (150-450); RBC 3.72 m/uL (4.30-5.90); RDW 15.7 % (11.5-15.5); WBC 17.2 k/uL (3.8-10.6)
[2019-10-17 08:47] LABS: INR 2.6 (<1.2); Prothrombin Time 25.7 sec (9.0-12.0)
--- NOTE | 2019-10-17 10:06 | P.PN ---
Subjective Progress Note Date: 10/17/19 Principal diagnosis: Acute COPD exacerbation Tracheobronchitis Chronic severe persistent asthma with acute exacerbation Generalized anxiety disorder Acute kidney injury Chronic atrial fibrillation on anticoagulation with Coumadin Dyslipidemia Coronary artery disease 10/17/2019, patient seen eval examined during the rounds labs reviewed medications reviewed is still have ongoing cough congestion shortness of breath, cough is mostly nonproductive, she is slightly better today compared to time admission however, patient will still require IV steroids breathing treatments and antibiotics for now will continue current plan of care, noted white cell count is up to 17,000 likely related to steroids, PT/INR is well therapeutic range BUN is up likely related to IV steroids so has sugar 10/16/2019, patient seen evclyde examined during the rounds labs reviewed medications reviewed care plan discussed, patient remains on IV steroids antibiotics breathing is slightly better with still very congested bilateral audible wheezing is present we'll continue current plan of care I'll observe him closely This is a 74-year-old well-known to me from office patient has severe COPD however has a component of 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, patient has been working in the backyard has been having increasing shortness of breath cough and ongoing wheezing which was progressive for the last 2 days decided to come into the hospital for further evaluation as they did not response to nebulizer treatment, patient denies any swelling denies any chest pain abdominal pain denies an nausea vomiting Objective - Vital Signs Vital signs: Vital Signs Temp 97.5 F L 10/17/19 07:00 Pulse 68 10/17/19 08:11 Resp 16 10/17/19 07:00 BP 123/71 10/17/19 07:00 Pulse Ox 96 10/17/19 07:00 Intake & Output 10/16/19 10/17/19 10/17/19 18:59 06:59 18:59 Intake Total 200 Balance 200 Intake: Oral 200 Other: Voiding Method Toilet Toilet Toilet # Voids 1 2 - Exam - Constitutional General appearance: average body habitus, cooperative, disheveled - EENT Eyes: PERRLA ENT: hearing grossly normal Ears: bilateral: normal - Neck Neck: normal ROM Carotids: bilateral: upstroke normal Thyroid: bilateral: normal size - Respiratory Respiratory: bilateral: wheezing, prolonged expiration - Cardiovascular Rhythm: regular Heart sounds: normal: S1, S2 - Gastrointestinal General gastrointestinal: distended, normal bowel sounds, soft - Integumentary Integumentary: normal - Neurologic Neurologic: CNII-XII intact - Musculoskeletal Musculoskeletal: gait normal, generalized weakness, strength equal bilaterally - Psychiatric Psychiatric: A&O x's 3, appropriate affect, intact judgment & insight - Labs CBC & Chem 7: 10/17/19 07:45 10/17/19 07:45 Labs: Abnormal Lab Results - Last 24 Hours (Table) 10/17/19 10/17/19 10/17/19 Range/Units 07:45 07:45 07:45 WBC 17.2 H (3.8-10.6) k/uL RBC 3.72 L (4.30-5.90) m/uL Hgb 11.8 L (13.0-17.5) gm/dL Hct 37.6 L (39.0-53.0) % MCV 101.1 H (80.0-100.0) fL RDW 15.7 H (11.5-15.5) % Neutrophils # 16.1 H (1.3-7.7) k/uL Lymphocytes # 0.7 L (1.0-4.8) k/uL PT 25.7 H (9.0-12.0) sec INR 2.6 H (<1.2) BUN 37 H (9-20) mg/dL Glucose 194 H (74-99) mg/dL Microbiology - Last 24 Hours (Table) 10/15/19 15:17 Blood Culture - Preliminary Blood No Growth after 24 hours Assessment and Plan Assessment: Acute COPD exacerbation Tracheobronchitis Chronic severe persistent asthma with acute exacerbation Hyperglycemia and leukocytosis likely related to steroids as well as ongoing inflammation in the lungs Generalized anxiety disorder Acute kidney injury Chronic atrial fibrillation on anticoagulation with Coumadin Dyslipidemia Coronary artery disease Plan: We will continue bronchodilators and IV steroids and antibiotics continuation of home medications of follow clinical course closely further recommendations pending plan of care as per clinical response of the patient, IV steroids can be slightly tapered to 40 every 8 Time with Patient: Greater than 30
[2019-10-17] MEDS: methylPREDNISolone SOD SUCCI 40 MG/ML 1 ML VIAL IV SCH (17:22)
[2019-10-17] MEDS: WARFARIN 2.5 MG TAB PO SCH (17:23)
[2019-10-17] MEDS: ZOLPIDEM 10 MG TAB PO PRN (21:14)
[2019-10-17] MEDS: ATORVASTATIN 80 MG TAB PO SCH (21:14)
[2019-10-17] MEDS: LORazepam 0.5 MG TAB PO PRN (21:20)
[2019-10-18] MEDS: methylPREDNISolone SOD SUCCI 40 MG/ML 1 ML VIAL IV SCH ×3 (00:37→16:13)
--- NOTE | 2019-10-18 03:21 | PN ---
PROGRESS NOTE DATE OF SERVICE: 10/17/2019 I am covering for Dr. Clark. This 74-year-old gentleman admitted with COPD acute exacerbation is being closely monitored. Patient is on bronchodilators. Dr. Skye serrano Pulmonary is following the patient closely. No chest pain. No palpitations. No fever. PHYSICAL EXAMINATION: The patient is alert and oriented x3. Pulse 60, blood pressure 115/63, respirations 16, temperature 97.6, pulse ox 99% on room air. HEENT: Conjunctivae normal. NECK: No jugular venous distention. CARDIOVASCULAR: S1, S2 muffled. RESPIRATORY: Breath sounds diminished at the bases. Scattered rhonchi and crackles. ABDOMEN: Soft, nontender. LEGS: No edema. NERVOUS SYSTEM: No focal deficits. LABS: WBC 17.2, hemoglobin 11.8. INR is 2.6. Sodium 138, potassium 4.1. Troponin noted. ASSESSMENT: 1. Chronic obstructive pulmonary disease acute exacerbation with acute purulent tracheobronchitis. 2. Acute renal injury. 3. Atrial fibrillation. 4. Hypertension. 5. Hyperlipidemia. 6. History of coronary artery disease. 7. Indeterminate troponins. RECOMMENDATIONS AND DISCUSSION: Recommend to continue current medications, continue symptomatic treatment. Continue with the bronchodilators. Otherwise, continue with antibiotics. Continue with IV steroids. Patient is on Solu-Medrol 40 mg IV q.8. Closely follow with Pulmonary. Guarded prognosis. Further recommendations to follow. MMARSALANL / MAGGIN: [id number] /
[2019-10-18] MEDS: carvediloL 12.5 MG TAB PO SCH ×2 (07:51→16:14)
[2019-10-18] MEDS: AZITHROMYCIN 500 MG TAB PO SCH (07:51)
[2019-10-18] MEDS: CHOLECALCIFEROL 1,000 UNIT TAB PO SCH (07:52)
[2019-10-18] MEDS: allopurinoL 300 MG TAB PO SCH (07:52)
[2019-10-18] MEDS: ISOSORBIDE MONONITRATE ER 60 MG TAB.ER.24H PO SCH (07:52)
[2019-10-18] MEDS: ASPIRIN 81 MG PO SCH (07:52)
[2019-10-18] MEDS: FUROSEMIDE 80 MG TAB PO SCH ×2 (07:52→21:43)
[2019-10-18] MEDS: LOSARTAN 50 MG TAB PO SCH (07:52)
[2019-10-18] MEDS: MULTIVITAMINS, THERA 1 EACH TAB PO SCH (07:52)
[2019-10-18] MEDS: IPRATROPIUM 0.5 MG/2.5 ML NEBU INHALATION SCH ×4 (07:58→19:03)
[2019-10-18] MEDS: FORMOTEROL FUMARATE 20 MCG/2 ML NEBU INHALATION SCH ×2 (07:58→19:03)
--- NOTE | 2019-10-18 08:17 | P.PN ---
Subjective Progress Note Date: 10/18/19 Principal diagnosis: Acute exacerbation of COPD This is a continue progress on a 74-year-old white male essentially admitted for acute exacerbation of COPD. The patient is doing much better and starting to ambulate. No fever or chills. No significant nausea, vomiting or diarrhea. The patient is tolerating diet. Objective - Vital Signs Vital signs: Vital Signs Temp 97.6 F 10/18/19 01:00 Pulse 78 10/18/19 08:14 Resp 16 10/18/19 01:00 BP 115/63 10/18/19 01:00 Pulse Ox 99 10/18/19 01:00 Intake & Output 10/17/19 10/18/19 10/18/19 18:59 06:59 18:59 Intake Total 400 600 Balance 400 600 Intake: Oral 400 600 Other: Voiding Method Toilet # Voids 2 1 - Constitutional General appearance: Present: cooperative, no acute distress - EENT Eyes: Absent: abnormal pupil - Neck Neck: Absent: lymphadenopathy - Respiratory Respiratory: bilateral: CTA - Cardiovascular Rhythm: regular Heart sounds: normal: S1, S2 Abnormal Heart Sounds: Absent: S3 Gallop - Gastrointestinal General gastrointestinal: Present: soft. Absent: tenderness - Integumentary Integumentary: Absent: cellulitis - Labs CBC & Chem 7: 10/17/19 07:45 10/17/19 07:45 Labs: Abnormal Lab Results - Last 24 Hours (Table) 10/17/19 10/17/19 10/17/19 Range/Units 07:45 07:45 07:45 WBC 17.2 H (3.8-10.6) k/uL RBC 3.72 L (4.30-5.90) m/uL Hgb 11.8 L (13.0-17.5) gm/dL Hct 37.6 L (39.0-53.0) % MCV 101.1 H (80.0-100.0) fL RDW 15.7 H (11.5-15.5) % Neutrophils # 16.1 H (1.3-7.7) k/uL Lymphocytes # 0.7 L (1.0-4.8) k/uL PT 25.7 H (9.0-12.0) sec INR 2.6 H (<1.2) BUN 37 H (9-20) mg/dL Glucose 194 H (74-99) mg/dL Microbiology - Last 24 Hours (Table) 10/15/19 15:17 Blood Culture - Preliminary Blood No Growth after 48 hours Assessment and Plan (1) COPD exacerbation Current Visit: Yes Status: Acute Code(s): J44.1 - CHRONIC OBSTRUCTIVE PULMONARY DISEASE W (ACUTE) EXACERBATION SNOMED Code(s): 574043149 (2) AICD (automatic cardioverter/defibrillator) present Current Visit: No Status: Acute Code(s): Z95.810 - PRESENCE OF AUTOMATIC (IM PLANTABLE) CARDIAC DEFIBRILLATOR SNOMED Code(s): 172212803 (3) Chronic systolic CHF (congestive heart failure) Current Visit: No Status: Acute Code(s): I50.22 - CHRONIC SYSTOLIC (CONGESTIVE) HEART FAILURE SNOMED Code(s): 392717611 (4) HTN (hypertension) Current Visit: No Status: Acute Code(s): I10 - ESSENTIAL (PRIMARY) HYPERTENSION SNOMED Code(s): 38668622 Plan: The patient is improving. We will continue Solu-Medrol at 40 mg every 8 hours IVP piggyback. Increase ambulation. Anticipate discharge in a.m.
[2019-10-18 09:25] LABS: INR 3.4 (<1.2); Prothrombin Time 33.1 sec (9.0-12.0)
[2019-10-18] MEDS: IPRATROPIUM-ALBUTEROL 3 ML NEB INHALATION PRN ×2 (15:13→19:03)
--- NOTE | 2019-10-18 15:32 | P.PN ---
Subjective Progress Note Date: 10/18/19 Principal diagnosis: Acute COPD exacerbation Tracheobronchitis Chronic severe persistent asthma with acute exacerbation Generalized anxiety disorder Acute kidney injury Chronic atrial fibrillation on anticoagulation with Coumadin Dyslipidemia Coronary artery disease 10/18/2019, patient seen annamarie examined during the rounds labs reviewed medications reviewed care plan discussed, respiration continued to improve, denies any sputum production, wheezing is improved, patient remains on IV steroids antibiotics and breathing treatment would recommend to change it to oral at the time of discharge agree with discharge planning for tomorrow 10/17/2019, patient seen annamarie examined during the rounds labs reviewed medications reviewed is still have ongoing cough congestion shortness of breath, cough is mostly nonproductive, she is slightly better today compared to time admission however, patient will still require IV steroids breathing treatments and antibiotics for now will continue current plan of care, noted white cell count is up to 17,000 likely related to steroids, PT/INR is well therapeutic range BUN is up likely related to IV steroids so has sugar 10/16/2019, patient seen annamarie examined during the rounds labs reviewed medications reviewed care plan discussed, patient remains on IV steroids antibiotics breathing is slightly better with still very congested bilateral audible wheezing is present we'll continue current plan of care I'll observe him closely This is a 74-year-old well-known to me from office patient has severe COPD however has a component of 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, patient has been working in the backyard has been having increasing shortness of breath cough and ongoing wheezing which was progressive for the last 2 days decided to come into the hospital for further evaluation as they did not response to nebulizer treatment, patient denies any swelling denies any chest pain abdominal pain denies an nausea vomiting Objective - Vital Signs Vital signs: Vital Signs Temp 97.6 F 10/18/19 07:00 Pulse 71 10/18/19 15:24 Resp 16 10/18/19 15:24 BP 128/71 10/18/19 07:00 Pulse Ox 97 10/18/19 07:00 Intake & Output 10/17/19 10/18/19 10/18/19 18:59 06:59 18:59 Intake Total 400 600 296 Balance 400 600 296 Intake: Oral 400 600 296 Other: Voiding Method Toilet Toilet # Voids 2 1 - Exam - Constitutional General appearance: average body habitus, cooperative, disheveled - EENT Eyes: PERRLA ENT: hearing grossly normal Ears: bilateral: normal - Neck Neck: normal ROM Carotids: bilateral: upstroke normal Thyroid: bilateral: normal size - Respiratory Respiratory: bilateral: wheezing, prolonged expiration - Cardiovascular Rhythm: regular Heart sounds: normal: S1, S2 - Gastrointestinal General gastrointestinal: distended, normal bowel sounds, soft - Integumentary Integumentary: normal - Neurologic Neurologic: CNII-XII intact - Musculoskeletal Musculoskeletal: gait normal, generalized weakness, strength equal bilaterally - Psychiatric Psychiatric: A&O x's 3, appropriate affect, intact judgment & insight - Labs CBC & Chem 7: 10/17/19 07:45 10/17/19 07:45 Labs: Abnormal Lab Results - Last 24 Hours (Table) 10/18/19 Range/Units 08:45 PT 33.1 H (9.0-12.0) sec INR 3.4 H (<1.2) Microbiology - Last 24 Hours (Table) 10/15/19 15:17 Blood Culture - Preliminary Blood No Growth after 48 hours Assessment and Plan Assessment: Acute COPD exacerbation Tracheobronchitis Chronic severe persistent asthma with acute exacerbation Hyperglycemia and leukocytosis likely related to steroids as well as ongoing inflammation in the lungs Generalized anxiety disorder Acute kidney injury Chronic atrial fibrillation on anticoagulation with Coumadin Dyslipidemia Coronary artery disease Plan: We will continue bronchodilators and IV steroids and antibiotics continuation of home medications of follow clinical course closely further recommendations pending plan of care as per clinical response of the patient, continue IV steroids 40 every 8 Time with Patient: Greater than 30
[2019-10-18] MEDS ORDERED: WARFARIN 0.5 MG TAB PO ONE (18:00)
[2019-10-18] MEDS: ZOLPIDEM 10 MG TAB PO PRN (21:43)
[2019-10-18] MEDS: ATORVASTATIN 80 MG TAB PO SCH (21:43)
[2019-10-18] MEDS: LORazepam 0.5 MG TAB PO PRN (21:43)
[2019-10-19] MEDS: methylPREDNISolone SOD SUCCI 40 MG/ML 1 ML VIAL IV SCH ×2 (01:08→08:59)
--- NOTE | 2019-10-19 04:43 | P.PN ---
Subjective Progress Note Date: 10/19/19 Principal diagnosis: Acute COPD exacerbation Tracheobronchitis Chronic severe persistent asthma with acute exacerbation Generalized anxiety disorder Acute kidney injury Chronic atrial fibrillation on anticoagulation with Coumadin Dyslipidemia Coronary artery disease 10/19/2019, patient seen eval examined during the rounds labs reviewed medications reviewed, respiratory status remained and continued to improve, less cough and congestion is present, agree with discharge planning on oral antibiotics and oral tapering prednisone 10/18/2019, patient seen eval examined during the rounds labs reviewed medications reviewed care plan discussed, respiration continued to improve, denies any sputum production, wheezing is improved, patient remains on IV steroids antibiotics and breathing treatment would recommend to change it to oral at the time of discharge agree with discharge planning for tomorrow 10/17/2019, patient seen eval examined during the rounds labs reviewed medications reviewed is still have ongoing cough congestion shortness of breath, cough is mostly nonproductive, she is slightly better today compared to time admission however, patient will still require IV steroids breathing treatments and antibiotics for now will continue current plan of care, noted white cell count is up to 17,000 likely related to steroids, PT/INR is well therapeutic range BUN is up likely related to IV steroids so has sugar 10/16/2019, patient seen eval examined during the rounds labs reviewed medications reviewed care plan discussed, patient remains on IV steroids ant ibiotics breathing is slightly better with still very congested bilateral audible wheezing is present we'll continue current plan of care I'll observe him closely This is a 74-year-old well-known to me from office patient has severe COPD however has a component of 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, patient has been working in the backyard has been having increasing shortness of breath cough and ongoing wheezing which was progressive for the last 2 days decided to come into the hospital for further evaluation as they did not response to nebulizer treatment, patient denies any swelling denies any chest pain abdominal pain denies an nausea vomiting Objective - Vital Signs Vital signs: Vital Signs Temp 95.9 F L 10/19/19 00:30 Pulse 60 10/19/19 00:30 Resp 16 10/19/19 00:30 BP 106/60 10/19/19 00:30 Pulse Ox 97 10/19/19 00:30 Intake & Output 10/18/19 10/18/19 10/19/19 06:59 18:59 06:59 Intake Total 600 888 Balance 600 888 Intake: Oral 600 888 Other: Voiding Method Toilet # Voids 1 1 1 - Exam - Constitutional General appearance: average body habitus, cooperative, disheveled - EENT Eyes: PERRLA ENT: hearing grossly normal Ears: bilateral: normal - Neck Neck: normal ROM Carotids: bilateral: upstroke normal Thyroid: bilateral: normal size - Respiratory Respiratory: bilateral: wheezing, prolonged expiration - Cardiovascular Rhythm: regular Heart sounds: normal: S1, S2 - Gastrointestinal General gastrointestinal: distended, normal bowel sounds, soft - Integumentary Integumentary: normal - Neurologic Neurologic: CNII-XII intact - Musculoskeletal Musculoskeletal: gait normal, generalized weakness, strength equal bilaterally - Psychiatric Psychiatric: A&O x's 3, appropriate affect, intact judgment & insight - Labs CBC & Chem 7: 10/17/19 07:45 10/17/19 07:45 Labs: Abnormal Lab Results - Last 24 Hours (Table) 10/18/19 Range/Units 08:45 PT 33.1 H (9.0-12.0) sec INR 3.4 H (<1.2) Microbiology - Last 24 Hours (Table) 10/15/19 15:17 Blood Culture - Preliminary Blood No Growth after 72 hours Assessment and Plan Assessment: Acute COPD exacerbation Tracheobronchitis Chronic severe persistent asthma with acute exacerbation Hyperglycemia and leukocytosis likely related to steroids as well as ongoing inflammation in the lungs Generalized anxiety disorder Acute kidney injury Chronic atrial fibrillation on anticoagulation with Coumadin Dyslipidemia Coronary artery disease Plan: We will continue bronchodilators and IV steroids and antibiotics continuation of home medications of follow clinical course closely further recommendations pending plan of care as per clinical response of the patient, can be switched to oral tapering prednisone and antibiotics Time with Patient: Greater than 30
[2019-10-19 08:09] VITALS: BP 138/72; RESP 18; TEMP 97.7
[2019-10-19] MEDS: IPRATROPIUM 0.5 MG/2.5 ML NEBU INHALATION SCH (08:20)
[2019-10-19] MEDS: FORMOTEROL FUMARATE 20 MCG/2 ML NEBU INHALATION SCH (08:20)
--- NOTE | 2019-10-19 08:35 | P.DS ---
Providers Date of admission: 10/15/19 14:52 Attending physician: Giovanni Clark Consults: 10/16/19 17:42 Consult Physician Routine Consulting Provider: Flynn Cheung Consult Reason/Comments: Acute exacerbation COPD Do you want consulting provider notified?: Yes Primary care physician: Giovanni Clark - Discharge Diagnosis(es) (1) COPD exacerbation Current Visit: Yes Status: Acute (2) AICD (automatic cardioverter/defibrillator) present Current Visit: No Status: Acute (3) Chronic systolic CHF (congestive heart failure) Current Visit: No Status: Acute (4) HTN (hypertension) Current Visit: No Status: Acute Hospital Course: This discharge summary and a 74-year-old white male essentially admitted for appropriate COPD exacerbation. The patient was stabilized with appropriate protocol. He is discharged home with Zithromax and oral steroids. The patient is tolerating diet without difficulty ambulating on a fairly normal distance for his baseline and will be discharged in stable condition to follow-up with me in about 3-5 days. Patient Condition at Discharge: Stable Plan - Discharge Summary Discharge Rx Participant: No New Discharge Prescriptions: New Ipratropium Nebulized [Atrovent Nebulized 0.2 MG/ML] 0.5 mg INHALATION RT-QID ml predniSONE [Deltasone] 0 mg PO DIRECTED #18 tab Ipratropium-Albuterol Nebulize [Duoneb 0.5 mg-3 mg/3 ml Soln] 3 ml INHALATION RT-Q4H PRN ml PRN Reason: Shortness Of Breath Or Wheezing Formoterol Fumarate [Perforomist] 20 mcg INHALATION RT-BID #60 nebu Azithromycin [Zithromax] 500 mg PO DAILY #3 tab Continue Zolpidem Tartrate [Ambien] 10 mg PO HS PRN PRN Reason: Insomnia Multivitamins, Thera [Multivitamin (formulary)] 1 tab PO DAILY Vitamin B Complex 1 cap PO DAILY Cholecalciferol [Vitamin D3 (25 Mcg = 1000 Iu)] 1,000 unit PO DAILY Aspirin 81 mg PO DAILY #30 chew Atorvastatin [Lipitor] 80 mg PO HS #30 tab Nitroglycerin Sl Tabs [Nitrostat] 0.4 mg SUBLINGUAL Q5M PRN #25 tab PRN Reason: Chest Pain Isosorbide Mononitrate ER [Imdur] 60 mg PO DAILY LORazepam [Ativan] 0.5 mg PO TID PRN PRN Reason: Anxiety carvediloL [Coreg*] 18.75 mg PO BID Warfarin [Coumadin] 2.5 mg PO SUMOTUTHSA Losartan [Cozaar] 100 mg PO DAILY Furosemide [Lasix] 80 mg PO BID Warfarin [Coumadin] 1.25 mg PO WEFR allopurinoL [Zyloprim] 300 mg PO DAILY Umeclidinium Brm/Vilanterol Tr [Anoro Ellipta 62.5-25 Mcg INH] 1 puff INHALATION RT-DAILY Discharge Medication List Zolpidem Tartrate [Ambien] 10 mg PO HS PRN 07/04/15 [History] Multivitamins, Thera [Multivitamin (formulary)] 1 tab PO DAILY 12/17/15 [History] Cholecalciferol [Vitamin D3 (25 Mcg = 1000 Iu)] 1,000 unit PO DAILY 12/22/15 [History] Vitamin B Complex 1 cap PO DAILY 12/22/15 [History] Aspirin 81 mg PO DAILY #30 chew 12/24/15 [Rx] Atorvastatin [Lipitor] 80 mg PO HS #30 tab 12/24/15 [Rx] Nitroglycerin Sl Tabs [Nitrostat] 0.4 mg SUBLINGUAL Q5M PRN #25 tab 12/24/15 [Rx] Isosorbide Mononitrate ER [Imdur] 60 mg PO DAILY 05/27/17 [History] LORazepam [Ativan] 0.5 mg PO TID PRN 05/27/17 [History] carvediloL [Coreg*] 18.75 mg PO BID 03/18/18 [History] Furosemide [Lasix] 80 mg PO BID 05/05/18 [History] Losartan [Cozaar] 100 mg PO DAILY 05/05/18 [History] Warfarin [Coumadin] 1.25 mg PO WEFR 05/05/18 [History] Warfarin [Coumadin] 2.5 mg PO SUMOTUTHSA 05/05/18 [History] Umeclidinium Brm/Vilanterol Tr [Anoro Ellipta 62.5-25 Mcg INH] 1 puff INHALATION RT-DAILY 10/15/19 [History] allopurinoL [Zyloprim] 300 mg PO DAILY 10/15/19 [History] Azithromycin [Zithromax] 500 mg PO DAILY #3 tab 10/19/19 [Rx] Formoterol Fumarate [Perforomist] 20 mcg INHALATION RT-BID #60 nebu 10/19/19 [Rx] Ipratropium Nebulized [Atrovent Nebulized 0.2 MG/ML] 0.5 mg INHALATION RT-QID ml 10/19/19 [Rx] Ipratropium-Albuterol Nebulize [Duoneb 0.5 mg-3 mg/3 ml Soln] 3 ml INHALATION RT-Q4H PRN ml 10/19/19 [Rx] predniSONE [Deltasone] 0 mg PO DIRECTED #18 tab 10/19/19 [Rx] Follow up Appointment(s)/Referral(s): Giovanni Clark MD [Primary Care Provider] - 1-2 days Discharge Disposition: HOME SELF-CARE
[2019-10-19 08:39] LABS: INR 3.2 (<1.2); Prothrombin Time 31.7 sec (9.0-12.0)
[2019-10-19] MEDS: ASPIRIN 81 MG PO SCH (08:59)
[2019-10-19] MEDS: LOSARTAN 50 MG TAB PO SCH (08:59)
[2019-10-19] MEDS: allopurinoL 300 MG TAB PO SCH (08:59)
[2019-10-19] MEDS: AZITHROMYCIN 500 MG TAB PO SCH (08:59)
[2019-10-19] MEDS: ISOSORBIDE MONONITRATE ER 60 MG TAB.ER.24H PO SCH (08:59)
[2019-10-19] MEDS: CHOLECALCIFEROL 1,000 UNIT TAB PO SCH (08:59)
[2019-10-19] MEDS: MULTIVITAMINS, THERA 1 EACH TAB PO SCH (08:59)
[2019-10-19] MEDS: FUROSEMIDE 80 MG TAB PO SCH (08:59)
[2019-10-19] MEDS: carvediloL 12.5 MG TAB PO SCH (09:00)
[2019-10-19 09:08] VITALS: PULSE 64
[2019-10-19] MEDS ORDERED: WARFARIN 2.5 MG TAB PO SCH (18:00)
--- NOTE | 2019-10-21 16:29 | CDI ---
Documentation Clarification Form Date: 10/21/19 From: Vivi Lacey Phone: If you have a question about this query, please contact Alisha Hager, [employer]visor [employer] at [phone] between 8am and 5pm. Admit Date: 10/15/19 Discharge Date:10/19/19 Patient Name: Juan Jackson Visit Number: [id number] ATTENTION: The Clinical Documentation Specialists (CDI) and [facility] Coding Staff appreciate your assistance in clarifying documentation. Please respond to the clarification below the line at the bottom and electronically sign. The CDI & [facility] Coding staff will review the response and follow-up if needed. Please note: Queries are made part of the Legal Health Record. If you have any questions, please contact the author of this message via ITS. Dear Dr. Clark Your patient has a documented diagnosis of [Acute Kidney Injury] documented in the pulmonology notes - which may lack sufficient clinical evidence/support. History/Risk Factors: COPD exacerbation, exacerbation of asthma Clinical Indicators: BUN elevated Baseline BUN/CR/GFR: Current BUN/CR/GFR: Treatment: 1 liter NS bolus Based on the clinical evidence and your professional judgment, do you feel [Acute kidney injury] is a valid diagnosis? Yes, [Acute Kidney Injury] present/active during this admission as evidence by (additional clinical support): No, [Acute Kidney Injury] was ruled out. ---This is the correct choice Other (please specify diagnosis) Unable to determine MTDD
== END 2019-10-19 10:31 | disposition home or self-care (01) | DRG 191 ==
LOC: EC 13:18 → 4SSUR 14:52
PROVIDERS: ADMIT Family Medicine; ATTEND Family Medicine
DX: J44.1 Chronic obstructive pulmonary disease with (acute) exacerbation (principal); J45.51 Severe persistent asthma with (acute) exacerbation; I48.20 Chronic atrial fibrillation, unspecified; I50.22 Chronic systolic (congestive) heart failure; I11.0 Hypertensive heart disease with heart failure; C61 Malignant neoplasm of prostate; D72.829 Elevated white blood cell count, unspecified; E78.5 Hyperlipidemia, unspecified; F41.1 Generalized anxiety disorder; I69.998 Other sequelae following unspecified cerebrovascular disease; H54.62 Unqualified visual loss, left eye, normal vision right eye; I25.10 Atherosclerotic heart disease of native coronary artery without angina pectoris; I25.2 Old myocardial infarction; I49.3 Ventricular premature depolarization; T38.0X5A Adverse effect of glucocorticoids and synthetic analogues, initial encounter; I71.4 Abdominal aortic aneurysm, without rupture; M10.9 Gout, unspecified; M19.90 Unspecified osteoarthritis, unspecified site; R01.1 Cardiac murmur, unspecified; R73.9 Hyperglycemia, unspecified; R79.89 Other specified abnormal findings of blood chemistry; Z79.01 Long term (current) use of anticoagulants; Z79.02 Long term (current) use of antithrombotics/antiplatelets; Z79.82 Long term (current) use of aspirin; Z79.899 Other long term (current) drug therapy; Z98.1 Arthrodesis status; Z95.810 Presence of automatic (implantable) cardiac defibrillator; Z95.5 Presence of coronary angioplasty implant and graft; Z87.891 Personal history of nicotine dependence; Z87.01 Personal history of pneumonia (recurrent); Z80.52 Family history of malignant neoplasm of bladder; Z80.8 Family history of malignant neoplasm of other organs or systems; Z83.3 Family history of diabetes mellitus; Z84.89 Family history of other specified conditions; Z82.3 Family history of stroke; Z84.0 Family history of diseases of the skin and subcutaneous tissue
CPT/HCPCS: 36415; 71046; 80048; 80053; 83605; 83735; 84484; 85025; 85610; 85730; 87040; 93005; 94640; 96361; 96374; 96375; 99291

== ENCOUNTER 2020-02-09 15:22 | Observation (INO) | payer MEDICARE, BC ==
[2020-02-09] MEDS ORDERED: IPRATROPIUM-ALBUTEROL 3 ML NEB INHALATION STA (15:40)
[2020-02-09 16:46] LABS: Anisocytosis Slight; Basophils # (A) 0.1 k/uL (0-0.2); Basophils % (A) 1 %; Eosinophils # (A) 0.2 k/uL (0-0.7); Eosinophils % (A) 2 %; HCT 40.4 % (39.0-53.0); HGB 13.1 gm/dL (13.0-17.5); Hypochromasia Slight; Lymphocytes # (A) 1.3 k/uL (1.0-4.8); Lymphocytes % (A) 14 %; MCH 31.2 pg (25.0-35.0); MCHC 32.3 g/dL (31.0-37.0); MCV 96.6 fL (80.0-100.0); Mean Platelet Volume 9.3; Monocytes # (A) 0.8 k/uL (0-1.0); Monocytes % (A) 9 %; Neutrophils # (A) 6.8 k/uL (1.3-7.7); Neutrophils % (A) 72 %; Platelet Count 196 k/uL (150-450); Poikilocytosis Slight; RBC 4.18 m/uL (4.30-5.90); RDW 16.5 % (11.5-15.5); WBC 9.5 k/uL (3.8-10.6)
--- NOTE | 2020-02-09 16:49 | XR ---
EXAMINATION TYPE: XR chest 2V DATE OF EXAM: 02/09/2020 COMPARISON: 10/15/2019 HISTORY: Chest pain TECHNIQUE: FINDINGS: Heart is enlarged. There is no gross heart failure. There is small area of subsegmental ate lectasis in the right midlung. There is left axillary pacemaker. There is no pleural effusion. There are no hilar masses. Thoracic aorta is atheromatous. IMPRESSION: Cardiomegaly. Mild subsegmental atelectasis. There is clearing of the minimal pulmonary c ongestion compared to old exam. No heart failure.
[2020-02-09 16:52] LABS: Albumin 3.9 g/dL (3.5-5.0); Calcium 9.5 mg/dL (8.4-10.2); Potassium 3.9 mmol/L (3.5-5.1); Total Bilirubin 1.5 mg/dL (0.2-1.3); Total Protein 6.3 g/dL (6.3-8.2)
[2020-02-09 16:55] LABS: INR 2.5 (<1.2); Partial Thromboplastin Time 31.7 sec (22.0-30.0); Prothrombin Time 24.2 sec (9.0-12.0)
[2020-02-09] MEDS ORDERED: SODIUM CHLORIDE 0.9% 500 ML 500 ML IV ONE (16:59)
[2020-02-09] MEDS ORDERED: methylPREDNISolone SOD SUCCI 125 MG/2 ML VIAL IV STA (18:29)
[2020-02-09] MEDS ORDERED: ASPIRIN 81 MG PO STA (18:42)
--- NOTE | 2020-02-09 19:21 | ED ---
General Adult HPI - General Chief complaint: Shortness of Breath Stated complaint: SOB/Bodyaches Time Seen by Provider: 02/09/20 15:36 Source: patient, RN notes reviewed, old records reviewed Mode of arrival: ambulatory Limitations: no limitations - History of Present Illness Initial comments: 74-year-old male patient ED a chief complaint is shortness of breath. Patient reports he does have COPD and his seat breathing has been worsening. He finished a Medrol Dosepak a couple days ago he reports that his CMP is acting up again. He denies any chest pain denies any other acute complaints. Systemic: Pt denies fatigue, fever/chills, rash. Pt denies weakness, night sweats, weight loss. Neuro: Pt denies headache, visual disturbances, syncope or pre-syncope. HEENT: Pt denies ocular discharge or irritation, otalgia, rhinorrhea, pharyngitis or notable lymphadenopathy. Cardiopulmonary: Pt denies chest pain, heart palpitations, dyspnea on exertion. Abdominal/GI: Pt denies abdominal pain, n/v/d. : Pt denies dysuria, burning w/ urination, frequency/urgency. Denies new onset urinary or bowel incontinence. MSK: Pt denies myalgia, loss of strength or function in extremities. Neuro: Pt denies new onset weakness, paresthesias. - Related Data Home Medications Medication Instructions Recorded Confirmed Zolpidem Tartrate [Ambien] 10 mg PO HS PRN 07/04/15 02/09/20 Multivitamins, Thera [Multivitamin 1 tab PO DAILY 12/17/15 02/09/20 (formulary)] Cholecalciferol [Vitamin D3 (25 1,000 unit PO DAILY 12/22/15 02/09/20 Mcg = 1000 Iu)] Vitamin B Complex 1 cap PO DAILY 12/22/15 02/09/20 Isosorbide Mononitrate ER [Imdur] 60 mg PO DAILY 05/27/17 02/09/20 carvediloL [Coreg*] 18.75 mg PO BID 03/18/18 02/09/20 Furosemide [Lasix] 80 mg PO BID@0800,1600 05/05/18 02/09/20 Losartan [Cozaar] 100 mg PO DAILY 05/05/18 02/09/20 Warfarin [Coumadin] 1.25 mg PO TUSA 05/05/18 02/09/20 Warfarin [Coumadin] 2.5 mg PO SUMOWETHFR 05/05/18 02/09/20 Umeclidinium Brm/Vilanterol Tr 1 puff INHALATION RT-DAILY 10/15/19 02/09/20 [Anoro Ellipta 62.5-25 Mcg INH] allopurinoL [Zyloprim] 300 mg PO DAILY 10/15/19 02/09/20 Ipratropium-Albuterol Nebulize 3 ml INHALATION RT-QID 02/09/20 02/09/20 [Duoneb 0.5 mg-3 mg/3 ml Soln] LORazepam [Ativan] 0.5 mg PO TID PRN 02/09/20 02/09/20 Nitroglycerin Sl Tabs [Nitrostat] 0.4 mg SL Q5M PRN 02/09/20 02/09/20 Previous Rx's Medication Instructions Recorded Aspirin 81 mg PO DAILY #30 chew 12/24/15 Atorvastatin [Lipitor] 80 mg PO HS #30 tab 12/24/15 Allergies Allergy/AdvReac Type Severity Reaction Status Date / Time No Known Allergies Allergy Verified 02/09/20 17:40 Review of Systems ROS Statement: Those systems with pertinent positive or pertinent negative responses have been documented in the HPI. ROS Other: All systems not noted in ROS Statement are negative. Past Medical History Past Medical History: Atrial Fibrillation, Coronary Artery Disease (CAD), Heart Failure, COPD, CVA/TIA, Eye Disorder, Hyperlipidemia, Hypertension, Osteoarthritis (OA), Pneumonia Additional Past Medical History / Comment(s): Hx respiratory failure due to exacerbation of COPD. 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 Past Anesthesia/Blood Transfusion Reactions: No Reported Reaction Date of Last Stent Placement:: 2015 Type of Cardiac Device: Permanent Pacemaker, AICD Device Placement Date:: 05/09/10 Past Psychological History: Anxiety Smoking Status: Former smoker Past Alcohol Use History: Daily Past Drug Use History: None Reported - Past Family History Father Family Medical History: CVA/TIA, Dementia Mother Family Medical History: Cancer, CVA/TIA, Diabetes Mellitus, Skin Disorder Additional Family Medical History / Comment(s): Skin cancer. Brother(s) Family Medical History: Cancer Additional Family Medical History / Comment(s): Bladder cancer. General Exam - General Exam Comments Initial Comments: Constitutional: NAD, AOX3, Pt has pleasant affect. HEENT: NC/AT, trachea midline, neck supple, no lymphadenopathy. External ears appear normal, without discharge. Mucous membranes moist. Eyes PERRLA, EOM intact. There is no scleral icterus. No pallor noted. Cardiopulmonary: RRR, no murmurs, rubs or gallops, no JVD noted. Mild wheezing in anterior lung mcmanus resolved after breathing treatment.. No peripheral lisa a. Abdominal exam: Abdomen soft and non-distended. Abdomen non-tender to palpation in all 4 quadrants. Bowel sounds active in LLQ. No hepatosplenomegaly. No ecchymosis Neuro: CN II-XII grossly intact. No nuchal rigidity. No raccon eyes, no bianchi sign, no hemotympanum. No cervical spinal tenderness. MSK: No posterior calf tenderness bilaterally, homans sign negative bilaterally. Posterior tibialis and radial pulse +2 bilaterally. Sensation intact in upper and lower extremities. Full active ROM in upper and lower extremities, 5/5 stregnth. Limitations: no limitations Course Vital Signs 02/09/20 02/09/20 02/09/20 15:25 15:52 15:58 Temperature 97.9 F Pulse Rate 57 L 56 L 63 Respiratory 26 H Rate Blood Pressure 147/83 O2 Sat by Pulse 100 Oximetry 02/09/20 02/09/20 16:35 18:03 Temperature Pulse Rate 76 Respiratory 22 16 Rate Blood Pressure 135/90 O2 Sat by Pulse 98 Oximetry Procedures - [place] Protocol (Time Out) Nurse: Brittany Johnson Medical Decision Making - Medical Decision Making 74-year-old male patient ED for evaluation of shortness of breath. Physical exam mild wheezing resolved after breathing treatment. Laboratory investigations reveal INR 2.5. Patient anticoagulated on warfarin. Mild dehydration. Patient administered fluid bolus. Troponin is elevated. Patient does appear to have chronic leak, but this is slightly elevated from his baseline. Possible 2/2 mild jerson. Coronavirus is negative. Chest x-ray displayed cardiomegaly, clearing of minimal pulmonary congestion. Old exam. EKG is paced. Patient be admitted for \COPD exacerbation with serial troponins. Dr. Ríos accepts admission. Case discussed with Dr. Ramos. - Lab Data Result diagrams: 02/09/20 15:50 02/09/20 15:50 Lab Results 02/09/20 02/09/20 02/09/20 Range/Units 15:50 15:50 15:50 WBC 9.5 (3.8-10.6) k/uL RBC 4.18 L (4.30-5.90) m/uL Hgb 13.1 (13.0-17.5) gm/dL Hct 40.4 (39.0-53.0) % MCV 96.6 (80.0-100.0) fL MCH 31.2 (25.0-35.0) pg MCHC 32.3 (31.0-37.0) g/dL RDW 16.5 H (11.5-15.5) % Plt Count 196 (150-450) k/uL MPV 9.3 Neutrophils % 72 % Lymphocytes % 14 % Monocytes % 9 % Eosinophils % 2 % Basophils % 1 % Neutrophils # 6.8 (1.3-7.7) k/uL Lymphocytes # 1.3 (1.0-4.8) k/uL Monocytes # 0.8 (0-1.0) k/uL Eosinophils # 0.2 (0-0.7) k/uL Basophils # 0.1 (0-0.2) k/uL Hypochromasia Slight Poikilocytosis Slight Anisocytosis Slight PT 24.2 H (9.0-12.0) sec INR 2.5 H (<1.2) APTT 31.7 H (22.0-30.0) sec Sodium 138 (137-145) mmol/L Potassium 3.9 (3.5-5.1) mmol/L Chloride 99 (98-107) mmol/L Carbon Dioxide 33 H (22-30) mmol/L Anion Gap 6 mmol/L BUN 48 H (9-20) mg/dL Creatinine 1.42 H (0.66-1.25) mg/dL Est GFR (CKD-EPI)AfAm 56 (>60 ml/min/1.73 sqM) Est GFR (CKD-EPI)NonAf 49 (>60 ml/min/1.73 sqM) Glucose 176 H (74-99) mg/dL Calcium 9.5 (8.4-10.2) mg/dL Magnesium 2.0 (1.6-2.3) mg/dL Total Bilirubin 1.5 H (0.2-1.3) mg/dL AST 74 H (17-59) U/L ALT 65 H (4-49) U/L Alkaline Phosphatase 97 (38-126) U/L Troponin I (0.000-0.034) ng/mL Total Protein 6.3 (6.3-8.2) g/dL Albumin 3.9 (3.5-5.0) g/dL Coronavirus (PCR) (Not Detectd) 02/09/20 02/09/20 Range/Units 15:50 15:50 WBC (3.8-10.6) k/uL RBC (4.30-5.90) m/uL Hgb (13.0-17.5) gm/dL Hct (39.0-53.0) % MCV (80.0-100.0) fL MCH (25.0-35.0) pg MCHC (31.0-37.0) g/dL RDW (11.5-15.5) % Plt Count (150-450) k/uL MPV Neutrophils % % Lymphocytes % % Monocytes % % Eosinophils % % Basophils % % Neutrophils # (1.3-7.7) k/uL Lymphocytes # (1.0-4.8) k/uL Monocytes # (0-1.0) k/uL Eosinophils # (0-0.7) k/uL Basophils # (0-0.2) k/uL Hypochromasia Poikilocytosis Anisocytosis PT (9.0-12.0) sec INR (<1.2) APTT (22.0-30.0) sec Sodium (137-145) mmol/L Potassium (3.5-5.1) mmol/L Chloride (98-107) mmol/L Carbon Dioxide (22-30) mmol/L Anion Gap mmol/L BUN (9-20) mg/dL Creatinine (0.66-1.25) mg/dL Est GFR (CKD-EPI)AfAm (>60 ml/min/1.73 sqM) Est GFR (CKD-EPI)NonAf (>60 ml/min/1.73 sqM) Glucose (74-99) mg/dL Calcium (8.4-10.2) mg/dL Magnesium (1.6-2.3) mg/dL Total Bilirubin (0.2-1.3) mg/dL AST (17-59) U/L ALT (4-49) U/L Alkaline Phosphatase (38-126) U/L Troponin I 0.113 H* (0.000-0.034) ng/mL Total Protein (6.3-8.2) g/dL Albumin (3.5-5.0) g/dL Coronavirus (PCR) Not Detected (Not Detectd) - EKG Data -: EKG Interpreted by Me (and Dr. Ramos ) EKG Comments: Ventricular rate 66, QRS 218, QT/QTc 554/580. Ventricular paced rhythm, no concern for acute ischemia. Disposition Clinical Impression: COPD exacerbation, Elevated troponin Disposition: ADMITTED IP TO THIS HOSP Condition: Fair Is patient prescribed a controlled substance at d/c from ED?: No Referrals: Giovanni Clark MD [Primary Care Provider] - 1-2 days
[2020-02-09] MEDS: IPRATROPIUM-ALBUTEROL 3 ML NEB INHALATION SCH (20:21)
[2020-02-09] MEDS ORDERED: NITROGLYCERIN SL TABS 0.4 MG TAB SUBLINGUAL PRN (21:46)
[2020-02-09] MEDS ORDERED: ZOLPIDEM 5 MG TAB PO PRN (21:46)
[2020-02-09] MEDS ORDERED: WARFARIN 5 MG TAB PO SCH (22:00)
[2020-02-09] MEDS ORDERED: ATORVASTATIN 80 MG TAB PO SCH (22:00)
[2020-02-09] MEDS: carvediloL 12.5 MG TAB PO SCH (22:32)
[2020-02-09] MEDS: methylPREDNISolone SOD SUCCI 125 MG/2 ML VIAL IV SCH (22:35)
[2020-02-10 06:17] LABS: Glucose,Whole Blood 205 mg/dL (75-99)
[2020-02-10] MEDS: carvediloL 12.5 MG TAB PO SCH (06:24)
[2020-02-10] MEDS: methylPREDNISolone SOD SUCCI 125 MG/2 ML VIAL IV SCH ×2 (06:24→12:03)
[2020-02-10] MEDS: INSULIN ASPART (NovoLOG) 100 UNIT/ML VIAL SQ SCH ×2 (06:25→12:03)
[2020-02-10] MEDS: IPRATROPIUM-ALBUTEROL 3 ML NEB INHALATION SCH ×3 (07:54→15:07)
[2020-02-10] MEDS ORDERED: FUROSEMIDE 80 MG TAB PO SCH (08:00)
[2020-02-10 08:06] LABS: Prothrombin Time 19.9 sec (9.0-12.0)
--- NOTE | 2020-02-10 08:13 | P.CRDCN ---
History of Present Illness Consult date: 02/10/20 Chief complaint: Shortness of breath History of present illness: This is a very pleasant 74-year-old gentleman who sees Dr. Myers in the office o n regular basis with a past medical history significant for coronary artery disease, ischemic cardiomyopathy, the last echo from 2018 showed an ejection fraction between 30-35%, permanent atrial fibrillation, and history of AICD as well as history of prostate cancer who presented to the hospital complaining of shortness of breath. The patient normally does have chronic shortness of breath with exertion but for the last several days he has been more short of breath. He denies any symptoms of chest pain or chest discomfort. No lower extremities edema. No symptoms of fever or chills. No productive cough. No dizziness or lightheadedness and no syncope. He is known to have chronic obstructive pulmonary disease. We consulted to see the patient mainly because of abnormal cardiac enzymes. The EKG showed underlying atrial fibrillation with ventricular paced rhythm. The cardiac enzymes are mildly elevated but they look flat across. Again the patient did not have any symptoms of chest pain or chest discomfort and he is requested to go home. On examination he seems to be euvolemic. The chest is very clear. No lower extremities edema. The patient does not seems to be hyperkalemic. From a cardiovascular standpoint of view, the patient can possibly be discharged home. Past Medical History Past Medical History: Atrial Fibrillation, Coronary Artery Disease (CAD), Heart Failure, COPD, CVA/TIA, Eye Disorder, Hyperlipidemia, Hypertension, O steoarthritis (OA), Pneumonia Additional Past Medical History / Comment(s): Hx respiratory failure due to exacerbation of COPD. 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 Past Anesthesia/Blood Transfusion Reactions: No Reported Reaction Date of Last Stent Placement:: 2015 Type of Cardiac Device: Permanent Pacemaker, AICD Device Placement Date:: 05/09/10 Past Psychological History: Anxiety Additional Psychological History / Comment(s): Pt resides with his spouse. He is independent. He drives. He has a nebulizer. Smoking Status: Former smoker Past Alcohol Use History: Daily Additional Past Alcohol Use History / Comment(s): Pt started smoking as a teen and quit in 1990. He was a ppd smoker. Pt currently has 2 drink of whiskey daily. Aware no use 24 hrs prior to procedure. Past Drug Use History: None Reported - Past Family History Father Family Medical History: CVA/TIA, Dementia Mother Family Medical History: Cancer, CVA/TIA, Diabetes Mellitus, Skin Disorder Additional Family Medical History / Comment(s): Skin cancer. Brother(s) Family Medical History: Cancer Additional Family Medical History / Comment(s): Bladder cancer. Medications and Allergies Home Medications Medication Instructions Recorded Confirmed Type Zolpidem Tartrate [Ambien] 10 mg PO HS PRN 07/04/15 02/09/20 History Multivitamins, Thera [Multivitamin 1 tab PO DAILY 12/17/15 02/09/20 History (formulary)] Cholecalciferol [Vitamin D3 (25 1,000 unit PO DAILY 12/22/15 02/09/20 History Mcg = 1000 Iu)] Vitamin B Complex 1 cap PO DAILY 12/22/15 02/09/20 History Aspirin 81 mg PO DAILY #30 chew 12/24/15 02/09/20 Rx Atorvastatin [Lipitor] 80 mg PO HS #30 tab 12/24/15 02/09/20 Rx Isosorbide Mononitrate ER [Imdur] 60 mg PO DAILY 05/27/17 02/09/20 History carvediloL [Coreg*] 18.75 mg PO BID 03/18/18 02/09/20 History Furosemide [Lasix] 80 mg PO BID@0800,1600 05/05/18 02/09/20 History Losartan [Cozaar] 100 mg PO DAILY 05/05/18 02/09/20 History Warfarin [Coumadin] 1.25 mg PO TUSA 05/05/18 02/09/20 History Warfarin [Coumadin] 2.5 mg PO SUMOWETHFR 05/05/18 02/09/20 History Umeclidinium Brm/Vilanterol Tr 1 puff INHALATION RT-DAILY 10/15/19 02/09/20 History [Anoro Ellipta 62.5-25 Mcg INH] allopurinoL [Zyloprim] 300 mg PO DAILY 10/15/19 02/09/20 History Ipratropium-Albuterol Nebulize 3 ml INHALATION RT-QID 02/09/20 02/09/20 History [Duoneb 0.5 mg-3 mg/3 ml Soln] LORazepam [Ativan] 0.5 mg PO TID PRN 02/09/20 02/09/20 History Nitroglycerin Sl Tabs [Nitrostat] 0.4 mg SL Q5M PRN 02/09/20 02/09/20 History Allergies Allergy/AdvReac Type Severity Reaction Status Date / Time No Known Allergies Allergy Verified 02/09/20 17:40 Physical Exam Vitals: Vital Signs Temp Pulse Pulse Resp BP BP Pulse Ox 02/10/20 08:07 64 02/10/20 07:54 66 02/10/20 03:09 98 F 61 18 143/74 97 02/10/20 02:00 61 18 02/09/20 23:14 94.4 F L 64 17 160/78 100 02/09/20 20:21 68 02/09/20 20:17 97.2 F L 60 18 148/84 97 02/09/20 18:03 76 16 135/90 98 02/09/20 16:35 22 02/09/20 15:58 63 02/09/20 15:52 56 L 02/09/20 15:25 97.9 F 57 L 26 H 147/83 100 Intake and Output 02/09/20 02/10/20 02/10/20 22:59 06:59 14:59 Intake Total 800 Balance 800 Intake: Intake, IV Titration 500 Amount Sodium Chloride 0.9% 500 500 ml 500 ml @ 999 mls/hr IV .Q31M ONE Rx#:[id number] Oral 300 Other: Voiding Method Urinal # Voids 1 Weight 106.594 kg 103.6 kg - Constitutional General appearance: no acute distress - Respiratory Respiratory: bilateral: CTA - Cardiovascular Rhythm: regular Heart sounds: normal: S1, S2 Results 02/09/20 15:50 02/09/20 15:50 Cardiac Enzymes 02/09/20 02/09/20 02/09/20 Range/Units 15:50 15:50 19:34 AST 74 H (17-59) U/L Troponin I 0.113 H* 0.125 H* (0.000-0.034) ng/mL 02/09/20 Range/Units 22:29 AST (17-59) U/L Troponin I 0.134 H* (0.000-0.034) ng/mL Coagulation 02/09/20 02/10/20 Range/Units 15:50 07:20 PT 24.2 H 19.9 H (9.0-12.0) sec APTT 31.7 H (22.0-30.0) sec CBC 02/09/20 Range/Units 15:50 WBC 9.5 (3.8-10.6) k/uL RBC 4.18 L (4.30-5.90) m/uL Hgb 13.1 (13.0-17.5) gm/dL Hct 40.4 (39.0-53.0) % Plt Count 196 (150-450) k/uL Comprehensive Metabolic Panel 02/09/20 Range/Units 15:50 Sodium 138 (137-145) mmol/L Potassium 3.9 (3.5-5.1) mmol/L Chloride 99 (98-107) mmol/L Carbon Dioxide 33 H (22-30) mmol/L BUN 48 H (9-20) mg/dL Creatinine 1.42 H (0.66-1.25) mg/dL Glucose 176 H (74-99) mg/dL Calcium 9.5 (8.4-10.2) mg/dL AST 74 H (17-59) U/L ALT 65 H (4-49) U/L Alkaline Phosphatase 97 (38-126) U/L Total Protein 6.3 (6.3-8.2) g/dL Albumin 3.9 (3.5-5.0) g/dL Current Medications Generic Name Dose Route Start Last Admin Trade Name Freq PRN Reason Stop Dose Admin Albuterol/Ipratropium 3 ml 02/09/20 20:00 02/10/20 07:54 Ipratropium-Albuterol 3 Ml Neb INHALATION 3 ml RT-QID DAVID Administration Allopurinol 300 mg 02/10/20 09:00 Allopurinol 300 Mg Tab PO DAILY DAVID Atorvastatin Calcium 80 mg 02/09/20 22:00 02/09/20 22:32 Atorvastatin 80 Mg Tab PO 80 mg HS DAVID Administration Carvedilol 18.75 mg 02/09/20 22:00 02/10/20 06:24 Carvedilol 12.5 Mg Tab PO 18.75 mg BID-W/MEALS DAVID Administration Cholecalciferol 1,000 unit 02/10/20 09:00 Cholecalciferol 1,000 Unit Tab PO DAILY [facility] Furosemide 80 mg 02/10/20 08:00 Furosemide 80 Mg Tab PO BID@0800,1600 [facility] Insulin Aspart 0 unit 02/10/20 07:30 02/10/20 06:25 Insulin Aspart (Novolog) 100 Unit/Ml Vial SQ 6 unit ACHS [facility] Administration Protocol Isosorbide Mononitrate 60 mg 02/10/20 09:00 Isosorbide Mononitrate Er 30 Mg Tab.Er.24h PO DAILY [facility] Losartan Potassium 100 mg 02/10/20 09:00 Losartan 50 Mg Tab PO DAILY [facility] Methylprednisolone Sodium Succinate 60 mg 02/10/20 00:00 02/10/20 06:24 Methylprednisolone Sod Succi 125 Mg/2 Ml Vial IV 60 mg Q6HR [facility] Administration Miscellaneous Information 0 each 02/10/20 06:58 Warfarin Per Pharmacy MISCELLANE DIRECTED PRN per protocol Multivitamins 1 each 02/10/20 09:00 Multivitamins, Thera 1 Each Tab PO DAILY [facility] Nitroglycerin 0.4 mg 02/09/20 21:46 Nitroglycerin Sl Tabs 0.4 Mg Tab SUBLINGUAL Q5M PRN Chest Pain Warfarin Sodium 1.25 mg 02/11/20 18:00 Warfarin 2.5 Mg Tab PO [id number] [facility] Protocol Warfarin Sodium 2.5 mg 02/09/20 22:00 02/09/20 22:33 Warfarin 5 Mg Tab PO 2.5 mg [id number] [facility] Administration Protocol Zolpidem Tartrate 10 mg 02/09/20 21:46 02/09/20 22:33 Zolpidem 5 Mg Tab PO 10 mg HS PRN Administration Insomnia Intake and Output 02/09/20 02/10/20 02/10/20 22:59 06:59 14:59 Intake Total 800 Balance 800 Intake: Intake, IV Titration 500 Amount Sodium Chloride 0.9% 500 500 ml 500 ml @ 999 mls/hr IV .Q31M ONE Rx#:[id number] Oral 300 Other: Voiding Method Urinal # Voids 1 Weight 106.594 kg 103.6 kg 02/09/20 15:50 02/09/20 15:50 Assessment and Plan Assessment: Assessment #1 increasing shortness of breath which has improved #2 known chronic obstructive pulmonary disease #3 known ischemic cardiomyopathy #4 known coronary artery disease #5 mildly abnormal troponin likely secondary to hypoxemia #6 multiple comorbid conditions including permanent atrial fibrillation Plan #1 the patient is euvolemic on examination #2 continue the aspirin and statin and beta armen #3 the patient can be discharged home.
[2020-02-10] MEDS ORDERED: NON FORMULARY DRUG (Vitamin B Complex [Vitamin B Complex] 1 EACH Capsule) PO SCH (09:00)
[2020-02-10] MEDS ORDERED: LOSARTAN 50 MG TAB PO SCH (09:00)
[2020-02-10] MEDS ORDERED: MULTIVITAMINS, THERA 1 EACH TAB PO SCH (09:00)
[2020-02-10] MEDS ORDERED: ISOSORBIDE MONONITRATE ER 30 MG TAB.ER.24H PO SCH (09:00)
[2020-02-10] MEDS ORDERED: CHOLECALCIFEROL 1,000 UNIT TAB PO SCH (09:00)
[2020-02-10] MEDS ORDERED: allopurinoL 300 MG TAB PO SCH (09:00)
[2020-02-10] MEDS ORDERED: LORazepam 0.5 MG TAB PO PRN (10:40)
[2020-02-10 11:53] LABS: Glucose,Whole Blood 217 mg/dL (75-99)
[2020-02-10 14:42] VITALS: BP 129/69; RESP 16; TEMP 97.3
[2020-02-10 15:11] VITALS: PULSE 64
--- NOTE | 2020-02-10 15:50 | P.CNPUL ---
History of Present Illness Consult date: 02/10/20 Reason for consult: dyspnea, cough, asthma, COPD Chief complaint: Shortness of breath History of present illness: This is a 74-year-old male well-known to me patient has a history of COPD and chronic persistent severe asthma has been intermittently on steroids, patient given the hospital with progressive increased shortness of breath cough and wheezing, he has a recent Medrol Dosepak course with that symptoms improve for a bitx significant for COPD-like changes some clearing of the interstitial edema however noted, he shouldn't has a significant history of ischemic cardiomyopathy coronary artery disease, he likely has obstructive sleep apnea but continued decline polysomnogram however Review of Systems All systems: negative Past Medical History Past Medical History: Atrial Fibrillation, Coronary Artery Disease (CAD), Heart Failure, COPD, CVA/TIA, Eye Disorder, Hyperlipidemia, Hypertension, Osteoarthritis (OA), Pneumonia Additional Past Medical History / Comment(s): Hx respiratory failure due to exacerbation of COPD. 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 Past Anesthesia/Blood Transfusion Reactions: No Reported Reaction Date of Last Stent Placement:: 2015 Type of Cardiac Device: Permanent Pacemaker, AICD Device Placement Date:: 05/09/10 Past Psychological History: Anxiety Additional Psychological History / Comment(s): Pt resides with his spouse. He is independent. He drives. He has a nebulizer. Smoking Status: Former smoker Past Alcohol Use History: Daily Additional Past Alcohol Use History / Comment(s): Pt started smoking as a teen and quit in 1990. He was a ppd smoker. Pt currently has 2 drink of whiskey daily. Aware no use 24 hrs prior to procedure. Past Drug Use History: None Reported - Past Family History Father Family Medical History: CVA/TIA, Dementia Mother Family Medical History: Cancer, CVA/TIA, Diabetes Mellitus, Skin Disorder Additional Family Medical History / Comment(s): Skin cancer. Brother(s) Family Medical History: Cancer Additional Family Medical History / Comment(s): Bladder cancer. Medications and Allergies Home Medications Medication Instructions Recorded Confirmed Type Zolpidem Tartrate [Ambien] 10 mg PO HS PRN 07/04/15 02/09/20 History Multivitamins, Thera [Multivitamin 1 tab PO DAILY 12/17/15 02/09/20 History (formulary)] Cholecalciferol [Vitamin D3 (25 1,000 unit PO DAILY 12/22/15 02/09/20 History Mcg = 1000 Iu)] Vitamin B Complex 1 cap PO DAILY 12/22/15 02/09/20 History Aspirin 81 mg PO DAILY #30 chew 12/24/15 02/09/20 Rx Atorvastatin [Lipitor] 80 mg PO HS #30 tab 12/24/15 02/09/20 Rx Isosorbide Mononitrate ER [Imdur] 60 mg PO DAILY 05/27/17 02/09/20 History carvediloL [Coreg*] 18.75 mg PO BID 03/18/18 02/09/20 History Furosemide [Lasix] 80 mg PO BID@0800,1600 05/05/18 02/09/20 History Losartan [Cozaar] 100 mg PO DAILY 05/05/18 02/09/20 History Warfarin [Coumadin] 1.25 mg PO TUSA 05/05/18 02/09/20 History Warfarin [Coumadin] 2.5 mg PO SUMOWETHFR 05/05/18 02/09/20 History Umeclidinium Brm/Vilanterol Tr 1 puff INHALATION RT-DAILY 10/15/19 02/09/20 History [Anoro Ellipta 62.5-25 Mcg INH] allopurinoL [Zyloprim] 300 mg PO DAILY 10/15/19 02/09/20 History Ipratropium-Albuterol Nebulize 3 ml INHALATION RT-QID 02/09/20 02/09/20 History [Duoneb 0.5 mg-3 mg/3 ml Soln] LORazepam [Ativan] 0.5 mg PO TID PRN 02/09/20 02/09/20 History Nitroglycerin Sl Tabs [Nitrostat] 0.4 mg SL Q5M PRN 02/09/20 02/09/20 History predniSONE See Taper PO DIRECTED #18 tab 02/10/20 Rx Allergies Allergy/AdvReac Type Severity Reaction Status Date / Time No Known Allergies Allergy Verified 02/09/20 17:40 Physical Exam Vitals: Vital Signs Temp Pulse Pulse Resp BP BP Pulse Ox 02/10/20 15:20 64 02/10/20 15:08 64 02/10/20 14:00 77 16 02/10/20 12:00 97.3 F L 77 16 129/69 97 02/10/20 11:26 64 02/10/20 11:13 64 02/10/20 08:07 64 02/10/20 08:00 98.0 F 77 16 124/72 96 02/10/20 07:54 66 02/10/20 03:09 98 F 61 18 143/74 97 02/10/20 02:00 61 18 02/09/20 23:14 94.4 F L 64 17 160/78 100 02/09/20 20:21 68 02/09/20 20:17 97.2 F L 60 18 148/84 97 02/09/20 18:03 76 16 135/90 98 02/09/20 16:35 22 02/09/20 15:58 63 02/09/20 15:52 56 L Intake and Output 02/10/20 02/10/20 02/10/20 06:59 14:59 22:59 Intake Total 840 Balance 840 Intake: Oral 840 Other: Voiding Method Urinal Urinal # Voids 1 Weight 103.6 kg - Constitutional General appearance: average body habitus, cooperative, disheveled - EENT Eyes: EOMI, PERRLA ENT: normal oropharynx Ears: bilateral: normal - Neck Carotids: bilateral: upstroke normal Thyroid: bilateral: normal size - Respiratory Respiratory: bilateral: CTA - Cardiovascular Rhythm: regular Heart sounds: normal: S1, S2 - Gastrointestinal General gastrointestinal: decreased bowel sounds, distended - Neurologic Neurologic: CNII-XII intact - Musculoskeletal Musculoskeletal: gait normal, generalized weakness, strength equal bilaterally - Psychiatric Psychiatric: A&O x's 3, appropriate affect, intact judgment & insight Results - Laboratory Findings CBC and BMP: 02/09/20 15:50 02/09/20 15:50 PT/INR, D-dimer PT 19.9 sec (9.0-12.0) H 02/10/20 07:20 INR 2.0 (<1.2) H 02/10/20 07:20 Abnormal lab findings: Abnormal Labs 02/09/20 02/09/20 02/09/20 15:50 15:50 15:50 RBC 4.18 L RDW 16.5 H PT 24.2 H INR 2.5 H APTT 31.7 H Carbon Dioxide 33 H BUN 48 H Creatinine 1.42 H Glucose 176 H POC Glucose (mg/dL) Total Bilirubin 1.5 H AST 74 H ALT 65 H Troponin I 02/09/20 02/09/20 02/09/20 15:50 19:34 22:29 RBC RDW PT INR APTT Carbon Dioxide BUN Creatinine Glucose POC Glucose (mg/dL) Total Bilirubin AST ALT Troponin I 0.113 H* 0.125 H* 0.134 H* 02/10/20 02/10/20 02/10/20 06:15 07:20 11:51 RBC RDW PT 19.9 H INR 2.0 H APTT Carbon Dioxide BUN Creatinine Glucose POC Glucose (mg/dL) 205 H 217 H Total Bilirubin AST ALT Troponin I - Diagnostic Findings Chest x-ray: report reviewed, image reviewed Assessment and Plan Assessment: Acute COPD exacerbation Exacerbation of congestive heart failure acute systolic heart failure responded well with diuresis History of chronic asthma and asthmatic bronchitis likely severe persistent Sleep disorder breathing and sleep apnea Plan: Patient appeared to be responded well with diuresis and IV steroids, agree with discharge planning on tapering steroids will follow up on outpatient basis Time with Patient: Greater than 30
[2020-02-11] MEDS ORDERED: WARFARIN 1.25 MG TAB PO SCH (18:00)
== END 2020-02-10 15:29 | disposition home or self-care (01) ==
LOC: EC 15:22 → 3SCARD 19:51
PROVIDERS: ADMIT Hospitalist; ATTEND Hospitalist
DX: J44.1 Chronic obstructive pulmonary disease with (acute) exacerbation (principal); J45.50 Severe persistent asthma, uncomplicated; E86.0 Dehydration; I48.21 Permanent atrial fibrillation; I25.10 Atherosclerotic heart disease of native coronary artery without angina pectoris; I11.0 Hypertensive heart disease with heart failure; I50.21 Acute systolic (congestive) heart failure; I69.998 Other sequelae following unspecified cerebrovascular disease; H54.62 Unqualified visual loss, left eye, normal vision right eye; E78.5 Hyperlipidemia, unspecified; M19.90 Unspecified osteoarthritis, unspecified site; I25.5 Ischemic cardiomyopathy; R01.1 Cardiac murmur, unspecified; I71.4 Abdominal aortic aneurysm, without rupture; M10.9 Gout, unspecified; C61 Malignant neoplasm of prostate; K46.9 Unspecified abdominal hernia without obstruction or gangrene; Z20.828 Contact with and (suspected) exposure to other viral communicable diseases; I25.2 Old myocardial infarction; F41.9 Anxiety disorder, unspecified; G47.30 Sleep apnea, unspecified; Z79.899 Other long term (current) drug therapy; Z79.01 Long term (current) use of anticoagulants; Z87.01 Personal history of pneumonia (recurrent); Z87.09 Personal history of other diseases of the respiratory system; Z95.810 Presence of automatic (implantable) cardiac defibrillator; Z98.890 Other specified postprocedural states; Z95.5 Presence of coronary angioplasty implant and graft; Z98.1 Arthrodesis status; Z87.891 Personal history of nicotine dependence; Z82.3 Family history of stroke; Z81.8 Family history of other mental and behavioral disorders; Z83.3 Family history of diabetes mellitus; Z80.8 Family history of malignant neoplasm of other organs or systems; Z80.52 Family history of malignant neoplasm of bladder
CPT/HCPCS: 96376 ×2; 93005 ×2; 96361; 96374; 99285; 36415; 94640 ×4; 80053; 83735; 84484; 85025; 85610 ×2; 85730; 87635; 71046; G0378 ×2; J2930 ×2

== ENCOUNTER → 2020-02-22 | Outpatient (CLI) | payer MEDICARE, BC | END | disposition home or self-care (01) | LOC: LABWHC1 10:50 | PROVIDERS: ATTEND Radiology Radiation Oncology | DX: C61 Malignant neoplasm of prostate (principal); Z87.891 Personal history of nicotine dependence | CPT/HCPCS: 36415; 84153 ==

== ENCOUNTER → 2020-03-05 | Outpatient (CLI) | payer MEDICARE, BC ==
[2020-03-05 14:29] LABS: Potassium 3.6 mmol/L (3.5-5.1)
[2020-03-05 14:38] LABS: Anisocytosis Slight; Basophils # (A) 0.1 k/uL (0-0.2); Basophils % (A) 1 %; Eosinophils # (A) 0.1 k/uL (0-0.7); Eosinophils % (A) 2 %; HGB 11.6 gm/dL (13.0-17.5); Hypochromasia Slight; Lymphocytes # (A) 1.1 k/uL (1.0-4.8); Lymphocytes % (A) 20 %; MCH 30.2 pg (25.0-35.0); MCHC 31.4 g/dL (31.0-37.0); MCV 96.2 fL (80.0-100.0); Mean Platelet Volume 9.7; Monocytes # (A) 0.6 k/uL (0-1.0); Monocytes % (A) 10 %; Neutrophils # (A) 3.7 k/uL (1.3-7.7); Neutrophils % (A) 64 %; Platelet Count 152 k/uL (150-450); Poikilocytosis Slight; RBC 3.85 m/uL (4.30-5.90); RDW 16.9 % (11.5-15.5); WBC 5.8 k/uL (3.8-10.6)
== END | disposition home or self-care (01) ==
LOC: LABPAT 13:28
PROVIDERS: ATTEND Surgery
DX: Z01.818 Encounter for other preprocedural examination (principal); I74.3 Embolism and thrombosis of arteries of the lower extremities
CPT/HCPCS: 36415; 80051; 82565; 84520; 85025

== ENCOUNTER 2020-03-13 08:54 | Day surgery (SDC) | payer MEDICARE, BC ==
[2020-03-09 15:35] VITALS: BMI 33.0
[~2020-03-13 08:54] MED LIST changes: -ALPRAZolam 0.5 MG TAB PO PRN; +ASPIRIN 325 MG TAB PO PRN; -ASPIRIN 325 MG TAB PO STA; -ATORVASTATIN 80 MG TAB PO STA; -HEPARIN SODIUM 1,000 UN/ML (10ML VL) IV ONE; -HEPARIN SODIUM 1,000 UN/ML (10ML VL) ONE; -IOPAMIDOL-370 100ML BTL INJ ONE; -LIDOCAINE 1% INJ 10MG/ML (20 ML MDV) ONE; -LIDOCAINE 1% INJ 10MG/ML (20 ML MDV) SQ ONE; -MIDAZOLAM (PF) 2 MG/2 ML VIAL IVP ONE; -NITROGLYCERIN SL TABS 0.4 MG TAB SUBLINGUAL PRN; -SODIUM CHLORIDE 0.9% 1,000 ML IV SCH; -VERAPAMIL 2.5 MG/ML 2 ML AMP ONE
[2020-03-13] MEDS ORDERED: SODIUM CHLORIDE 0.9% 1,000 ML IV ONE (09:01)
[2020-03-13 09:27] VITALS: RESP 16; TEMP 97.7
[2020-03-13] MEDS ORDERED: SODIUM CHLORIDE 0.9% 1,000 ML IV SCH (09:30)
[2020-03-13 09:39] LABS: INR 1.3 (<1.2); Prothrombin Time 12.9 sec (9.0-12.0)
[2020-03-13] MEDS ORDERED: HEPARIN SODIUM 1,000 UN/ML (10ML VL) ONE (10:07)
[2020-03-13] MEDS ORDERED: VERAPAMIL 2.5 MG/ML 2 ML AMP ONE (10:08)
[2020-03-13] MEDS ORDERED: LIDOCAINE 1% INJ 10MG/ML (20 ML MDV) ONE (10:08)
[2020-03-13] MEDS: MIDAZOLAM 2 MG/2 ML VIAL IV ONE ×2 (10:15→10:20)
[2020-03-13] MEDS ORDERED: LIDOCAINE 1% INJ 10MG/ML (10 ML MDV) SQ ONE (10:18)
[2020-03-13] MEDS ORDERED: IOPAMIDOL-250 100ML BTL INTRAARTER ONE ×3 (10:50)
[2020-03-13] MEDS ORDERED: fentaNYL (PF) 50 MCG/ML 2 ML AMP ONE (10:54)
[2020-03-13] MEDS ORDERED: fentaNYL (PF) 50 MCG/ML 2 ML AMP IV ONE (10:56)
[2020-03-13 13:23] VITALS: PULSE 60
--- NOTE | 2020-03-13 14:15 | IR ---
Fluoroscopy HISTORY: Pain 3.7 minutes fluoroscopy time supplied to the referring clinician. 200 intraoperative C-arm images do cument the procedure. See dictated report from vascular surgery.
[2020-03-13 14:56] VITALS: BP 136/78
--- NOTE | 2020-03-15 07:43 | P.OP ---
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 No evidence of stenosis. Celiac: Chronic total occlusion at the takeoff with reconstitution just distal approximately 2 cm. SMA: Widely patent without any significant atherosclerotic disease or stenosis. KRIS: Not well visualized due to aneurysm. Iliacs: Right common iliac artery demonstrates 50% stenosis at the takeoff. Left common iliac artery is widely patent without any significant calcification or stenosis. Bilateral internal iliac arteries are patent with mild atherosclerotic disease. Right external iliac artery is widely patent with mild atherosclerotic disease without any evidence of stenosis. Left external iliac artery is occluded with reconstitution at the femoral artery. Femorals: Bilateral common femoral arteries are patent with moderate atherosclerotic disease and calcification. No severe stenosis noted. Profundus femoris and superficial femoral arteries appear to be patent. Popliteal: Bilateral popliteal arteries are patent without any significant atherosclerotic disease or stenosis. Tibials: Bilateral three-vessel takeoff. Right anterior tibial and posterior tibial arteries are occluded just after takeoff. One-vessel runoff to the ankle. Left anterior tibial and posterior tibial arteries are diseased and contrast was difficult to follow to the ankle appears to have some stenosis or occlusion at the distal aspect of the anterior and posterior tibial arteries. Operative narrative: After written informed consent was obtained the patient all risks benefits competitions were described the patient is brought to the [facility] and laid in a supine position. The area of the left wrist was prepped and draped in the usual sterile fashion. Local anesthesia with moderate sedation was performed with continuous pulse ox monitoring and EKG monitoring. Utilizing ultrasound the left radial artery was visualized and shown to be patent without any significant plaque. Utilizing a multipurpose needle under ultrasound guidance the artery was accessed. Guidewire was placed followed by 5-Kiswahili sheath. 035 Glidewire was then placed into the aorta followed by pigtail catheter. Angiogram was then obtained of the aorta. Catheter was then placed at the bifurcation and lower extremity runoffs were obtained. Once completed all guidewires, catheters and sheaths were removed and pressure was placed for hemostasis. Patient tolerated procedure well was sent to PACU for recovery
== END 2020-03-13 14:55 | disposition home or self-care (01) ==
LOC: CATHCVL 08:54
PROVIDERS: ATTEND Surgery
DX: I70.213 Atherosclerosis of native arteries of extremities with intermittent claudication, bilateral legs (principal); I70.92 Chronic total occlusion of artery of the extremities; I70.8 Atherosclerosis of other arteries; I74.5 Embolism and thrombosis of iliac artery; I71.4 Abdominal aortic aneurysm, without rupture; K55.1 Chronic vascular disorders of intestine; K43.9 Ventral hernia without obstruction or gangrene; J44.9 Chronic obstructive pulmonary disease, unspecified; I10 Essential (primary) hypertension; Z79.899 Other long term (current) drug therapy; Z79.01 Long term (current) use of anticoagulants; Z79.82 Long term (current) use of aspirin; Z98.890 Other specified postprocedural states; Z95.0 Presence of cardiac pacemaker; Z96.9 Presence of functional implant, unspecified
CPT/HCPCS: 36200; 75625; 75716; 85610; C1769 ×5; C1894 ×2; J2250; J3010; J2001; J1644; Q9966

== ENCOUNTER 2020-03-24 13:51 | Inpatient (IN) | payer MEDICARE, BC ==
[2020-03-24] MEDS ORDERED: IPRATROPIUM-ALBUTEROL 3 ML NEB INHALATION STA (14:26)
[2020-03-24] MEDS ORDERED: methylPREDNISolone SOD SUCCI 125 MG/2 ML VIAL IV STA (14:26)
[2020-03-24 14:39] LABS: Anisocytosis Slight; Basophils # (A) 0.1 k/uL (0-0.2); Basophils % (A) 1 %; Eosinophils # (A) 0.1 k/uL (0-0.7); Eosinophils % (A) 1 %; HGB 12.3 gm/dL (13.0-17.5); Hypochromasia Moderate; Lymphocytes # (A) 1.2 k/uL (1.0-4.8); Lymphocytes % (A) 15 %; MCH 30.6 pg (25.0-35.0); MCHC 32.2 g/dL (31.0-37.0); MCV 94.9 fL (80.0-100.0); Mean Platelet Volume 10.1; Monocytes # (A) 0.8 k/uL (0-1.0); Monocytes % (A) 10 %; Neutrophils # (A) 5.6 k/uL (1.3-7.7); Neutrophils % (A) 70 %; Platelet Count 143 k/uL (150-450); Poikilocytosis Slight; RBC 4.01 m/uL (4.30-5.90); RDW 17.3 % (11.5-15.5)
--- NOTE | 2020-03-24 14:48 | XR ---
EXAMINATION TYPE: XR chest 2V DATE OF EXAM: 03/24/2020 COMPARISON: 02/09/2020. HISTORY: Shortness of breath. TECHNIQUE: Frontal and lateral views of the chest are obtained. FINDINGS: There is diffuse mild hazy opacity. No significant pleural effusion, or pneumothorax seen. The cardiac silhouette size is enlarged. Left pacemaker is seen. The osseous structures are intact . IMPRESSION: Suggestion of mild CHF.
[2020-03-24 14:49] LABS: Albumin 3.8 g/dL (3.5-5.0); Calcium 9.7 mg/dL (8.4-10.2); Magnesium 1.9 mg/dL (1.6-2.3); Total Bilirubin 1.2 mg/dL (0.2-1.3); Total Protein 6.2 g/dL (6.3-8.2)
[2020-03-24 14:59] LABS: INR 1.5 (<1.2); Partial Thromboplastin Time 26.6 sec (22.0-30.0); Prothrombin Time 15.1 sec (9.0-12.0)
--- NOTE | 2020-03-24 14:59 | ED ---
General Adult HPI - General Chief complaint: Shortness of Breath Stated complaint: Weakness, Bad heart Time Seen by Provider: 03/24/20 14:06 Source: patient, family, RN notes reviewed Mode of arrival: ambulatory Limitations: no limitations - History of Present Illness Initial comments: 75-year-old male with a past medical history of atrial fibrillation, CAD, heart failure, COPD, stable AAA presents to the emergency room for a chief shortness of breath. Patient reports that for the past 2-3 days he has had increased shortness of breath. Patient reports he does have a history of COPD and he has been coughing more than normal. He reports he has also noticed more swelling throughout his body especially in his legs. He does take Lasix. Patient denies fevers or chills. Patient denies chest pain.Patient has no other complaints at this time including chest pain, abdominal pain, nausea or vomiting, headache, or visual changes. - Related Data Home Medications Medication Instructions Recorded Confirmed Zolpidem Tartrate [Ambien] 10 mg PO HS PRN 07/04/15 03/13/20 Multivitamins, Thera [Multivitamin 1 tab PO DAILY 12/17/15 03/13/20 (formulary)] Cholecalciferol [Vitamin D3 (25 1,000 unit PO DAILY 12/22/15 03/13/20 Mcg = 1000 Iu)] Vitamin B Complex 1 cap PO DAILY 12/22/15 03/13/20 Isosorbide Mononitrate ER [Imdur] 60 mg PO DAILY 05/27/17 03/13/20 carvediloL [Coreg*] 18.75 mg PO BID 03/18/18 03/13/20 Furosemide [Lasix] 80 mg PO BID@0800,1600 05/05/18 03/13/20 Losartan [Cozaar] 100 mg PO DAILY 05/05/18 03/13/20 Warfarin [Coumadin] 1.25 mg PO TUSA 05/05/18 03/09/20 Warfarin [Coumadin] 2.5 mg PO SUMOWETHFR 05/05/18 03/09/20 Umeclidinium Brm/Vilanterol Tr 1 puff INHALATION RT-DAILY 10/15/19 03/13/20 [Anoro Ellipta 62.5-25 Mcg INH] allopurinoL [Zyloprim] 300 mg PO DAILY 10/15/19 03/13/20 Ipratropium-Albuterol Nebulize 3 ml INHALATION RT-QID 02/09/20 03/13/20 [Duoneb 0.5 mg-3 mg/3 ml Soln] LORazepam [Ativan] 0.5 mg PO TID PRN 02/09/20 03/13/20 Nitroglycerin Sl Tabs [Nitrostat] 0.4 mg SL Q5M PRN 02/09/20 03/09/20 Previous Rx's Medication Instructions Recorded Aspirin 81 mg PO DAILY #30 chew 12/24/15 Atorvastatin [Lipitor] 80 mg PO HS #30 tab 12/24/15 Allergies Allergy/AdvReac Type Severity Reaction Status Date / Time No Known Allergies Allergy Verified 03/24/20 13:57 Review of Systems ROS Statement: Those systems with pertinent positive or pertinent negative responses have been documented in the HPI. ROS Other: All systems not noted in ROS Statement are negative. Past Medical History Past Medical History: Atrial Fibrillation, Coronary Artery Disease (CAD), Cancer , Heart Failure, COPD, CVA/TIA, Eye Disorder, Hyperlipidemia, Hypertension, Osteoarthritis (OA), Pneumonia Additional Past Medical History / Comment(s): Hx respiratory failure due to exacerbation of COPD. 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 Hernia. Last Myocardial Infarction Date:: 2015 History of Any Multi-Drug Resistant Organisms: None Reported Past Surgical History: AICD, Back Surgery, Heart Catheterization With Stent, Pacemaker Additional Past Surgical History / Comment(s): Stents(3), low back fusion, oral surgery. Past Anesthesia/Blood Transfusion Reactions: Motion Sickness Date of Last Stent Placement:: 2015 Type of Cardiac Device: Permanent Pacemaker, AICD Device Placement Date:: 05/09/10 Past Psychological History: Anxiety Smoking Status: Former smoker Past Alcohol Use History: Daily Past Drug Use History: None Reported - Past Family History Father Family Medical History: CVA/TIA, Dementia Mother Family Medical History: Cancer, CVA/TIA, Diabetes Mellitus, Skin Disorder Additional Family Medical History / Comment(s): Skin cancer. Brother(s) Family Medical History: Cancer Additional Family Medical History / Comment(s): Bladder cancer. General Exam Limitations: no limitations General appearance: alert, in no apparent distress Head exam: Present: atraumatic Eye exam: Present: normal appearance, PERRL, EOMI ENT exam: Present: normal exam, mucous membranes moist Neck exam: Present: normal inspection, full ROM. Absent: tenderness Respiratory exam: Present: wheezes, rales. Absent: respiratory distress Cardiovascular Exam: Present: regular rate, normal rhythm, normal heart sounds GI/Abdominal exam: Present: soft, normal bowel sounds. Absent: distended, tenderness, guarding, rebound, rigid Neurological exam: Present: alert Course Vital Signs 03/24/20 03/24/20 03/24/20 13:55 15:03 15:17 Temperature 99.3 F Pulse Rate 57 L 60 62 Respiratory 28 H Rate Blood Pressure 115/65 O2 Sat by Pulse 97 Oximetry EKG Findings - EKG Comments: EKG Findings:: Ventricular paced rhythm, ventricular rate 60, IA interval 212, QTC 552 Medical Decision Making - Medical Decision Making Patient presents slightly tachypnic with some mild shortness of breath however no respiratory distress. 97 - 100% on 2L. Patient is complaining of increased fluid on his legs. He is also wheezy on exam and has an increased cough. No fevers or white blood Gross ecchymosis. The patient likely experiencing both CH F exacerbation as well as COPD exacerbation. CBC is unremarkable. Patient does take Coumadin, INR is 1.5. CMP does reveal some evidence of dehydration however patient does have fluid overload with mild CHF noted on chest x-ray and BNP of 2000. Troponin of 0.063 Appears chronically elevated. Patient does not have any chest pain. Coronavirus negative. Patient was given a dose of IV Lasix here in the emergency room. Also given Solu-Medrol and DuoNeb. Given patient is already on 80 mg by mouth twice a day Lasix at home as well as doing his breathing treatments every 4 hours and worsening he will be admitted. Patient will be started on every six-hour steroids and DuoNeb times. Heart healthy diet ordered. Home medications were not updated on time of admission and therefore were not ordered. - Lab Data Result diagrams: 03/24/20 14:27 03/24/20 14:27 Lab Results 03/24/20 03/24/20 03/24/20 Range/Units 14:27 14:27 14:27 WBC 8.0 (3.8-10.6) k/uL RBC 4.01 L (4.30-5.90) m/uL Hgb 12.3 L (13.0-17.5) gm/dL Hct 38.0 L (39.0-53.0) % MCV 94.9 (80.0-100.0) fL MCH 30.6 (25.0-35.0) pg MCHC 32.2 (31.0-37.0) g/dL RDW 17.3 H (11.5-15.5) % Plt Count 143 L (150-450) k/uL MPV 10.1 Neutrophils % 70 % Lymphocytes % 15 % Monocytes % 10 % Eosinophils % 1 % Basophils % 1 % Neutrophils # 5.6 (1.3-7.7) k/uL Lymphocytes # 1.2 (1.0-4.8) k/uL Monocytes # 0.8 (0-1.0) k/uL Eosinophils # 0.1 (0-0.7) k/uL Basophils # 0.1 (0-0.2) k/uL Hypochromasia Moderate Poikilocytosis Slight Anisocytosis Slight PT 15.1 H (9.0-12.0) sec INR 1.5 H (<1.2) APTT 26.6 (22.0-30.0) sec Sodium 142 (137-145) mmol/L Potassium 4.0 (3.5-5.1) mmol/L Chloride 102 (98-107) mmol/L Carbon Dioxide 30 (22-30) mmol/L Anion Gap 10 mmol/L BUN 45 H (9-20) mg/dL Creatinine 1.37 H (0.66-1.25) mg/dL Est GFR (CKD-EPI)AfAm 58 (>60 ml/min/1.73 sqM) Est GFR (CKD-EPI)NonAf 50 (>60 ml/min/1.73 sqM) Glucose 121 H (74-99) mg/dL Plasma Lactic Acid Chuy (0.7-2.0) mmol/L Calcium 9.7 (8.4-10.2) mg/dL Magnesium 1.9 (1.6-2.3) mg/dL Total Bilirubin 1.2 (0.2-1.3) mg/dL AST 51 (17-59) U/L ALT 30 (4-49) U/L Alkaline Phosphatase 120 (38-126) U/L Troponin I (0.000-0.034) ng/mL NT-Pro-B Natriuret Pep pg/mL Total Protein 6.2 L (6.3-8.2) g/dL Albumin 3.8 (3.5-5.0) g/dL Coronavirus (PCR) (Not Detectd) 03/24/20 03/24/20 03/24/20 Range/Units 14:27 14:27 14:27 WBC (3.8-10.6) k/uL RBC (4.30-5.90) m/uL Hgb (13.0-17.5) gm/dL Hct (39.0-53.0) % MCV (80.0-100.0) fL MCH (25.0-35.0) pg MCHC (31.0-37.0) g/dL RDW (11.5-15.5) % Plt Count (150-450) k/uL MPV Neutrophils % % Lymphocytes % % Monocytes % % Eosinophils % % Basophils % % Neutrophils # (1.3-7.7) k/uL Lymphocytes # (1.0-4.8) k/uL Monocytes # (0-1.0) k/uL Eosinophils # (0-0.7) k/uL Basophils # (0-0.2) k/uL Hypochromasia Poikilocytosis Anisocytosis PT (9.0-12.0) sec INR (<1.2) APTT (22.0-30.0) sec Sodium (137-145) mmol/L Potassium (3.5-5.1) mmol/L Chloride (98-107) mmol/L Carbon Dioxide (22-30) mmol/L Anion Gap mmol/L BUN (9-20) mg/dL Creatinine (0.66-1.25) mg/dL Est GFR (CKD-EPI)AfAm (>60 ml/min/1.73 sqM) Est GFR (CKD-EPI)NonAf (>60 ml/min/1.73 sqM) Glucose (74-99) mg/dL Plasma Lactic Acid Chuy 1.9 (0.7-2.0) mmol/L Calcium (8.4-10.2) mg/dL Magnesium (1.6-2.3) mg/dL Total Bilirubin (0.2-1.3) mg/dL AST (17-59) U/L ALT (4-49) U/L Alkaline Phosphatase (38-126) U/L Troponin I 0.063 H* (0.000-0.034) ng/mL NT-Pro-B Natriuret Pep 2290 pg/mL Total Protein (6.3-8.2) g/dL Albumin (3.5-5.0) g/dL Coronavirus (PCR) (Not Detectd) 03/24/20 Range/Units 14:27 WBC (3.8-10.6) k/uL RBC (4.30-5.90) m/uL Hgb (13.0-17.5) gm/dL Hct (39.0-53.0) % MCV (80.0-100.0) fL MCH (25.0-35.0) pg MCHC (31.0-37.0) g/dL RDW (11.5-15.5) % Plt Count (150-450) k/uL MPV Neutrophils % % Lymphocytes % % Monocytes % % Eosinophils % % Basophils % % Neutrophils # (1.3-7.7) k/uL Lymphocytes # (1.0-4.8) k/uL Monocytes # (0-1.0) k/uL Eosinophils # (0-0.7) k/uL Basophils # (0-0.2) k/uL Hypochromasia Poikilocytosis Anisocytosis PT (9.0-12.0) sec INR (<1.2) APTT (22.0-30.0) sec Sodium (137-145) mmol/L Potassium (3.5-5.1) mmol/L Chloride (98-107) mmol/L Carbon Dioxide (22-30) mmol/L Anion Gap mmol/L BUN (9-20) mg/dL Creatinine (0.66-1.25) mg/dL Est GFR (CKD-EPI)AfAm (>60 ml/min/1.73 sqM) Est GFR (CKD-EPI)NonAf (>60 ml/min/1.73 sqM) Glucose (74-99) mg/dL Plasma Lactic Acid Chuy (0.7-2.0) mmol/L Calcium (8.4-10.2) mg/dL Magnesium (1.6-2.3) mg/dL Total Bilirubin (0.2-1.3) mg/dL AST (17-59) U/L ALT (4-49) U/L Alkaline Phosphatase (38-126) U/L Troponin I (0.000-0.034) ng/mL NT-Pro-B Natriuret Pep pg/mL Total Protein (6.3-8.2) g/dL Albumin (3.5-5.0) g/dL Coronavirus (PCR) Not Detected (Not Detectd) Disposition Clinical Impression: CHF exacerbation, COPD exacerbation, Elevated troponin Disposition: ADMITTED IP TO THIS HOSP Referrals: Giovanni Clark MD [Primary Care Provider] - 1-2 days Time of Disposition: 15:40
[2020-03-24] MEDS ORDERED: FUROSEMIDE 10 MG/ML 4 ML VIAL IV STA (15:07)
[2020-03-24] MEDS ORDERED: TEMAZEPAM 15 MG CAP PO PRN (17:42)
[2020-03-24] MEDS ORDERED: HYDROcodone/APAP 5-325MG 1 EACH TAB PO PRN (17:42)
[2020-03-24] MEDS ORDERED: WARFARIN 3 MG TAB PO ONE (18:00)
[2020-03-24] MEDS: carvediloL 12.5 MG TAB PO SCH (18:16)
[2020-03-24] MEDS: methylPREDNISolone SOD SUCCI 125 MG/2 ML VIAL IV SCH ×2 (18:29→23:06)
[2020-03-24 19:59] LABS: Glucose,Whole Blood 230 mg/dL (75-99)
[2020-03-24] MEDS: IPRATROPIUM-ALBUTEROL 3 ML NEB INHALATION SCH (20:04)
--- NOTE | 2020-03-24 20:17 | HP ---
HISTORY AND PHYSICAL DATE OF SERVICE: 03/24/2020 I am covering for Dr. Clark. CHIEF COMPLAINT: Shortness of breath. HISTORY OF PRESENT ILLNESS: This 75-year-old gentleman with a past medical history of atrial fibrillation/ablation, CAD, history of CHF, COPD, hypertension, hyperlipidemia, DJD, being followed by Dr. Clark and Dr. Laird in the outpatient setting is complaining of shortness of breath. The patient also had evidence of bilateral leg swelling. Patient also having difficulty breathing and because of increasing difficulty, the patient decided to come to the hospital and the patient admitted for further evaluation and treatment. Chest x- ray showed some early CHF. Otherwise, there is no history of fever, rigors or chills. No history of headache, loss of consciousness, seizures. Ejection fraction was found to be about 30 to 35% in the 2D echo done in 2018. A Covid-19 rapid test was negative. Troponin found to be 0.063 on admission. PAST MEDICAL HISTORY: Atrial fibrillation, CAD, CHF, COPD, CVA, TIA, hypertension, hyperlipidemia, DJD, history of AICD, CAD stent. MEDICATIONS: Medications prior to admission include: Anoro Ellipta, Nitrostat, Ativan, Ambien. Coumadin, vitamin B complex, multivitamin, Cozaar. DuoNeb, Coreg, Imdur, Lasix, vitamin D3, Lipitor, Zyloprim, doses are reviewed. ALLERGIES: None. FAMILY HISTORY: History of CVA, TIA, dementia, skin cancer in the family. SOCIAL HISTORY: Previous history of smoking. No history of alcohol intake. REVIEW OF SYSTEMS: ENT: No diminished vision. No diminished hearing. CARDIOVASCULAR: As mentioned earlier. RESPIRATORY: As mentioned earlier. GI: No nausea. No vomiting. : No dysuria. NERVOUS SYSTEM: No numbness, weakness. ALLERGY/IMMUNOLOGY: No asthma, hay fever. MUSCULOSKELETAL: As mentioned earlier. HEMATOLOGY/ONCOLOGY: No history of anemia. ENDOCRINE: No history of diabetes or hypothyroidism. CONSTITUTIONAL: As mentioned earlier. DERMATOLOGY: Negative. RHEUMATOLOGY negative. PSYCHIATRY as mentioned earlier. PHYSICAL EXAM: Patient is alert and oriented x3. Pulse 57, blood pressure 115/60, respiration 20, temperature 99.2, pulse ox 97% on 2 L. HEENT: Conjunctivae normal. NECK: No JVD. CARDIOVASCULAR: S1, S2 muffled. RESPIRATORY SYSTEM: Breath sounds diminished at the bases. A few scattered rhonchi and crackles. ABDOMEN: Soft, nontender. No mass palpable. LEGS: Bilateral leg edema. NERVOUS SYSTEM: Higher functions as mentioned earlier. Moves all 4 limbs. No focal motor or sensory deficits. LYMPHATICS: No lymph nodes palpable in the neck, axillae or groin. SKIN: No ulcer, rashes or bleeding. JOINTS: No active deforming arthropathy. LABS: WBC 18, hemoglobin 12.3, platelets 143. INR 1.5. Creatinine is 1.37. Troponin 0.063. ASSESSMENT: 1. Shortness of breath multifactorial, congestive heart failure acute exacerbation, acute on chronic systolic dysfunction, ejection fraction 30 to 35%. 2. Chronic obstructive pulmonary disease, acute exacerbation. 3. Possible acute purulent tracheobronchitis. 4. Anemia, normocytic anemia of chronic disease. 5. Mild thrombocytopenia. 6. Coumadin monitoring. 7. Increased creatinine with chronic kidney disease stage 3. 8. Troponin 0.0663, indeterminate, rule out acute [id number]-elevation myocardial infarction. 9. History of atrial fibrillation. 10.History of coronary artery disease/stent. 11.History of AICD. 12.History of chronic obstructive pulmonary disease. 13.Cerebrovascular accident, transient ischemic attack. 14.Hypertension. 15.Hyperlipidemia. 16.Degenerative joint disease. 17.History of pneumonia. 18.History of abdominal aortic aneurysm. 19.History of gout. 20.History of prostate cancer. 21.History of back surgery, degenerative joint disease. 22.History of anxiety. 23.Previous history of nicotine dependence. 24.Obesity with body mass index 33.5. RECOMMENDATIONS AND DISCUSSION: In this 75-year-old gentleman who presented with multiple complex medical issues, at this time, I recommend to continue the current medications, management and symptomatic treatment. We will initiate Lasix 60 mg IV q.8. Otherwise would also recommend fluid restriction. Course of empiric antibiotics, bronchodilators. Resume the home medications. DVT prophylaxis. Monitor PT, INR closely. Overall prognosis guarded because of the multiple complex medical issues which I discussed with the patient at length. Copy of this dictation forwarded to Dr. Clark who is the primary physician. The home medication reconciliation done and appropriate medications ordered. A 2D echo with Doppler also will be requested. MMODL / IJN: [id number] /
[2020-03-24 20:29] LABS: Appearance,Urine Clear (Clear); Bilirubin,Urine Negative (Negative); Blood,Urine Negative (Negative); Color,Urine Yellow; Glucose,Urine (UA) Negative (Negative); Ketones,Urine Negative (Negative); Leukocyte Esterase,Urine Negative (Negative); Nitrite,Urine Negative (Negative); Protein,Urine Trace (Negative); Specific Gravity,Urine 1.011 (1.001-1.035); Urobilinogen,Urine <2.0 mg/dL (<2.0)
[2020-03-24] MEDS ORDERED: WARFARIN 2.5 MG TAB PO SCH (21:00)
[2020-03-24] MEDS: INSULIN ASPART (NovoLOG) 100 UNIT/ML VIAL SQ SCH (21:08)
[2020-03-24] MEDS: LOSARTAN 50 MG TAB PO SCH (21:08)
[2020-03-24] MEDS: ATORVASTATIN 80 MG TAB PO SCH (21:08)
[2020-03-24] MEDS: ZOLPIDEM 10 MG TAB PO SCH (21:08)
[2020-03-24] MEDS: ISOSORBIDE MONONITRATE ER 30 MG TAB.ER.24H PO SCH (21:08)
[2020-03-24] MEDS: FUROSEMIDE 10 MG/ML 10 ML VIAL IV SCH (23:06)
[2020-03-25] MEDS ORDERED: FUROSEMIDE 10 MG/ML 4 ML VIAL IV SCH
[2020-03-25 06:11] LABS: Glucose,Whole Blood 160 mg/dL (75-99)
[2020-03-25] MEDS: methylPREDNISolone SOD SUCCI 125 MG/2 ML VIAL IV SCH ×4 (06:53→23:56)
[2020-03-25] MEDS: INSULIN ASPART (NovoLOG) 100 UNIT/ML VIAL SQ SCH ×4 (06:53→21:01)
[2020-03-25] MEDS: carvediloL 12.5 MG TAB PO SCH ×2 (06:54→17:04)
[2020-03-25 08:36] LABS: Calcium 9.4 mg/dL (8.4-10.2); Potassium 4.1 mmol/L (3.5-5.1)
[2020-03-25] MEDS: IPRATROPIUM 0.5 MG/2.5 ML NEBU INHALATION SCH ×4 (08:49→20:20)
[2020-03-25] MEDS: IPRATROPIUM-ALBUTEROL 3 ML NEB INHALATION SCH ×4 (08:50→19:55)
[2020-03-25] MEDS: FORMOTEROL FUMARATE 20 MCG/2 ML NEBU INHALATION SCH ×2 (08:50→19:55)
[2020-03-25 08:52] LABS: INR 1.6 (<1.2); Prothrombin Time 15.7 sec (9.0-12.0)
[2020-03-25 09:05] LABS: Anisocytosis Slight; HGB 11.4 gm/dL (13.0-17.5); Hypochromasia Marked; MCH 29.4 pg (25.0-35.0); MCHC 30.7 g/dL (31.0-37.0); MCV 95.7 fL (80.0-100.0); Macrocytosis Slight; Mean Platelet Volume 10.6; Platelet Count 149 k/uL (150-450); Poikilocytosis Slight; RBC 3.87 m/uL (4.30-5.90); RDW 17.6 % (11.5-15.5); WBC 7.1 k/uL (3.8-10.6)
[2020-03-25] MEDS: MULTIVITAMINS, THERA 1 EACH TAB PO SCH (09:29)
[2020-03-25] MEDS: LOSARTAN 50 MG TAB PO SCH ×2 (09:29→21:02)
[2020-03-25] MEDS: CHOLECALCIFEROL 25 MCG (1000 IU) TABLET PO SCH (09:29)
[2020-03-25] MEDS: allopurinoL 300 MG TAB PO SCH (09:29)
[2020-03-25] MEDS: LORazepam 0.5 MG TAB PO PRN ×3 (09:29→21:02)
[2020-03-25] MEDS: ISOSORBIDE MONONITRATE ER 30 MG TAB.ER.24H PO SCH ×2 (09:29→21:02)
[2020-03-25] MEDS: FUROSEMIDE 10 MG/ML 10 ML VIAL IV SCH ×3 (09:29→23:54)
[2020-03-25] MEDS: ASPIRIN 81 MG PO SCH (09:29)
[2020-03-25] MEDS: NON FORMULARY DRUG (Vitamin B Complex [Vitamin B Complex] 1 EACH Capsule) PO SCH (09:30)
--- NOTE | 2020-03-25 10:16 | P.CNPUL ---
History of Present Illness Consult date: 03/25/20 Reason for consult: dyspnea, asthma, COPD Chief complaint: Progressive shortness of breath and increased leg swelling History of present illness: 75-year-old well-known to me with prior history of severe COPD as well as component of asthmatic bronchitis sleep disorder breathing and sleep apnea but History, also has a history of chronic atrial fibrillation and peripheral vascular disease came into the hospital with progressive increasing worsening swelling of the lower extremity as well as increasing shortness of breath, patient has been on Coumadin for anticoagulation, also on bronchodilator without any significant relief, past medical history significant for cardiac cath angiogram and stent placement status post pacemaker, AICD, patient has a history of smoking in the past quit several years ago however, on arrival he was febrile with temperature of 99.3 hemodynamic status otherwise were stable tachypneic, BNP over 2 thousand patient responded well with IV Lasix also have received IV Solu-Medrol, initial chest x-ray suggestive of congestive heart failure fluid overload and interstitial edema, currently on Rocephin IV steroids bronchodilator as well as diuretics, patient was noted to be wheezy on arrival, troponin slightly high, Covid 19 is negative Past Medical History Past Medical History: Atrial Fibrillation, Coronary Artery Disease (CAD), Cancer, Heart Failure, COPD, CVA/TIA, Eye Disorder, Hyperlipidemia, Hypertension, Osteoarthritis (OA), Pneumonia Additional Past Medical History / Comment(s): Hx respiratory failure due to e xacerbation of COPD. 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 Hernia. Last Myocardial Infarction Date:: 2015 History of Any Multi-Drug Resistant Organisms: None Reported Past Surgical History: AICD, Back Surgery, Heart Catheterization With Stent, Pacemaker Additional Past Surgical History / Comment(s): Stents(3), low back fusion, oral surgery. Past Anesthesia/Blood Transfusion Reactions: Motion Sickness Date of Last Stent Placement:: 2015 Type of Cardiac Device: Permanent Pacemaker, AICD Device Placement Date:: 05/09/10 Past Psychological History: Anxiety Additional Psychological History / Comment(s): Pt resides with his spouse. He is independent. He drives. He has a nebulizer. Smoking Status: Former smoker Past Alcohol Use History: Daily Additional Past Alcohol Use History / Comment(s): Pt started smoking as a teen and quit in 1990. He was a ppd smoker. Pt currently has 2 drinks of whiskey daily. Aware no use 24 hrs prior to procedure. Past Drug Use History: None Reported - Past Family History Father Family Medical History: CVA/TIA, Dementia Mother Family Medical History: Cancer, CVA/TIA, Diabetes Mellitus, Skin Disorder Additional Family Medical History / Comment(s): Skin cancer. Brother(s) Family Medical History: Cancer Additional Family Medical History / Comment(s): Bladder cancer. Medications and Allergies Home Medications Medication Instructions Recorded Confirmed Type Zolpidem Tartrate [Ambien] 10 mg PO HS 07/04/15 03/24/20 History Multivitamins, Thera [Multivitamin 1 tab PO DAILY 12/17/15 03/24/20 History (formulary)] Vitamin B Complex 1 cap PO DAILY 12/22/15 03/24/20 History Aspirin 81 mg PO DAILY #30 chew 12/24/15 03/24/20 Rx Atorvastatin [Lipitor] 80 mg PO HS #30 tab 12/24/15 03/24/20 Rx Isosorbide Mononitrate ER [Imdur] 30 mg PO BID 05/27/17 03/24/20 History carvediloL [Coreg*] 18.75 mg PO BID 03/18/18 03/24/20 History Furosemide [Lasix] 80 mg PO BID@0800,1600 05/05/18 03/24/20 History Losartan [Cozaar] 50 mg PO BID 05/05/18 03/24/20 History Warfarin [Coumadin] 2.5 mg PO HS 05/05/18 03/24/20 History Umeclidinium Brm/Vilanterol Tr 1 puff INHALATION RT-DAILY 10/15/19 03/24/20 History [Anoro Ellipta 62.5-25 Mcg INH] allopurinoL [Zyloprim] 300 mg PO DAILY 10/15/19 03/24/20 History Ipratropium-Albuterol Nebulize 3 ml INHALATION RT-QID 02/09/20 03/24/20 History [Duoneb 0.5 mg-3 mg/3 ml Soln] LORazepam [Ativan] 0.5 mg PO TID PRN 02/09/20 03/24/20 History Nitroglycerin Sl Tabs [Nitrostat] 0.4 mg SL Q5M PRN 02/09/20 03/24/20 History Cholecalciferol [Vitamin D3 (25 25 mcg PO DAILY 03/24/20 03/24/20 History Mcg = 1000 Iu)] Allergies Allergy/AdvReac Type Severity Reaction Status Date / Time No Known Allergies Allergy Verified 03/24/20 15:45 Physical Exam Vitals: Vital Signs Temp Pulse Pulse Resp BP BP Pulse Ox 03/25/20 09:09 60 03/25/20 09:01 58 L 03/25/20 09:00 58 L 03/25/20 08:50 58 L 03/25/20 04:00 97.7 F 60 18 111/63 97 03/24/20 23:24 97.5 F L 60 17 110/66 95 03/24/20 20:16 62 03/24/20 20:06 62 03/24/20 20:00 97.5 F L 60 18 125/79 99 03/24/20 17:05 97.8 F 60 19 120/83 100 03/24/20 15:17 62 03/24/20 15:03 60 03/24/20 13:55 99.3 F 57 L 28 H 115/65 97 Intake and Output 03/24/20 03/25/20 03/25/20 22:59 06:59 14:59 Intake Total 120 240 Output Total 200 500 Balance -80 -500 240 Intake: Oral 120 240 Output: Urine 200 500 Other: # Voids 1 Weight 108.862 kg 111.2 kg - Constitutional General appearance: cooperative, disheveled, morbidly obese - EENT Eyes: PERRLA Ears: bilateral: normal - Neck Carotids: bilateral: upstroke normal - Respiratory Respiratory: bilateral: diminished - Cardiovascular Rhythm: regular Heart sounds: normal: S1, S2 - Gastrointestinal General gastrointestinal: normal bowel sounds - Integumentary Integumentary: normal, normal turgor - Neurologic Neurologic: CNII-XII intact - Musculoskeletal Musculoskeletal: gait normal, generalized weakness, strength equal bilaterally Results - Laboratory Findings CBC and BMP: 03/25/20 07:00 03/25/20 07:00 PT/INR, D-dimer PT 15.7 sec (9.0-12.0) H 03/25/20 07:00 INR 1.6 (<1.2) H 03/25/20 07:00 Abnormal lab findings: Abnormal Labs 03/24/20 03/24/20 03/24/20 14:27 14:27 14:27 RBC 4.01 L Hgb 12.3 L Hct 38.0 L MCHC RDW 17.3 H Plt Count 143 L PT 15.1 H INR 1.5 H BUN 45 H Creatinine 1.37 H Glucose 121 H POC Glucose (mg/dL) Troponin I Total Protein 6.2 L Urine Protein 03/24/20 03/24/20 03/24/20 14:27 16:58 19:58 RBC Hgb Hct MCHC RDW Plt Count PT INR BUN Creatinine Glucose POC Glucose (mg/dL) 230 H Troponin I 0.063 H* 0.062 H* Total Protein Urine Protein 03/24/20 03/24/20 03/25/20 20:09 20:59 06:09 RBC Hgb Hct MCHC RDW Plt Count PT INR BUN Creatinine Glucose POC Glucose (mg/dL) 160 H Troponin I 0.053 H* Total Protein Urine Protein Trace H 03/25/20 03/25/20 03/25/20 07:00 07:00 07:00 RBC 3.87 L Hgb 11.4 L Hct 37.0 L MCHC 30.7 L RDW 17.6 H Plt Count 149 L PT 15.7 H INR 1.6 H BUN 47 H Creatinine 1.36 H Glucose 146 H POC Glucose (mg/dL) Troponin I Total Protein Urine Protein - Diagnostic Findings Chest x-ray: report reviewed, image reviewed Assessment and Plan Assessment: Acute COPD exacerbation Acute on chronic systolic heart failure Non-ST segment elevated GA Peripheral arterial disease Chronic severe persistent asthmatic bronchitis Baseline COPD Baseline obstructive sleep apnea but patient declined evaluation Ischemic cardiomyopathy Plan: Continue bronchodilator Deep breathing exercise incentive spirometry IV steroids, however we'll start tapering it down in next 24 hours Antibiotics Diuresis Further recommendations pending plan of care as per clinical response of the patient Time with Patient: Greater than 30
[2020-03-25 11:43] LABS: Glucose,Whole Blood 214 mg/dL (75-99)
[2020-03-25 11:53] LABS: Lymphocytes # (M) 0.36 k/uL (1.0-4.8); Monocytes # (M) 0.14 k/uL (0-1.0); Neutrophils % (M) 93 %; Nucleated Red Blood Cells 0 /100 WBC (0-0); Total Cells Counted 100
--- NOTE | 2020-03-25 12:30 | P.CRDCN ---
History of Present Illness Consult date: 03/25/20 Requesting physician: Ariel Worley Reason for Consult (text): dyspnea, CHF, elevated troponin Chief complaint: shortness of breath, edema History of present illness: This pleasant 75-year-old gentleman thousand the office with Dr. JOE Myers. He has a past medical history of CAD with prior PCI, ischemic cardiomyopathy, status post AICD, hypertension, COPD, hyperlipidemia, past history of smoking, prostate cancer, chronic persistent atrial fibrillation, and PAD for which he has been following with Dr Perry. Presented to the emergency department with complaints of progressively worsening shortness of breath as well as lower extremity edema. He has apparently not been compliant with his diet at home and does not follow a low-sodium diet. He's currently been taking Lasix 80 mg by mouth twice a day at home. His x-ray on admission suggestive of mild CHF. EKG on admission showed atrial fibrillation with ventricular paced rhythm. The patient's most recent cardiac catheterization done in August 2018 showed no significant disease in the RCA and circumflex which were previously stented, 15- 20% narrowing in the body of the left main and 35% proximal lesion in the LAD which is unchanged from previous. Laboratory values were reviewed and show a hemoglobin of 12.3, INR 1.5 with a repeat this morning of 1.6, BUN 45, creatinine 1.37, NT proBNP of 2290 and troponin levels mildly elevated at 0.063, 0.062 and 0.053. Vital signs have been stable. He is currently on aspirin 81 mg by mouth daily, Lipitor 80 mg by mouth daily at bedtime, carvedilol 18.75 mg by mouth twice a day, IV ceftriaxone was added by pulmonary, Lasix 60 mg IV push every 8 hours, isosorbide 30 mg by mouth twice a day, Cozaar 50 mg by mouth twice a day, IV Solu-Medrol, Coumadin 3 mg has been ordered for today with dosing to be done per pharmacy. Upon examination the patient is sitting up at the site of the bed. His breathing is better he continues to have some edema. He denies having any chest discomfort. He has had no dizziness, lightheadedness, palpitations, orthopnea or PND. Past Medical History Past Medical History: Atrial Fibrillation, Coronary Artery Disease (CAD), Cancer, Heart Failure, COPD, CVA/TIA, Eye Disorder, Hyperlipidemia, Hypertension, Osteoarthritis (OA), Pneumonia Additional Past Medical History / Comment(s): Hx respiratory failure due to exacerbation of COPD. 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 Hernia. Last Myocardial Infarction Date:: 2015 History of Any Multi-Drug Resistant Organisms: None Reported Past Surgical History: AICD, Back Surgery, Heart Catheterization With Stent, Pacemaker Additional Past Surgical History / Comment(s): Stents(3), low back fusion, oral surgery. Past Anesthesia/Blood Transfusion Reactions: Motion Sickness Date of Last Stent Placement:: 2015 Type of Cardiac Device: Permanent Pacemaker, AICD Device Placement Date:: 05/09/10 Past Psychological History: Anxiety Additional Psychological History / Comment(s): Pt resides with his spouse. He is independent. He drives. He has a nebulizer. Smoking Status: Former smoker Past Alcohol Use History: Daily Additional Past Alcohol Use History / Comment(s): Pt started smoking as a teen and quit in 1990. He was a ppd smoker. Pt currently has 2 drinks of whiskey daily. Aware no use 24 hrs prior to procedure. Past Drug Use History: None Reported - Past Family History Father Family Medical History: CVA/TIA, Dementia Mother Family Medical History: Cancer, CVA/TIA, Diabetes Mellitus, Skin Disorder Additional Family Medical History / Comment(s): Skin cancer. Brother(s) Family Medical History: Cancer Additional Family Medical History / Comment(s): Bladder cancer. Medications and Allergies Home Medications Medication Instructions Recorded Confirmed Type Zolpidem Tartrate [Ambien] 10 mg PO HS 07/04/15 03/24/20 History Multivitamins, Thera [Multivitamin 1 tab PO DAILY 12/17/15 03/24/20 History (formulary)] Vitamin B Complex 1 cap PO DAILY 12/22/15 03/24/20 History Aspirin 81 mg PO DAILY #30 chew 12/24/15 03/24/20 Rx Atorvastatin [Lipitor] 80 mg PO HS #30 tab 12/24/15 03/24/20 Rx Isosorbide Mononitrate ER [Imdur] 30 mg PO BID 05/27/17 03/24/20 History carvediloL [Coreg*] 18.75 mg PO BID 03/18/18 03/24/20 History Furosemide [Lasix] 80 mg PO BID@0800,1600 05/05/18 03/24/20 History Losartan [Cozaar] 50 mg PO BID 05/05/18 03/24/20 History Warfarin [Coumadin] 2.5 mg PO HS 05/05/18 03/24/20 History Umeclidinium Brm/Vilanterol Tr 1 puff INHALATION RT-DAILY 10/15/19 03/24/20 History [Anoro Ellipta 62.5-25 Mcg INH] allopurinoL [Zyloprim] 300 mg PO DAILY 10/15/19 03/24/20 History Ipratropium-Albuterol Nebulize 3 ml INHALATION RT-QID 02/09/20 03/24/20 History [Duoneb 0.5 mg-3 mg/3 ml Soln] LORazepam [Ativan] 0.5 mg PO TID PRN 02/09/20 03/24/20 History Nitroglycerin Sl Tabs [Nitrostat] 0.4 mg SL Q5M PRN 02/09/20 03/24/20 History Cholecalciferol [Vitamin D3 (25 25 mcg PO DAILY 03/24/20 03/24/20 History Mcg = 1000 Iu)] Allergies Allergy/AdvReac Type Severity Reaction Status Date / Time No Known Allergies Allergy Verified 03/24/20 15:45 Physical Exam Vitals: Vital Signs Temp Pulse Pulse Resp BP BP Pulse Ox 03/25/20 09:09 60 03/25/20 09:01 58 L 03/25/20 09:00 58 L 03/25/20 08:50 58 L 03/25/20 08:20 97 F L 61 18 119/68 99 03/25/20 04:00 97.7 F 60 18 111/63 97 03/24/20 23:24 97.5 F L 60 17 110/66 95 03/24/20 20:16 62 03/24/20 20:06 62 03/24/20 20:00 97.5 F L 60 18 125/79 99 03/24/20 17:05 97.8 F 60 19 120/83 100 03/24/20 15:17 62 03/24/20 15:03 60 03/24/20 13:55 99.3 F 57 L 28 H 115/65 97 Intake and Output 03/24/20 03/25/20 03/25/20 22:59 06:59 14:59 Intake Total 120 240 Output Total 200 500 Balance -80 -500 240 Intake: Oral 120 240 Output: Urine 200 500 Other: # Voids 1 Weight 108.862 kg 111.2 kg PHYSICAL EXAMINATION: This is a 75-year-old male in no apparent distress at the time of my examination. VITAL SIGNS: Blood pressure 119/68, heart rate 58, respirations 18, temp 97F axillary. Patient is 99 % on room air. HEENT: Head is atraumatic, normocephalic. Pupils are equal, round. Sclerae anicteric. Conjunctivae are clear. Mucous membranes of the mouth are moist. Neck is supple. There is no elevated jugular venous pressure. No carotid bruit is heard. CHEST EXAMINATION: Lungs reveal diminished air entry bilaterally. No wheezes rales or rhonchi. Respirations even and nonlabored. HEART EXAMINATION: Heart regular, positive S1 and S2 with systolic murmur. ABDOMEN: Soft, nontender. Bowel sounds are heard. No organomegaly noted. EXTREMITIES: Diminished peripheral pulses with evidence of mild peripheral edema and no calf tenderness noted. NEUROLOGIC EXAMINATION: Patient is awake, alert and oriented x3. Results 03/25/20 07:00 03/25/20 07:00 Cardiac Enzymes 03/24/20 03/24/20 03/24/20 Range/Units 14:27 14:27 16:58 AST 51 (17-59) U/L Troponin I 0.063 H* 0.062 H* (0.000-0.034) ng/mL 03/24/20 Range/Units 20:59 AST (17-59) U/L Troponin I 0.053 H* (0.000-0.034) ng/mL Coagulation 03/24/20 03/25/20 Range/Units 14:27 07:00 PT 15.1 H 15.7 H (9.0-12.0) sec APTT 26.6 (22.0-30.0) sec CBC 03/24/20 03/25/20 Range/Units 14:27 07:00 WBC 8.0 7.1 (3.8-10.6) k/uL RBC 4.01 L 3.87 L (4.30-5.90) m/uL Hgb 12.3 L 11.4 L (13.0-17.5) gm/dL Hct 38.0 L 37.0 L (39.0-53.0) % Plt Count 143 L 149 L (150-450) k/uL Comprehensive Metabolic Panel 03/24/20 03/25/20 Range/Units 14:27 07:00 Sodium 142 138 (137-145) mmol/L Potassium 4.0 4.1 (3.5-5.1) mmol/L Chloride 102 100 (98-107) mmol/L Carbon Dioxide 30 27 (22-30) mmol/L BUN 45 H 47 H (9-20) mg/dL Creatinine 1.37 H 1.36 H (0.66-1.25) mg/dL Glucose 121 H 146 H (74-99) mg/dL Calcium 9.7 9.4 (8.4-10.2) mg/dL AST 51 (17-59) U/L ALT 30 (4-49) U/L Alkaline Phosphatase 120 (38-126) U/L Total Protein 6.2 L (6.3-8.2) g/dL Albumin 3.8 (3.5-5.0) g/dL Current Medications Generic Name Dose Route Start Last Admin Trade Name Freq PRN Reason Stop Dose Admin Hydrocodone Bitart/Acetaminophen 1 each 03/24/20 17:42 Hydrocodone/Apap 5-325mg 1 Each Tab PO Q6HR PRN Pain Albuterol/Ipratropium 3 ml 03/24/20 20:00 03/25/20 12:12 Ipratropium-Albuterol 3 Ml Neb INHALATION 3 ml RT-QID DAVID Administration Allopurinol 300 mg 03/25/20 09:00 03/25/20 09:29 Allopurinol 300 Mg Tab PO 300 mg DAILY DAVID Administration Aspirin 81 mg 03/25/20 09:00 03/25/20 09:29 Aspirin 81 Mg PO 81 mg DAILY DAVID Administration Atorvastatin Calcium 80 mg 03/24/20 21:00 03/24/20 21:08 Atorvastatin 80 Mg Tab PO 80 mg HS DAVID Administration Carvedilol 18.75 mg 03/24/20 18:00 03/25/20 06:54 Carvedilol 12.5 Mg Tab PO 18.75 mg AC-BID DAVID Administration Cholecalciferol 25 mcg 03/25/20 09:00 03/25/20 09:29 Cholecalciferol 25 Mcg (1000 Iu) Tablet PO 25 mcg DAILY DAVID Administration Formoterol Fumarate 20 mcg 03/25/20 08:00 03/25/20 08:50 Formoterol Fumarate 20 Mcg/2 Ml Nebu INHALATION 20 mcg RT-BID DAVID Administration Furosemide 60 mg 03/25/20 00:00 03/25/20 09:29 Furosemide 10 Mg/Ml 10 Ml Vial IV 60 mg Q8HR DAVID Administration Ceftriaxone Sodium 1 gm/ 50 mls @ 100 mls/hr 03/24/20 18:00 03/25/20 09:29 Sodium Chloride IVPB 100 mls/hr Q24HR DAVID Administration Insulin Aspart 0 unit 03/24/20 21:00 03/25/20 06:53 Insulin Aspart (Novolog) 100 Unit/Ml Vial SQ 2 unit ACHS DAVID Administration Protocol Ipratropium [place] 0.5 mg 03/25/20 08:00 03/25/20 12:12 Ipratropium 0.5 Mg/2.5 Ml Nebu INHALATION Not Given RT-QID DAVID Isosorbide Mononitrate 30 mg 03/24/20 21:00 03/25/20 09:29 Isosorbide Mononitrate Er 30 Mg Tab.Er.24h PO 30 mg BID DAVID Administration Lorazepam 0.5 mg 03/24/20 17:40 03/25/20 09:29 Lorazepam 0.5 Mg Tab PO 0.5 mg TID PRN Administration Anxiety Losartan Potassium 50 mg 03/24/20 21:00 03/25/20 09:29 Losartan 50 Mg Tab PO 50 mg BID DAVID Administration Methylprednisolone Sodium Succinate 60 mg 03/24/20 19:00 03/25/20 06:53 Methylprednisolone Sod Succi 125 Mg/2 Ml Vial IV 60 mg Q6HR DAVID Administration Miscellaneous Information 0 each 03/24/20 17:50 Warfarin Per Pharmacy MISCELLANE DIRECTED PRN ANTICOAG Multivitamins 1 each 03/25/20 09:00 03/25/20 09:29 Multivitamins, Thera 1 Each Tab PO 1 each DAILY DAVID Administration Non-Formulary Medication 1 cap 03/25/20 09:00 03/25/20 09:30 Vitamin B Complex [Vitamin B Complex] PO Not Given DAILY DAVID Temazepam 15 mg 03/24/20 17:42 Temazepam 15 Mg Cap PO HS PRN Insomnia Warfarin Sodium 3 mg 03/25/20 18:00 Warfarin 3 Mg Tab PO 03/25/20 18:01 ONCE@1800 ONE Zolpidem Tartrate 10 mg 03/24/20 21:00 03/24/20 21:08 Zolpidem 10 Mg Tab PO 10 mg HS DAVID Administration Intake and Output 03/24/20 03/25/20 03/25/20 22:59 06:59 14:59 Intake Total 120 240 Output Total 200 500 Balance -80 -500 240 Intake: Oral 120 240 Output: Urine 200 500 Other: # Voids 1 Weight 108.862 kg 111.2 kg 03/25/20 07:00 03/25/20 07:00 Assessment and Plan Assessment: 1 symptoms of progressively worsening lower extremity edema 2 acute on chronic systolic congestive heart failure #3. Acute COPD exacerbation 4. Mild troponin elevation not indicative of acute coronary event, likely secondary to underlying failure 5 chronic persistent atrial fibrillation, anticoagulated on Coumadin 6 hypertension 7 PAD 8 Prior history of smoking 9 prostate cancer 10 hyperlipidemia 11 diabetes mellitus type 2 12 noncompliance with diet Plan: From Cardiology's perspective medications were reviewed and we will continue the same at this time. Obtain a 2-D echo with Doppler to assess cardiac structure and function. Continue IV Lasix. Discussed with patient importance of following a low sodium diet at home. Monitor daily weights, renal function, electrolytes as well as extra I's and O's. We will continue to follow the patient provide further recommendations accordingly. The above dictated assessment and findings were discussed with signing physician. The impression and plan of care have been directed as dictated. Mely Wray, Nurse Practitioner, acting as scribe for signing physician.
[2020-03-25 12:50] LABS: Tear Drop Cells Present
[2020-03-25 12:51] LABS: RBC Fragments Present
[2020-03-25 12:52] LABS: Polychromasia Present
[2020-03-25 17:00] LABS: Glucose,Whole Blood 179 mg/dL (75-99)
[2020-03-25] MEDS ORDERED: WARFARIN 3 MG TAB PO ONE (18:00)
--- NOTE | 2020-03-25 20:10 | PN ---
PROGRESS NOTE DATE OF SERVICE: 03/25/2020 I am covering for Dr. Clark. This 75-year-old gentleman was admitted shortness of breath, possibly multifactorial, combination, CHF, COPD, is being closely monitored. No chest pain. No palpitations. No fever. Multiple consultants are following the patient closely. The patient on extensive bronchodilators. Patient is on IV Lasix 60 mg IV q.8 also. The patient is getting slowly negative balance yesterday, but however the weight is showing like gain of 3 kg. No chest pain. No palpitations. PAST MEDICAL HISTORY: Reviewed. REVIEW OF SYSTEMS: CARDIOVASCULAR: As mentioned earlier. RESPIRATORY: As mentioned earlier. GI as mentioned. : No dysuria. NERVOUS SYSTEM: No numbness, weakness. CURRENT MEDICATIONS: Are [place], Zyloprim, aspirin, Lipitor, Rocephin, Lasix. Doses reviewed. PHYSICAL EXAM: Patient is alert and oriented times three. Pulse 84, blood pressure 115/56, respirations 18, temperature normal. Pulse ox 100 percent on room air. HEENT: Conjunctivae normal. NECK: No JVD. CARDIOVASCULAR: S1, S2 muffled. RESPIRATORY SYSTEM: Breath sounds diminished at the bases. A few scattered rhonchi and crackles. ABDOMEN: Soft. LEGS: Bilateral leg edema. NERVOUS SYSTEM: No focal deficits. LAB: Hemoglobin 11.4, platelets 149. Creatinine is 1.36. Troponin 0.06. The baseline creatinine 1.37. ASSESSMENT: 1. Shortness of breath multifactorial, congestive heart failure acute exacerbation with acute on chronic systolic dysfunction, ejection fraction 30 to 35%, as well as chronic obstructive pulmonary disease acute exacerbation. 2. Acute purulent tracheobronchitis. 3. Anemia, normocytic anemia of chronic disease. 4. Mild thrombocytopenia. 5. Coumadin monitoring. 6. Increased creatinine with chronic kidney disease stage 3 baseline. 7. Troponin 0.63, indeterminate rule out acute epc-NR-ezvrfxa-elevation myocardial infarction. 8. History atrial fibrillation. 9. History of coronary artery disease/stent. 10.History of AICD. 11.History of chronic obstructive pulmonary disease. 12.History of cerebrovascular accident, transient ischemic attack. 13.Hypertension. 14.Hyperlipidemia. 15.History of degenerative joint disease. 16.History of pneumonia. 17.History of abdominal aortic aneurysm. 18.History of gout. 19.History of prostate cancer. 20.History of back surgery, degenerative joint disease. 21.History of anxiety. 22.Previous history of nicotine dependence. 23.Obesity with body mass index of 33.5. RECOMMENDATIONS AND DISCUSSION: I recommend to continue current medications, management and symptomatic treatment. Continue the Lasix. Continue the rest of the bronchodilators. Follow closely with Pulmonary and Cardiology. Otherwise, Dr. Clark will follow tomorrow. MMARSALANL / IJN: [id number] /
[2020-03-25 20:36] LABS: Glucose,Whole Blood 205 mg/dL (75-99)
[2020-03-25] MEDS: ATORVASTATIN 80 MG TAB PO SCH (21:01)
[2020-03-25] MEDS: ZOLPIDEM 10 MG TAB PO SCH (21:02)
[2020-03-26 06:30] LABS: Glucose,Whole Blood 182 mg/dL (75-99)
[2020-03-26] MEDS: INSULIN ASPART (NovoLOG) 100 UNIT/ML VIAL SQ SCH ×4 (06:36→21:01)
[2020-03-26] MEDS: methylPREDNISolone SOD SUCCI 125 MG/2 ML VIAL IV SCH ×4 (06:36→23:42)
[2020-03-26] MEDS: carvediloL 12.5 MG TAB PO SCH ×2 (06:36→17:37)
[2020-03-26] MEDS: IPRATROPIUM-ALBUTEROL 3 ML NEB INHALATION SCH ×4 (07:19→20:08)
[2020-03-26] MEDS: FORMOTEROL FUMARATE 20 MCG/2 ML NEBU INHALATION SCH ×2 (07:29→20:08)
[2020-03-26 08:18] LABS: Anisocytosis Slight; Basophils % (A) 0 %; Eosinophils % (A) 0 %; HCT 37.2 % (39.0-53.0); HGB 11.4 gm/dL (13.0-17.5); Hypochromasia Moderate; Lymphocytes # (A) 0.5 k/uL (1.0-4.8); Lymphocytes % (A) 4 %; MCH 29.2 pg (25.0-35.0); MCHC 30.5 g/dL (31.0-37.0); MCV 95.6 fL (80.0-100.0); Macrocytosis Slight; Mean Platelet Volume 10.4; Monocytes # (A) 0.3 k/uL (0-1.0); Monocytes % (A) 2 %; Neutrophils # (A) 11.6 k/uL (1.3-7.7); Neutrophils % (A) 93 %; Platelet Count 159 k/uL (150-450); Poikilocytosis Slight; RDW 17.8 % (11.5-15.5); WBC 12.5 k/uL (3.8-10.6)
[2020-03-26] MEDS: FUROSEMIDE 10 MG/ML 10 ML VIAL IV SCH ×3 (08:18→23:43)
[2020-03-26] MEDS: CHOLECALCIFEROL 25 MCG (1000 IU) TABLET PO SCH (08:19)
[2020-03-26] MEDS: MULTIVITAMINS, THERA 1 EACH TAB PO SCH (08:19)
[2020-03-26] MEDS: LOSARTAN 50 MG TAB PO SCH ×2 (08:19→21:01)
[2020-03-26] MEDS: ISOSORBIDE MONONITRATE ER 30 MG TAB.ER.24H PO SCH ×2 (08:19→21:01)
[2020-03-26] MEDS: ASPIRIN 81 MG PO SCH (08:19)
[2020-03-26] MEDS: allopurinoL 300 MG TAB PO SCH (08:19)
[2020-03-26] MEDS: NON FORMULARY DRUG (Vitamin B Complex [Vitamin B Complex] 1 EACH Capsule) PO SCH (08:27)
[2020-03-26 08:31] LABS: Calcium 9.3 mg/dL (8.4-10.2); Potassium 4.2 mmol/L (3.5-5.1)
[2020-03-26] MEDS: IPRATROPIUM 0.5 MG/2.5 ML NEBU INHALATION SCH (09:23)
--- NOTE | 2020-03-26 11:29 | P.PN ---
Subjective Progress Note Date: 03/26/20 Principal diagnosis: Acute COPD exacerbation Acute on chronic systolic heart failure Non-ST segment elevated NE Peripheral arterial disease Chronic severe persistent asthmatic bronchitis Baseline COPD Baseline obstructive sleep apnea but patient declined evaluation Ischemic cardiomyopathy 03/26/2020, patient seen eval examined during the rounds labs reviewed medications reviewed cough congestion slightly better swelling is improving patient remains on diuretics broad-spectrum antibiotics bronchodilators and IV steroids, denies any chest pain 75-year-old well-known to me with prior history of severe COPD as well as component of asthmatic bronchitis sleep disorder breathing and sleep apnea but History, also has a history of chronic atrial fibrillation and peripheral vascular disease came into the hospital with progressive increasing worsening swelling of the lower extremity as well as increasing shortness of breath, patient has been on Coumadin for anticoagulation, also on bronchodilator without any significant relief, past medical history significant for cardiac cath angiogram and stent placement status post pacemaker, AICD, patient has a history of smoking in the past quit several years ago however, on arrival he was febrile with temperature of 99.3 hemodynamic status otherwise were stable tachypneic, BNP over 2 thousand patient responded well with IV Lasix also have received IV Solu-Medrol, initial chest x-ray suggestive of congestive heart failure fluid overload and interstitial edema, currently on Rocephin IV steroids bronchodilator as well as diuretics, patient was noted to be wheezy on arrival, troponin slightly high, Covid 19 is negative Objective - Vital Signs Vital signs: Vital Signs Temp 97.5 F L 03/25/20 23:55 Pulse 60 03/26/20 11:17 Resp 17 03/26/20 04:25 BP 118/67 03/26/20 04:25 Pulse Ox 100 03/26/20 04:25 Intake & Output 03/25/20 03/26/20 03/26/20 18:59 06:59 18:59 Intake Total 1020 240 Output Total 300 Balance 720 240 Weight 111.4 kg Intake: Oral 1020 240 Output: Urine 300 Other: Voiding Method Toilet # Voids 1 - Exam - Constitutional General appearance: cooperative, disheveled, morbidly obese - EENT Eyes: PERRLA Ears: bilateral: normal - Neck Carotids: bilateral: upstroke normal - Respiratory Respiratory: bilateral: diminished - Cardiovascular Rhythm: regular Heart sounds: normal: S1, S2 - Gastrointestinal General gastrointestinal: normal bowel sounds - Integumentary Integumentary: normal, normal turgor - Neurologic Neurologic: CNII-XII intact - Musculoskeletal Musculoskeletal: gait normal, generalized weakness, strength equal bilaterally - Labs CBC & Chem 7: 03/26/20 07:22 03/26/20 07:22 Labs: Abnormal Lab Results - Last 24 Hours (Table) 03/25/20 03/25/20 03/25/20 Range/Units 07:00 11:42 16:59 WBC (3.8-10.6) k/uL RBC (4.30-5.90) m/uL Hgb (13.0-17.5) gm/dL Hct (39.0-53.0) % MCHC (31.0-37.0) g/dL RDW (11.5-15.5) % Neutrophils # (1.3-7.7) k/uL Lymphocytes # (1.0-4.8) k/uL Lymphocytes # (Manual) 0.36 L (1.0-4.8) k/uL PT (9.0-12.0) sec INR (<1.2) BUN (9-20) mg/dL Creatinine (0.66-1.25) mg/dL Glucose (74-99) mg/dL POC Glucose (mg/dL) 214 H 179 H (75-99) mg/dL 03/25/20 03/26/20 03/26/20 Range/Units 20:35 06:29 07:22 WBC 12.5 H (3.8-10.6) k/uL RBC 3.90 L (4.30-5.90) m/uL Hgb 11.4 L (13.0-17.5) gm/dL Hct 37.2 L (39.0-53.0) % MCHC 30.5 L (31.0-37.0) g/dL RDW 17.8 H (11.5-15.5) % Neutrophils # 11.6 H (1.3-7.7) k/uL Lymphocytes # 0.5 L (1.0-4.8) k/uL Lymphocytes # (Manual) (1.0-4.8) k/uL PT (9.0-12.0) sec INR (<1.2) BUN (9-20) mg/dL Creatinine (0.66-1.25) mg/dL Glucose (74-99) mg/dL POC Glucose (mg/dL) 205 H 182 H (75-99) mg/dL 03/26/20 03/26/20 Range/Units 07:22 07:22 WBC (3.8-10.6) k/uL RBC (4.30-5.90) m/uL Hgb (13.0-17.5) gm/dL Hct (39.0-53.0) % MCHC (31.0-37.0) g/dL RDW (11.5-15.5) % Neutrophils # (1.3-7.7) k/uL Lymphocytes # (1.0-4.8) k/uL Lymphocytes # (Manual) (1.0-4.8) k/uL PT 20.0 H (9.0-12.0) sec INR 2.0 H (<1.2) BUN 59 H (9-20) mg/dL Creatinine 1.39 H (0.66-1.25) mg/dL Glucose 167 H (74-99) mg/dL POC Glucose (mg/dL) (75-99) mg/dL Assessment and Plan Assessment: Acute COPD exacerbation Acute on chronic systolic heart failure Non-ST segment elevated NE Peripheral arterial disease Chronic severe persistent asthmatic bronchitis Baseline COPD Baseline obstructive sleep apnea but patient declined evaluation Ischemic cardiomyopathy Plan: Continue bronchodilator Deep breathing exercise incentive spirometry IV steroids, Antibiotics Diuresis Further recommendations pending plan of care as per clinical response of the patient Time with Patient: Greater than 30
[2020-03-26 12:10] LABS: Glucose,Whole Blood 212 mg/dL (75-99)
--- NOTE | 2020-03-26 12:15 | P.PN ---
Subjective Progress Note Date: 03/26/20 Principal diagnosis: Bilateral lower extremities edema This is a very pleasant 75-year-old gentleman with a past medical history significant for chronic obstructive pulmonary disease as well as permanent atrial fibrillation on anticoagulation as well as multiple comorbid conditions was admitted to the hospital with bilateral lower extremities edema. He was diagnosed with heart failure and he was started on Lasix IV. An echocardiogram is in process to be done. The patient was seen this morning. He stated that he is feeling slightly better. He still have [place] and his edema. He continues to be on Lasix. The creatinine is a stable. The echocardiogram is to be done later on today. Objective - Vital Signs Vital signs: Vital Signs Temp 97.5 F L 03/25/20 23:55 Pulse 60 03/26/20 11:17 Resp 17 03/26/20 04:25 BP 118/67 03/26/20 04:25 Pulse Ox 100 03/26/20 04:25 Intake & Output 03/25/20 03/26/20 03/26/20 18:59 06:59 18:59 Intake Total 1020 240 Output Total 300 Balance 720 240 Weight 111.4 kg Intake: Oral 1020 240 Output: Urine 300 Other: Voiding Method Toilet # Voids 1 - Constitutional General appearance: Present: no acute distress - Respiratory Respiratory: bilateral: diminished - Cardiovascular Heart sounds: normal: S1, S2 - Labs CBC & Chem 7: 03/26/20 07:22 03/26/20 07:22 Labs: Abnormal Lab Results - Last 24 Hours (Table) 03/25/20 03/25/20 03/25/20 Range/Units 07:00 16:59 20:35 WBC (3.8-10.6) k/uL RBC (4.30-5.90) m/uL Hgb (13.0-17.5) gm/dL Hct (39.0-53.0) % MCHC (31.0-37.0) g/dL RDW (11.5-15.5) % Neutrophils # (1.3-7.7) k/uL Lymphocytes # (1.0-4.8) k/uL Lymphocytes # (Manual) 0.36 L (1.0-4.8) k/uL PT (9.0-12.0) sec INR (<1.2) BUN (9-20) mg/dL Creatinine (0.66-1.25) mg/dL Glucose (74-99) mg/dL POC Glucose (mg/dL) 179 H 205 H (75-99) mg/dL 03/26/20 03/26/20 03/26/20 Range/Units 06:29 07:22 07:22 WBC 12.5 H (3.8-10.6) k/uL RBC 3.90 L (4.30-5.90) m/uL Hgb 11.4 L (13.0-17.5) gm/dL Hct 37.2 L (39.0-53.0) % MCHC 30.5 L (31.0-37.0) g/dL RDW 17.8 H (11.5-15.5) % Neutrophils # 11.6 H (1.3-7.7) k/uL Lymphocytes # 0.5 L (1.0-4.8) k/uL Lymphocytes # (Manual) (1.0-4.8) k/uL PT 20.0 H (9.0-12.0) sec INR 2.0 H (<1.2) BUN (9-20) mg/dL Creatinine (0.66-1.25) mg/dL Glucose (74-99) mg/dL POC Glucose (mg/dL) 182 H (75-99) mg/dL 03/26/20 Range/Units 07:22 WBC (3.8-10.6) k/uL RBC (4.30-5.90) m/uL Hgb (13.0-17.5) gm/dL Hct (39.0-53.0) % MCHC (31.0-37.0) g/dL RDW (11.5-15.5) % Neutrophils # (1.3-7.7) k/uL Lymphocytes # (1.0-4.8) k/uL Lymphocytes # (Manual) (1.0-4.8) k/uL PT (9.0-12.0) sec INR (<1.2) BUN 59 H (9-20) mg/dL Creatinine 1.39 H (0.66-1.25) mg/dL Glucose 167 H (74-99) mg/dL POC Glucose (mg/dL) (75-99) mg/dL Assessment and Plan Assessment: Assessment #1 bilateral lower extremities edema #2 COPD exacerbation #3 permanent atrial fibrillation was controlled heart rate #4 multiple comorbid conditions None #1 continue the Lasix for at least additional 24 hours #2 continue monitor the kidney function and electrolytes #3 follow-up with the patient #4 follow-up with the echocardiogram
[2020-03-26] MEDS: BENZOCAINE/MENTHOL LOZENG 1 EACH LOZENGE MUCOUS MEM PRN (12:40)
--- NOTE | 2020-03-26 13:14 | P.PN ---
Subjective Progress Note Date: 03/26/20 Principal diagnosis: Pedal edema The patient is a 75-year-old male essentially admitted for COPD and pedal edema element. Appreciate pulmonology and cardiology input. Objective - Vital Signs Vital signs: Vital Signs Temp 97.5 F L 03/25/20 23:55 Pulse 60 03/26/20 11:17 Resp 17 03/26/20 04:25 BP 118/67 03/26/20 04:25 Pulse Ox 100 03/26/20 04:25 Intake & Output 03/25/20 03/26/20 03/26/20 18:59 06:59 18:59 Intake Total 1020 240 Output Total 300 Balance 720 240 Weight 111.4 kg Intake: Oral 1020 240 Output: Urine 300 Other: Voiding Method Toilet # Voids 1 - Constitutional General appearance: Present: average body habitus - EENT Eyes: Absent: abnormal pupil - Neck Neck: Absent: lymphadenopathy - Respiratory Respiratory: bilateral: CTA - Cardiovascular Rhythm: regular Heart sounds: normal: S1, S2 Abnormal Heart Sounds: Absent: S3 Gallop - Gastrointestinal General gastrointestinal: Present: soft - Integumentary Integumentary Comment(s): Edema noted of the lower extremities - Labs CBC & Chem 7: 03/26/20 07:22 03/26/20 07:22 Labs: Abnormal Lab Results - Last 24 Hours (Table) 03/25/20 03/25/20 03/26/20 Range/Units 16:59 20:35 06:29 WBC (3.8-10.6) k/uL RBC (4.30-5.90) m/uL Hgb (13.0-17.5) gm/dL Hct (39.0-53.0) % MCHC (31.0-37.0) g/dL RDW (11.5-15.5) % Neutrophils # (1.3-7.7) k/uL Lymphocytes # (1.0-4.8) k/uL PT (9.0-12.0) sec INR (<1.2) BUN (9-20) mg/dL Creatinine (0.66-1.25) mg/dL Glucose (74-99) mg/dL POC Glucose (mg/dL) 179 H 205 H 182 H (75-99) mg/dL 03/26/20 03/26/2003/26/21 Range/Units 07:22 07:22 07:22 WBC 12.5 H (3.8-10.6) k/uL RBC 3.90 L (4.30-5.90) m/uL Hgb 11.4 L (13.0-17.5) gm/dL Hct 37.2 L (39.0-53.0) % MCHC 30.5 L (31.0-37.0) g/dL RDW 17.8 H (11.5-15.5) % Neutrophils # 11.6 H (1.3-7.7) k/uL Lymphocytes # 0.5 L (1.0-4.8) k/uL PT 20.0 H (9.0-12.0) sec INR 2.0 H (<1.2) BUN 59 H (9-20) mg/dL Creatinine 1.39 H (0.66-1.25) mg/dL Glucose 167 H (74-99) mg/dL POC Glucose (mg/dL) (75-99) mg/dL 03/26/20 Range/Units 12:09 WBC (3.8-10.6) k/uL RBC (4.30-5.90) m/uL Hgb (13.0-17.5) gm/dL Hct (39.0-53.0) % MCHC (31.0-37.0) g/dL RDW (11.5-15.5) % Neutrophils # (1.3-7.7) k/uL Lymphocytes # (1.0-4.8) k/uL PT (9.0-12.0) sec INR (<1.2) BUN (9-20) mg/dL Creatinine (0.66-1.25) mg/dL Glucose (74-99) mg/dL POC Glucose (mg/dL) 212 H (75-99) mg/dL Assessment and Plan Plan: Continue diuresis. Respiratory-aponte, the patient is stable. Check CBC and CMP in a.m. Appreciate, cardiology and pulmonology input. Time with Patient: Less than 30
[2020-03-26 14:11] VITALS: BMI 34.2
--- NOTE | 2020-03-26 16:26 | ECHOF ---
Referral Reason:chf MEASUREMENTS -------- HEIGHT: 180.3 cm WEIGHT: 111.1 kg BP: 118/67 IVSd: 1.5 cm (0.6 - 1.1) LVIDd: 5.7 cm (3.9 - 5.3) LVPWd: 1.5 cm (0.6 - 1.1) IVSs: 1.5 cm LVIDs: 4.7 cm LVPWs: 2.1 cm RVIDd: 3.6 cm (< 3.3) LAESV Index (A-L): 75.54 ml/m Ao Diam: 3.9 cm (2.0 - 3.7) AV Cusp: 2.2 cm (1.5 - 2.6) AR PHT: 331 ms RAP: 5.00 mmHg RVSP: 34.87 mmHg FINDINGS -------- Sinus rhythm. This was a technically difficult study with suboptimal views. The left ventricular size is normal. There is moderate concentric left ventricular hypertrophy. T here is moderate global hypokinesis of LV . Overall left ventricular systolic function is severely impaired with, an EF between 25 - 30 %. The right ventricle is mildly enlarged. LA is severely dilated >40 ml/m2 The right atrial size is normal. 5.0mg of Lumason was utilized for enhancement of images Interatrial and interventricular septum intact. There is mild aortic regurgitation. There is no evidence of aortic stenosis. Moderate mitral regurgitation is present. Indz-eh-qviedemi tricuspid regurgitation present. There is mild pulmonary hypertension. The right ventricular systolic pressure, as measured by Doppler, is 34.87mmHg. There is no pulmonic regurgitation present. The aortic root size is normal. IVC Not well visulized. There is no pericardial effusion. CONCLUSIONS -------- 1. The left ventricular size is normal. 2. There is moderate concentric left ventricular hypertrophy. 3. There is moderate global hypokinesis of LV . 4. Overall left ventricular systolic function is severely impaired with, an EF between 25 - 30 %. 5. The right ventricle is mildly enlarged. 6. LA is severely dilated >40 ml/m2 7. There is mild aortic regurgitation. 8. Moderate mitral regurgitation is present. 9. Zocl-av-omfjgjou tricuspid regurgitation present. 10. There is mild pulmonary hypertension. 11. The right ventricular systolic pressure, as measured by Doppler, is 34.87mmHg. [employer] VISUAL DESIGNER: Angélica Carrera RDCS
[2020-03-26 17:08] LABS: Glucose,Whole Blood 147 mg/dL (75-99)
[2020-03-26] MEDS ORDERED: WARFARIN 2.5 MG TAB PO ONE (18:00)
[2020-03-26 20:16] LABS: Glucose,Whole Blood 205 mg/dL (75-99)
[2020-03-26] MEDS: ZOLPIDEM 10 MG TAB PO SCH (21:01)
[2020-03-26] MEDS: ATORVASTATIN 80 MG TAB PO SCH (21:01)
[2020-03-26] MEDS: LORazepam 0.5 MG TAB PO PRN (23:43)
[2020-03-27 06:09] LABS: Glucose,Whole Blood 162 mg/dL (75-99)
[2020-03-27] MEDS: methylPREDNISolone SOD SUCCI 125 MG/2 ML VIAL IV SCH ×4 (06:50→23:57)
[2020-03-27] MEDS: carvediloL 12.5 MG TAB PO SCH ×2 (06:50→17:34)
[2020-03-27] MEDS: INSULIN ASPART (NovoLOG) 100 UNIT/ML VIAL SQ SCH ×4 (06:50→20:57)
[2020-03-27] MEDS: FORMOTEROL FUMARATE 20 MCG/2 ML NEBU INHALATION SCH ×2 (07:48→19:57)
[2020-03-27] MEDS: IPRATROPIUM-ALBUTEROL 3 ML NEB INHALATION SCH ×4 (07:48→19:57)
[2020-03-27 08:02] LABS: Anisocytosis Slight; Basophils % (A) 0 %; Eosinophils % (A) 0 %; HCT 37.3 % (39.0-53.0); HGB 11.6 gm/dL (13.0-17.5); Hypochromasia Moderate; Lymphocytes # (A) 0.4 k/uL (1.0-4.8); Lymphocytes % (A) 4 %; MCH 29.8 pg (25.0-35.0); MCV 95.9 fL (80.0-100.0); Macrocytosis Slight; Mean Platelet Volume 9.9; Monocytes # (A) 0.3 k/uL (0-1.0); Monocytes % (A) 3 %; Neutrophils # (A) 8.6 k/uL (1.3-7.7); Neutrophils % (A) 92 %; Platelet Count 140 k/uL (150-450); Poikilocytosis Slight; RBC 3.89 m/uL (4.30-5.90); RDW 17.6 % (11.5-15.5); WBC 9.4 k/uL (3.8-10.6)
[2020-03-27] MEDS: MULTIVITAMINS, THERA 1 EACH TAB PO SCH (08:09)
[2020-03-27] MEDS: ASPIRIN 81 MG PO SCH (08:09)
[2020-03-27] MEDS: LOSARTAN 50 MG TAB PO SCH ×2 (08:09→20:57)
[2020-03-27] MEDS: allopurinoL 300 MG TAB PO SCH (08:09)
[2020-03-27 08:10] LABS: INR 2.6 (<1.2); Prothrombin Time 25.4 sec (9.0-12.0)
[2020-03-27] MEDS: ISOSORBIDE MONONITRATE ER 30 MG TAB.ER.24H PO SCH ×2 (08:10→20:56)
[2020-03-27] MEDS: FUROSEMIDE 10 MG/ML 10 ML VIAL IV SCH ×3 (08:10→23:57)
[2020-03-27] MEDS: CHOLECALCIFEROL 25 MCG (1000 IU) TABLET PO SCH (08:10)
[2020-03-27] MEDS: NON FORMULARY DRUG (Vitamin B Complex [Vitamin B Complex] 1 EACH Capsule) PO SCH (08:11)
[2020-03-27 08:17] LABS: Albumin 3.7 g/dL (3.5-5.0); Calcium 9.2 mg/dL (8.4-10.2); Potassium 3.5 mmol/L (3.5-5.1); Total Bilirubin 0.8 mg/dL (0.2-1.3)
[2020-03-27 11:39] LABS: Glucose,Whole Blood 248 mg/dL (75-99)
[2020-03-27] MEDS: BENZOCAINE/MENTHOL LOZENG 1 EACH LOZENGE MUCOUS MEM PRN ×2 (12:14→20:56)
[2020-03-27] MEDS: SPIRONOLACTONE 25 MG TAB PO SCH (12:14)
--- NOTE | 2020-03-27 14:15 | P.PN ---
Subjective Progress Note Date: 03/27/20 HISTORY OF PRESENT ILLNESS: Patient examined this morning at the bedside. Patient denies chest pain or pressure. He denies shortness of breath. He continues to have lower extremity edema. He remains on IV Lasix 60 mg every 8 hours. Fluid balance over the last 24 hours is -600 mL. Echocardiogram completed reveals ejection fraction 25-30%, moderate mitral regurgitation, and mild to moderate tricuspid regurgitation. PHYSICAL EXAM: VITAL SIGNS: Reviewed. GENERAL: Well-developed in no acute distress. NECK: Supple. No JVD or thyromegaly LUNGS: Respirations even and unlabored. Lungs diminished bilaterally. HEART: Regular rate and rhythm. S1 and S2 heard. Systolic murmur noted. EXTREMITIES: Normal range of motion. No clubbing or cyanosis. Peripheral pulses intact. 2+ bilateral lower extremity edema ASSESSMENT: Acute on chronic systolic congestive heart failure Worsening lower extremity edema Acute exacerbation of COPD Chronic persistent atrial fibrillation, anticoagulated on Coumadin Hypertension Hyperlipidemia Diabetes mellitus PLAN: Continue IV Lasix for an additional 24 hours Monitor kidney function Daily weights Accurate I&O Further recommendations pending patient's course Nurse practitioner note has been reviewed by physician. Signing provider agrees with the documented findings, assessment, and plan of care. Objective - Vital Signs Vital signs: Vital Signs Temp 96 F L 03/27/20 11:49 Pulse 60 03/27/20 11:49 Resp 20 03/27/20 11:49 BP 99/65 03/27/20 11:49 Pulse Ox 97 03/27/20 11:49 Intake & Output 03/26/20 03/27/20 03/27/20 18:59 06:59 18:59 Intake Total 1250 240 Output Total 1050 800 875 Balance 200 -800 -635 Weight 111.4 kg 110.5 kg Intake: Intake, IV Titration 50 Amount cefTRIAXone 1 gm In 50 Sodium Chloride 0.9% 50 ml @ 100 mls/hr IVPB Q24HR DAVID Rx#:[id number] Oral 1200 240 Output: Urine 1050 800 875 Other: Voiding Method Toilet Toilet # Voids 1 - Labs CBC & Chem 7: 03/27/20 07:42 03/27/20 07:42 Labs: Abnormal Lab Results - Last 24 Hours (Table) 03/26/20 03/26/20 03/27/20 Range/Units 17:06 20:14 06:08 RBC (4.30-5.90) m/uL Hgb (13.0-17.5) gm/dL Hct (39.0-53.0) % RDW (11.5-15.5) % Plt Count (150-450) k/uL Neutrophils # (1.3-7.7) k/uL Lymphocytes # (1.0-4.8) k/uL PT (9.0-12.0) sec INR (<1.2) BUN (9-20) mg/dL Creatinine (0.66-1.25) mg/dL Glucose (74-99) mg/dL POC Glucose (mg/dL) 147 H 205 H 162 H (75-99) mg/dL Total Protein (6.3-8.2) g/dL 03/27/20 03/27/20 03/27/20 Range/Units 07:42 07:42 07:42 RBC 3.89 L (4.30-5.90) m/uL Hgb 11.6 L (13.0-17.5) gm/dL Hct 37.3 L (39.0-53.0) % RDW 17.6 H (11.5-15.5) % Plt Count 140 L (150-450) k/uL Neutrophils # 8.6 H (1.3-7.7) k/uL Lymphocytes # 0.4 L (1.0-4.8) k/uL PT 25.4 H (9.0-12.0) sec INR 2.6 H (<1.2) BUN 60 H (9-20) mg/dL Creatinine 1.27 H (0.66-1.25) mg/dL Glucose 158 H (74-99) mg/dL POC Glucose (mg/dL) (75-99) mg/dL Total Protein 6.0 L (6.3-8.2) g/dL 03/27/20 Range/Units 11:36 RBC (4.30-5.90) m/uL Hgb (13.0-17.5) gm/dL Hct (39.0-53.0) % RDW (11.5-15.5) % Plt Count (150-450) k/uL Neutrophils # (1.3-7.7) k/uL Lymphocytes # (1.0-4.8) k/uL PT (9.0-12.0) sec INR (<1.2) BUN (9-20) mg/dL Creatinine (0.66-1.25) mg/dL Glucose (74-99) mg/dL POC Glucose (mg/dL) 248 H (75-99) mg/dL Total Protein (6.3-8.2) g/dL
--- NOTE | 2020-03-27 14:25 | P.PN ---
Subjective Progress Note Date: 03/27/20 Principal diagnosis: Acute COPD exacerbation Acute on chronic systolic heart failure Non-ST segment elevated MT Peripheral arterial disease Chronic severe persistent asthmatic bronchitis Baseline COPD Baseline obstructive sleep apnea but patient declined evaluation Ischemic cardiomyopathy 03/27/2020, patient get short of breath on activity and exertion swelling in the lower extremity is present, but improved, shortness of breath improved basal crackles are present, she remains on antibiotics breathing treatments and IV steroids tolerating well 03/26/2020, patient seen eval examined during the rounds labs reviewed medications reviewed cough congestion slightly better swelling is improving patient remains on diuretics broad-spectrum antibiotics bronchodilators and IV steroids, denies any chest pain 75-year-old well-known to me with prior history of severe COPD as well as component of asthmatic bronchitis sleep disorder breathing and sleep apnea but History, also has a history of chronic atrial fibrillation and peripheral vascular disease came into the hospital with progressive increasing worsening swelling of the lower extremity as well as increasing shortness of breath, patient has been on Coumadin for anticoagulation, also on bronchodilator without any significant relief, past medical history significant for cardiac cath angiogram and stent placement status post pacemaker, AICD, patient has a history of smoking in the past quit several years ago however, on arrival he was febrile with temperature of 99.3 hemodynamic status otherwise were stable tachypneic, BNP over 2 thousand patient responded well with IV Lasix also have received IV Solu-Medrol, initial chest x-ray suggestive of congestive heart failure fluid overload and interstitial edema, currently on Rocephin IV steroids bronchodilator as well as diuretics, patient was noted to be wheezy on arrival, troponin slightly high, Covid 19 is negative Objective - Vital Signs Vital signs: Vital Signs Temp 96 F L 03/27/20 11:49 Pulse 60 03/27/20 11:49 Resp 20 03/27/20 11:49 BP 99/65 03/27/20 11:49 Pulse Ox 97 03/27/20 11:49 Intake & Output 03/26/20 03/27/20 03/27/20 18:59 06:59 18:59 Intake Total 1250 240 Output Total 1050 800 875 Balance 200 -800 -635 Weight 111.4 kg 110.5 kg Intake: Intake, IV Titration 50 Amount cefTRIAXone 1 gm In 50 Sodium Chloride 0.9% 50 ml @ 100 mls/hr IVPB Q24HR DAVID Rx#:[id number] Oral 1200 240 Output: Urine 1050 800 875 Other: Voiding Method Toilet Toilet # Voids 1 - Exam - Constitutional General appearance: cooperative, disheveled, morbidly obese - EENT Eyes: PERRLA Ears: bilateral: normal - Neck Carotids: bilateral: upstroke normal - Respiratory Respiratory: bilateral: diminished - Cardiovascular Rhythm: regular Heart sounds: normal: S1, S2 - Gastrointestinal General gastrointestinal: normal bowel sounds - Integumentary Integumentary: normal, normal turgor - Neurologic Neurologic: CNII-XII intact - Musculoskeletal Musculoskeletal: gait normal, generalized weakness, strength equal bilaterally - Labs CBC & Chem 7: 03/27/20 07:42 03/27/20 07:42 Labs: Abnormal Lab Results - Last 24 Hours (Table) 03/26/20 03/26/20 03/27/20 Range/Units 17:06 20:14 06:08 RBC (4.30-5.90) m/uL Hgb (13.0-17.5) gm/dL Hct (39.0-53.0) % RDW (11.5-15.5) % Plt Count (150-450) k/uL Neutrophils # (1.3-7.7) k/uL Lymphocytes # (1.0-4.8) k/uL PT (9.0-12.0) sec INR (<1.2) BUN (9-20) mg/dL Creatinine (0.66-1.25) mg/dL Glucose (74-99) mg/dL POC Glucose (mg/dL) 147 H 205 H 162 H (75-99) mg/dL Total Protein (6.3-8.2) g/dL 03/27/20 03/27/20 03/27/20 Range/Units 07:42 07:42 07:42 RBC 3.89 L (4.30-5.90) m/uL Hgb 11.6 L (13.0-17.5) gm/dL Hct 37.3 L (39.0-53.0) % RDW 17.6 H (11.5-15.5) % Plt Count 140 L (150-450) k/uL Neutrophils # 8.6 H (1.3-7.7) k/uL Lymphocytes # 0.4 L (1.0-4.8) k/uL PT 25.4 H (9.0-12.0) sec INR 2.6 H (<1.2) BUN 60 H (9-20) mg/dL Creatinine 1.27 H (0.66-1.25) mg/dL Glucose 158 H (74-99) mg/dL POC Glucose (mg/dL) (75-99) mg/dL Total Protein 6.0 L (6.3-8.2) g/dL 03/27/20 Range/Units 11:36 RBC (4.30-5.90) m/uL Hgb (13.0-17.5) gm/dL Hct (39.0-53.0) % RDW (11.5-15.5) % Plt Count (150-450) k/uL Neutrophils # (1.3-7.7) k/uL Lymphocytes # (1.0-4.8) k/uL PT (9.0-12.0) sec INR (<1.2) BUN (9-20) mg/dL Creatinine (0.66-1.25) mg/dL Glucose (74-99) mg/dL POC Glucose (mg/dL) 248 H (75-99) mg/dL Total Protein (6.3-8.2) g/dL Assessment and Plan Assessment: Acute COPD exacerbation Acute on chronic systolic heart failure Non-ST segment elevated MT Peripheral arterial disease Chronic severe persistent asthmatic bronchitis Baseline COPD Baseline obstructive sleep apnea but patient declined evaluation Ischemic cardiomyopathy Plan: Continue bronchodilator Deep breathing exercise incentive spirometry IV steroids, Antibiotics Diuresis Further recommendations pending plan of care as per clinical response of the patient Time with Patient: Greater than 30
[2020-03-27] MEDS: LORazepam 0.5 MG TAB PO PRN ×2 (16:08→23:57)
[2020-03-27 17:22] LABS: Glucose,Whole Blood 165 mg/dL (75-99)
[2020-03-27] MEDS ORDERED: WARFARIN 2.5 MG TAB PO ONE (18:00)
[2020-03-27 20:04] LABS: Glucose,Whole Blood 158 mg/dL (75-99)
[2020-03-27] MEDS: ATORVASTATIN 80 MG TAB PO SCH (20:56)
[2020-03-27] MEDS: ZOLPIDEM 10 MG TAB PO SCH (20:57)
--- NOTE | 2020-03-27 22:13 | P.PN ---
Subjective Principal diagnosis: Pedal edema The patient is a 75-year-old male essentially admitted for COPD and pedal edema element. Appreciate pulmonology and cardiology input. Still with edema Objective - Vital Signs Vital signs: Vital Signs Temp 97.5 F L 03/27/20 20:00 Pulse 65 03/27/20 20:12 Resp 19 03/27/20 20:00 BP 126/74 03/27/20 20:00 Pulse Ox 100 03/27/20 20:00 Intake & Output 03/27/20 03/27/20 03/28/20 06:59 18:59 06:59 Intake Total 1195 Output Total 017 996 5496 Balance -800 320 -1000 Weight 110.5 kg Intake: Intake, IV Titration 50 Amount cefTRIAXone 1 gm In 50 Sodium Chloride 0.9% 50 ml @ 100 mls/hr IVPB Q24HR [facility] Rx#:[id number] Oral 1145 Output: Urine 460 238 9038 Other: Voiding Method Toilet Toilet Urinal - Constitutional General appearance: Present: no acute distress - EENT Eyes: Absent: abnormal pupil - Neck Neck: Absent: lymphadenopathy - Respiratory Respiratory: bilateral: diminished - Cardiovascular Rhythm: regular Heart sounds: normal: S1, S2 Abnormal Heart Sounds: Absent: S3 Gallop - Integumentary Integumentary Comment(s): improving edema of LE - Labs CBC & Chem 7: 03/27/20 07:42 03/27/20 07:42 Labs: Abnormal Lab Results - Last 24 Hours (Table) 03/27/20 03/27/20 03/27/20 Range/Units 06:08 07:42 07:42 RBC 3.89 L (4.30-5.90) m/uL Hgb 11.6 L (13.0-17.5) gm/dL Hct 37.3 L (39.0-53.0) % RDW 17.6 H (11.5-15.5) % Plt Count 140 L (150-450) k/uL Neutrophils # 8.6 H (1.3-7.7) k/uL Lymphocytes # 0.4 L (1.0-4.8) k/uL PT 25.4 H (9.0-12.0) sec INR 2.6 H (<1.2) BUN (9-20) mg/dL Creatinine (0.66-1.25) mg/dL Glucose (74-99) mg/dL POC Glucose (mg/dL) 162 H (75-99) mg/dL Total Protein (6.3-8.2) g/dL 03/27/20 03/27/20 03/27/20 Range/Units 07:42 11:36 17:20 RBC (4.30-5.90) m/uL Hgb (13.0-17.5) gm/dL Hct (39.0-53.0) % RDW (11.5-15.5) % Plt Count (150-450) k/uL Neutrophils # (1.3-7.7) k/uL Lymphocytes # (1.0-4.8) k/uL PT (9.0-12.0) sec INR (<1.2) BUN 60 H (9-20) mg/dL Creatinine 1.27 H (0.66-1.25) mg/dL Glucose 158 H (74-99) mg/dL POC Glucose (mg/dL) 248 H 165 H (75-99) mg/dL Total Protein 6.0 L (6.3-8.2) g/dL 03/27/20 Range/Units 20:02 RBC (4.30-5.90) m/uL Hgb (13.0-17.5) gm/dL Hct (39.0-53.0) % RDW (11.5-15.5) % Plt Count (150-450) k/uL Neutrophils # (1.3-7.7) k/uL Lymphocytes # (1.0-4.8) k/uL PT (9.0-12.0) sec INR (<1.2) BUN (9-20) mg/dL Creatinine (0.66-1.25) mg/dL Glucose (74-99) mg/dL POC Glucose (mg/dL) 158 H (75-99) mg/dL Total Protein (6.3-8.2) g/dL Assessment and Plan (1) CHF exacerbation Current Visit: Yes Status: Acute Code(s): I50.9 - HEART FAILURE, UNSPECIFIED SNOMED Code(s): 923975636 Plan: Continue diuresis. Anticipate DC in the next 24-48 hours. Check CMP in a.m.
[2020-03-28 06:07] LABS: Glucose,Whole Blood 155 mg/dL (75-99)
[2020-03-28] MEDS: carvediloL 12.5 MG TAB PO SCH (06:43)
[2020-03-28] MEDS: methylPREDNISolone SOD SUCCI 125 MG/2 ML VIAL IV SCH ×2 (06:43→12:24)
[2020-03-28] MEDS: INSULIN ASPART (NovoLOG) 100 UNIT/ML VIAL SQ SCH ×2 (06:43→12:24)
[2020-03-28 08:27] LABS: INR 2.8 (<1.2); Prothrombin Time 26.8 sec (9.0-12.0)
[2020-03-28] MEDS: IPRATROPIUM-ALBUTEROL 3 ML NEB INHALATION SCH ×2 (08:59→13:15)
[2020-03-28] MEDS: FORMOTEROL FUMARATE 20 MCG/2 ML NEBU INHALATION SCH (08:59)
[2020-03-28] MEDS: NON FORMULARY DRUG (Vitamin B Complex [Vitamin B Complex] 1 EACH Capsule) PO SCH (09:04)
[2020-03-28] MEDS: FUROSEMIDE 10 MG/ML 10 ML VIAL IV SCH (09:14)
[2020-03-28] MEDS: ISOSORBIDE MONONITRATE ER 30 MG TAB.ER.24H PO SCH (09:16)
[2020-03-28] MEDS: BENZOCAINE/MENTHOL LOZENG 1 EACH LOZENGE MUCOUS MEM PRN (09:16)
[2020-03-28] MEDS: MULTIVITAMINS, THERA 1 EACH TAB PO SCH (09:16)
[2020-03-28] MEDS: LOSARTAN 50 MG TAB PO SCH (09:16)
[2020-03-28] MEDS: CHOLECALCIFEROL 25 MCG (1000 IU) TABLET PO SCH (09:16)
[2020-03-28] MEDS: allopurinoL 300 MG TAB PO SCH (09:16)
[2020-03-28] MEDS: SPIRONOLACTONE 25 MG TAB PO SCH (09:16)
[2020-03-28] MEDS: ASPIRIN 81 MG PO SCH (09:16)
--- NOTE | 2020-03-28 11:13 | P.PN ---
Subjective Progress Note Date: 03/28/20 Principal diagnosis: Acute COPD exacerbation Acute on chronic systolic heart failure Non-ST segment elevated FL Peripheral arterial disease Chronic severe persistent asthmatic bronchitis Baseline COPD Baseline obstructive sleep apnea but patient declined evaluation Ischemic cardiomyopathy 03/28/2020, patient seen eval examined during the rounds labs reviewed medications reviewed care plan discussed, patient has been doing well respiratory status improved swelling in the lower extremity improve, patient will be scheduled for lower extremity angioplasty and stent placement by vascular surgery, 03/27/2020, patient get short of breath on activity and exertion swelling in the lower extremity is present, but improved, shortness of breath improved basal crackles are present, she remains on antibiotics breathing treatments and IV steroids tolerating well 03/26/2020, patient seen eval examined during the rounds labs reviewed medications reviewed cough congestion slightly better swelling is improving patient remains on diuretics broad-spectrum antibiotics bronchodilators and IV steroids, denies any chest pain 75-year-old well-known to me with prior history of severe COPD as well as component of asthmatic bronchitis sleep disorder breathing and sleep apnea but History, also has a history of chronic atrial fibrillation and peripheral vascular disease came into the hospital with progressive increasing worsening swelling of the lower extremity as well as increasing shortness of breath, patient has been on Coumadin for anticoagulation, also on bronchodilator without any significant relief, past medical history significant for cardiac cath angiogram and stent placement status post pacemaker, AICD, patient has a history of smoking in the past quit several years ago however, on arrival he was febrile with temperature of 99.3 hemodynamic status otherwise were stable tachypneic, BNP over 2 thousand patient responded well with IV Lasix also have received IV Solu-Medrol, initial chest x-ray suggestive of congestive heart failure fluid overload and interstitial edema, currently on Rocephin IV steroids bronchodilator as well as diuretics, patient was noted to be wheezy on arrival, troponin slightly high, Covid 19 is negative Objective - Vital Signs Vital signs: Vital Signs Temp 97.3 F L 03/28/20 03:50 Pulse 60 03/28/20 09:18 Resp 20 03/28/20 03:50 BP 116/58 03/28/20 03:50 Pulse Ox 100 03/28/20 03:50 Intake & Output 03/27/20 03/28/20 03/28/20 18:59 06:59 18:59 Intake Total 1195 240 Output Total 875 1700 Balance 320 -1700 240 Weight 110.9 kg Intake: Intake, IV Titration 50 Amount cefTRIAXone 1 gm In 50 Sodium Chloride 0.9% 50 ml @ 100 mls/hr IVPB Q24HR [facility] Rx#:[id number] Oral 1145 240 Output: Urine 875 1700 Other: Voiding Method Toilet Urinal # Voids 1 - Exam - Constitutional General appearance: cooperative, disheveled, morbidly obese - EENT Eyes: PERRLA Ears: bilateral: normal - Neck Carotids: bilateral: upstroke normal - Respiratory Respiratory: bilateral: diminished - Cardiovascular Rhythm: regular Heart sounds: normal: S1, S2 - Gastrointestinal General gastrointestinal: normal bowel sounds - Integumentary Integumentary: normal, normal turgor - Neurologic Neurologic: CNII-XII intact - Musculoskeletal Musculoskeletal: gait normal, generalized weakness, strength equal bilaterally - Labs CBC & Chem 7: 03/27/20 07:42 03/27/20 07:42 Labs: Abnormal Lab Results - Last 24 Hours (Table) 03/27/20 03/27/20 03/27/20 Range/Units 11:36 17:20 20:02 PT (9.0-12.0) sec INR (<1.2) POC Glucose (mg/dL) 248 H 165 H 158 H (75-99) mg/dL 03/28/20 03/28/20 Range/Units 06:06 07:10 PT 26.8 H (9.0-12.0) sec INR 2.8 H (<1.2) POC Glucose (mg/dL) 155 H (75-99) mg/dL Assessment and Plan Assessment: Acute COPD exacerbation Acute on chronic systolic heart failure Non-ST segment elevated FL Peripheral arterial disease Chronic severe persistent asthmatic bronchitis Baseline COPD Baseline obstructive sleep apnea but patient declined evaluation Ischemic cardiomyopathy Plan: Continue bronchodilator Deep breathing exercise incentive spirometry IV steroids, Antibiotics Diuresis Further recommendations pending plan of care as per clinical response of the patient Time with Patient: Greater than 30
[2020-03-28 11:16] VITALS: TEMP 98.3
[2020-03-28 12:04] LABS: Glucose,Whole Blood 211 mg/dL (75-99)
[2020-03-28 13:18] VITALS: PULSE 60
[2020-03-28 13:22] VITALS: BP 118/66; RESP 16
--- NOTE | 2020-03-28 13:54 | P.PN ---
Subjective Progress Note Date: 03/28/20 Principal diagnosis: Bilateral lower extremities edema This is a very pleasant 75-year-old gentleman with a past medical history significant for chronic systolic congestive heart failure as well as chronic obstructive pulmonary disease as well as permanent atrial fibrillation who was admitted to the hospital with increasing shortness of breath and was diagnosed with heart failure exacerbation secondary to systolic dysfunction. His echocardiogram showed an EF between 25-30%. The patient was seen today. He stated that his feeding pattern term of shortness of breath but he still have lower except his edema. He was discharged earlier today his primary care physician Dr. Clark. I am going to DC the Lasix IV and switch the patient Lasix by mouth with the home dose. Objective - Vital Signs Vital signs: Vital Signs Temp 98.3 F 03/28/20 09:00 Pulse 60 03/28/20 13:25 Resp 16 03/28/20 11:25 BP 118/66 03/28/20 11:25 Pulse Ox 97 03/28/20 11:25 Intake & Output 03/27/20 03/28/20 03/28/20 18:59 06:59 18:59 Intake Total 1195 240 Output Total 875 1700 Balance 320 -1700 240 Weight 110.9 kg Intake: Intake, IV Titration 50 Amount cefTRIAXone 1 gm In 50 Sodium Chloride 0.9% 50 ml @ 100 mls/hr IVPB Q24HR [facility] Rx#:[id number] Oral 1145 240 Output: Urine 875 1700 Other: Voiding Method Toilet Toilet Urinal Urinal # Voids 1 - Constitutional General appearance: Present: no acute distress - Respiratory Respiratory: bilateral: CTA - Cardiovascular Rhythm: irregularly irregular Heart sounds: normal: S1, S2 - Labs CBC & Chem 7: 03/27/20 07:42 03/27/20 07:42 Labs: Abnormal Lab Results - Last 24 Hours (Table) 03/27/20 03/27/20 03/28/20 Range/Units 17:20 20:02 06:06 PT (9.0-12.0) sec INR (<1.2) POC Glucose (mg/dL) 165 H 158 H 155 H (75-99) mg/dL 03/28/20 03/28/20 Range/Units 07:10 12:03 PT 26.8 H (9.0-12.0) sec INR 2.8 H (<1.2) POC Glucose (mg/dL) 211 H (75-99) mg/dL Assessment and Plan Assessment: Assessment #1 bilateral lower extremities edema related to heart failure exacerbation secondary to systolic dysfunction #2 COPD exacerbation #3 permanent atrial fibrillation was controlled heart rate #4 multiple comorbid conditions None #1 DC Lasix IV and start the patient on Lasix by mouth #2 the patient is going to be discharged home
[2020-03-28] MEDS ORDERED: WARFARIN 2 MG TAB PO ONE (18:00)
--- NOTE | 2020-03-30 09:43 | CDI ---
Documentation Clarification Form Date: 03/30/2020 09:30:24 AM From: Olga Khalil CCS, CCDS Admit Date: 03/26/2020 12:11:00 PM Patient Name: Juan Jackson Visit Number: [id number] Discharge Date: 03/28/2020 03:21:00 PM ATTENTION: The Clinical Documentation Specialists (CDI) and [facility] Coding Staff appreciate your assistance in clarifying documentation. Please respond to the clarification below the line at the bottom and electronically sign. The CDI & [facility] Coding staff will review the response and follow-up if needed. Please note: Queries are made part of the Legal Health Record. If you have any questions, please contact the author of this message via ITS. Dr. Giovanni Clark: Per the 03/24 History & Physical Assessment: Troponin 0.0663, indeterminate, rule out acute [id number]-[id number]-elevation myocardial infarction. Per the 03/25 Pulmonary Consult & subsequent Progress Note: Non-STEMI Per the 03/25 Cardiology Consult: Mild troponin elevation not indicative of acute coronary event, likely secondary to underlying failure History/Risk Factors Per the ED Note & History & Physical History of Present Illness Atrial Fibrillation with AICD, CAD, CHF, COPD, Stable AAA, CVA, TIA, DJD. Clinical Indicators: Presented to the ED on 03/24 with SOB, Weakness. ED Clinical Impression: CHF exacerbation, COPD exacerbation, Elevated Troponin. 03/24 VS: T 99.3, P 57, R 28 (SOB, Cough, Tachypnea), BP 115/65, PO 97 RA 03/24 LAB: Trop 0.063, 0.062, 0.053, BNP 2290 03/24 RAD: CXR: Suggestion of mild CHF Treatment: Telemetry, INH Duoneb, IV Solumedrol, IV Lasix 40 mg, IV Rocephin, po Coumadin, O2 2Lnc. In your professional opinion, can you please clarify the following and please include in subsequent documentation: o Non-STEMI ruled out-This is the correct dx o Non-STEMI ruled in o Other, please specify o Unable to determine (Last Revision: May 2017) MTDD
== END 2020-03-28 15:21 | disposition home or self-care (01) | DRG 291 ==
LOC: EC 13:51 → 3SCARD 15:36 → OBSVTOIN 03-26 12:11
PROVIDERS: ADMIT Family Medicine; ATTEND Family Medicine
DX: I13.0 Hypertensive heart and chronic kidney disease with heart failure and stage 1 through stage 4 chronic kidney disease, or unspecified chronic kidney disease (principal); I50.23 Acute on chronic systolic (congestive) heart failure; I48.21 Permanent atrial fibrillation; J44.1 Chronic obstructive pulmonary disease with (acute) exacerbation; I25.10 Atherosclerotic heart disease of native coronary artery without angina pectoris; I71.4 Abdominal aortic aneurysm, without rupture; C61 Malignant neoplasm of prostate; N18.30 Chronic kidney disease, stage 3 unspecified; E11.22 Type 2 diabetes mellitus with diabetic chronic kidney disease; E11.51 Type 2 diabetes mellitus with diabetic peripheral angiopathy without gangrene; D69.6 Thrombocytopenia, unspecified; Z20.822 Contact with and (suspected) exposure to COVID-19; E86.0 Dehydration; J45.50 Severe persistent asthma, uncomplicated; I25.5 Ischemic cardiomyopathy; I08.1 Rheumatic disorders of both mitral and tricuspid valves; R01.1 Cardiac murmur, unspecified; D63.8 Anemia in other chronic diseases classified elsewhere; E66.9 Obesity, unspecified; E78.5 Hyperlipidemia, unspecified; G47.33 Obstructive sleep apnea (adult) (pediatric); H54.62 Unqualified visual loss, left eye, normal vision right eye; M10.9 Gout, unspecified; M19.90 Unspecified osteoarthritis, unspecified site; M47.9 Spondylosis, unspecified; F41.9 Anxiety disorder, unspecified; Z91.11 Patient's noncompliance with dietary regimen; Z68.33 Body mass index [BMI] 33.0-33.9, adult; I25.2 Old myocardial infarction; Z98.1 Arthrodesis status; Z95.810 Presence of automatic (implantable) cardiac defibrillator; Z95.5 Presence of coronary angioplasty implant and graft; Z79.899 Other long term (current) drug therapy; Z79.01 Long term (current) use of anticoagulants; Z79.82 Long term (current) use of aspirin; Z87.01 Personal history of pneumonia (recurrent); Z87.891 Personal history of nicotine dependence; Z86.73 Personal history of transient ischemic attack (TIA), and cerebral infarction without residual deficits; Z83.3 Family history of diabetes mellitus; Z80.8 Family history of malignant neoplasm of other organs or systems; Z80.52 Family history of malignant neoplasm of bladder; Z82.3 Family history of stroke; Z86.79 Personal history of other diseases of the circulatory system
CPT/HCPCS: 36415; 71046; 80048; 80053; 81003; 83605; 83735; 83880; 84145; 84484; 85025; 85610; 85730; 87635; 93005; 93306; 94640; 96374; 96375; 99285

== ENCOUNTER 2020-04-03 07:38 | Day surgery (SDC) | payer MEDICARE, BC ==
[2020-04-02 11:04] VITALS: BMI 33.5
[~2020-04-03 07:38] MED LIST changes: -SODIUM CHLORIDE 0.9% 1,000 ML in EMPTY BAG 1 BAG IV ONE
[2020-04-03] MEDS ORDERED: SODIUM CHLORIDE 0.9% 1,000 ML IV ONE (08:08)
[2020-04-03 08:23] VITALS: RESP 18; TEMP 97.1
[2020-04-03 08:54] LABS: INR 1.2 (<1.2); Prothrombin Time 12.6 sec (9.0-12.0)
[2020-04-03] MEDS ORDERED: LIDOCAINE 1% INJ 10MG/ML (20 ML MDV) ONE (09:26)
[2020-04-03] MEDS ORDERED: HEPARIN SODIUM 1,000 UN/ML (10ML VL) ONE (09:36)
[2020-04-03] MEDS ORDERED: fentaNYL (PF) 50 MCG/ML 2 ML AMP ONE (09:36)
[2020-04-03] MEDS ORDERED: fentaNYL (PF) 50 MCG/ML 2 ML AMP IV ONE ×2 (09:41)
[2020-04-03] MEDS ORDERED: MIDAZOLAM 2 MG/2 ML VIAL IV ONE ×2 (09:41)
[2020-04-03] MEDS ORDERED: LIDOCAINE 1% INJ 10MG/ML (20 ML MDV) SQ ONE (09:45)
[2020-04-03] MEDS ORDERED: IOPAMIDOL-250 100ML BTL INTRAARTER ONE ×2 (10:58→10:59)
--- NOTE | 2020-04-03 11:42 | IR ---
EXAMINATION TYPE: IR stent intravas non coronary DATE OF EXAM: 04/03/2020 COMPARISON: NONE HISTORY: Fluoroscopy time. Fluoroscopy was provided to the referring clinician.
--- NOTE | 2020-04-03 12:00 | P.OP ---
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 Postoperative Diagnosis: Same Procedure(s) Performed: #1 ultrasound-guided right common femoral artery access #2 selective left iliofemoral, femoral-popliteal and tibial artery angiograms third order catheter placement #3 percutaneous transluminal balloon angioplasty of the external iliac artery with 6 x 100 mm Chelan balloon #4 percutaneous mechanical thrombectomy of the left superficial femoral artery with penumbra CAT 8 device #5 percutaneous transluminal self-expanding stent placement in the left external iliac artery #6 percutaneous transluminal balloon angioplasty of the right common iliac artery and external iliac artery with 8 x 20 mm ultra versus balloon #7 percutaneous closure of the right common femoral artery access with 8-[place]izen [place] Angio-Seal #8 conscious sedation 95 minutes Anesthesia: local Surgeon: Juan Perry Estimated Blood Loss (ml): 10 Pathology: none sent Condition: stable Disposition: PACU Indications for Procedure: 75-year-old gentleman with severe lower extremity claudication who is unable to ambulate more than 50 feet without significant pain in his buttocks and lower extremity bilaterally. 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 He also has an infrarenal AAA measuring just under 5 cm. He presents today for intervention for his left external iliac artery with possible stenting. Description of Procedure: Operative narrative: After written informed consent was obtained the patient all risks benefits competitions were described the patient is brought to the Procedures Rn and laid in a supine position. The area of the bilateral groins were prepped and draped in the usual sterile fashion. Local anesthesia with moderate sedation was performed with continuous pulse ox monitoring and EKG monitoring. Utilizing ultrasound the right common femoral artery was visualized and shown to be patent without any significant plaque. Utilizing a multipurpose needle under ultrasound guidance the artery was accessed. Guidewire was placed followed by 6-[place]izen [place] sheath. 035 Glidewire was then placed into the aorta followed by a RBI catheter. 035 Glidewire advantage was then placed up and over into the left common iliac artery and the 6-[place]izen [place] sheath was removed and replaced with a 6- [place] 55 cm sheath. Selective left iliofemoral angiogram was obtained demonstrating complete total occlusion of the left external iliac artery. 035 Glidewire advantage with a quick cross catheter was utilized to attempt to cross the lesion. The lesion was significantly occluded and was unable to be crossed in this fashion. There was reconstitution at the femoral and the 035 Glidewire was removed and replaced with a 018 Astato wire and the lesion was crossed. Once across the lesion 018 quick cross catheter was utilized and selective angiogram was obtained distal to the blockage showing good intraluminal access. A 6 x 100 mm Chelan balloon was then utilized after patient was administered heparin and followed with ACTs. Angiogram was then obtained after the balloon angioplasty demonstrating a small dissection with complete resolution of the occlusion. Selective angiogram of the left superficial femoral artery was also obtained demonstrating some dense plaque floating within the SFA. At that time was determined to replace the 6-[place]izen [place] up and over sheath for an 8-[place]izen [place] destination sheath and a penumbra 8 device was then utilized and mechanical thrombectomy was performed and the loose plaque was retrieved. Angiogram was then obtained after that demonstrating no residual floating plaque. Attention was then placed back to the lesion itself and a 8 x 60 mm self-expanding stent was chosen and deployed in normal fashion after placing a 6 spider filter across the external iliac artery. Once completed final angiogram was obtained demonstrating brisk flow through the lesion with out any residual stenosis. Angiogram of the distal limb was performed down to the foot demonstrating two-vessel runoff to the ankle and foot were patent posterior tibial artery and anterior tibial artery to the foot. Guidewire and catheter were then withdrawn angiogram of the right iliac artery was obtained demonstrating 80% stenosis of the common iliac artery as well as the external iliac artery and an 8 x 20 mm Chelan balloon was chosen and balloon angioplasty was performed in normal fashion. Once completed angiogram was obtained demonstrating improvement without complete resolution. All sheaths were removed as well as the catheter and an 8-[place] Angio-Seal was utilized for hemostasis in the right groin. This was performed in normal fashion. Patient tolerated she is a well had palpable pulses bilaterally DP and PT on the right and PT on the left. He was then sent to PACU for recovery. Plan - Discharge Summary Discharge Rx Participant: No New Discharge Prescriptions: No Action Multivitamins, Thera [Multivitamin (formulary)] 1 tab PO DAILY Vitamin B Complex 1 cap PO DAILY Aspirin 81 mg PO DAILY #30 chew Atorvastatin [Lipitor] 80 mg PO HS #30 tab Isosorbide Mononitrate ER [Imdur] 30 mg PO BID carvediloL [Coreg*] 12.5 mg PO TID Warfarin [Coumadin] 2.5 mg PO HS Losartan [Cozaar] 50 mg PO BID Furosemide [Lasix] 80 mg PO BID@0800,1600 allopurinoL [Zyloprim] 300 mg PO DAILY Umeclidinium Brm/Vilanterol Tr [Anoro Ellipta 62.5-25 Mcg INH] 1 puff INHALATION RT-DAILY LORazepam [Ativan] 0.5 mg PO TID PRN PRN Reason: Anxiety Nitroglycerin Sl Tabs [Nitrostat] 0.4 mg SL Q5M PRN PRN Reason: Chest Pain Ipratropium-Albuterol Nebulize [Duoneb 0.5 mg-3 mg/3 ml Soln] 3 ml INHALATION RT-QID Cholecalciferol [Vitamin D3 (25 Mcg = 1000 Iu)] 25 mcg PO DAILY Discharge Medication List Multivitamins, Thera [Multivitamin (formulary)] 1 tab PO DAILY 12/17/15 [History] Vitamin B Complex 1 cap PO DAILY 12/22/15 [History] Aspirin 81 mg PO DAILY #30 chew 12/24/15 [Rx] Atorvastatin [Lipitor] 80 mg PO HS #30 tab 12/24/15 [Rx] Isosorbide Mononitrate ER [Imdur] 30 mg PO BID 05/27/17 [History] carvediloL [Coreg*] 12.5 mg PO TID 03/18/18 [History] Furosemide [Lasix] 80 mg PO BID@0800,1600 05/05/18 [History] Losartan [Cozaar] 50 mg PO BID 05/05/18 [History] Warfarin [Coumadin] 2.5 mg PO HS 05/05/18 [History] Umeclidinium Brm/Vilanterol Tr [Anoro Ellipta 62.5-25 Mcg INH] 1 puff INHALATION RT-DAILY 10/15/19 [History] allopurinoL [Zyloprim] 300 mg PO DAILY 10/15/19 [History] Ipratropium-Albuterol Nebulize [Duoneb 0.5 mg-3 mg/3 ml Soln] 3 ml INHALATION RT-QID 02/09/20 [History] LORazepam [Ativan] 0.5 mg PO TID PRN 02/09/20 [History] Nitroglycerin Sl Tabs [Nitrostat] 0.4 mg SL Q5M PRN 02/09/20 [History] Cholecalciferol [Vitamin D3 (25 Mcg = 1000 Iu)] 25 mcg PO DAILY 03/24/20 [History] Follow up Appointment(s)/Referral(s): Juan Perry DO [STAFF PHYSICIAN] - 1 Week (APPOINTMENT MADE ON April @ 3:00PM ) Discharge Disposition: HOME SELF-CARE
[2020-04-03 16:11] VITALS: BP 131/64; PULSE 66
== END 2020-04-03 16:29 | disposition home or self-care (01) ==
LOC: CATHCVL 07:38
PROVIDERS: ATTEND Surgery
DX: I74.3 Embolism and thrombosis of arteries of the lower extremities (principal); I70.213 Atherosclerosis of native arteries of extremities with intermittent claudication, bilateral legs; I70.92 Chronic total occlusion of artery of the extremities; I70.8 Atherosclerosis of other arteries; I71.4 Abdominal aortic aneurysm, without rupture; I10 Essential (primary) hypertension; J44.9 Chronic obstructive pulmonary disease, unspecified; Z98.890 Other specified postprocedural states; Z95.0 Presence of cardiac pacemaker; Z95.5 Presence of coronary angioplasty implant and graft; Z79.82 Long term (current) use of aspirin; Z79.01 Long term (current) use of anticoagulants; Z79.899 Other long term (current) drug therapy
CPT/HCPCS: 37184; 37220; 37221; 85347; 85610; C1760; C1894 ×4; C1769 ×7; C1887; C1725; C1876; C1884; C1757 ×2; J2250; J2001; J3010; J1644; Q9966

== ENCOUNTER → 2020-04-09 | Outpatient (CLI) | payer MEDICARE, BC ==
[2020-04-09 12:03] LABS: Anisocytosis Slight; HCT 41.9 % (39.0-53.0); MCH 27.9 pg (25.0-35.0); Mean Platelet Volume 7.5; Poikilocytosis Slight; RBC 4.65 m/uL (4.30-5.90); RDW 19.5 % (11.5-15.5); WBC 10.5 k/uL (3.8-10.6)
[2020-04-09 12:07] LABS: MCV 90.2 fL (80.0-100.0)
[2020-04-09 12:08] LABS: African American GFR (CKD) 73 (>60 ml/min/1.73 sqM); Blood Urea Nitrogen 46 mg/dL (9-20); Chloride 80 mmol/L (98-107); Glucose 196 mg/dL (74-99); Magnesium 1.9 mg/dL (1.6-2.3); Non-African American GFR(CKD) 63 (>60 ml/min/1.73 sqM); Potassium 3.6 mmol/L (3.5-5.1); Sodium 132 mmol/L (137-145)
[2020-04-09 12:15] LABS: Anion Gap 9 mmol/L
[2020-04-09 12:25] LABS: Carbon Dioxide 43 mmol/L (22-30)
[2020-04-09 12:52] LABS: Platelet Count 85 k/uL (150-450)
== END | disposition home or self-care (01) ==
LOC: LABWHC1 11:03
PROVIDERS: ATTEND Internal Medicine Interventional Cardiology
DX: I25.10 Atherosclerotic heart disease of native coronary artery without angina pectoris (principal); N18.9 Chronic kidney disease, unspecified
CPT/HCPCS: 36415; 80048; 83735; 85027

== ENCOUNTER → 2020-09-24 | Outpatient (CLI) | payer MEDICARE, BC | END | disposition home or self-care (01) | LOC: LABWHC1 12:28 | PROVIDERS: ATTEND Radiology Radiation Oncology | DX: C61 Malignant neoplasm of prostate (principal); Z87.891 Personal history of nicotine dependence | CPT/HCPCS: 36415; 84153 ==

== ENCOUNTER 2020-11-06 20:30 | Inpatient (IN) | payer MEDICARE, BC ==
--- NOTE | 2020-11-06 20:57 | ED ---
Weakness HPI - General Chief complaint: Weakness Stated complaint: COPD, Swelling Time Seen by Provider: 11/06/20 20:44 Source: patient, family, RN notes reviewed, old records reviewed Mode of arrival: wheelchair Limitations: no limitations - History of Present Illness Initial comments: This is a 75-year-old male patient presents to the emergency room with complaints of 2 months of generalized weakness. He's also had a cough with bilateral lower extremity swelling worse on the left. He states his legs are restless he can't stop moving them. He denies any chest pain. Family at bedside states that he's had no fevers, nausea, vomiting or diarrhea. He does have history of prostate cancer and is not sure if he supposed to be scheduled for radiation soon. He states that he feels like he needs to empty his bladder and he is just dribbling urine. MD Complaint: generalized weakness -: month(s) (2) Location: generalized Severity scale (1-10): 0 Associated Symptoms: other (Restless legs, cough, urinary retention) - Related Data Home Medications Medication Instructions Recorded Confirmed Multivitamins, Thera [Multivitamin 1 tab PO DAILY 12/17/15 11/06/20 (formulary)] Vitamin B Complex 1 cap PO DAILY 12/22/15 11/06/20 Isosorbide Mononitrate ER [Imdur] 30 mg PO BID 05/27/17 11/06/20 Losartan [Cozaar] 50 mg PO BID 05/05/18 11/06/20 Warfarin [Coumadin] 2.5 mg PO HS 05/05/18 11/06/20 Umeclidinium Brm/Vilanterol Tr 1 puff INHALATION RT-DAILY 10/15/19 11/06/20 [Anoro Ellipta 62.5-25 Mcg INH] allopurinoL [Zyloprim] 300 mg PO DAILY 10/15/19 11/06/20 Ipratropium-Albuterol Nebulize 3 ml INHALATION RT-QID PRN 02/09/20 11/06/20 [Duoneb 0.5 mg-3 mg/3 ml Soln] LORazepam [Ativan] 0.5 mg PO TID PRN 02/09/20 11/06/20 Nitroglycerin Sl Tabs [Nitrostat] 0.4 mg SL Q5M PRN 02/09/20 11/06/20 Cholecalciferol [Vitamin D3 (25 25 mcg PO DAILY 11/06/20 11/06/20 Mcg = 1000 Iu)] Furosemide [Lasix] 40 mg PO HS 11/06/20 11/06/20 Furosemide [Lasix] 60 mg PO DAILY 11/06/20 11/06/20 Potassium Chloride [Klor-Con 10 ER] 10 meq PO BID 11/06/20 11/06/20 Tamsulosin HCl [Flomax] 0.4 mg PO DAILY 11/06/20 11/06/20 Zolpidem [Ambien] 10 mg PO HS 11/06/20 11/06/20 traZODone HCL [TraZODone HCl] 50 mg PO HS 11/06/20 11/06/20 Previous Rx's Medication Instructions Recorded Aspirin 81 mg PO DAILY #30 chew 12/24/15 Atorvastatin [Lipitor] 80 mg PO HS #30 tab 12/24/15 Allergies Allergy/AdvReac Type Severity Reaction Status Date / Time No Known Allergies Allergy Verified 11/06/20 22:56 Review of Systems ROS Statement: Those systems with pertinent positive or pertinent negative responses have been documented in the HPI. ROS Other: All systems not noted in ROS Statement are negative. Past Medical History Past Medical History: Atrial Fibrillation, Coronary Artery Disease (CAD), Cancer, Heart Failure, COPD, CVA/TIA, Eye Disorder, Hyperlipidemia, Hypertension, Osteoarthritis (OA), Pneumonia, Prostate Disorder Additional Past Medical History / Comment(s): Hx respiratory failure due to exacerbation of COPD. 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 Hernia. Last Myocardial Infarction Date:: 2015 History of Any Multi-Drug Resistant Organisms: None Reported Past Surgical History: AICD, Back Surgery, Heart Catheterization With Stent, Pacemaker Additional Past Surgical History / Comment(s): Stents(3), low back fusion, oral surgery. Past Anesthesia/Blood Transfusion Reactions: Motion Sickness Date of Last Stent Placement:: 2015 Type of Cardiac Device: Permanent Pacemaker, AICD Device Placement Date:: 05/09/10 Past Psychological History: Anxiety Smoking Status: Former smoker - Past Family History Father Family Medical History: CVA/TIA, Dementia Mother Family Medical History: Cancer, CVA/TIA, Diabetes Mellitus, Skin Disorder Additional Family Medical History / Comment(s): Skin cancer. Brother(s) Family Medical History: Cancer Additional Family Medical History / Comment(s): Bladder cancer. General Exam Limitations: no limitations General appearance: alert, in no apparent distress Head exam: Present: atraumatic, normocephalic, normal inspection Eye exam: Present: normal appearance, PERRL, EOMI. Absent: scleral icterus, conjunctival injection, periorbital swelling Pupils: Present: miosis ENT exam: Present: normal exam, normal oropharynx, mucous membranes moist Neck exam: Present: normal inspection, full ROM. Absent: tenderness, meningismus, lymphadenopathy Respiratory exam: Present: wheezes. Absent: chest wall tenderness, accessory muscle use Cardiovascular Exam: Present: regular rate. Absent: JVD GI/Abdominal exam: Present: soft, distended, normal bowel sounds. Absent: tenderness, guarding, rebound, rigid, mass Rectal exam: Present: normal inspection, normal rectal tone, prostate enlargeme nt. Absent: bloody stool, fecal impaction Extremities exam: Present: full ROM, normal capillary refill, pedal edema (1+). Absent: tenderness, calf tenderness Back exam: Absent: tenderness Neurological exam: Present: alert, oriented X3, normal gait Psychiatric exam: Present: normal affect, normal mood Skin exam: Present: warm, dry, intact, normal color. Absent: rash, cyanosis, diaphoretic, petechiae, pallor Course Vital Signs 11/06/20 11/06/20 20:33 21:50 Temperature 97.9 F Pulse Rate 60 Respiratory 19 16 Rate Blood Pressure 92/62 O2 Sat by Pulse 98 Oximetry EKG Findings - NM, Pacemaker, Normal: Pacemaker: normal ventricular sensing (Ventricularly paced rhythm with ventricular rate of 60, QRS 0.216, QTC 0.566) Normal tracing: no change compared to previous tracing (03/24/20) Medical Decision Making - Medical Decision Making Chest x-ray shows heart enlarged with no evidence of heart failure. There is a left axillary pacemaker. There is improvement pulmonary vascularity compared to the last exam. Patient's creatinine is elevated from 1.14 in April of this year to 2.02. He'll be admitted for acute kidney injury. His hemoglobin is 10 which is a drop from his previous at 13. His bladder scan is less than 100cc. Case was discussed with Dr. Montemayor - Lab Data Result diagrams: 11/06/20 21:13 11/06/20 21:13 Lab Results 11/06/20 11/06/20 11/06/20 Range/Units 21:13 21:13 21:13 WBC 5.8 (3.8-10.6) k/uL RBC 3.33 L (4.30-5.90) m/uL Hgb 10.2 L (13.0-17.5) gm/dL Hct 32.1 L (39.0-53.0) % MCV 96.6 (80.0-100.0) fL MCH 30.7 (25.0-35.0) pg MCHC 31.8 (31.0-37.0) g/dL RDW 19.9 H (11.5-15.5) % Plt Count 100 L (150-450) k/uL MPV 8.4 Neutrophils % 72 % Lymphocytes % 14 % Monocytes % 8 % Eosinophils % 3 % Basophils % 1 % Neutrophils # 4.2 (1.3-7.7) k/uL Lymphocytes # 0.8 L (1.0-4.8) k/uL Monocytes # 0.4 (0-1.0) k/uL Eosinophils # 0.2 (0-0.7) k/uL Basophils # 0.0 (0-0.2) k/uL Hypochromasia Slight Poikilocytosis Slight Anisocytosis Slight Macrocytosis Slight PT 20.9 H (9.0-12.0) sec INR 2.1 H (<1.2) APTT 33.6 H (22.0-30.0) sec Sodium (137-145) mmol/L Potassium (3.5-5.1) mmol/L Chloride (98-107) mmol/L Carbon Dioxide (22-30) mmol/L Anion Gap mmol/L BUN (9-20) mg/dL Creatinine (0.66-1.25) mg/dL Est GFR (CKD-EPI)AfAm (>60 ml/min/1.73 sqM) Est GFR (CKD-EPI)NonAf (>60 ml/min/1.73 sqM) Glucose (74-99) mg/dL Plasma Lactic Acid Chuy (0.7-2.0) mmol/L Calcium (8.4-10.2) mg/dL Magnesium (1.6-2.3) mg/dL Total Bilirubin (0.2-1.3) mg/dL AST (17-59) U/L ALT (4-49) U/L Alkaline Phosphatase (38-126) U/L Troponin I (0.000-0.034) ng/mL Total Protein (6.3-8.2) g/dL Albumin (3.5-5.0) g/dL Urine Color Yellow Urine Appearance Clear (Clear) Urine pH 5.0 (5.0-8.0) Ur Specific [place] 1.015 (1.001-1.035) Urine Protein Trace H (Negative) Urine Glucose (UA) Negative (Negative) Urine Ketones Negative (Negative) Urine Blood Negative (Negative) Urine Nitrite Negative (Negative) Urine Bilirubin Negative (Negative) Urine Urobilinogen <2.0 (<2.0) mg/dL Ur Leukocyte Esterase Moderate H (Negative) Urine RBC 1 (0-5) /hpf Urine WBC 2 (0-5) /hpf Ur Squamous Epith Cells 2 (0-4) /hpf Urine Bacteria Rare H (None) /hpf Hyaline Casts 81 H (0-2) /lpf Urine Mucus Rare H (None) /hpf Urine Yeast (Budding) Occasional H (None) /hpf 11/06/20 11/06/20 11/06/20 Range/Units 21:13 21:13 21:13 WBC (3.8-10.6) k/uL RBC (4.30-5.90) m/uL Hgb (13.0-17.5) gm/dL Hct (39.0-53.0) % MCV (80.0-100.0) fL MCH (25.0-35.0) pg MCHC (31.0-37.0) g/dL RDW (11.5-15.5) % Plt Count (150-450) k/uL MPV Neutrophils % % Lymphocytes % % Monocytes % % Eosinophils % % Basophils % % Neutrophils # (1.3-7.7) k/uL Lymphocytes # (1.0-4.8) k/uL Monocytes # (0-1.0) k/uL Eosinophils # (0-0.7) k/uL Basophils # (0-0.2) k/uL Hypochromasia Poikilocytosis Anisocytosis Macrocytosis PT (9.0-12.0) sec INR (<1.2) APTT (22.0-30.0) sec Sodium 137 (137-145) mmol/L Potassium 4.4 (3.5-5.1) mmol/L Chloride 104 (98-107) mmol/L Carbon Dioxide 22 (22-30) mmol/L Anion Gap 11 mmol/L BUN 72 H (9-20) mg/dL Creatinine 2.02 H (0.66-1.25) mg/dL Est GFR (CKD-EPI)AfAm 36 (>60 ml/min/1.73 sqM) Est GFR (CKD-EPI)NonAf 31 (>60 ml/min/1.73 sqM) Glucose 143 H (74-99) mg/dL Plasma Lactic Acid Chuy 1.0 (0.7-2.0) mmol/L Calcium 9.5 (8.4-10.2) mg/dL Magnesium 1.9 (1.6-2.3) mg/dL Total Bilirubin 1.4 H (0.2-1.3) mg/dL AST 52 (17-59) U/L ALT 22 (4-49) U/L Alkaline Phosphatase 172 H (38-126) U/L Troponin I 0.052 H* (0.000-0.034) ng/mL Total Protein 6.3 (6.3-8.2) g/dL Albumin 3.6 (3.5-5.0) g/dL Urine Color Urine Appearance (Clear) Urine pH (5.0-8.0) Ur Specific [place] (1.001-1.035) Urine Protein (Negative) Urine Glucose (UA) (Negative) Urine Ketones (Negative) Urine Blood (Negative) Urine Nitrite (Negative) Urine Bilirubin (Negative) Urine Urobilinogen (<2.0) mg/dL Ur Leukocyte Esterase (Negative) Urine RBC (0-5) /hpf Urine WBC (0-5) /hpf Ur Squamous Epith Cells (0-4) /hpf Urine Bacteria (None) /hpf Hyaline Casts (0-2) /lpf Urine Mucus (None) /hpf Urine Yeast (Budding) (None) /hpf Disposition Clinical Impression: KEEGAN (acute kidney injury), Weakness Disposition: ADMITTED IP TO THIS HOSP Condition: Fair Decision Date: 11/06/20 Decision Time: 22:28
[2020-11-06 21:26] LABS: Anisocytosis Slight; Basophils % (A) 1 %; Eosinophils # (A) 0.2 k/uL (0-0.7); Eosinophils % (A) 3 %; HCT 32.1 % (39.0-53.0); HGB 10.2 gm/dL (13.0-17.5); Hypochromasia Slight; Lymphocytes # (A) 0.8 k/uL (1.0-4.8); Lymphocytes % (A) 14 %; MCH 30.7 pg (25.0-35.0); MCHC 31.8 g/dL (31.0-37.0); MCV 96.6 fL (80.0-100.0); Macrocytosis Slight; Mean Platelet Volume 8.4; Monocytes # (A) 0.4 k/uL (0-1.0); Monocytes % (A) 8 %; Neutrophils # (A) 4.2 k/uL (1.3-7.7); Neutrophils % (A) 72 %; Platelet Count 100 k/uL (150-450); Poikilocytosis Slight; RBC 3.33 m/uL (4.30-5.90); RDW 19.9 % (11.5-15.5); WBC 5.8 k/uL (3.8-10.6)
[2020-11-06 21:31] LABS: Appearance,Urine Clear (Clear); Bacteria,Urine Rare /hpf; Bilirubin,Urine Negative (Negative); Blood,Urine Negative (Negative); Budding Yeast,Urine Occasional /hpf; Color,Urine Yellow; Glucose,Urine (UA) Negative (Negative); Hyaline Casts,Urine 81 /lpf (0-2); Ketones,Urine Negative (Negative); Leukocyte Esterase,Urine Moderate (Negative); Mucus,Urine Rare /hpf; Nitrite,Urine Negative (Negative); Protein,Urine Trace (Negative); RBC,Urine 1 /hpf (0-5); Specific Gravity,Urine 1.015 (1.001-1.035); Squamous Epithelial Cell,Urine 2 /hpf (0-4); Urobilinogen,Urine <2.0 mg/dL (<2.0); WBC,Urine 2 /hpf (0-5)
[2020-11-06 21:41] LABS: Albumin 3.6 g/dL (3.5-5.0); Calcium 9.5 mg/dL (8.4-10.2); Magnesium 1.9 mg/dL (1.6-2.3); Potassium 4.4 mmol/L (3.5-5.1); Total Bilirubin 1.4 mg/dL (0.2-1.3); Total Protein 6.3 g/dL (6.3-8.2)
[2020-11-06 21:42] LABS: INR 2.1 (<1.2); Partial Thromboplastin Time 33.6 sec (22.0-30.0); Prothrombin Time 20.9 sec (9.0-12.0)
--- NOTE | 2020-11-06 21:46 | XR ---
EXAMINATION TYPE: XR chest 2V DATE OF EXAM: 11/06/2020 COMPARISON: NONE HISTORY: Short of breath. Weakness TECHNIQUE: 2 views FINDINGS: Heart is enlarged. There is no heart failure. There is left axillary pacemaker. Costophreni c angles are fairly clear. Bony thorax is intact. IMPRESSION: There is moderate cardiomegaly without change. No heart failure. There is improvement in the pulmonary vascularity compared to old exam.
[2020-11-06] MEDS ORDERED: NALOXONE 0.4 MG/ML 1 ML VIAL IV PRN (22:28)
[2020-11-07] MEDS ORDERED: FUROSEMIDE 40 MG TAB PO STA (01:14)
[2020-11-07] MEDS ORDERED: traZODone HCL 50 MG TAB PO STA (01:15)
[2020-11-07] MEDS ORDERED: ATORVASTATIN 40 MG TAB PO STA (01:15)
[2020-11-07] MEDS ORDERED: WARFARIN 2.5 MG TAB PO ONE (02:45)
[2020-11-07] MEDS: ZOLPIDEM 5 MG TAB PO PRN (04:12)
[2020-11-07] MEDS ORDERED: LORazepam 0.5 MG TAB PO PRN (08:02)
[2020-11-07] MEDS ORDERED: NITROGLYCERIN SL TABS 0.4 MG TAB SUBLINGUAL PRN (08:03)
[2020-11-07 08:52] LABS: INR 2.3 (<1.2); Prothrombin Time 22.6 sec (9.0-12.0)
[2020-11-07] MEDS: FUROSEMIDE 20 MG TAB PO SCH (09:06)
[2020-11-07] MEDS: ISOSORBIDE MONONITRATE ER 30 MG TAB.ER.24H PO SCH ×2 (09:07→21:47)
[2020-11-07] MEDS: allopurinoL 300 MG TAB PO SCH (09:07)
[2020-11-07] MEDS: POTASSIUM CHLORIDE ER 10 MEQ TAB.ER.PRT PO SCH ×2 (09:07→21:47)
[2020-11-07] MEDS: CHOLECALCIFEROL 25 MCG (1000 IU) TABLET PO SCH (09:07)
[2020-11-07] MEDS: TAMSULOSIN 0.4 MG CAP.ER.24H PO SCH (09:07)
[2020-11-07] MEDS: MULTIVITAMINS, THERA 1 EACH TAB PO SCH (09:07)
[2020-11-07] MEDS: LOSARTAN 50 MG TAB PO SCH ×2 (09:07→21:47)
[2020-11-07] MEDS: NON FORMULARY DRUG (Vitamin B Complex [Vitamin B Complex] 1 EACH Capsule) PO SCH (09:09)
[2020-11-07] MEDS: NITROFURANTOIN MONOHYD/M-CRYST 100 MG CAP PO SCH ×2 (09:23→21:48)
[2020-11-07 10:00] LABS: Anisocytosis Slight; HCT 31.9 % (39.0-53.0); HGB 9.8 gm/dL (13.0-17.5); Hypochromasia Moderate; MCH 30.2 pg (25.0-35.0); MCHC 30.8 g/dL (31.0-37.0); MCV 97.9 fL (80.0-100.0); Macrocytosis Slight; Mean Platelet Volume 8.6; Platelet Count 104 k/uL (150-450); Poikilocytosis Slight; RBC 3.26 m/uL (4.30-5.90); RDW 19.9 % (11.5-15.5); WBC 5.9 k/uL (3.8-10.6)
[2020-11-07 10:24] LABS: African American GFR (CKD) 36 (>60 ml/min/1.73 sqM); Anion Gap 8 mmol/L; Blood Urea Nitrogen 70 mg/dL (9-20); Calcium 9.6 mg/dL (8.4-10.2); Carbon Dioxide 27 mmol/L (22-30); Chloride 103 mmol/L (98-107); Glucose 147 mg/dL (74-99); Non-African American GFR(CKD) 32 (>60 ml/min/1.73 sqM); Potassium 3.9 mmol/L (3.5-5.1); Sodium 138 mmol/L (137-145)
[2020-11-07] MEDS: FORMOTEROL FUMARATE 20 MCG/2 ML NEBU INHALATION SCH ×2 (11:23→19:24)
--- NOTE | 2020-11-07 11:32 | P.GSCN ---
History of Present Illness Consult date: 11/07/20 History of present illness: CHIEF COMPLAINT: Shortness of breath and lower extremity swelling HISTORY OF PRESENT ILLNESS: This a 75-year-old male who presented to the emergency department with complaints of shortness of breath, cough, and increased lower extremity swelling. On presentation he was noted to be anemic and he had a positive occult stool. He denies any signs or symptoms of bleeding. He denies any melena or hematochezia. He states he normally has a bowel movement daily, sometimes he does get constipated and has to push hard. States has history or external hemorrhoids. He denies any abdominal pain, nausea, or vomiting. No previous history of peptic ulcer disease or GERD. No previous EGD and does not believe he had a colonoscopy in the past. States he did have Cologuard about 2 years ago which he states was normal and was told he did not need any further screening. He denies any NSAID use. He does have a history of coronary artery disease with stents and is currently on Coumadin. PAST MEDICAL HISTORY: Atrial fibrillation, coronary artery disease, prostate cancer, heart failure, COPD, CVA/TIA, I disorder, hyperlipidemia, hypertension, osteoarthritis, pneumonia, abdominal aortic aneurysm, gout PAST SURGICAL HISTORY: AICD, back surgery, heart catheterization with stent, pacemaker, low back fusion, oral surgery SOCIAL HISTORY: No illicit drug use. Former smoker. REVIEW OF SYSTEMS: CONSTITUTIONAL: Denies fever or chills. HEENT: Denies blurred vision, vision changes, or eye pain. Denies hemoptysis CARDIOVASCULAR: Denies chest pain or pressure. Increased swelling to lower extremities. RESPIRATORY: Shortness of breath and cough. GASTROINTESTINAL: No abdominal pain, nausea, or vomiting. No hematemesis or coffee-ground emesis. No melena or hematochezia. HEMATOLOGIC: Denies bleeding disorders. GENITOURINARY: Denies any blood in urine or increased urinary frequency. SKIN: Denies pruitis. Denies rash. PHYSICAL EXAM: VITAL SIGNS: Reviewed GENERAL: Well-developed, appears in no acute distress. HEENT: No sclera icterus. Moist buccal mucosa. Head is atraumatic, normocephalic. No nasal drainage. ABDOMEN: Soft. Obese. Nondistended. Nontender. EXTREMITIES: Bilateral lower extremity edema. NEUROLOGIC: Alert and oriented. Cranial nerves II through XII grossly intact. LABORATORY DATA: WBC 5.9 hemoglobin 9.8 hematocrit 31.9 platelet count 104,000 INR 2.3 Sodium 138 potassium 3.9 BUN 70 creatinine 2.0 troponin 0.052 Magnesium 1.9 total bilirubin 1.4 AST 52 ALT 22 alkaline phosphatase 172 total protein 6.3 albumin 3.6 IMAGING: Chest x-ray: There is moderate cardiomegaly without change. No heart failure. There is improvement in the pulmonary vascularity compared to old exam ASSESSMENT: 1. Anemia 2. Positive occult stool 3. History of Atrial fibrillation on Coumadin 4. Shortness of breath 5. History of coronary artery disease status post stent, AICD, pacemaker PLAN: -Repeat CBC, BMP, INR in morning -Iron studies, ferritin ordered -Hold Coumadin for now -Give vitamin K 10 mg IV push -Clear liquid diet, nothing by mouth after midnight -We'll plan on EGD and colonoscopy tomorrow The impression and plan of care has been dictated as directed. I performed a history and examination of this patient, discussed the same with the dictator. I agree with the dictator's note ,documented as a scribe. Any additional findings or plans will be noted. Past Medical History Past Medical History: Atrial Fibrillation, Coronary Artery Disease (CAD), Cancer, Heart Failure, COPD, CVA/TIA, Eye Disorder, Hyperlipidemia, Hypertension, Osteoarthritis (OA), Pneumonia, Prostate Disorder Additional Past Medical History / Comment(s): Hx respiratory failure due to exacerbation of COPD. 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 Hernia. Last Myocardial Infarction Date:: 2015 History of Any Multi-Drug Resistant Organisms: None Reported Past Surgical History: AICD, Back Surgery, Heart Catheterization With Stent, Pacemaker Additional Past Surgical History / Comment(s): Stents(3), low back fusion, oral surgery. Past Anesthesia/Blood Transfusion Reactions: Motion Sickness Date of Last Stent Placement:: 2015 Type of Cardiac Device: Permanent Pacemaker, AICD Device Placement Date:: 05/09/10 Past Psychological History: Anxiety Smoking Status: Former smoker - Past Family History Father Family Medical History: CVA/TIA, Dementia Mother Family Medical History: Cancer, CVA/TIA, Diabetes Mellitus, Skin Disorder Additional Family Medical History / Comment(s): Skin cancer. Brother(s) Family Medical History: Cancer Additional Family Medical History / Comment(s): Bladder cancer. Medications and Allergies Home Medications Medication Instructions Recorded Confirmed Type Multivitamins, Thera [Multivitamin 1 tab PO DAILY 12/17/15 11/06/20 History (formulary)] Vitamin B Complex 1 cap PO DAILY 12/22/15 11/06/20 History Aspirin 81 mg PO DAILY #30 chew 12/24/15 11/06/20 Rx Atorvastatin [Lipitor] 80 mg PO HS #30 tab 12/24/15 11/06/20 Rx Isosorbide Mononitrate ER [Imdur] 30 mg PO BID 05/27/17 11/06/20 History Losartan [Cozaar] 50 mg PO BID 05/05/18 11/06/20 History Warfarin [Coumadin] 2.5 mg PO HS 05/05/18 11/06/20 History Umeclidinium Brm/Vilanterol Tr 1 puff INHALATION RT-DAILY 10/15/19 11/06/20 History [Anoro Ellipta 62.5-25 Mcg INH] allopurinoL [Zyloprim] 300 mg PO DAILY 10/15/19 11/06/20 History Ipratropium-Albuterol Nebulize 3 ml INHALATION RT-QID PRN 02/09/20 11/06/20 History [Duoneb 0.5 mg-3 mg/3 ml Soln] LORazepam [Ativan] 0.5 mg PO TID PRN 02/09/20 11/06/20 History Nitroglycerin Sl Tabs [Nitrostat] 0.4 mg SL Q5M PRN 02/09/20 11/06/20 History Cholecalciferol [Vitamin D3 (25 25 mcg PO DAILY 11/06/20 11/06/20 History Mcg = 1000 Iu)] Furosemide [Lasix] 40 mg PO HS 11/06/20 11/06/20 History Furosemide [Lasix] 60 mg PO DAILY 11/06/20 11/06/20 History Potassium Chloride [Klor-Con 10 ER] 10 meq PO BID 11/06/20 11/06/20 History Tamsulosin HCl [Flomax] 0.4 mg PO DAILY 11/06/20 11/06/20 History Zolpidem [Ambien] 10 mg PO HS 11/06/20 11/06/20 History traZODone HCL [TraZODone HCl] 50 mg PO HS 11/06/20 11/06/20 History Allergies Allergy/AdvReac Type Severity Reaction Status Date / Time No Known Allergies Allergy Verified 11/06/20 22:56 Surgical - Exam Vital Signs Temp Pulse Resp BP Pulse Ox 97.9 F 60 19 92/62 98 11/06/20 20:33 11/06/20 20:33 11/06/20 20:33 11/06/20 20:33 11/06/20 20:33 Results - Labs 11/07/20 09:23 11/07/20 09:23 Abnormal Lab Results - Last 24 Hours (Table) 11/06/20 11/06/20 11/06/20 Range/Units 21:13 21:13 21:13 RBC 3.33 L (4.30-5.90) m/uL Hgb 10.2 L (13.0-17.5) gm/dL Hct 32.1 L (39.0-53.0) % RDW 19.9 H (11.5-15.5) % Plt Count 100 L (150-450) k/uL Lymphocytes # 0.8 L (1.0-4.8) k/uL PT 20.9 H (9.0-12.0) sec INR 2.1 H (<1.2) APTT 33.6 H (22.0-30.0) sec BUN (9-20) mg/dL Creatinine (0.66-1.25) mg/dL Glucose (74-99) mg/dL Total Bilirubin (0.2-1.3) mg/dL Alkaline Phosphatase (38-126) U/L Troponin I (0.000-0.034) ng/mL Urine Protein Trace H (Negative) Ur Leukocyte Esterase Moderate H (Negative) Urine Bacteria Rare H (None) /hpf Hyaline Casts 81 H (0-2) /lpf Urine Mucus Rare H (None) /hpf Urine Yeast (Budding) Occasional H (None) /hpf 11/06/20 11/06/20 11/07/20 Range/Units 21:13 21:13 08:26 RBC (4.30-5.90) m/uL Hgb (13.0-17.5) gm/dL Hct (39.0-53.0) % RDW (11.5-15.5) % Plt Count (150-450) k/uL Lymphocytes # (1.0-4.8) k/uL PT 22.6 H (9.0-12.0) sec INR 2.3 H (<1.2) APTT (22.0-30.0) sec BUN 72 H (9-20) mg/dL Creatinine 2.02 H (0.66-1.25) mg/dL Glucose 143 H (74-99) mg/dL Total Bilirubin 1.4 H (0.2-1.3) mg/dL Alkaline Phosphatase 172 H (38-126) U/L Troponin I 0.052 H* (0.000-0.034) ng/mL Urine Protein (Negative) Ur Leukocyte Esterase (Negative) Urine Bacteria (None) /hpf Hyaline Casts (0-2) /lpf Urine Mucus (None) /hpf Urine Yeast (Budding) (None) /hpf Diabetes panel 11/06/20 Range/Units 21:13 Sodium 137 (137-145) mmol/L Potassium 4.4 (3.5-5.1) mmol/L Chloride 104 (98-107) mmol/L Carbon Dioxide 22 (22-30) mmol/L BUN 72 H (9-20) mg/dL Creatinine 2.02 H (0.66-1.25) mg/dL Glucose 143 H (74-99) mg/dL Calcium 9.5 (8.4-10.2) mg/dL AST 52 (17-59) U/L ALT 22 (4-49) U/L Alkaline Phosphatase 172 H (38-126) U/L Total Protein 6.3 (6.3-8.2) g/dL Albumin 3.6 (3.5-5.0) g/dL Calcium panel 11/06/20 Range/Units 21:13 Calcium 9.5 (8.4-10.2) mg/dL Albumin 3.6 (3.5-5.0) g/dL Pituitary panel 11/06/20 Range/Units 21:13 Sodium 137 (137-145) mmol/L Potassium 4.4 (3.5-5.1) mmol/L Chloride 104 (98-107) mmol/L Carbon Dioxide 22 (22-30) mmol/L BUN 72 H (9-20) mg/dL Creatinine 2.02 H (0.66-1.25) mg/dL Glucose 143 H (74-99) mg/dL Calcium 9.5 (8.4-10.2) mg/dL Adrenal panel 11/06/20 Range/Units 21:13 Sodium 137 (137-145) mmol/L Potassium 4.4 (3.5-5.1) mmol/L Chloride 104 (98-107) mmol/L Carbon Dioxide 22 (22-30) mmol/L BUN 72 H (9-20) mg/dL Creatinine 2.02 H (0.66-1.25) mg/dL Glucose 143 H (74-99) mg/dL Calcium 9.5 (8.4-10.2) mg/dL Total Bilirubin 1.4 H (0.2-1.3) mg/dL AST 52 (17-59) U/L ALT 22 (4-49) U/L Alkaline Phosphatase 172 H (38-126) U/L Total Protein 6.3 (6.3-8.2) g/dL Albumin 3.6 (3.5-5.0) g/dL
[2020-11-07] MEDS ORDERED: PEG 3350-NA SULF,BICARB,CL/KCL 4,000 ML BOTTLE PO ONE (14:45)
[2020-11-07] MEDS ORDERED: PHYTONADIONE 10 MG in SODIUM CHLORIDE 0.9% 50 ML IVPB STA (14:46)
[2020-11-07] MEDS: IPRATROPIUM-ALBUTEROL 3 ML NEB INHALATION PRN (19:24)
[2020-11-07] MEDS ORDERED: WARFARIN 2.5 MG TAB PO SCH (21:00)
[2020-11-07] MEDS ORDERED: traZODone HCL 50 MG TAB PO SCH (21:00)
[2020-11-07] MEDS ORDERED: WARFARIN 3 MG TAB PO SCH (21:00)
[2020-11-07] MEDS: ATORVASTATIN 80 MG TAB PO SCH (21:47)
[2020-11-07] MEDS: FUROSEMIDE 40 MG TAB PO SCH (21:48)
[2020-11-07] MEDS: traZODone HCL 50 MG TAB PO SCH (21:48)
--- NOTE | 2020-11-07 23:08 | P.HPIM ---
History of Present Illness H&P Date: 11/07/20 Chief Complaint: Weakness with shortness of breath and anemia. This is a history and physical on a 75-year-old white male with known history of congestive heart failure who has had been struggling with lower extremity edema. But he is complaining of significant weakness and poor stamina. The patient was essentially admitted secondary to anemia with positive guaiac stool and generalized weakness. History of a defibrillator in the past. No overt chest pressure per se but the patient is significantly weak and has difficulty transferring. No anginal equivalent pain stated. Chest x-ray does not show overt heart failure. Review of Systems Constitutional: Denies chills, Denies fever Eyes: denies blurred vision, denies pain Ears, nose, mouth and throat: Denies headache, Denies sore throat Respiratory: Denies cough Gastrointestinal: Denies abdominal pain, Denies diarrhea, Denies nausea, Denies vomiting Musculoskeletal: Denies myalgias Past Medical History Past Medical History: Atrial Fibrillation, Coronary Artery Disease (CAD), Cancer, Heart Failure, COPD, CVA/TIA, Eye Disorder, Hyperlipidemia, Hypertension, Osteoarthritis (OA), Pneumonia, Prostate Disorder Additional Past Medical History / Comment(s): Hx respiratory failure due to exacerbation of COPD. 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 Hernia. Last Myocardial Infarction Date:: 2015 History of Any Multi-Drug Resistant Organisms: None Reported Past Surgical History: AICD, Back Surgery, Heart Catheterization With Stent, Pacemaker Additional Past Surgical History / Comment(s): Stents(3), low back fusion, oral surgery. Past Anesthesia/Blood Transfusion Reactions: Motion Sickness Date of Last Stent Placement:: 2015 Type of Cardiac Device: Permanent Pacemaker, AICD Device Placement Date:: 05/09/10 Smoking Status: Former smoker - Past Family History Father Family Medical History: CVA/TIA, Dementia Mother Family Medical History: Cancer, CVA/TIA, Diabetes Mellitus, Skin Disorder Additional Family Medical History / Comment(s): Skin cancer. Brother(s) Family Medical History: Cancer Additional Family Medical History / Comment(s): Bladder cancer. Medications and Allergies Home Medications Medication Instructions Recorded Confirmed Type Multivitamins, Thera [Multivitamin 1 tab PO DAILY 12/17/15 11/06/20 History (formulary)] Vitamin B Complex 1 cap PO DAILY 12/22/15 11/06/20 History Aspirin 81 mg PO DAILY #30 chew 12/24/15 11/06/20 Rx Atorvastatin [Lipitor] 80 mg PO HS #30 tab 12/24/15 11/06/20 Rx Isosorbide Mononitrate ER [Imdur] 30 mg PO BID 05/27/17 11/06/20 History Losartan [Cozaar] 50 mg PO BID 05/05/18 11/06/20 History Warfarin [Coumadin] 2.5 mg PO HS 05/05/18 11/06/20 History Umeclidinium Brm/Vilanterol Tr 1 puff INHALATION RT-DAILY 10/15/19 11/06/20 History [Anoro Ellipta 62.5-25 Mcg INH] allopurinoL [Zyloprim] 300 mg PO DAILY 10/15/19 11/06/20 History Ipratropium-Albuterol Nebulize 3 ml INHALATION RT-QID PRN 02/09/20 11/06/20 History [Duoneb 0.5 mg-3 mg/3 ml Soln] LORazepam [Ativan] 0.5 mg PO TID PRN 02/09/20 11/06/20 History Nitroglycerin Sl Tabs [Nitrostat] 0.4 mg SL Q5M PRN 02/09/20 11/06/20 History Cholecalciferol [Vitamin D3 (25 25 mcg PO DAILY 11/06/20 11/06/20 History Mcg = 1000 Iu)] Furosemide [Lasix] 40 mg PO HS 11/06/20 11/06/20 History Furosemide [Lasix] 60 mg PO DAILY 11/06/20 11/06/20 History Potassium Chloride [Klor-Con 10 ER] 10 meq PO BID 11/06/20 11/06/20 History Tamsulosin HCl [Flomax] 0.4 mg PO DAILY 11/06/20 11/06/20 History Zolpidem [Ambien] 10 mg PO HS 11/06/20 11/06/20 History traZODone HCL [TraZODone HCl] 50 mg PO HS 11/06/20 11/06/20 History Allergies Allergy/AdvReac Type Severity Reaction Status Date / Time No Known Allergies Allergy Verified 11/06/20 22:56 Physical Exam Vitals: Vital Signs Temp Pulse Pulse Pulse Pulse Resp BP 11/07/20 19:50 97.4 F L 57 L 20 11/07/20 19:37 78 18 11/07/20 19:25 80 16 11/07/20 17:03 97.4 F L 60 18 11/07/20 16:10 60 16 11/07/20 14:00 98.2 F 60 18 11/07/20 08:00 97.9 F 60 19 11/07/20 03:00 20 11/07/20 00:26 63 16 102/61 BP BP Pulse Ox 11/07/20 19:50 124/83 98 11/07/20 19:37 11/07/20 19:25 100 11/07/20 17:03 101/66 100 11/07/20 16:10 98/64 99 11/07/20 14:00 105/63 100 11/07/20 08:00 104/62 100 11/07/20 03:00 11/07/20 00:26 98 Intake and Output 11/07/20 11/07/20 11/08/20 14:59 22:59 06:59 Other: # Voids 1 Weight 90.718 kg - Constitutional General appearance: no acute distress - EENT Eyes: EOMI - Neck Neck: no lymphadenopathy - Respiratory Respiratory: right: wheezing, left: diminished - Cardiovascular Rhythm: irregularly irregular Heart sounds: normal: S1, S2 Abnormal Heart Sounds: no S3 Gallop - Gastrointestinal General gastrointestinal: soft, no tenderness - Integumentary Integumentary: no cellulitis Results CBC & Chem 7: 11/07/20 09:23 11/07/20 09:23 Labs: Abnormal Lab Results - Last 24 Hours (Table) 11/07/20 11/07/20 11/07/20 Range/Units 08:26 09:23 09:23 RBC 3.26 L (4.30-5.90) m/uL Hgb 9.8 L (13.0-17.5) gm/dL Hct 31.9 L (39.0-53.0) % MCHC 30.8 L (31.0-37.0) g/dL RDW 19.9 H (11.5-15.5) % Plt Count 104 L (150-450) k/uL PT 22.6 H (9.0-12.0) sec INR 2.3 H (<1.2) BUN 70 H (9-20) mg/dL Creatinine 2.01 H (0.66-1.25) mg/dL Glucose 147 H (74-99) mg/dL Thrombosis Risk Factor Assmnt - Choose All That Apply Any of the Below Risk Factors Present?: Yes Each Factor Represents 1 point: Abnormal pulmonary function (COPD), Swollen legs (current) Each Risk Factor Represents 3 Points: Age 75 years or older, History of DVT/PE Thrombosis Risk Factor Assessment Total Risk Factor Score: 8 Thrombosis Risk Factor Assessment Level: High Risk Assessment and Plan (1) GI bleed Current Visit: Yes Status: Acute Code(s): K92.2 - GASTROINTESTINAL HEMORRHAGE, UNSPECIFIED SNOMED Code(s): 25909910 (2) KEEGAN (acute kidney injury) Current Visit: Yes Status: Acute Code(s): N17.9 - ACUTE KIDNEY FAILURE, UNSPECIFIED SNOMED Code(s): 54611460 (3) Weakness Current Visit: Yes Status: Acute Code(s): R53.1 - WEAKNESS SNOMED Code(s): 68571344 (4) AICD (automatic cardioverter/defibrillator) present Current Visit: No Status: Acute Code(s): Z95.810 - PRESENCE OF AUTOMATIC (IMPLANTABLE) CARDIAC DEFIBRILLATOR SNOMED Code(s): 194387752 (5) HTN (hypertension) Current Visit: No Status: Acute Code(s): I10 - ESSENTIAL (PRIMARY) HYPERTENSION SNOMED Code(s): 53750497 (6) Hyperlipemia Current Visit: No Status: Acute Code(s): E78.5 - HYPERLIPIDEMIA, UNSPECIFIED SNOMED Code(s): 81943459 (7) Ischemic cardiomyopathy Current Visit: No Status: Acute Code(s): I25.5 - ISCHEMIC CARDIOMYOPATHY SNOMED Code(s): 539771735 Plan: Due to his guaiac positive stool and anemia related to recent admission in March, we will ask surgery to see the patient. Otherwise, reconcile home medications. The patient is otherwise a full code at this time. Check CBC in the a.m.
[2020-11-08 06:29] LABS: Anisocytosis Slight; HCT 31.2 % (39.0-53.0); HGB 9.8 gm/dL (13.0-17.5); Hypochromasia Moderate; MCH 30.7 pg (25.0-35.0); MCHC 31.2 g/dL (31.0-37.0); MCV 98.2 fL (80.0-100.0); Macrocytosis Slight; Mean Platelet Volume 11.2; Platelet Count 126 k/uL (150-450); Poikilocytosis Slight; RBC 3.18 m/uL (4.30-5.90); WBC 5.7 k/uL (3.8-10.6)
[2020-11-08 07:05] LABS: INR 1.7 (<1.2); Prothrombin Time 16.6 sec (9.0-12.0)
[2020-11-08] MEDS: IPRATROPIUM-ALBUTEROL 3 ML NEB INHALATION PRN (07:09)
[2020-11-08] MEDS: FORMOTEROL FUMARATE 20 MCG/2 ML NEBU INHALATION SCH ×2 (07:09→21:14)
[2020-11-08 07:43] LABS: African American GFR (CKD) 40 (>60 ml/min/1.73 sqM); Anion Gap 9 mmol/L; Blood Urea Nitrogen 60 mg/dL (9-20); Calcium 9.5 mg/dL (8.4-10.2); Carbon Dioxide 27 mmol/L (22-30); Chloride 101 mmol/L (98-107); Glucose 90 mg/dL (74-99); Non-African American GFR(CKD) 35 (>60 ml/min/1.73 sqM); Sodium 137 mmol/L (137-145)
[2020-11-08] MEDS: LOSARTAN 50 MG TAB PO SCH (08:40)
[2020-11-08] MEDS: POTASSIUM CHLORIDE ER 10 MEQ TAB.ER.PRT PO SCH ×2 (09:17→21:29)
[2020-11-08] MEDS: FUROSEMIDE 20 MG TAB PO SCH (09:17)
[2020-11-08] MEDS: NITROFURANTOIN MONOHYD/M-CRYST 100 MG CAP PO SCH ×2 (09:17→21:29)
[2020-11-08] MEDS ORDERED: PROPOFOL 10 MG/ML 20 ML VIAL IV ONE (12:57)
[2020-11-08] MEDS ORDERED: IV FLUID CONTINUATION 1,000 ML IV ONE (13:18)
--- NOTE | 2020-11-08 13:19 | P.OP ---
Date of Procedure: 11/08/20 Preoperative Diagnosis: GI bleed Postoperative Diagnosis: Antral gastritis Procedure(s) Performed: EGD Colonoscopy Anesthesia: MAC Surgeon: Art Adams Pathology: none sent Condition: stable Disposition: PACU Description of Procedure: The patient is placed on the endoscopy table in the lateral position. He received IV sedation. The gastroscope placed oropharynx passed in the esophagus and into the stomach. Scope was placed through the pylorus. The first and second portion of duodenum appeared normal. Scope was then brought back the antrum and this appeared mildly inflamed. A biopsies performed. Scope was unretroflexed meters stomach appeared normal. There was no blood in the stomach. There is no blood in the duodenum. Scope was brought back and esophagus appeared normal. Scope was withdrawn for patient. Next digital rectal exam was performed this revealed no abnormalities. The possible colitis scope was then placed patient anus and passed throughout the colon. The scope was passed beyond the left colon secondary to poor bowel prep. Scope was withdrawn in the descending and sigmoid colon with extensive diverticular changes. Scope back the rectum this appeared normal. There is known to blood in the GI tract. Presumed patient may have had a diverticular bleed.
[2020-11-08] MEDS: CHOLECALCIFEROL 25 MCG (1000 IU) TABLET PO SCH (14:26)
[2020-11-08] MEDS: allopurinoL 300 MG TAB PO SCH (14:26)
[2020-11-08] MEDS: MULTIVITAMINS, THERA 1 EACH TAB PO SCH (14:26)
[2020-11-08] MEDS: ISOSORBIDE MONONITRATE ER 30 MG TAB.ER.24H PO SCH ×2 (14:27→21:28)
[2020-11-08] MEDS: TAMSULOSIN 0.4 MG CAP.ER.24H PO SCH (14:27)
[2020-11-08] MEDS: NON FORMULARY DRUG (Vitamin B Complex [Vitamin B Complex] 1 EACH Capsule) PO SCH (14:27)
[2020-11-08 14:58] LABS: % Iron Saturation 6.49 (15.00-50.00); Ferritin 63.6 ng/mL (22.0-322.0); Iron 26 ug/dL (65-175); Total Iron Binding Capacity 398 ug/dL (228-460)
[2020-11-08] MEDS: methylPREDNISolone SOD SUCCI 40 MG/ML 1 ML VIAL IV SCH (17:00)
[2020-11-08 17:20] LABS: Glucose,Whole Blood 154 mg/dL (75-99)
[2020-11-08] MEDS ORDERED: WARFARIN 2.5 MG TAB PO ONE (18:00)
[2020-11-08] MEDS: INSULIN ASPART (NovoLOG) 100 UNIT/ML VIAL SQ SCH ×2 (18:06→21:30)
[2020-11-08 20:41] LABS: Glucose,Whole Blood 162 mg/dL (75-99)
[2020-11-08] MEDS: FUROSEMIDE 40 MG TAB PO SCH (21:28)
[2020-11-08] MEDS: traZODone HCL 50 MG TAB PO SCH (21:28)
[2020-11-08] MEDS: ATORVASTATIN 80 MG TAB PO SCH (21:29)
[2020-11-08] MEDS: ZOLPIDEM 5 MG TAB PO PRN (21:34)
--- NOTE | 2020-11-08 23:24 | P.PN ---
Subjective Progress Note Date: 11/08/20 Principal diagnosis: Anemia weakness guaiac positive stool The patient is here essentially because of significant weakness. Anemia and shortness of breath. Underlying history of ischemic cardiac myopathy is noted. GI workup was negative by surgery. Some gastritis but no overt sign of bleeding. I suspect his anemia is multifactorial due to his chronic illness. Objective - Vital Signs Vital signs: Vital Signs Temp 97.8 F 11/08/20 19:57 Pulse 60 11/08/20 21:25 Resp 16 11/08/20 19:57 BP 110/73 11/08/20 19:57 Pulse Ox 99 11/08/20 19:57 Intake & Output 11/08/20 11/08/20 11/09/20 06:59 18:59 06:59 Intake Total 100 Balance 100 Intake: IV 100 Other: Voiding Method Bedside Commode Bedside Commode Urinal Urinal # Voids 4 5 # Bowel Movements 2 - Constitutional General appearance: Present: obese - EENT Eyes: Absent: abnormal pupil - Neck Neck: Absent: lymphadenopathy - Respiratory Respiratory: bilateral: wheezing - Cardiovascular Rhythm: regular Heart sounds: normal: S1, S2 Abnormal Heart Sounds: Absent: S3 Gallop - Gastrointestinal General gastrointestinal: Absent: tenderness - Neurologic Neurologic: Present: CNII-XII intact - Musculoskeletal Musculoskeletal: Present: generalized weakness - Psychiatric Psychiatric: Present: A&O x's 3 - Labs CBC & Chem 7: 11/08/20 05:51 11/08/20 05:51 Labs: Abnormal Lab Results - Last 24 Hours (Table) 11/07/20 11/08/20 11/08/20 Range/Units 09:23 05:51 05:51 RBC 3.18 L (4.30-5.90) m/uL Hgb 9.8 L (13.0-17.5) gm/dL Hct 31.2 L (39.0-53.0) % RDW 20.0 H (11.5-15.5) % Plt Count 126 L (150-450) k/uL PT 16.6 H (9.0-12.0) sec INR 1.7 H (<1.2) BUN (9-20) mg/dL Creatinine (0.66-1.25) mg/dL POC Glucose (mg/dL) (75-99) mg/dL Iron 26 L (65-175) ug/dL % Saturation 6.49 L (15.00-50.00) 11/08/20 11/08/20 11/08/20 Range/Units 05:51 17:19 20:40 RBC (4.30-5.90) m/uL Hgb (13.0-17.5) gm/dL Hct (39.0-53.0) % RDW (11.5-15.5) % Plt Count (150-450) k/uL PT (9.0-12.0) sec INR (<1.2) BUN 60 H (9-20) mg/dL Creatinine 1.85 H (0.66-1.25) mg/dL POC Glucose (mg/dL) 154 H 162 H (75-99) mg/dL Iron (65-175) ug/dL % Saturation (15.00-50.00) Assessment and Plan (1) GI bleed Current Visit: Yes Status: Acute Code(s): K92.2 - GASTROINTESTINAL HEMORRHAGE, UNSPECIFIED SNOMED Code(s): 05368352 (2) KEEGAN (acute kidney injury) Current Visit: Yes Status: Acute Code(s): N17.9 - ACUTE KIDNEY FAILURE, UNSPECIFIED SNOMED Code(s): 00577850 (3) Weakness Current Visit: Yes Status: Acute Code(s): R53.1 - WEAKNESS SNOMED Code(s): 65694883 (4) AICD (automatic cardioverter/defibrillator) present Current Visit: No Status: Acute Code(s): Z95.810 - PRESENCE OF AUTOMATIC (I MPLANTABLE) CARDIAC DEFIBRILLATOR SNOMED Code(s): 820116351 (5) HTN (hypertension) Current Visit: No Status: Acute Code(s): I10 - ESSENTIAL (PRIMARY) HYPERTENSION SNOMED Code(s): 98768050 (6) Hyperlipemia Current Visit: No Status: Acute Code(s): E78.5 - HYPERLIPIDEMIA, UNSPECIFIED SNOMED Code(s): 80118647 (7) Ischemic cardiomyopathy Current Visit: No Status: Acute Code(s): I25.5 - ISCHEMIC CARDIOMYOPATHY SNOMED Code(s): 031912671 Plan: EGD and colonoscopy are nominal. Due to his respiratory status, we will c give up her breathing treatments. Star to improve his breathing. Anticipate discharge in the next 24-48 hours Check CBC in the a.m.
[2020-11-09] MEDS: methylPREDNISolone SOD SUCCI 40 MG/ML 1 ML VIAL IV SCH ×2 (00:03→09:09)
[2020-11-09] MEDS: LOSARTAN 50 MG TAB PO SCH ×2 (00:24→08:29)
[2020-11-09 06:44] LABS: INR 1.2 (<1.2); Prothrombin Time 12.8 sec (9.0-12.0)
[2020-11-09] MEDS: FORMOTEROL FUMARATE 20 MCG/2 ML NEBU INHALATION SCH (07:16)
[2020-11-09] MEDS: IPRATROPIUM-ALBUTEROL 3 ML NEB INHALATION PRN (07:16)
[2020-11-09 07:32] LABS: Glucose,Whole Blood 154 mg/dL (75-99)
[2020-11-09] MEDS ORDERED: PANTOPRAZOLE 40 MG TABLET PO SCH (08:15)
[2020-11-09 08:29] VITALS: RESP 17
--- NOTE | 2020-11-09 08:32 | P.DS ---
Providers Date of admission: 11/08/20 07:40 Attending physician: Giovanni Clark Consults: 11/07/20 10:04 Consult Physician Routine Consulting Provider: Art Adams Consult Reason/Comments: anemia, stool occult positive Do you want consulting provider notified?: Already Contacted Primary care physician: Giovanni Clark - Discharge Diagnosis(es) (1) GI bleed Current Visit: Yes Status: Acute (2) KEEGAN (acute kidney injury) Current Visit: Yes Status: Acute (3) Weakness Current Visit: Yes Status: Acute (4) AICD (automatic cardioverter/defibrillator) present Current Visit: No Status: Acute (5) HTN (hypertension) Current Visit: No Status: Acute (6) Hyperlipemia Current Visit: No Status: Acute (7) Ischemic cardiomyopathy Current Visit: No Status: Acute Hospital Course: This is a discharge summary a 75-year-old white male essentially admitted for anemia and weakness. Ended up having guaiac positive stool. Endoscopy was negative. Underlying history of COPD with her myopathy. Wheezing was noted and he was placed on appropriate steroid treatment. The patient was stabilizing. He will be released once ambulating and voiding without difficulty. The patient is guarded secondary to his advancing age and multiple comorbidities will follow-up with me in about one week. Patient Condition at Discharge: Fair Plan - Discharge Summary New Discharge Prescriptions: New Nitrofurantoin Monohyd/M-Cryst [Macrobid] 100 mg PO BID #10 cap predniSONE [Deltasone] 20 mg PO DIRECTED #18 tab Continue Multivitamins, Thera [Multivitamin (formulary)] 1 tab PO DAILY Vitamin B Complex 1 cap PO DAILY Aspirin 81 mg PO DAILY #30 chew Atorvastatin [Lipitor] 80 mg PO HS #30 tab Isosorbide Mononitrate ER [Imdur] 30 mg PO BID Warfarin [Coumadin] 2.5 mg PO HS Losartan [Cozaar] 50 mg PO BID allopurinoL [Zyloprim] 300 mg PO DAILY Umeclidinium Brm/Vilanterol Tr [Anoro Ellipta 62.5-25 Mcg INH] 1 puff INHALATION RT-DAILY LORazepam [Ativan] 0.5 mg PO TID PRN PRN Reason: Anxiety Nitroglycerin Sl Tabs [Nitrostat] 0.4 mg SL Q5M PRN PRN Reason: Chest Pain Ipratropium-Albuterol Nebulize [Duoneb 0.5 mg-3 mg/3 ml Soln] 3 ml INHALATION RT-QID PRN PRN Reason: Shortness Of Breath Furosemide [Lasix] 60 mg PO DAILY Tamsulosin HCl [Flomax] 0.4 mg PO DAILY Zolpidem [Ambien] 10 mg PO HS Cholecalciferol [Vitamin D3 (25 Mcg = 1000 Iu)] 25 mcg PO DAILY Furosemide [Lasix] 40 mg PO HS Potassium Chloride [Klor-Con 10 ER] 10 meq PO BID traZODone HCL 50 mg PO HS Discharge Medication List Multivitamins, Thera [Multivitamin (formulary)] 1 tab PO DAILY 12/17/15 [History] Vitamin B Complex 1 cap PO DAILY 12/22/15 [History] Aspirin 81 mg PO DAILY #30 chew 12/24/15 [Rx] Atorvastatin [Lipitor] 80 mg PO HS #30 tab 12/24/15 [Rx] Isosorbide Mononitrate ER [Imdur] 30 mg PO BID 05/27/17 [History] Losartan [Cozaar] 50 mg PO BID 05/05/18 [History] Warfarin [Coumadin] 2.5 mg PO HS 05/05/18 [History] Umeclidinium Brm/Vilanterol Tr [Anoro Ellipta 62.5-25 Mcg INH] 1 puff INHALATION RT-DAILY 10/15/19 [History] allopurinoL [Zyloprim] 300 mg PO DAILY 10/15/19 [History] Ipratropium-Albuterol Nebulize [Duoneb 0.5 mg-3 mg/3 ml Soln] 3 ml INHALATION RT-QID PRN 02/09/20 [History] LORazepam [Ativan] 0.5 mg PO TID PRN 02/09/20 [History] Nitroglycerin Sl Tabs [Nitrostat] 0.4 mg SL Q5M PRN 02/09/20 [History] Cholecalciferol [Vitamin D3 (25 Mcg = 1000 Iu)] 25 mcg PO DAILY 11/06/20 [History] Furosemide [Lasix] 40 mg PO HS 11/06/20 [History] Furosemide [Lasix] 60 mg PO DAILY 11/06/20 [History] Potassium Chloride [Klor-Con 10 ER] 10 meq PO BID 11/06/20 [History] Tamsulosin HCl [Flomax] 0.4 mg PO DAILY 11/06/20 [History] Zolpidem [Ambien] 10 mg PO HS 11/06/20 [History] traZODone HCL 50 mg PO HS 11/06/20 [History] Nitrofurantoin Monohyd/M-Cryst [Macrobid] 100 mg PO BID #10 cap 11/09/20 [Rx] predniSONE [Deltasone] 20 mg PO DIRECTED #18 tab 11/09/20 [Rx] Follow up Appointment(s)/Referral(s): Giovanni Clark MD [Primary Care Provider] - 1-2 days Yury Kidd [NON-STAFF] - 1 Week
[2020-11-09] MEDS: INSULIN ASPART (NovoLOG) 100 UNIT/ML VIAL SQ SCH (09:08)
[2020-11-09] MEDS: FUROSEMIDE 20 MG TAB PO SCH (09:10)
[2020-11-09] MEDS: CHOLECALCIFEROL 25 MCG (1000 IU) TABLET PO SCH (09:10)
[2020-11-09] MEDS: MULTIVITAMINS, THERA 1 EACH TAB PO SCH (09:11)
[2020-11-09] MEDS: TAMSULOSIN 0.4 MG CAP.ER.24H PO SCH (09:11)
[2020-11-09] MEDS: NON FORMULARY DRUG (Vitamin B Complex [Vitamin B Complex] 1 EACH Capsule) PO SCH (09:11)
[2020-11-09] MEDS: ISOSORBIDE MONONITRATE ER 30 MG TAB.ER.24H PO SCH (09:11)
[2020-11-09] MEDS: POTASSIUM CHLORIDE ER 10 MEQ TAB.ER.PRT PO SCH (09:12)
[2020-11-09] MEDS: allopurinoL 300 MG TAB PO SCH (09:14)
[2020-11-09] MEDS: NITROFURANTOIN MONOHYD/M-CRYST 100 MG CAP PO SCH (09:37)
[2020-11-09 11:34] VITALS: BP 116/75; PULSE 75; TEMP 97.6
[2020-11-09] MEDS ORDERED: WARFARIN 2 MG TAB PO ONE (18:00)
== END 2020-11-09 12:06 | disposition home health service (06) | DRG 378 ==
LOC: EC 20:30 → 5NMEDONC 22:21 → OBSVTOIN 11-08 07:40
PROVIDERS: ADMIT Family Medicine; ATTEND Family Medicine
PROC: 0DB68ZX Excision of Stomach, Via Natural or Artificial Opening Endoscopic, Diagnostic (ICD-10-PCS; 2020-11-08)
PROC: 0DJD8ZZ Inspection of Lower Intestinal Tract, Via Natural or Artificial Opening Endoscopic (ICD-10-PCS; principal; 2020-11-08 07:30)
DX: K57.31 Diverticulosis of large intestine without perforation or abscess with bleeding (principal); N17.9 Acute kidney failure, unspecified; E78.5 Hyperlipidemia, unspecified; G25.81 Restless legs syndrome; I11.0 Hypertensive heart disease with heart failure; I25.2 Old myocardial infarction; I25.5 Ischemic cardiomyopathy; I48.91 Unspecified atrial fibrillation; I50.9 Heart failure, unspecified; J44.9 Chronic obstructive pulmonary disease, unspecified; I25.10 Atherosclerotic heart disease of native coronary artery without angina pectoris; I71.4 Abdominal aortic aneurysm, without rupture; M10.9 Gout, unspecified; D63.8 Anemia in other chronic diseases classified elsewhere; K29.70 Gastritis, unspecified, without bleeding; I69.398 Other sequelae of cerebral infarction; Z79.01 Long term (current) use of anticoagulants; Z79.82 Long term (current) use of aspirin; Z79.899 Other long term (current) drug therapy; Z85.46 Personal history of malignant neoplasm of prostate; Z87.891 Personal history of nicotine dependence; Z95.5 Presence of coronary angioplasty implant and graft; Z95.810 Presence of automatic (implantable) cardiac defibrillator; Z98.1 Arthrodesis status; Z98.890 Other specified postprocedural states; Z80.52 Family history of malignant neoplasm of bladder; Z80.8 Family history of malignant neoplasm of other organs or systems; Z83.3 Family history of diabetes mellitus
CPT/HCPCS: 36415; 43239; 51798; 71046; 80048; 80053; 81001; 82272; 82728; 83540; 83550; 83605; 83735; 83880; 84484; 85025; 85027; 85610; 85730; 87635; 88305; 88342; 93005; 94640; 94760; 99285

== ENCOUNTER 2021-01-24 19:23 | Inpatient (IN) | payer MEDICARE, BC ==
--- NOTE | 2021-01-24 20:22 | ED ---
General Adult HPI - General Chief complaint: Extremity Problem,Nontraumatic Stated complaint: sores on legs Time Seen by Provider: 01/24/21 19:42 Source: patient, family Mode of arrival: wheelchair Limitations: no limitations - History of Present Illness Initial comments: Dictation was produced using [employer] dictation software. please excuse any gra mmatical, word or spelling errors. Chief Complaint: 75-year-old male with past medical history of heart failure presents emergency department for lotion any swelling History of Present Illness: Is 75-year-old male. He states that he has history of heart failure with approximately 30% ejection fraction. Patient states over the last couple days he's been having worsening swelling to his bilateral lower extremities. States that the swelling is gone away to his midabdomen. He is a ccompanied by his . Patient states that his shortness versus slightly worse. He really notices with exertion and when lying flat. Patient has been to use Lasix. Denies eating any salty foods recently. No coughing. No fevers or constitutional symptoms. No nausea vomiting or abdominal pain. The ROS documented in this emergency department record has been reviewed and confirmed by me. Those systems with pertinent positive or negative responses have been documented in the HPI. All other systems are other negative and/or noncontributory. PHYSICAL EXAM: General Impression: Alert and oriented x3, not in acute distress HEENT: Normocephalic atraumatic, extra-ocular movements intact, pupils equal and reactive to light bilaterally, mucous membranes moist. Cardiovascular: Heart regular rate and rhythm Chest: Able to complete full sentences, no retractions, no tachypnea, mild end expiratory crackles Abdomen: abdomen soft, non-tender, non-distended, no organomegaly Musculoskeletal: Pulses present and equal in all extremities, 3+ pitting edema to the bilateral Lower Extremities Motor: no focal deficits noted Neurological: CN II-XII grossly intact, no focal motor or sensory deficits noted Skin: Intact with no visualized rashes Psych: Normal affect and mood ED course: 75-year-old male with multiple comorbidities just the emergency department for lower extremity swelling and dyspnea. Does not appear to be tachypneic or showing any signs of respiratory distress at the bedside. As upon arrival are within acceptable limits. Laboratory evaluation obtained. CBC within acceptable limits. Hemoglobin stable 9.5. Metabolic panel was within acceptable limits. His renal markers appear to be improved at his baseline. Troponin is 0.032 which is less than his usual baseline. Brain natruretic peptide is 5420 which is above his normal baseline. Patient reevaluated at bedside. At rest he does not appear to be dyspneic. Patient given 60 mg of IV Lasix. Patient be admitted for diuresis. EKG interpretation: Ventricular rate 63, ventricular paced rhythm, QRS 204, QTC 542. No VA prolongation, no QTC prolongation, no ST or T-wave changes noted. EKG compared to 10/29/2020 showing no changes. Overall, this EKG is unremarkable - Related Data Home Medications Medication Instructions Recorded Confirmed Multivitamins, Thera [Multivitamin 1 tab PO DAILY 12/17/15 01/24/21 (formulary)] Vitamin B Complex 1 cap PO DAILY 12/22/15 01/24/21 Isosorbide Mononitrate ER [Imdur] 30 mg PO BID 05/27/17 01/24/21 Losartan [Cozaar] 50 mg PO BID 05/05/18 01/24/21 Warfarin [Coumadin] 2.5 mg PO [id number]@199905/05/18 01/24/21 Umeclidinium Brm/Vilanterol Tr 1 puff INHALATION RT-DAILY 10/15/19 01/24/21 [Anoro Ellipta 62.5-25 Mcg INH] allopurinoL [Zyloprim] 300 mg PO DAILY 10/15/19 01/24/21 Ipratropium-Albuterol Nebulize 3 ml INHALATION RT-QID PRN 02/09/20 01/24/21 [Duoneb 0.5 mg-3 mg/3 ml Soln] LORazepam [Ativan] 0.5 mg PO TID PRN 02/09/20 01/24/21 Nitroglycerin Sl Tabs [Nitrostat] 0.4 mg SL Q5M PRN 02/09/20 01/24/21 Cholecalciferol [Vitamin D3 (25 25 mcg PO DAILY 11/06/20 01/24/21 Mcg = 1000 Iu)] Furosemide [Lasix] 40 mg PO HS 11/06/20 01/24/21 Furosemide [Lasix] 60 mg PO DAILY 11/06/20 01/24/21 Potassium Chloride [Klor-Con 10 ER] 10 meq PO BID 11/06/20 01/24/21 Zolpidem [Ambien] 10 mg PO HS 11/06/20 01/24/21 traZODone HCL 50 mg PO HS 11/06/20 01/24/21 Metoprolol Tartrate [Lopressor] 50 mg PO TID-W/MEALS 01/24/21 01/24/21 Warfarin [Coumadin] 3 mg PO SUTUTHSA@2000 01/24/21 01/24/21 Previous Rx's Medication Instructions Recorded Aspirin 81 mg PO DAILY #30 chew 12/24/15 Atorvastatin [Lipitor] 80 mg PO HS #30 tab 12/24/15 Allergies Allergy/AdvReac Type Severity Reaction Status Date / Time No Known Allergies Allergy Verified 01/24/21 19:38 Review of Systems ROS Statement: Those systems with pertinent positive or pertinent negative responses have been documented in the HPI. ROS Other: All systems not noted in ROS Statement are negative. Past Medical History Past Medical History: Atrial Fibrillation, Coronary Artery Disease (CAD), Cancer, Heart Failure, COPD, CVA/TIA, Eye Disorder, Hyperlipidemia, Hypertension, Osteoarthritis (OA), Pneumonia, Prostate Disorder Additional Past Medical History / Comment(s): Hx respiratory failure due to exacerbation of COPD. 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 Hernia. Last Myocardial Infarction Date:: 2015 History of Any Multi-Drug Resistant Organisms: None Reported Past Surgical History: AICD, Back Surgery, Heart Catheterization With Stent, Pacemaker Additional Past Surgical History / Comment(s): Stents(3), low back fusion, oral surgery. Past Anesthesia/Blood Transfusion Reactions: Motion Sickness Date of Last Stent Placement:: 2015 Type of Cardiac Device: Permanent Pacemaker, AICD Device Placement Date:: 05/09/10 Past Psychological History: Anxiety Smoking Status: Former smoker Past Alcohol Use History: None Reported Past Drug Use History: None Reported - Past Family History Father Family Medical History: CVA/TIA, Dementia Mother Family Medical History: Cancer, CVA/TIA, Diabetes Mellitus, Skin Disorder Additional Family Medical History / Comment(s): Skin cancer. Brother(s) Family Medical History: Cancer Additional Family Medical History / Comment(s): Bladder cancer. General Exam Limitations: no limitations Course Vital Signs 01/24/21 01/24/21 19:34 21:13 Temperature 98.9 F Pulse Rate 60 60 Respiratory 18 18 Rate Blood Pressure 103/69 107/65 O2 Sat by Pulse 98 98 Oximetry Medical Decision Making - Lab Data Result diagrams: 01/24/21 20:54 01/24/21 20:54 Lab Results 01/24/21 01/24/21 01/24/21 Range/Units 20:54 20:54 20:54 WBC 5.0 (3.8-10.6) k/uL RBC 3.39 L (4.30-5.90) m/uL Hgb 9.5 L (13.0-17.5) gm/dL Hct 31.3 L (39.0-53.0) % MCV 92.4 (80.0-100.0) fL MCH 28.0 (25.0-35.0) pg MCHC 30.3 L (31.0-37.0) g/dL RDW 20.2 H (11.5-15.5) % Plt Count 301 (150-450) k/uL MPV 9.0 Hypochromasia Marked Poikilocytosis Slight Anisocytosis Moderate Sodium 136 L (137-145) mmol/L Potassium 4.6 (3.5-5.1) mmol/L Chloride 105 (98-107) mmol/L Carbon Dioxide 22 (22-30) mmol/L Anion Gap 9 mmol/L BUN 61 H (9-20) mg/dL Creatinine 1.57 H (0.66-1.25) mg/dL Est GFR (CKD-EPI)AfAm 49 (>60 ml/min/1.73 sqM) Est GFR (CKD-EPI)NonAf 43 (>60 ml/min/1.73 sqM) Glucose 120 H (74-99) mg/dL Calcium 9.2 (8.4-10.2) mg/dL Magnesium 2.0 (1.6-2.3) mg/dL Troponin I 0.032 (0.000-0.034) ng/mL NT-Pro-B Natriuret Pep pg/mL 01/24/21 Range/Units 20:54 WBC (3.8-10.6) k/uL RBC (4.30-5.90) m/uL Hgb (13.0-17.5) gm/dL Hct (39.0-53.0) % MCV (80.0-100.0) fL MCH (25.0-35.0) pg MCHC (31.0-37.0) g/dL RDW (11.5-15.5) % Plt Count (150-450) k/uL MPV Hypochromasia Poikilocytosis Anisocytosis Sodium (137-145) mmol/L Potassium (3.5-5.1) mmol/L Chloride (98-107) mmol/L Carbon Dioxide (22-30) mmol/L Anion Gap mmol/L BUN (9-20) mg/dL Creatinine (0.66-1.25) mg/dL Est GFR (CKD-EPI)AfAm (>60 ml/min/1.73 sqM) Est GFR (CKD-EPI)NonAf (>60 ml/min/1.73 sqM) Glucose (74-99) mg/dL Calcium (8.4-10.2) mg/dL Magnesium (1.6-2.3) mg/dL Troponin I (0.000-0.034) ng/mL NT-Pro-B Natriuret Pep 5420 pg/mL Disposition Clinical Impression: Heart failure Disposition: ADMITTED IP TO THIS HOSP Condition: Fair Referrals: Giovanni Clark MD [Primary Care Provider] - 1-2 days
--- NOTE | 2021-01-24 21:22 | XR ---
EXAMINATION: XR chest 1V portable DATE AND TIME: 01/24/2021 8:50 PM CLINICAL INDICATION: PHH; dyspnea TECHNIQUE: Departmental protocol COMPARISON: 11/06/2020 FINDINGS: Cardiac pacemaker noted. Markedly enlarged cardiac silhouette redemonstrated. The lungs appear to be clear and well expanded as seen. The right hemidiaphragm is mildly elevated, a s it was on the prior study, not allowing full visualization of the right lower lobe. The pleural spaces are negative as seen. The skeletal structures and soft tissues are negative for acute findings. IMPRESSION: No acute radiographic process.
[2021-01-24 21:24] LABS: Anisocytosis Moderate; HCT 31.3 % (39.0-53.0); HGB 9.5 gm/dL (13.0-17.5); Hypochromasia Marked; MCHC 30.3 g/dL (31.0-37.0); MCV 92.4 fL (80.0-100.0); Platelet Count 301 k/uL (150-450); Poikilocytosis Slight; RBC 3.39 m/uL (4.30-5.90); RDW 20.2 % (11.5-15.5)
[2021-01-24 22:27] LABS: Calcium 9.2 mg/dL (8.4-10.2); Potassium 4.6 mmol/L (3.5-5.1)
[2021-01-24] MEDS ORDERED: FUROSEMIDE 10 MG/ML 10 ML VIAL IV STA (22:47)
[2021-01-24] MEDS: FUROSEMIDE 10 MG/ML 4 ML VIAL IV SCH (23:15)
[2021-01-24 23:36] LABS: Anisocytosis (M) Present; Eosinophils # (M) 0.15 k/uL (0-0.7); Hypochromasia (M) Present; Lymphocytes # (M) 0.55 k/uL (1.0-4.8); Neutrophils % (M) 76 %; Nucleated Red Blood Cells 0 /100 WBC (0-0); Poikilocytosis (M) Present; Total Cells Counted 100
[2021-01-24 23:37] LABS: Crenated RBC Present
[2021-01-25] MEDS: ZOLPIDEM 10 MG TAB PO SCH ×2 (00:14→21:45)
[2021-01-25] MEDS ORDERED: NITROGLYCERIN SL TABS 0.4 MG TAB SUBLINGUAL PRN (07:40)
--- NOTE | 2021-01-25 07:55 | P.HPIM ---
History of Present Illness Chief Complaint: Weeping of the lower extremities with edema This is a history of physical and a 75-year-old white male who presents for lower extremity edema and weeping. Underlying history of heart failure with about a 30% ejection fraction. For the last 2 weeks she's been having significant swelling of the lower extremities which is becoming worse. He had an appointment to see me in the office today. Some orthopnea. He is compliant with his medications. No fever or chills. Covid testing is negative. Review of Systems Constitutional: Denies chills, Denies fever Eyes: denies blurred vision, denies pain Ears, nose, mouth and throat: Denies headache, Denies sore throat Cardiovascular: Denies chest pain, Denies shortness of breath Respiratory: Denies cough Gastrointestinal: Denies abdominal pain, Denies diarrhea, Denies nausea, Denies vomiting Musculoskeletal: Denies myalgias Past Medical History Past Medical History: Atrial Fibrillation, Coronary Artery Disease (CAD), Cancer, Heart Failure, COPD, CVA/TIA, Eye Disorder, Hyperlipidemia, Hypertension, Osteoarthritis (OA), Pneumonia, Prostate Disorder Additional Past Medical History / Comment(s): Hx respiratory failure due to exacerbation of COPD. 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 Hernia. Last Myocardial Infarction Date:: 2015 History of Any Multi-Drug Resistant Organisms: None Reported Past Surgical History: AICD, Back Surgery, Heart Catheterization With Stent, Pacemaker Additional Past Surgical History / Comment(s): Stents(3), low back fusion, oral surgery. Past Anesthesia/Blood Transfusion Reactions: Motion Sickness Date of Last Stent Placement:: 2015 Type of Cardiac Device: Permanent Pacemaker, AICD Device Placement Date:: 05/09/10 Past Psychological History: Anxiety Smoking Status: Former smoker Past Alcohol Use History: None Reported Past Drug Use History: None Reported - Past Family History Father Family Medical History: CVA/TIA, Dementia Mother Family Medical History: Cancer, CVA/TIA, Diabetes Mellitus, Skin Disorder Additional Family Medical History / Comment(s): Skin cancer. Brother(s) Family Medical History: Cancer Additional Family Medical History / Comment(s): Bladder cancer. Medications and Allergies Home Medications Medication Instructions Recorded Confirmed Type Multivitamins, Thera [Multivitamin 1 tab PO DAILY 12/17/15 01/24/21 History (formulary)] Vitamin B Complex 1 cap PO DAILY 12/22/15 01/24/21 History Aspirin 81 mg PO DAILY #30 chew 12/24/15 01/24/21 Rx Atorvastatin [Lipitor] 80 mg PO HS #30 tab 12/24/15 01/24/21 Rx Isosorbide Mononitrate ER [Imdur] 30 mg PO BID 05/27/17 01/24/21 History Losartan [Cozaar] 50 mg PO BID 05/05/18 01/24/21 History Warfarin [Coumadin] 2.5 mg PO MOWEFR@199905/05/18 01/24/21 History Umeclidinium Brm/Vilanterol Tr 1 puff INHALATION RT-DAILY 10/15/19 01/24/21 History [Anoro Ellipta 62.5-25 Mcg INH] allopurinoL [Zyloprim] 300 mg PO DAILY 10/15/19 01/24/21 History Ipratropium-Albuterol Nebulize 3 ml INHALATION RT-QID PRN 02/09/20 01/24/21 History [Duoneb 0.5 mg-3 mg/3 ml Soln] LORazepam [Ativan] 0.5 mg PO TID PRN 02/09/20 01/24/21 History Nitroglycerin Sl Tabs [Nitrostat] 0.4 mg SL Q5M PRN 02/09/20 01/24/21 History Cholecalciferol [Vitamin D3 (25 25 mcg PO DAILY 11/06/20 01/24/21 History Mcg = 1000 Iu)] Furosemide [Lasix] 40 mg PO HS 11/06/20 01/24/21 History Furosemide [Lasix] 60 mg PO DAILY 11/06/20 01/24/21 History Potassium Chloride [Klor-Con 10 ER] 10 meq PO BID 11/06/20 01/24/21 History Zolpidem [Ambien] 10 mg PO HS 11/06/20 01/24/21 History traZODone HCL 50 mg PO HS 11/06/20 01/24/21 History Metoprolol Tartrate [Lopressor] 50 mg PO TID-W/MEALS 12/16/21 12/16/21 History Warfarin [Coumadin] 3 mg PO CHONG@199901/24/21 01/24/21 History Allergies Allergy/AdvReac Type Severity Reaction Status Date / Time No Known Allergies Allergy Verified 01/24/21 19:38 Physical Exam Vitals: Vital Signs Temp Pulse Resp BP Pulse Ox 01/25/21 06:00 58 L 20 102/70 98 01/25/21 04:00 97.7 F 59 L 18 104/71 98 01/25/21 00:12 98.0 F 60 16 111/68 98 01/24/21 23:14 68 18 99/65 94 L 01/24/21 21:13 60 18 107/65 98 01/24/21 19:34 98.9 F 60 18 103/69 98 Intake and Output 01/24/21 01/25/21 01/25/21 22:59 06:59 14:59 Output Total 620 Balance -620 Output: Urine 620 Other: # Voids 2 Weight 99.79 kg - Constitutional General appearance: obese - EENT Eyes: no abnormal pupil - Neck Neck: no lymphadenopathy - Respiratory Respiratory: bilateral: diminished - Cardiovascular Rhythm: regular Heart sounds: normal: S1, S2 Abnormal Heart Sounds: no S3 Gallop - Gastrointestinal General gastrointestinal: soft, no tenderness - Integumentary Integumentary: no cellulitis Results CBC & Chem 7: 01/24/21 20:54 01/24/21 20:54 Labs: Abnormal Lab Results - Last 24 Hours (Table) 01/24/21 01/24/21 Range/Units 20:54 20:54 RBC 3.39 L (4.30-5.90) m/uL Hgb 9.5 L (13.0-17.5) gm/dL Hct 31.3 L (39.0-53.0) % MCHC 30.3 L (31.0-37.0) g/dL RDW 20.2 H (11.5-15.5) % Lymphocytes # (Manual) 0.55 L (1.0-4.8) k/uL Sodium 136 L (137-145) mmol/L BUN 61 H (9-20) mg/dL Creatinine 1.57 H (0.66-1.25) mg/dL Glucose 120 H (74-99) mg/dL Assessment and Plan (1) Chronic systolic CHF (congestive heart failure) Current Visit: No Status: Acute Code(s): I50.22 - CHRONIC SYSTOLIC (CONGESTIVE) HEART FAILURE SNOMED Code(s): 880100173 (2) HTN (hypertension) Current Visit: No Status: Acute Code(s): I10 - ESSENTIAL (PRIMARY) HYPERTENSION SNOMED Code(s): 95351121 (3) Hyperlipemia Current Visit: No Status: Acute Code(s): E78.5 - HYPERLIPIDEMIA, UNSPECIFIED SNOMED Code(s): 80459463 (4) Ischemic cardiomyopathy Current Visit: No Status: Acute Code(s): I25.5 - ISCHEMIC CARDIOMYOPATHY SNOMED Code(s): 873070968 (5) Weakness Current Visit: No Status: Acute Code(s): R53.1 - WEAKNESS SNOMED Code(s): 64282964 Plan: Reconcile medications. Cardiology consult. Question need for repeat echocardiogram. Continue diuresis. Check CBC and CMP in a.m. See orders otherwise.
[2021-01-25] MEDS ORDERED: IPRATROPIUM 0.5 MG/2.5 ML NEBU INHALATION SCH (08:00)
[2021-01-25] MEDS: LOSARTAN 50 MG TAB PO SCH ×2 (08:47→20:52)
[2021-01-25] MEDS: MULTIVITAMINS, THERA 1 EACH TAB PO SCH (09:00)
[2021-01-25] MEDS: FUROSEMIDE 10 MG/ML 4 ML VIAL IV SCH ×3 (09:00→21:45)
[2021-01-25] MEDS: ISOSORBIDE MONONITRATE ER 30 MG TAB.ER.24H PO SCH ×2 (09:00→20:52)
[2021-01-25] MEDS: LORazepam 0.5 MG TAB PO PRN (09:01)
[2021-01-25] MEDS: ASPIRIN 81 MG PO SCH (09:01)
[2021-01-25] MEDS: CHOLECALCIFEROL 25 MCG (1000 IU) TABLET PO SCH (09:01)
[2021-01-25] MEDS: FOLIC ACID-VIT B COMPLEX-VIT C 1 CAP PO SCH (09:01)
[2021-01-25] MEDS: POTASSIUM CHLORIDE ER 10 MEQ TAB.ER.PRT PO SCH ×2 (09:36→20:52)
[2021-01-25] MEDS: allopurinoL 300 MG TAB PO SCH (09:36)
--- NOTE | 2021-01-25 10:54 | P.PN ---
Progress Note - Text Progress Note Date: 01/25/21 This is an addendum to a cardiology consult dictated earlier today by Dr. Doran The patient sees Dr. Myers in office. He denied a history of coronary artery disease to Dr. Doran during his initial evaluation. However upon review of office records the patient had a cardiac catheterization done in August 2018 with no significant disease of the RCA, patent stent to the circumflex. LAD with 35% stenosis.
[2021-01-25] MEDS: IPRATROPIUM-ALBUTEROL 3 ML NEB INHALATION PRN ×2 (11:08→19:46)
[2021-01-25] MEDS: IPRATROPIUM 0.5 MG/2.5 ML NEBU INHALATION SCH ×4 (11:09→19:46)
[2021-01-25] MEDS: SYMBICORT 80-4.5 MCG INHALER INHALATION SCH ×2 (11:09→19:46)
[2021-01-25] MEDS: METOPROLOL TARTRATE 50 MG TAB PO SCH ×2 (13:17→18:05)
--- NOTE | 2021-01-25 13:19 | CONS ---
CONSULTATION CARDIOLOGY CONSULTATION NOTE: CHIEF COMPLAINT: Shortness of breath, leg edema and weight gain. Juan is a 75-year-old gentleman with history of cardiomyopathy, congestive heart failure, hypertension, atrial fibrillation and dyslipidemia who regularly sees Dr. Russel Myers in our office. He presented to hospital complaining of progressively worsening leg edema for the last several days. He complains of moderate amount of bilateral leg edema and also weight gain. He has so much leg edema that there is serous drainage from his skin. He does not have chest pain. He has mild to moderate shortness of breath with activity. There is no history of PND or orthopnea. Physical activity is somewhat limited. I do not have any of his old records with me at the time of this evaluation, but he tells me that his ejection fraction is 50%, that he did not have any coronary artery disease and did not have prior revascularization. He has an AICD in place. On this admission the BNP is elevated at 5420, coronavirus is negative, and he is anemic with a hemoglobin of 9.5. EKG shows paced rhythm. INR is not done. Past medical history is significant for chronic systolic heart failure, permanent atrial fibrillation, cardiomyopathy, status post AICD. Medications at home included aspirin, Lipitor 80 daily, Lasix 40 mg daily, Zyloprim, Imdur, Cozaar 50 b.i.d., Lopressor 50 t.i.d., multivitamins, potassium, Ativan, Coumadin, Ambien and trazodone. There are NO KNOWN DRUG ALLERGIES. Family history is negative for premature coronary artery disease. Social history negative for current smoking, EtOH abuse or drug abuse. REVIEW OF SYSTEMS: HEENT is unremarkable. CARDIAC: As described above. RESPIRATORY: As described above. GI: Negative. GENITOURINARY: Negative. ALLERGY/IMMUNOLOGY: Negative. SKIN: Negative. MUSCULOSKELETAL: Significant for bilateral leg edema. DERMATOLOGY: Significant for weeping of his skin on both his legs. PSYCHOSOCIAL: Negative. CONSTITUTIONAL: Negative. ONCOLOGICAL: Negative. CONFERENCE SERVICES DIRECTOR: Negative. PHYSICAL EXAMINATION: Patient is comfortable at rest. Blood pressure is 93/50, respiratory rate is 8, heart rate is 60 beats per minute. There is no jugular venous distention. Carotid upstroke is diminished. There is no bruit. Chest exam reveals diminished air entry at the bases. Heart exam reveals first and second heart sounds and systolic murmur at the left lower sternal border. Abdomen is soft. Examination of extremities reveals moderate to severe bilateral pitting edema. LABS: Hemoglobin of 9.5, platelet count is 301, potassium is 4.6. BUN is 61, creatinine is 1.5. BNP is 5420. The coronavirus test is negative. ASSESSMENT: Acute exacerbation of chronic systolic heart failure. PLAN: I will treat the patient with IV Lasix, continue the beta blockers and ANNA inhibitors. I will obtain a 2D echo to assess his LV function. I will review his outpatient records. Please check his INR and we will adjust the medications as needed. MMODL / IJN: [id number] /
[2021-01-25 15:32] LABS: INR 2.16 (0.90-1.11); Prothrombin Time 23.5 sec (9.9-11.9)
--- NOTE | 2021-01-25 18:00 | ECHOF ---
Referral Reason:chf MEASUREMENTS -------- HEIGHT: 180.3 cm WEIGHT: 104.3 kg BP: 108/61 RVIDd: 3.6 cm (< 3.3) IVSd: 1.3 cm (0.6 - 1.1) LVIDd: 6.1 cm (3.9 - 5.3) LVPWd: 1.0 cm (0.6 - 1.1) IVSs: 1.8 cm LVIDs: 5.0 cm LVPWs: 1.4 cm LA Diam: 5.1 cm (2.7 - 3.8) Ao Diam: 3.9 cm (2.0 - 3.7) AV Cusp: 2.7 cm (1.5 - 2.6) MV EXCURSION: 21.757 mm (> 18.000) MV EF SLOPE: 136 mm/s (70 - 150) EPSS: 1.8 cm MV E Sarthak: 0.78 m/s MV DecT: 219 ms MV A Sarthak: 0.33 m/s MV E/A Ratio: 2.37 RAP: 15.00 mmHg RVSP: 55.17 mmHg FINDINGS -------- Paced rhythm. This was a technically adequate study. The left ventricle is mildly dilated. There is mild concentric left ventricular hypertrophy. Over all left ventricular systolic function is severely impaired with, an EF between 20 - 25 %. The right ventricle is mild to moderately enlarged. The left atrium is moderately dilated. The right atrium is normal in size. Interatrial and interventricular septum intact. There is mild aortic regurgitation. Mild mitral annular calcification present. [id number] mitral regurgitation is present. Moderate tricuspid regurgitation present. There is moderate to severe pulmonary hypertension. The right ventricular systolic pressure, as measured by Doppler, is 55.17mmHg. Trace/mild (physiologic) pulmonic regurgitation. The aortic root is dilated measuring 3.9cm. The inferior vena cava is dilated with no significant inspiratory collapse which is consistent estima barney right atrial pressure of >15 mmHg. There is a trivial pericardial effusion present. CONCLUSIONS -------- 1. The left ventricle is mildly dilated. 2. There is mild concentric left ventricular hypertrophy. 3. Overall left ventricular systolic function is severely impaired with, an EF between 20 - 25 %. 4. The right ventricle is mild to moderately enlarged. 5. The left atrium is moderately dilated. 6. There is mild aortic regurgitation. 7. Mild mitral annular calcification present. 8. [id number] mitral regurgitation is present. 9. Moderate tricuspid regurgitation present. 10. There is moderate to severe pulmonary hypertension. 11. The right ventricular systolic pressure, as measured by Doppler, is 55.17mmHg. 12. Trace/mild (physiologic) pulmonic regurgitation. 13. The aortic root is dilated measuring 3.9cm. 14. The inferior vena cava is dilated with no significant inspiratory collapse which is consistent es timated right atrial pressure of >15 mmHg. 15. There is a trivial pericardial effusion present. SUPPLY CHAIN DEVELOPMENT MANAGER: Naima Johnson RDCS
[2021-01-25] MEDS: traZODone HCL 50 MG TAB PO SCH (20:52)
[2021-01-25] MEDS: ATORVASTATIN 80 MG TAB PO SCH (20:53)
[2021-01-25] MEDS: WARFARIN 2.5 MG TAB PO SCH (21:45)
[2021-01-26 04:24] LABS: Anisocytosis Moderate; HCT 32.1 % (39.0-53.0); HGB 9.5 gm/dL (13.0-17.5); Hypochromasia Marked; MCH 27.7 pg (25.0-35.0); MCHC 29.7 g/dL (31.0-37.0); MCV 93.3 fL (80.0-100.0); Macrocytosis Slight; Mean Platelet Volume 9.3; Platelet Count 316 k/uL (150-450); Poikilocytosis Slight; RBC 3.44 m/uL (4.30-5.90); RDW 20.3 % (11.5-15.5); WBC 5.8 k/uL (3.8-10.6)
[2021-01-26 04:34] LABS: INR 2.3 (<1.2); Prothrombin Time 21.9 sec (9.0-12.0)
[2021-01-26] MEDS: SYMBICORT 80-4.5 MCG INHALER INHALATION SCH ×2 (08:34→20:02)
[2021-01-26] MEDS: IPRATROPIUM 0.5 MG/2.5 ML NEBU INHALATION SCH ×4 (08:34→20:02)
[2021-01-26] MEDS: FUROSEMIDE 10 MG/ML 4 ML VIAL IV SCH ×3 (09:22→22:12)
[2021-01-26] MEDS: FOLIC ACID-VIT B COMPLEX-VIT C 1 CAP PO SCH (09:23)
[2021-01-26] MEDS: MULTIVITAMINS, THERA 1 EACH TAB PO SCH (09:23)
[2021-01-26] MEDS: METOPROLOL TARTRATE 50 MG TAB PO SCH ×3 (09:23→17:22)
[2021-01-26] MEDS: CHOLECALCIFEROL 25 MCG (1000 IU) TABLET PO SCH (09:23)
[2021-01-26] MEDS: ISOSORBIDE MONONITRATE ER 30 MG TAB.ER.24H PO SCH ×2 (09:23→20:55)
[2021-01-26] MEDS: ASPIRIN 81 MG PO SCH (09:23)
[2021-01-26] MEDS: LOSARTAN 50 MG TAB PO SCH ×2 (09:23→20:54)
[2021-01-26] MEDS: allopurinoL 300 MG TAB PO SCH (09:23)
[2021-01-26] MEDS: POTASSIUM CHLORIDE ER 10 MEQ TAB.ER.PRT PO SCH ×2 (09:23→20:54)
[2021-01-26] MEDS: LORazepam 0.5 MG TAB PO PRN (09:29)
[2021-01-26 10:11] VITALS: BMI 32.5
[2021-01-26 10:11] LABS: Albumin 3.4 g/dL (3.8-4.9); Albumin/Globulin Ratio 1.7 (1.60-3.17); Anion Gap 13.5 mmol/L (10.00-18.00); BUN/Creat Ratio 32.07 Ratio (12.00-20.00); Blood Urea Nitrogen 48.1 mg/dL (9.0-27.0); Calcium 9.1 mg/dL (8.7-10.3); Carbon Dioxide 23.5 mmol/L (20.0-27.5); Non-African American GFR(CKD) 44.9 (60.0-200.0); Total Protein 5.4 g/dL (6.2-8.2)
--- NOTE | 2021-01-26 13:48 | P.PN ---
Subjective Progress Note Date: 01/26/21 This a pleasant 75-year-old woman who follows with Dr. Myers in the office. Has a history of CAD, ischemic cardiomyopathy, hypertension, atrial fibrillation, prior AICD placement and dyslipidemia. Presented to the hospital with progressively worsening lower extremity edema over the last several days. Also complaining of weight gain and abdominal distention. NT proBNP is elevated at 5420. He has been initiated on Lasix 40 mg IV push every 8 hours. Overall he is feeling better he feels his edema has improved some and his breathing is better. He continues to have significant lower extremity edema and abdominal distention. His renal function is stable. Echocardiogram with Doppler study showed severely impaired LV systolic function with ejection fraction between 20- 25% with last echocardiogram done in March showing an EF 25-30%, mild to moderate mitral regurgitation, moderate tricuspid regurgitation and moderate to severe pulmonary hypertension. Objective - Vital Signs Vital signs: Vital Signs Temp 97.8 F 01/26/21 12:05 Pulse 76 01/26/21 12:40 Resp 20 01/26/21 12:05 BP 104/58 01/26/21 12:05 Pulse Ox 100 01/26/21 12:05 Intake & Output 01/25/21 01/26/21 01/26/21 18:59 06:59 18:59 Intake Total 120 120 Balance 120 120 Weight 99.79 kg 106 kg 106 kg Intake: Oral 120 120 Other: Voiding Method Toilet # Voids 1 - Exam PHYSICAL EXAMINATION: This is a 75-year-old in no apparent distress at the time of my examination. VITAL SIGNS: Blood pressure 109/69, heart rate 60, respirations 20, temp 97.4F. Patient is 98 % on room air. HEENT: Head is atraumatic, normocephalic. Pupils are equal, round. Sclerae anicteric. Conjunctivae are clear. Mucous membranes of the mouth are moist. Neck is supple. There is no elevated jugular venous pressure. No carotid bruit is heard. CHEST EXAMINATION: Lungs reveal diminished air entry bilateral bases with faint crackles. No wheezes or rhonchi. Respirations even and nonlabored. HEART EXAMINATION: Heart irregular rate and rhythm, positive S1 and S2. No S3. No S4. A systolic murmur. ABDOMEN: Distended, nontender. Bowel sounds are heard. No organomegaly noted. EXTREMITIES: 3+ bilateral lower extremity pitting edema. NEUROLOGIC EXAMINATION: Patient is awake, alert and oriented x3. - Labs CBC & Chem 7: 01/26/21 04:01 01/26/21 04:01 Labs: Abnormal Lab Results - Last 24 Hours (Table) 01/25/21 01/26/21 01/26/21 Range/Units 10:03 04:01 04:01 RBC 3.44 L (4.30-5.90) m/uL Hgb 9.5 L (13.0-17.5) gm/dL Hct 32.1 L (39.0-53.0) % MCHC 29.7 L (31.0-37.0) g/dL RDW 20.3 H (11.5-15.5) % PT 23.5 H 21.9 H (9.9-11.9) sec INR 2.16 H 2.3 H (0.90-1.11) BUN (9.0-27.0) mg/dL Est GFR (CKD-EPI)AfAm (60.0-200.0) Est GFR (CKD-EPI)NonAf (60.0-200.0) BUN/Creatinine Ratio (12.00-20.00) Ratio Alkaline Phosphatase (41-126) U/L Total Protein (6.2-8.2) g/dL Albumin (3.8-4.9) g/dL 01/26/21 Range/Units 04:01 RBC (4.30-5.90) m/uL Hgb (13.0-17.5) gm/dL Hct (39.0-53.0) % MCHC (31.0-37.0) g/dL RDW (11.5-15.5) % PT (9.9-11.9) sec INR (0.90-1.11) BUN 48.1 H (9.0-27.0) mg/dL Est GFR (CKD-EPI)AfAm 52.0 L (60.0-200.0) Est GFR (CKD-EPI)NonAf 44.9 L (60.0-200.0) BUN/Creatinine Ratio 32.07 H (12.00-20.00) Ratio Alkaline Phosphatase 150 H (41-126) U/L Total Protein 5.4 L (6.2-8.2) g/dL Albumin 3.4 L (3.8-4.9) g/dL Assessment and Plan Assessment: #1 acute exacerbation of chronic systolic congestive heart failure #2 ischemic cardiomyopathy status post AICD #3 CAD with prior stenting #4 atrial fibrillation, chronic persistent, anticoagulated on warfarin Plan: From cardiology's perspective we will continue IV Lasix for now. Continue to monitor daily weights, renal function, electrolytes and intake and output. We will continue to follow the patient right further recommendations accordingly. BRICK VENEER MAKER note has been reviewed, I agree with a documented findings and plan of care. Patient was seen and examined.
[2021-01-26] MEDS: ATORVASTATIN 80 MG TAB PO SCH (20:54)
[2021-01-26] MEDS: traZODone HCL 50 MG TAB PO SCH (20:54)
[2021-01-26] MEDS: ZOLPIDEM 5 MG TAB PO SCH (20:54)
[2021-01-26] MEDS: WARFARIN 3 MG TAB PO SCH (20:55)
--- NOTE | 2021-01-27 00:43 | P.PN ---
Subjective Progress Note Date: 01/26/21 This is a 75-year-old white male who presents for lower extremity edema and weeping. Patient has an extensive history of heart failure and cardiology following closely. Patient is maintained on IV push lasix and cardiology recommending another 24 hours of IV lasix. Bilateral lower extremities noted wit h some continued swelling and skin is taut and shiny on the shins. Patient denies chest pain or shortness of breath. No fever or chills. Patient continues on coumadin and INR is 2.3 today. Labs: Sodium is 139, potassium is 4.0, BUN is 9.9, creatinine is 1.5, inr is 2.3, wbc is 5.8, hgb is 9.4, platelets are 316 Review of systems: Constitutional: No reports of fatigue, fever, or chills Cardiovascular: No reports of chest pain or palpitations Respiratory: No reports of shortness of breath or cough GI: No reports of nausea, vomiting, or diarrhea : No reports of dysuria or retention Neurovascular: no reports of weakness All medications have been reviewed Active Medications Albuterol/Ipratropium (Ipratropium-Albuterol 3 Ml Neb) 3 ml INHALATION RT-QID PRN PRN Reason: Shortness Of Breath Last Admin: 01/25/21 19:46 Dose: 3 ml Documented by: Allopurinol (Allopurinol 300 Mg Tab) 300 mg PO DAILY [facility] Last Admin: 01/26/21 09:23 Dose: 300 mg Documented by: Aspirin (Aspirin 81 Mg) 81 mg PO DAILY [facility] Last Admin: 01/26/21 09:23 Dose: 81 mg Documented by: Atorvastatin Calcium (Atorvastatin 80 Mg Tab) 80 mg PO HS [facility] Last Admin: 01/26/21 20:54 Dose: 80 mg Documented by: Budesonide/Formoterol Fumarate (Symbicort 80-4.5 Mcg Inhaler) 2 puff INHALATION RT-BID [facility] Last Admin: 01/26/21 20:02 Dose: 2 puff Documented by: Cholecalciferol (Cholecalciferol 25 Mcg (1000 Iu) Tablet) 25 mcg PO DAILY [facility] Last Admin: 01/26/21 09:23 Dose: 25 mcg Documented by: Furosemide (Furosemide 10 Mg/Ml 4 Ml Vial) 40 mg IV Q8H [facility] Last Admin: 01/26/21 22:12 Dose: 40 mg Documented by: Ipratropium Bell (Ipratropium 0.5 Mg/2.5 Ml Nebu) 0.5 mg INHALATION RT-QID [facility] Last Admin: 01/26/21 20:02 Dose: 0.5 mg Documented by: Isosorbide Mononitrate (Isosorbide Mononitrate Er 30 Mg Tab.Er.24h) 30 mg PO BID [facility] Last Admin: 01/26/21 20:55 Dose: 30 mg Documented by: Lorazepam (Lorazepam 0.5 Mg Tab) 0.5 mg PO TID PRN PRN Reason: Anxiety Last Admin: 01/26/21 09:29 Dose: 0.5 mg Documented by: Losartan Potassium (Losartan 50 Mg Tab) 50 mg PO BID [facility] Last Admin: 01/26/21 20:54 Dose: 50 mg Documented by: Metoprolol Tartrate (Metoprolol Tartrate 50 Mg Tab) 50 mg PO TID-W/MEALS [facility] Last Admin: 01/26/21 17:22 Dose: 50 mg Documented by: Miscellaneous Information (Warfarin Per Pharmacy) 0 each MISCELLANE DIRECTED PRN PRN Reason: PER PROTOCOL Multivit/Ca Carb/B Cmplx/FA/Prenat (Folic Acid-Vit B Complex-Vit C 1 Cap) 1 each PO DAILY [facility] Last Admin: 01/26/21 09:23 Dose: 1 each Documented by: Multivitamins (Multivitamins, Thera 1 Each Tab) 1 each PO DAILY [facility] Last Admin: 01/26/21 09:23 Dose: 1 each Documented by: Nitroglycerin (Nitroglycerin Sl Tabs 0.4 Mg Tab) 0.4 mg SUBLINGUAL Q5M PRN PRN Reason: Chest Pain Potassium Chloride (Potassium Chloride Er 10 Meq Tab.Er.Prt) 10 meq PO BID [facility] Last Admin: 01/26/21 20:54 Dose: 10 meq Documented by: Trazodone HCl (Trazodone Hcl 50 Mg Tab) 50 mg PO [facility] Last Admin: 01/26/21 20:54 Dose: 50 mg Documented by: Warfarin Sodium (Warfarin 2.5 Mg Tab) 2.5 mg PO MOWEFR@1999 [facility]; Protocol Last Admin: 01/25/21 21:45 Dose: 2.5 mg Documented by: Warfarin Sodium (Warfarin 3 Mg Tab) 3 mg PO SUTUTHSA@1999 [facility]; Protocol Last Admin: 01/26/21 20:55 Dose: 3 mg Documented by: Zolpidem Tartrate (Zolpidem 5 Mg Tab) 10 mg PO [facility] Last Admin: 01/26/21 20:54 Dose: 10 mg Documented by: Physical exam: Gen: This is a 75-year-old male awake, alert and oriented 3, well-developed, well-nourished, obese. Temp is 97.8 F, pulse is 61, respirations are 20, blood pressure is 104/58, oxygen saturation is 100% on room air. HEENT: Head is atraumatic, normocephalic. Pupils equal, round. Sclerae is anicteric. NECK: Supple. No JVD. No lymphadenopathy. No thyromegaly. LUNGS: Diminished breath sounds bilaterally with no wheezing and some scattered rhonchi noted.. No intercostal retractions. HEART: S1, S2 are muffled. ABDOMEN: Soft. obese. Bowel sounds are present. No masses. No tenderness. EXTREMITIES: No pedal edema. No calf tenderness. bilateral lower extremity edema with taut skin and shininess noted 2+ pitting edema noted. NEUROLOGICAL: Patient is awake, alert and oriented x3. no focal deficits. Assessment: Acute on chronic systolic congestive heart failure, acute exacerbation hypertension hyperlipidemia Ischemic cardiomyopathy Weakness gait dysfunction full code Plan: recommend to continue current medications and management. Patient being closely followed by cardiology. Continued weakness and recommend PT/OT therapy evaluation. Continue IV lasix for 24 hours and monitor closely. Repeat am labs. Due to multiple complex medical issues, prognosis is guarded. Objective - Vital Signs Vital signs: Vital Signs Temp 97.4 F L 01/26/21 04:41 Pulse 70 01/26/21 08:52 Resp 20 01/26/21 04:41 BP 109/69 01/26/21 04:41 Pulse Ox 98 01/26/21 04:41 Intake & Output 01/25/21 01/26/21 01/26/21 18:59 06:59 18:59 Intake Total 120 120 Balance 120 120 Weight 99.79 kg 106 kg 106 kg Intake: Oral 120 120 Other: Voiding Method Toilet # Voids 1 - Labs CBC & Chem 7: 01/26/21 04:01 01/26/21 04:01 Labs: Abnormal Lab Results - Last 24 Hours (Table) 01/25/21 01/26/21 01/26/21 Range/Units 10:03 04:01 04:01 RBC 3.44 L (4.30-5.90) m/uL Hgb 9.5 L (13.0-17.5) gm/dL Hct 32.1 L (39.0-53.0) % MCHC 29.7 L (31.0-37.0) g/dL RDW 20.3 H (11.5-15.5) % PT 23.5 H 21.9 H (9.9-11.9) sec INR 2.16 H 2.3 H (0.90-1.11) BUN (9.0-27.0) mg/dL Est GFR (CKD-EPI)AfAm (60.0-200.0) Est GFR (CKD-EPI)NonAf (60.0-200.0) BUN/Creatinine Ratio (12.00-20.00) Ratio Alkaline Phosphatase (41-126) U/L Total Protein (6.2-8.2) g/dL Albumin (3.8-4.9) g/dL 01/26/21 Range/Units 04:01 RBC (4.30-5.90) m/uL Hgb (13.0-17.5) gm/dL Hct (39.0-53.0) % MCHC (31.0-37.0) g/dL RDW (11.5-15.5) % PT (9.9-11.9) sec INR (0.90-1.11) BUN 48.1 H (9.0-27.0) mg/dL Est GFR (CKD-EPI)AfAm 52.0 L (60.0-200.0) Est GFR (CKD-EPI)NonAf 44.9 L (60.0-200.0) BUN/Creatinine Ratio 32.07 H (12.00-20.00) Ratio Alkaline Phosphatase 150 H (41-126) U/L Total Protein 5.4 L (6.2-8.2) g/dL Albumin 3.4 L (3.8-4.9) g/dL
[2021-01-27 05:43] LABS: INR 2.6 (<1.2)
[2021-01-27 05:44] LABS: Prothrombin Time 25.4 sec (9.0-12.0)
[2021-01-27 05:49] LABS: African American GFR (CKD) 56 (>60 ml/min/1.73 sqM); Anion Gap 8 mmol/L; Blood Urea Nitrogen 49 mg/dL (9-20); Carbon Dioxide 26 mmol/L (22-30); Chloride 101 mmol/L (98-107); Glucose 97 mg/dL (74-99); Non-African American GFR(CKD) 49 (>60 ml/min/1.73 sqM); Sodium 135 mmol/L (137-145)
[2021-01-27] MEDS: ASPIRIN 81 MG PO SCH (08:07)
[2021-01-27] MEDS: METOPROLOL TARTRATE 50 MG TAB PO SCH ×3 (08:07→17:45)
[2021-01-27] MEDS: POTASSIUM CHLORIDE ER 10 MEQ TAB.ER.PRT PO SCH ×2 (08:07→21:33)
[2021-01-27] MEDS: CHOLECALCIFEROL 25 MCG (1000 IU) TABLET PO SCH (08:07)
[2021-01-27] MEDS: FUROSEMIDE 10 MG/ML 4 ML VIAL IV SCH ×3 (08:07→23:30)
[2021-01-27] MEDS: LOSARTAN 50 MG TAB PO SCH ×2 (08:07→21:33)
[2021-01-27] MEDS: MULTIVITAMINS, THERA 1 EACH TAB PO SCH (08:07)
[2021-01-27] MEDS: ISOSORBIDE MONONITRATE ER 30 MG TAB.ER.24H PO SCH ×2 (08:07→21:33)
[2021-01-27] MEDS: allopurinoL 300 MG TAB PO SCH (08:07)
[2021-01-27] MEDS: FOLIC ACID-VIT B COMPLEX-VIT C 1 CAP PO SCH (08:08)
[2021-01-27] MEDS: SYMBICORT 80-4.5 MCG INHALER INHALATION SCH ×2 (08:16→20:49)
[2021-01-27] MEDS: IPRATROPIUM 0.5 MG/2.5 ML NEBU INHALATION SCH ×4 (08:16→20:49)
--- NOTE | 2021-01-27 13:13 | P.PN ---
Subjective Progress Note Date: 01/27/21 This a pleasant 75-year-old woman who follows with Dr. Myers in the office. Has a history of CAD, ischemic cardiomyopathy, hypertension, atrial fibrillation, prior AICD placement and dyslipidemia. Presented to the hospital with progressively worsening lower extremity edema over the last several days. Also complaining of weight gain and abdominal distention. NT proBNP is elevated at 5420. He has been initiated on Lasix 40 mg IV push every 8 hours. Overall he is feeling better he feels his edema has improved some and his breathing is better. He continues to have significant lower extremity edema and abdominal distention. His renal function is stable. Echocardiogram with Doppler study showed severely impaired LV systolic function with ejection fraction between 20- 25% with last echocardiogram done in March showing an EF 25-30%, mild to moderate mitral regurgitation, moderate tricuspid regurgitation and moderate to severe pulmonary hypertension. 01/27/21 The patient was seen and examined today resting comfortably in bed with head of bed down. Continues to have significant lower extremity and abdominal edema. He does feel that he feels better. Renal function has shown some improvement. NT proBNP is around 5600. He continues on Lasix 40 mg IV push every 8 hours. Objective - Vital Signs Vital signs: Vital Signs Temp 97.9 F 01/27/21 05:00 Pulse 67 01/27/21 12:01 Resp 20 01/27/21 05:00 BP 104/70 01/27/21 05:00 Pulse Ox 96 01/27/21 05:00 Intake & Output 01/26/21 01/27/21 01/27/21 18:59 06:59 18:59 Intake Total 120 240 Balance 120 240 Weight 106 kg 106.5 kg Intake: Oral 120 240 Other: Voiding Method Toilet Toilet # Voids 2 - Exam PHYSICAL EXAMINATION: This is a 75-year-old in no apparent distress at the time of my examination. VITAL SIGNS: Blood pressure 109/69, heart rate 60, respirations 20, temp 97.4F. Patient is 98 % on room air. HEENT: Head is atraumatic, normocephalic. Pupils are equal, round. Sclerae anicteric. Conjunctivae are clear. Mucous membranes of the mouth are moist. Neck is supple. There is no elevated jugular venous pressure. No carotid bruit is heard. CHEST EXAMINATION: Lungs reveal diminished air entry bilateral bases with faint crackles. No wheezes or rhonchi. Respirations even and nonlabored. HEART EXAMINATION: Heart irregular rate and rhythm, positive S1 and S2. No S3. No S4. A systolic murmur. ABDOMEN: Distended, nontender. Bowel sounds are heard. No organomegaly noted. EXTREMITIES: 3+ bilateral lower extremity pitting edema. NEUROLOGIC EXAMINATION: Patient is awake, alert and oriented x3. - Labs CBC & Chem 7: 01/26/21 04:01 01/27/21 05:11 Labs: Abnormal Lab Results - Last 24 Hours (Table) 01/27/21 01/27/21 Range/Units 05:11 05:11 PT 25.4 H (9.0-12.0) sec INR 2.6 H (<1.2) Sodium 135 L (137-145) mmol/L BUN 49 H (9-20) mg/dL Creatinine 1.41 H (0.66-1.25) mg/dL Assessment and Plan Assessment: #1 acute exacerbation of chronic systolic congestive heart failure #2 ischemic cardiomyopathy status post AICD #3 CAD with prior stenting #4 atrial fibrillation, chronic persistent, anticoagulated on warfarin Plan: From cardiology's perspective we will continue IV Lasix. Will give one dose of metolazone 5 mg by mouth now and one dose tomorrow morning. Continue to monitor daily weights, renal function, electrolytes and intake and output. We will continue to follow the patient right further recommendations accordingly. DIRECTOR OF FINANCIAL REPORTING note has been reviewed, I agree with a documented findings and plan of care. Patient was seen and examined.
[2021-01-27] MEDS ORDERED: metOLazone 5 MG TAB PO ONE (13:30)
[2021-01-27] MEDS: LORazepam 0.5 MG TAB PO PRN (14:46)
[2021-01-27] MEDS: ZOLPIDEM 5 MG TAB PO SCH (21:32)
[2021-01-27] MEDS: traZODone HCL 50 MG TAB PO SCH (21:33)
[2021-01-27] MEDS: ATORVASTATIN 80 MG TAB PO SCH (21:33)
[2021-01-27] MEDS: WARFARIN 3 MG TAB PO SCH (22:47)
--- NOTE | 2021-01-28 04:08 | P.PN ---
Subjective Progress Note Date: 01/27/21 This is a 75-year-old white male who presents for lower extremity edema and weeping. Patient has an extensive history of heart failure and cardiology following closely. Patient is maintained on IV push lasix and cardiology recommending another 24 hours of IV lasix. Bilateral lower extremities noted wit h some continued swelling and skin is taut and shiny on the shins. Patient denies chest pain or shortness of breath. No fever or chills. Patient continues on coumadin and INR is 2.3 today. 01/27/2021 Patient is seen and evaluated this morning and walking the halls. Patient is being followed by cardiology and continues on IV lasix. Creatinine is 1.41 and will repeat am labs. Patient is anxious to go home. INR is 2.6 today and will continue with coumadin, pharmacy to dose. Patient denies any shortness of breath, chest pains,or palpitations. Patient abdomen continues to be distended although patient states this in an improvement from when he presented to the hospital. Labs: Sodium is 135, potassium is 4.0, BUN is 8, creatinine is 1.41, inr is 2.6, BNP is 5660 Review of systems: Constitutional: No reports of fatigue, fever, or chills Cardiovascular: No reports of chest pain or palpitations Respiratory: No reports of shortness of breath or cough GI: No reports of nausea, vomiting, or diarrhea : No reports of dysuria or retention Neurovascular: no reports of weakness All medications have been reviewed Active Medications Albuterol/Ipratropium (Ipratropium-Albuterol 3 Ml Neb) 3 ml INHALATION RT-QID PRN PRN Reason: Shortness Of Breath Last Admin: 01/25/21 19:46 Dose: 3 ml Documented by: Allopurinol (Allopurinol 300 Mg Tab) 300 mg PO DAILY [facility] Last Admin: 01/27/21 08:07 Dose: 300 mg Documented by: Aspirin (Aspirin 81 Mg) 81 mg PO DAILY [facility] Last Admin: 01/27/21 08:07 Dose: 81 mg Documented by: Atorvastatin Calcium (Atorvastatin 80 Mg Tab) 80 mg PO HS [facility] Last Admin: 01/26/21 20:54 Dose: 80 mg Documented by: Budesonide/Formoterol Fumarate (Symbicort 80-4.5 Mcg Inhaler) 2 puff INHALATION RT-BID [facility] Last Admin: 01/27/21 08:16 Dose: 2 puff Documented by: Cholecalciferol (Cholecalciferol 25 Mcg (1000 Iu) Tablet) 25 mcg PO DAILY [facility] Last Admin: 01/27/21 08:07 Dose: 25 mcg Documented by: Furosemide (Furosemide 10 Mg/Ml 4 Ml Vial) 40 mg IV Q8H [facility] Last Admin: 01/27/21 08:07 Dose: 40 mg Documented by: Ipratropium [place] (Ipratropium 0.5 Mg/2.5 Ml Nebu) 0.5 mg INHALATION RT-QID [facility] Last Admin: 01/27/21 11:48 Dose: 0.5 mg Documented by: Isosorbide Mononitrate (Isosorbide Mononitrate Er 30 Mg Tab.Er.24h) 30 mg PO BID [facility] Last Admin: 01/27/21 08:07 Dose: 30 mg Documented by: Lorazepam (Lorazepam 0.5 Mg Tab) 0.5 mg PO TID PRN PRN Reason: Anxiety Last Admin: 01/26/21 09:29 Dose: 0.5 mg Documented by: Losartan Potassium (Losartan 50 Mg Tab) 50 mg PO BID [facility] Last Admin: 01/27/21 08:07 Dose: 50 mg Documented by: Metolazone (Metolazone 5 Mg Tab) 5 mg PO ONCE ONE Stop: 01/28/21 08:01 Metoprolol Tartrate (Metoprolol Tartrate 50 Mg Tab) 50 mg PO TID-W/MEALS [facility] Last Admin: 01/27/21 13:01 Dose: Not Given Documented by: Miscellaneous Information (Warfarin Per Pharmacy) 0 each MISCELLANE DIRECTED PRN PRN Reason: PER PROTOCOL Multivit/Ca Carb/B Cmplx/FA/Prenat (Folic Acid-Vit B Complex-Vit C 1 Cap) 1 each PO DAILY [facility] Last Admin: 01/27/21 08:08 Dose: 1 each Documented by: Multivitamins (Multivitamins, Thera 1 Each Tab) 1 each PO DAILY [facility] Last Admin: 01/27/21 08:07 Dose: 1 each Documented by: Nitroglycerin (Nitroglycerin Sl Tabs 0.4 Mg Tab) 0.4 mg SUBLINGUAL Q5M PRN PRN Reason: Chest Pain Potassium Chloride (Potassium Chloride Er 10 Meq Tab.Er.Prt) 10 meq PO BID [facility] Last Admin: 01/27/21 08:07 Dose: 10 meq Documented by: Trazodone HCl (Trazodone Hcl 50 Mg Tab) 50 mg PO [facility] Last Admin: 01/26/21 20:54 Dose: 50 mg Documented by: Warfarin Sodium (Warfarin 2.5 Mg Tab) 2.5 mg PO MOWEFR@1999 [facility]; Protocol Last Admin: 01/25/21 21:45 Dose: 2.5 mg Documented by: Warfarin Sodium (Warfarin 3 Mg Tab) 3 mg PO SUTUTHSA@1999 [facility]; Protocol Last Admin: 01/26/21 20:55 Dose: 3 mg Documented by: Zolpidem Tartrate (Zolpidem 5 Mg Tab) 10 mg PO [facility] Last Admin: 01/26/21 20:54 Dose: 10 mg Documented by: Physical exam: Gen: This is a 75-year-old male awake, alert and oriented 3, well-developed, well-nourished, obese. Temp is 98.6F, pulse is 57, respirations are 18, blood pressure is 99/52, oxygen saturation is 100% on room air. HEENT: Head is atraumatic, normocephalic. Pupils equal, round. Sclerae is anicteric. NECK: Supple. No JVD. No lymphadenopathy. No thyromegaly. LUNGS: Diminished breath sounds bilaterally with no wheezing and some scattered rhonchi noted.. No intercostal retractions. HEART: S1, S2 are muffled. ABDOMEN: Soft. obese. Bowel sounds are present. No masses. No tenderness. EXTREMITIES: No pedal edema. No calf tenderness. bilateral lower extremity edema with taut skin and shininess noted 2+ pitting edema noted. NEUROLOGICAL: Patient is awake, alert and oriented x3. no focal deficits. Assessment: Acute on chronic systolic congestive heart failure, acute exacerbation hypertension hyperlipidemia Ischemic cardiomyopathy Weakness gait dysfunction full code Plan: recommend to continue current medications and management. Patient being closely followed by cardiology. Continue IV lasix push and a dose of Metolazone ordered. Repeat am labs. Due to multiple complex medical issues, prognosis is guarded. Dr. Clark will resume care of this patient in the am. Objective - Vital Signs Vital signs: Vital Signs Temp 98.6 F 01/27/21 12:50 Pulse 57 L 01/27/21 12:50 Resp 18 01/27/21 12:50 BP 99/52 01/27/21 12:50 Pulse Ox 100 01/27/21 12:50 Intake & Output 01/26/21 01/27/21 01/27/21 18:59 06:59 18:59 Intake Total 120 240 Balance 120 240 Weight 106 kg 106.5 kg Intake: Oral 120 240 Other: Voiding Method Toilet Toilet # Voids 2 - Labs CBC & Chem 7: 01/26/21 04:01 01/27/21 05:11 Labs: Abnormal Lab Results - Last 24 Hours (Table) 01/27/21 01/27/21 Range/Units 05:11 05:11 PT 25.4 H (9.0-12.0) sec INR 2.6 H (<1.2) Sodium 135 L (137-145) mmol/L BUN 49 H (9-20) mg/dL Creatinine 1.41 H (0.66-1.25) mg/dL
[2021-01-28 07:21] LABS: African American GFR (CKD) 49 (>60 ml/min/1.73 sqM); Anion Gap 7 mmol/L; Blood Urea Nitrogen 52 mg/dL (9-20); Carbon Dioxide 29 mmol/L (22-30); Chloride 99 mmol/L (98-107); Glucose 100 mg/dL (74-99); Non-African American GFR(CKD) 42 (>60 ml/min/1.73 sqM); Sodium 135 mmol/L (137-145)
[2021-01-28 07:22] LABS: INR 2.8 (<1.2); Prothrombin Time 26.7 sec (9.0-12.0)
[2021-01-28] MEDS ORDERED: metOLazone 5 MG TAB PO ONE (08:00)
[2021-01-28] MEDS: SYMBICORT 80-4.5 MCG INHALER INHALATION SCH ×2 (09:23→19:58)
[2021-01-28] MEDS: IPRATROPIUM 0.5 MG/2.5 ML NEBU INHALATION SCH ×4 (09:24→20:00)
[2021-01-28] MEDS: allopurinoL 300 MG TAB PO SCH (10:08)
[2021-01-28] MEDS: CHOLECALCIFEROL 25 MCG (1000 IU) TABLET PO SCH (10:08)
[2021-01-28] MEDS: MULTIVITAMINS, THERA 1 EACH TAB PO SCH (10:08)
[2021-01-28] MEDS: ASPIRIN 81 MG PO SCH (10:08)
[2021-01-28] MEDS: FOLIC ACID-VIT B COMPLEX-VIT C 1 CAP PO SCH (10:08)
[2021-01-28] MEDS: LOSARTAN 50 MG TAB PO SCH ×2 (10:09→21:40)
[2021-01-28] MEDS: ISOSORBIDE MONONITRATE ER 30 MG TAB.ER.24H PO SCH ×2 (10:09→21:40)
[2021-01-28] MEDS: FUROSEMIDE 10 MG/ML 4 ML VIAL IV SCH ×3 (10:09→22:39)
[2021-01-28] MEDS: METOPROLOL TARTRATE 50 MG TAB PO SCH ×3 (10:10→17:29)
[2021-01-28] MEDS: LORazepam 0.5 MG TAB PO PRN ×2 (10:15→17:29)
[2021-01-28] MEDS: SPIRONOLACTONE 25 MG TAB PO SCH (10:30)
--- NOTE | 2021-01-28 10:38 | P.PN ---
Subjective Progress Note Date: 01/28/21 HISTORY OF PRESENT ILLNESS: This a pleasant 75-year-old woman who follows with Dr. Myers in the office. Has a history of CAD, ischemic cardiomyopathy, hypertension, atrial fibrillation, prior AICD placement and dyslipidemia. Presented to the hospital with progressively worsening lower extremity edema over the last several days. Also complaining of weight gain and abdominal distention. NT proBNP is elevated at 5420. He has been initiated on Lasix 40 mg IV push every 8 hours. Overall he is feeling better he feels his edema has improved some and his breathing is better. He continues to have significant lower extremity edema and abdominal distention. His renal function is stable. Echocardiogram with Doppler study showed severely impaired LV systolic function with ejection fraction between 20- 25% with last echocardiogram done in March showing an EF 25-30%, mild to moderate mitral regurgitation, moderate tricuspid regurgitation and moderate to severe pulmonary hypertension. 01/27/21 The patient was seen and examined today resting comfortably in bed with head of bed down. Continues to have significant lower extremity and abdominal edema. He does feel that he feels better. Renal function has shown some improvement. NT proBNP is around 5600. He continues on Lasix 40 mg IV push every 8 hours. 01/28/2021 Patient examined this morning at the bedside. Patient states his breathing is improving. He continues to have lower extremity edema. He is on Lasix 40mg IVP Q8 hours. Creatinine 1.58. INR 2.8. Intake and output are not documented accurately. Blood pressure 120/69. Heart rate is in the 60s. He is afebrile. Echocardiogram revealing ejection fraction 20-25%, mild to moderate mitral regurgitation, moderate tricuspid regurgitation, and moderate to severe pulmonary hypertension. PHYSICAL EXAM: VITAL SIGNS: Reviewed. GENERAL: Well-developed in no acute distress. NECK: Supple. No JVD or thyromegaly LUNGS: Respirations even and unlabored. Lungs diminished to auscultation bilaterally. HEART: Regular rate and rhythm. S1 and S2 heard. Systolic murmur noted. EXTREMITIES: Normal range of motion. No clubbing or cyanosis. Peripheral pulses intact. 2-3+ bilateral lower extremity edema ASSESSMENT: Acute exacerbation of chronic systolic congestive heart failure Coronary artery disease with previous stenting Chronic persistent atrial fibrillation, anticoagulated with warfarin Ischemic cardiomyopathy with previous AICD PLAN: Continue current cardiac medications Continue IV lasix Add Aldactone 25mg daily Discontinue potassium supplement Monitor BMP. Repeat in AM. Accurate I&O Daily weights Further recommendations pending patient course Nurse practitioner note has been reviewed by physician. Signing provider agrees with the documented findings, assessment, and plan of care. Objective - Vital Signs Vital signs: Vital Signs Temp 97.3 F L 01/28/21 05:00 Pulse 66 01/28/21 09:32 Resp 16 01/28/21 05:00 BP 120/69 01/28/21 05:00 Pulse Ox 96 01/28/21 05:00 Intake & Output 01/27/21 01/28/21 01/28/21 18:59 06:59 18:59 Intake Total 240 Balance 240 Weight 107 kg Intake: Oral 240 Other: Voiding Method Toilet Toilet - Labs CBC & Chem 7: 01/26/21 04:01 01/28/21 06:46 Labs: Abnormal Lab Results - Last 24 Hours (Table) 01/28/21 01/28/21 Range/Units 06:46 06:46 PT 26.7 H (9.0-12.0) sec INR 2.8 H (<1.2) Sodium 135 L (137-145) mmol/L BUN 52 H (9-20) mg/dL Creatinine 1.58 H (0.66-1.25) mg/dL Glucose 100 H (74-99) mg/dL
[2021-01-28 13:04] VITALS: TEMP 97.5
[2021-01-28] MEDS: IPRATROPIUM-ALBUTEROL 3 ML NEB INHALATION PRN (19:58)
[2021-01-28] MEDS: ZOLPIDEM 5 MG TAB PO SCH (21:39)
[2021-01-28] MEDS: traZODone HCL 50 MG TAB PO SCH (21:39)
[2021-01-28] MEDS: ATORVASTATIN 80 MG TAB PO SCH (21:40)
[2021-01-28] MEDS: WARFARIN 2.5 MG TAB PO SCH (22:42)
--- NOTE | 2021-01-28 22:58 | P.PN ---
Subjective Progress Note Date: 01/28/21 Principal diagnosis: Heart failure The patient was admitted essentially for pedal edema with shortness of breath. Underlying history of COPD and congestive heart failure. Cardio myopathy is otherwise noted. We will continue IV Lasix for today. I suspect hopefully we can transfer and discharge the patient is stable for tomorrow Objective - Vital Signs Vital signs: Vital Signs Temp 97.5 F L 01/28/21 12:26 Pulse 70 01/28/21 20:12 Resp 17 01/28/21 12:26 BP 121/68 01/28/21 22:37 Pulse Ox 95 01/28/21 12:26 Intake & Output 01/28/21 01/28/21 01/29/21 06:59 18:59 06:59 Weight 107 kg 105.5 kg Other: Voiding Method Toilet Toilet Toilet - Constitutional General appearance: Present: average body habitus, no acute distress - EENT Eyes: Present: abnormal pupil - Neck Neck: Absent: lymphadenopathy - Respiratory Respiratory: bilateral: diminished - Cardiovascular Heart sounds: normal: S1, S2 Abnormal Heart Sounds: Absent: S3 Gallop - Gastrointestinal General gastrointestinal: Present: soft - Integumentary Integumentary Comment(s): Edema of the lower extremities is noted. - Labs CBC & Chem 7: 01/26/21 04:01 01/28/21 06:46 Labs: Abnormal Lab Results - Last 24 Hours (Table) 01/28/21 01/28/21 Range/Units 06:46 06:46 PT 26.7 H (9.0-12.0) sec INR 2.8 H (<1.2) Sodium 135 L (137-145) mmol/L BUN 52 H (9-20) mg/dL Creatinine 1.58 H (0.66-1.25) mg/dL Glucose 100 H (74-99) mg/dL Assessment and Plan (1) Chronic systolic CHF (congestive heart failure) Current Visit: No Status: Acute Code(s): I50.22 - CHRONIC SYSTOLIC (CONGESTIVE) HEART FAILURE SNOMED Code(s): 136124500 (2) HTN (hypertension) Current Visit: No Status: Acute Code(s): I10 - ESSENTIAL (PRIMARY) HYPERTENSION SNOMED Code(s): 94183680 (3) Hyperlipemia Current Visit: No Status: Acute Code(s): E78.5 - HYPERLIPIDEMIA, UNSPECIFIED SNOMED Code(s): 34121535 (4) Ischemic cardiomyopathy Current Visit: No Status: Acute Code(s): I25.5 - ISCHEMIC CARDIOMYOPATHY SNOMED Code(s): 732577480 (5) Weakness Current Visit: No Status: Acute Code(s): R53.1 - WEAKNESS SNOMED Code(s): 60998768 Plan: Significant improvement over the weekend. Continue diuresis. Appreciate cardiology input. Check CBC and CMP in a.m. See orders otherwise. Anticipate discharge in the a.m.
[2021-01-29 07:28] VITALS: BP 108/66; RESP 16
[2021-01-29] MEDS: IPRATROPIUM 0.5 MG/2.5 ML NEBU INHALATION SCH ×2 (07:40→11:18)
[2021-01-29] MEDS: SYMBICORT 80-4.5 MCG INHALER INHALATION SCH (07:40)
[2021-01-29 07:43] VITALS: PULSE 68
[2021-01-29] MEDS: METOPROLOL TARTRATE 50 MG TAB PO SCH ×2 (08:49→12:51)
--- NOTE | 2021-01-29 08:49 | P.DS ---
Providers Date of admission: 01/24/21 22:47 Attending physician: Giovanni Clark Consults: 01/25/21 07:42 Consult Physician Routine Consulting Provider: Swetha Lemos Consult Reason/Comments: heart failure Do you want consulting provider notified?: Yes Primary care physician: Giovanni Clark - Discharge Diagnosis(es) (1) Chronic systolic CHF (congestive heart failure) Current Visit: No Status: Acute (2) HTN (hypertension) Current Visit: No Status: Acute (3) Hyperlipemia Current Visit: No Status: Acute (4) Ischemic cardiomyopathy Current Visit: No Status: Acute (5) Weakness Current Visit: No Status: Acute Hospital Course: This is a continue progress note/discharge summary on a 75-year-old white male essentially admitted for exacerbation of congestive heart failure. Diuresis was implemented any he still has significant edema but he is been stabilizing. He was weeping with some redness but now that is resolving and is emulating without significant shortness of breath. The patient will be discharged once cleared by cardiology and to follow-up with me in about 5-7 days. Patient Condition at Discharge: Fair Plan - Discharge Summary Discharge Rx Participant: Yes New Discharge Prescriptions: New Spironolactone [Aldactone] 25 mg PO DAILY #30 tab Furosemide [Lasix] 60 mg PO BID@0900,1600 #60 tab Continue Multivitamins, Thera [Multivitamin (formulary)] 1 tab PO DAILY Vitamin B Complex 1 cap PO DAILY Aspirin 81 mg PO DAILY #30 chew Atorvastatin [Lipitor] 80 mg PO HS #30 tab Isosorbide Mononitrate ER [Imdur] 30 mg PO BID Warfarin [Coumadin] 2.5 mg PO MOWEFR@1999 Losartan [Cozaar] 50 mg PO BID allopurinoL [Zyloprim] 300 mg PO DAILY Umeclidinium Brm/Vilanterol Tr [Anoro Ellipta 62.5-25 Mcg INH] 1 puff INHALATION RT-DAILY LORazepam [Ativan] 0.5 mg PO TID PRN PRN Reason: Anxiety Nitroglycerin Sl Tabs [Nitrostat] 0.4 mg SL Q5M PRN PRN Reason: Chest Pain Ipratropium-Albuterol Nebulize [Duoneb 0.5 mg-3 mg/3 ml Soln] 3 ml INHALATION RT-QID PRN PRN Reason: Shortness Of Breath Zolpidem [Ambien] 10 mg PO HS Warfarin [Coumadin] 3 mg PO SUTUTHSA@1999 Cholecalciferol [Vitamin D3 (25 Mcg = 1000 Iu)] 25 mcg PO DAILY traZODone HCL 50 mg PO HS Metoprolol Tartrate [Lopressor] 50 mg PO TID-W/MEALS Discontinued Furosemide [Lasix] 60 mg PO DAILY Furosemide [Lasix] 40 mg PO HS Potassium Chloride [Klor-Con 10 ER] 10 meq PO BID Discharge Medication List Multivitamins, Thera [Multivitamin (formulary)] 1 tab PO DAILY 12/17/15 [History] Vitamin B Complex 1 cap PO DAILY 12/22/15 [History] Aspirin 81 mg PO DAILY #30 chew 12/24/15 [Rx] Atorvastatin [Lipitor] 80 mg PO HS #30 tab 12/24/15 [Rx] Isosorbide Mononitrate ER [Imdur] 30 mg PO BID 05/27/17 [History] Losartan [Cozaar] 50 mg PO BID 05/05/18 [History] Warfarin [Coumadin] 2.5 mg PO MOWEFR@199905/05/18 [History] Umeclidinium Brm/Vilanterol Tr [Anoro Ellipta 62.5-25 Mcg INH] 1 puff INHALATION RT-DAILY 10/15/19 [History] allopurinoL [Zyloprim] 300 mg PO DAILY 10/15/19 [History] Ipratropium-Albuterol Nebulize [Duoneb 0.5 mg-3 mg/3 ml Soln] 3 ml INHALATION RT-QID PRN 02/09/20 [History] LORazepam [Ativan] 0.5 mg PO TID PRN 02/09/20 [History] Nitroglycerin Sl Tabs [Nitrostat] 0.4 mg SL Q5M PRN 02/09/20 [History] Cholecalciferol [Vitamin D3 (25 Mcg = 1000 Iu)] 25 mcg PO DAILY 11/06/20 [History] Zolpidem [Ambien] 10 mg PO HS 11/06/20 [History] traZODone HCL 50 mg PO HS 11/06/20 [History] Metoprolol Tartrate [Lopressor] 50 mg PO TID-W/MEALS 01/24/21 [History] Warfarin [Coumadin] 3 mg PO SUTUTHSA@199901/24/21 [History] Furosemide [Lasix] 60 mg PO BID@0900,1600 #60 tab 01/29/21 [Rx] Spironolactone [Aldactone] 25 mg PO DAILY #30 tab 01/29/21 [Rx] Follow up Appointment(s)/Referral(s): Giovanni Clark MD [Primary Care Provider] - 1 Week Discharge Disposition: HOME SELF-CARE
[2021-01-29] MEDS: CHOLECALCIFEROL 25 MCG (1000 IU) TABLET PO SCH (08:50)
[2021-01-29] MEDS: ISOSORBIDE MONONITRATE ER 30 MG TAB.ER.24H PO SCH (08:50)
[2021-01-29] MEDS: LOSARTAN 50 MG TAB PO SCH (08:50)
[2021-01-29] MEDS: SPIRONOLACTONE 25 MG TAB PO SCH (08:50)
[2021-01-29] MEDS: ASPIRIN 81 MG PO SCH ×2 (08:50→08:53)
[2021-01-29] MEDS: allopurinoL 300 MG TAB PO SCH (08:50)
[2021-01-29] MEDS: MULTIVITAMINS, THERA 1 EACH TAB PO SCH (08:50)
[2021-01-29] MEDS: FOLIC ACID-VIT B COMPLEX-VIT C 1 CAP PO SCH (08:51)
[2021-01-29] MEDS ORDERED: FUROSEMIDE 20 MG TAB PO SCH (09:00)
[2021-01-29 10:06] LABS: Anion Gap 14.9 mmol/L (10.00-18.00); BUN/Creat Ratio 31.13 Ratio (12.00-20.00); Blood Urea Nitrogen 46.7 mg/dL (9.0-27.0); Calcium 9.1 mg/dL (8.7-10.3); Carbon Dioxide 25.1 mmol/L (20.0-27.5); Non-African American GFR(CKD) 44.9 (60.0-200.0); Potassium 3.5 mmol/L (3.5-5.5)
[2021-01-29 10:17] LABS: INR 2.7 (0.90-1.11); Prothrombin Time 29.1 sec (9.9-11.9)
--- NOTE | 2021-01-29 12:39 | P.PN ---
Progress Note - Text Progress Note Date: 01/29/21 The patient is a pleasant 75-year-old gentleman with coronary artery disease and also known ischemic cardiomyopathy with a prior AICD and also permanent atrial fibrillation was admitted to the hospital with acute exacerbation of heart failure. The patient was seen this morning. He seems to be feeling overall better. He continues to have lower extent his edema but he is requesting to go home. He denies any symptoms of chest pain or chest discomfort. He was started on Lasix by mouth. From the cardiovascular standpoint of view, the patient can be discharged home. He was advised about the importance of taking his medications and be compliant with the medications and also about the importance of staying as much active as possible and deviation of the legs every time he said down.
--- NOTE | 2021-02-01 12:34 | CDI ---
Documentation Clarification Form Date: 02/01/2021 12:28:13 PM From: Samm Vega Admit Date: 01/24/2021 10:47:00 PM Patient Name: Juan Jackson Visit Number: [id number] Discharge Date: 01/29/2021 02:23:00 PM ATTENTION: The Clinical Documentation Specialists (CDI) and [facility] Coding Staff appreciate your assistance in clarifying documentation. Please respond to the clarification below the line at the bottom and electronically sign. The CDI & [facility] Coding staff will review the response and follow-up if needed. Please note: Queries are made part of the Legal Health Record. If you have any questions, please contact the author of this message via ITS. Dr. Giovanni Clark Conflicting documentation has been found in the medical record. As attending physician, please provide clarification. Discharge summary states chronic systolic heart failure. Progress notes 01/25- 01/28 state acute on chronic systolic CHF. Need to determine which one as this would affect the DRG. History/Risk Factors: history of systolic CHF Clinical Indicators: ED: BNP 5420 Treatment: IV lasix Please clarify which diagnosis is most appropriate: [ ] chronic systolic CHF [ x ] acute on chronic systolic CHF [ ] Other (please specify) [ ] Unable to determine MTDD
== END 2021-01-29 14:23 | disposition home or self-care (01) | DRG 291 ==
LOC: EC 19:23 → 5NMEDONC 22:47
PROVIDERS: ADMIT Family Medicine; ATTEND Family Medicine
DX: I11.0 Hypertensive heart disease with heart failure (principal); I50.23 Acute on chronic systolic (congestive) heart failure; I48.21 Permanent atrial fibrillation; D64.9 Anemia, unspecified; E78.5 Hyperlipidemia, unspecified; F41.9 Anxiety disorder, unspecified; I08.1 Rheumatic disorders of both mitral and tricuspid valves; I25.10 Atherosclerotic heart disease of native coronary artery without angina pectoris; I25.2 Old myocardial infarction; I25.5 Ischemic cardiomyopathy; I27.20 Pulmonary hypertension, unspecified; J44.9 Chronic obstructive pulmonary disease, unspecified; Z20.822 Contact with and (suspected) exposure to COVID-19; Z79.01 Long term (current) use of anticoagulants; Z79.82 Long term (current) use of aspirin; Z79.899 Other long term (current) drug therapy; Z80.52 Family history of malignant neoplasm of bladder; Z80.8 Family history of malignant neoplasm of other organs or systems; Z82.3 Family history of stroke; Z83.3 Family history of diabetes mellitus; Z86.73 Personal history of transient ischemic attack (TIA), and cerebral infarction without residual deficits; Z87.891 Personal history of nicotine dependence; Z95.5 Presence of coronary angioplasty implant and graft; Z95.810 Presence of automatic (implantable) cardiac defibrillator; Z98.1 Arthrodesis status
CPT/HCPCS: 36415; 71045; 80048; 80053; 83735; 83880; 84484; 85025; 85027; 85610; 87635; 93005; 93306; 94640; 99285

== ENCOUNTER 2021-03-19 00:49 | Inpatient (IN) | payer MEDICARE, BC ==
[2021-03-19] MEDS ORDERED: DOPamine DRIP 800 MG in DEXTROSE/WATER 1 250ML.BAG IV ONE (01:04)
[2021-03-19] MEDS ORDERED: SODIUM CHLORIDE 0.9% 500 ML 500 ML IV STA (01:05)
--- NOTE | 2021-03-19 01:07 | ED ---
General Adult HPI - General Chief complaint: Altered Mental Status Stated complaint: Altered Mental Status Time Seen by Provider: 03/19/21 00:57 Source: patient, EMS - History of Present Illness Initial comments: Dictation was produced using [employer] dictation software. please excuse any grammatical, word or spelling errors. Chief Complaint: 76-year-old male presents emergency department for bradycardia and concerns of pacemaker malfunction History of Present Illness: Patient is a 76-year-old male. He is a poor historian. He is brought in by EMS from home. Patient allegedly has been having signs of altered mental status since this morning. EMS was called by . Upon EMS arrival they noted that patient was bradycardic and hypotensive. They performed an EKG showing bradycardia. There does appear to be pacer spikes but every other spike does not have a ventricular depolarization. Patient states pacemakers placed 8 years ago. Denies any focal neurologic deficits. Denies any pain complaints. He just simply says that he feels weak. he denies chest pain or shortness of breath. EMS states that at 70 mA at a rate of 70 his blood pressure improved. The ROS documented in this emergency department record has been reviewed and confirmed by me. Those systems with pertinent positive or negative responses have been documented in the HPI. All other systems are other negative and/or noncontributory. PHYSICAL EXAM: General Impression: Alert and oriented x3, not in acute distress, paced at 70 mA and at a rate of 70 HEENT: Normocephalic atraumatic, extra-ocular movements intact, pupils equal and reactive to light bilaterally, mucous membranes moist. Cardiovascular: Paced Chest: Able to complete full sentences, no retractions, no tachypnea Abdomen: abdomen soft, non-tender, non-distended, no organomegaly Musculoskeletal: Pulses present and equal in all extremities, no peripheral edema Motor: no focal deficits noted Neurological: CN II-XII grossly intact, no focal motor or sensory deficits noted Skin: Intact with no visualized rashes Psych: Normal affect and mood ED course: Is 76-year-old male presents emergency department for clinical presentation consistent with AICD malfunctioning. He has paced rhythm at 60 however his ventricular capture is half. There is a missed ventricular depolarization every other pacemaker spike upon arrival without transcutaneously pacing shows a rate of 31, blood pressure 7449, 98% on room air. Blood pressures does not improve with transfer cutaneous pacing. Magnet was placed over the AICD with no changes in EKG findings. Case is immediately discussed with Dr. Henry at approximately 1:00 AM he request that Securities Clerk be called in for placement of transvenous pacemaker. She'll be dispositioned to pacemaker. Case discussed with Dr. Clark. Patient started on low-dose dopamine with improvement of his heart rate and blood pressure. EKG interpretation: Ventricular rate 30, electronic pacemaker, 170, QRS 39, QTc 25. - Related Data Home Medications Medication Instructions Recorded Confirmed Multivitamins, Thera [Multivitamin 1 tab PO DAILY 12/17/15 01/24/21 (formulary)] Vitamin B Complex 1 cap PO DAILY 12/22/15 01/24/21 Isosorbide Mononitrate ER [Imdur] 30 mg PO BID 05/27/17 01/24/21 Losartan [Cozaar] 50 mg PO BID 05/05/18 01/24/21 Warfarin [Coumadin] 2.5 mg PO MOWEFR@199905/05/18 01/24/21 Umeclidinium Brm/Vilanterol Tr 1 puff INHALATION RT-DAILY 10/15/19 01/24/21 [Anoro Ellipta 62.5-25 Mcg INH] allopurinoL [Zyloprim] 300 mg PO DAILY 10/15/19 01/24/21 Ipratropium-Albuterol Nebulize 3 ml INHALATION RT-QID PRN 02/09/20 01/24/21 [Duoneb 0.5 mg-3 mg/3 ml Soln] LORazepam [Ativan] 0.5 mg PO TID PRN 02/09/20 01/24/21 Nitroglycerin Sl Tabs [Nitrostat] 0.4 mg SL Q5M PRN 02/09/20 01/24/21 Cholecalciferol [Vitamin D3 (25 25 mcg PO DAILY 11/06/20 01/24/21 Mcg = 1000 Iu)] Zolpidem [Ambien] 10 mg PO HS 11/06/20 01/24/21 traZODone HCL 50 mg PO HS 11/06/20 01/24/21 Metoprolol Tartrate [Lopressor] 50 mg PO TID-W/MEALS 01/24/21 01/24/21 Warfarin [Coumadin] 3 mg PO SUTUTHSA@199901/24/21 01/24/21 Previous Rx's Medication Instructions Recorded Aspirin 81 mg PO DAILY #30 chew 12/24/15 Atorvastatin [Lipitor] 80 mg PO HS #30 tab 12/24/15 Furosemide [Lasix] 60 mg PO BID@0900,1600 #60 tab 01/29/21 Spironolactone [Aldactone] 25 mg PO DAILY #30 tab 01/29/21 Allergies Allergy/AdvReac Type Severity Reaction Status Date / Time No Known Allergies Allergy Verified 01/24/21 19:38 Review of Systems ROS Statement: Those systems with pertinent positive or pertinent negative responses have been documented in the HPI. ROS Other: All systems not noted in ROS Statement are negative. Past Medical History Past Medical History: Atrial Fibrillation, Coronary Artery Disease (CAD), Cancer, Heart Failure, COPD, CVA/TIA, Eye Disorder, Hyperlipidemia, Hypertension, Osteoarthritis (OA), Pneumonia, Prostate Disorder Additional Past Medical History / Comment(s): Hx respiratory failure due to exacerbation of COPD. 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 Hernia. Last Myocardial Infarction Date:: 2015 History of Any Multi-Drug Resistant Organisms: None Reported Past Surgical History: AICD, Back Surgery, Heart Catheterization With Stent, Pacemaker Additional Past Surgical History / Comment(s): Stents(3), low back fusion, oral surgery. Past Anesthesia/Blood Transfusion Reactions: Motion Sickness Date of Last Stent Placement:: 2015 Type of Cardiac Device: Permanent Pacemaker, AICD Device Placement Date:: 05/09/10 Past Psychological History: Anxiety Smoking Status: Former smoker Past Alcohol Use History: None Reported Past Drug Use History: None Reported - Past Family History Father Family Medical History: CVA/TIA, Dementia Mother Family Medical History: Cancer, CVA/TIA, Diabetes Mellitus, Skin Disorder Additional Family Medical History / Comment(s): Skin cancer. Brother(s) Family Medical History: Cancer Additional Family Medical History / Comment(s): Bladder cancer. Course Vital Signs 03/19/21 03/19/21 03/19/21 00:51 01:11 01:20 Pulse Rate 31 L 70 Respiratory 37 H 24 19 Rate Blood Pressure 74/49 79/29 76/28 O2 Sat by Pulse 98 Oximetry Medical Decision Making - Lab Data Result diagrams: 03/19/21 01:03 Lab Results 03/19/21 Range/Units 01:03 WBC 5.6 (3.8-10.6) k/uL RBC 2.85 L (4.30-5.90) m/uL Hgb 7.6 L D (13.0-17.5) gm/dL Hct 25.2 L (39.0-53.0) % MCV 88.4 (80.0-100.0) fL MCH 26.6 (25.0-35.0) pg MCHC 30.1 L (31.0-37.0) g/dL RDW 18.7 H (11.5-15.5) % Plt Count 218 (150-450) k/uL MPV 9.7 Neutrophils % 67 % Lymphocytes % 18 % Monocytes % 8 % Eosinophils % 4 % Basophils % 1 % Neutrophils # 3.8 (1.3-7.7) k/uL Lymphocytes # 1.0 (1.0-4.8) k/uL Monocytes # 0.4 (0-1.0) k/uL Eosinophils # 0.2 (0-0.7) k/uL Basophils # 0.0 (0-0.2) k/uL Hypochromasia Marked Poikilocytosis Slight Anisocytosis Slight Critical Care Time Critical Care Time: Yes Total Critical Care Time: 33 Disposition Clinical Impression: Pacemaker malfunction Disposition: ADMITTED IP TO THIS [facility] Condition: Critical Referrals: Giovanni Clark MD [Primary Care Provider] - 1-2 days
[2021-03-19 01:24] LABS: Anisocytosis Slight; Basophils % (A) 1 %; Eosinophils # (A) 0.2 k/uL (0-0.7); Eosinophils % (A) 4 %; HCT 25.2 % (39.0-53.0); Hypochromasia Marked; Lymphocytes % (A) 18 %; MCH 26.6 pg (25.0-35.0); MCHC 30.1 g/dL (31.0-37.0); MCV 88.4 fL (80.0-100.0); Mean Platelet Volume 9.7; Monocytes # (A) 0.4 k/uL (0-1.0); Monocytes % (A) 8 %; Neutrophils # (A) 3.8 k/uL (1.3-7.7); Neutrophils % (A) 67 %; Platelet Count 218 k/uL (150-450); Poikilocytosis Slight; RBC 2.85 m/uL (4.30-5.90); RDW 18.7 % (11.5-15.5); WBC 5.6 k/uL (3.8-10.6)
--- NOTE | 2021-03-19 01:24 | XR ---
EXAMINATION TYPE: XR chest 1V portable DATE OF EXAM: 03/19/2021 COMPARISON: NONE HISTORY: Short of breath TECHNIQUE: Single view FINDINGS: Heart is enlarged. There is no heart failure. There is left axillary pacemaker. There are c hest leads. Lungs are clear of consolidation. There is no evidence of pleural effusion. IMPRESSION: Moderate cardiomegaly. There is clearing of the mild pulmonary congestion compared to old exam. No heart failure seen.
[2021-03-19] MEDS ORDERED: fentaNYL (PF) 50 MCG/ML 2 ML AMP IVP STA (01:26)
[2021-03-19] MEDS ORDERED: CALCIUM GLUCONATE 1 GM in SODIUM CHLORIDE 0.9% 100 ML IVPB ONE (01:29)
[2021-03-19] MEDS ORDERED: NOREPINEPHRINE 4 MG in SODIUM CHLORIDE 0.9% 250 ML IV ONE (01:30)
[2021-03-19 01:44] LABS: Calcium 9.6 mg/dL (8.4-10.2); Magnesium 1.8 mg/dL (1.6-2.3); Total Bilirubin 0.7 mg/dL (0.2-1.3); Total Protein 7.1 g/dL (6.3-8.2)
[2021-03-19 01:46] LABS: HGB 7.6 gm/dL (13.0-17.5)
[2021-03-19] MEDS ORDERED: LIDOCAINE 1% INJ 10MG/ML (20 ML MDV) ONE (01:48)
[2021-03-19] MEDS ORDERED: NALOXONE 0.4 MG/ML 1 ML VIAL IV PRN (01:59)
[2021-03-19 02:05] LABS: Partial Thromboplastin Time 47.8 sec (22.0-30.0); Prothrombin Time 57.6 sec (9.0-12.0)
--- NOTE | 2021-03-19 02:05 | P.CRDCN ---
History of Present Illness History of present illness: HISTORY OF PRESENTING ILLNESS This is a pleasant 76-year-old. Patient has a history of cardiomyopathy, congestive heart failure, hypertension, coronary artery disease status post PCI, atrial fibrillation, chronic kidney disease, anemia, status post AICD. Patient normally follows with Dr. Myers. He has been having diarrhea over last 4 days fairly persistently without any significant abdominal pains however has had decreased oral intake without any appetite. Denies any hematochezia or melena. He denies any fevers or chills. He was found to be severely bradycardic with heart rates in the 30s with every other pacer spike conducting and failure to capture on the other pacers and wide complex QRS. He states he has been feeling fatigued and weak over the last 4 days. He was found to be somewhat more confused and therefore EMS was called. He is on Coumadin as well as heart fail ure regimen with spironolactone, metoprolol, losartan, Imdur and Lasix. He denies any recent changes to medications. He did state he was told he needed his device changed approximately 2 years ago however never had this performed. He denies any chest pain or pressure. His blood pressures have been in the 70- 80s over 40s since coming to emergency department. REVIEW OF SYSTEMS At the time of my exam: CONSTITUTIONAL: Denies fever or chills. CARDIOVASCULAR: Denies chest pain, shortness of breath, orthopnea, PND or palpitations. RESPIRATORY: Denies cough. GASTROINTESTINAL: Denies abdominal pain, +diarrhea, no constipation, nausea or vomiting. MUSCULOSKELETAL: Denies myalgias. NEUROLOGIC: Denies numbness, tingling or weakness. ENDOCRINE: Denies fatigue, weight change, polydipsia or polyurina. GENITOURINARY: Denies burning, hematuria or urgency with micturation. HEMATOLOGIC: Denies history of anemia or bleeding. PHYSICAL EXAMINATION Vital signs reviewed. CONSTITUTIONAL: Ill appearing, lethargic HEENT: Head is normocephalic. Pupils are equal, round. Sclerae anicteric. Mucous membranes of the mouth are dry. No JVD. No carotid bruit. CHEST EXAMINATION: Lungs are clear to auscultation. No chest wall tenderness is noted on palpation or with deep breathing. HEART EXAMINATION: Regular rate slow rhythm. S1, S2 heard. No murmurs, gallops or rub. ABDOMEN: Soft, nontender. Positive bowel sounds. EXTREMITIES: 2+ peripheral pulses, no lower extremity edema and no calf tenderness. NEUROLOGIC EXAMINATION: Patient is arousable however lethargic. ASSESSMENT 1. Symptomatic bradycardia 2. Hypotension likely related to dehydration and bradycardia 3. Dehydration 4. Recent diarrhea for 4 days 5. Cardiomyopathy status post AICD 6. Coronary artery disease status post PCI 7. Wide-complex pacing, rule out electrolyte abnormalities 8. Altered mental status likely related to hypotension 9. Anemia 10. Persistent atrial fibrillation 11. Chronic kidney disease PLAN Continue supportive care. Vasopressors as needed. We will arrange for temporary pacemaker or attempt to increase the threshold on defibrillator. He did state that he was told that his device needed to be changed approximately 2 years ago and may be a end-of-life. Otherwise continue workup diarrhea and what appears to be dehydration. Await electrolytes and trial of calcium if decompensates. Past Medical History Past Medical History: Atrial Fibrillation, Coronary Artery Disease (CAD), Cancer, Heart Failure, COPD, CVA/TIA, Eye Disorder, Hyperlipidemia, Hypertensi on, Osteoarthritis (OA), Pneumonia, Prostate Disorder Additional Past Medical History / Comment(s): Hx respiratory failure due to exacerbation of COPD. 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 Hernia. Last Myocardial Infarction Date:: 2015 History of Any Multi-Drug Resistant Organisms: None Reported Past Surgical History: AICD, Back Surgery, Heart Catheterization With Stent, Pacemaker Additional Past Surgical History / Comment(s): Stents(3), low back fusion, oral surgery. Past Anesthesia/Blood Transfusion Reactions: Motion Sickness Date of Last Stent Placement:: 2015 Type of Cardiac Device: Permanent Pacemaker, AICD Device Placement Date:: 05/09/10 Past Psychological History: Anxiety Smoking Status: Former smoker Past Alcohol Use History: None Reported Past Drug Use History: None Reported - Past Family History Father Family Medical History: CVA/TIA, Dementia Mother Family Medical History: Cancer, CVA/TIA, Diabetes Mellitus, Skin Disorder Additional Family Medical History / Comment(s): Skin cancer. Brother(s) Family Medical History: Cancer Additional Family Medical History / Comment(s): Bladder cancer. Medications and Allergies Home Medications Medication Instructions Recorded Confirmed Type Multivitamins, Thera [Multivitamin 1 tab PO DAILY 12/17/15 01/24/21 History (formulary)] Vitamin B Complex 1 cap PO DAILY 12/22/15 01/24/21 History Aspirin 81 mg PO DAILY #30 chew 12/24/15 01/24/21 Rx Atorvastatin [Lipitor] 80 mg PO HS #30 tab 12/24/15 01/24/21 Rx Isosorbide Mononitrate ER [Imdur] 30 mg PO BID 05/27/17 01/24/21 History Losartan [Cozaar] 50 mg PO BID 05/05/18 01/24/21 History Warfarin [Coumadin] 2.5 mg PO MOWEFR@199905/05/18 01/24/21 History Umeclidinium Brm/Vilanterol Tr 1 puff INHALATION RT-DAILY 10/15/19 01/24/21 History [Anoro Ellipta 62.5-25 Mcg INH] allopurinoL [Zyloprim] 300 mg PO DAILY 10/15/19 01/24/21 History Ipratropium-Albuterol Nebulize 3 ml INHALATION RT-QID PRN 02/09/20 01/24/21 History [Duoneb 0.5 mg-3 mg/3 ml Soln] LORazepam [Ativan] 0.5 mg PO TID PRN 02/09/20 01/24/21 History Nitroglycerin Sl Tabs [Nitrostat] 0.4 mg SL Q5M PRN 02/09/20 01/24/21 History Cholecalciferol [Vitamin D3 (25 25 mcg PO DAILY 11/06/20 01/24/21 History Mcg = 1000 Iu)] Zolpidem [Ambien] 10 mg PO HS 11/06/20 01/24/21 History traZODone HCL 50 mg PO HS 11/06/20 01/24/21 History Metoprolol Tartrate [Lopressor] 50 mg PO TID-W/MEALS 01/24/21 01/24/21 History Warfarin [Coumadin] 3 mg PO SUTUTHSA@199901/24/21 01/24/21 History Furosemide [Lasix] 60 mg PO BID@0900,1600 #60 tab 01/29/21 Rx Spironolactone [Aldactone] 25 mg PO DAILY #30 tab 01/29/21 Rx Allergies Allergy/AdvReac Type Severity Reaction Status Date / Time No Known Allergies Allergy Verified 01/24/21 19:38 Physical Exam Vitals: Vital Signs Pulse Resp BP Pulse Ox 03/19/21 01:20 19 76/28 03/19/21 01:11 70 24 79/29 03/19/21 00:51 31 L 37 H 74/49 98 Intake and Output 03/18/21 03/18/21 03/19/21 14:59 22:59 06:59 Other: Weight 74.843 kg Results 03/19/21 01:03 CBC 03/19/21 Range/Units 01:03 WBC 5.6 (3.8-10.6) k/uL RBC 2.85 L (4.30-5.90) m/uL Hgb 7.6 L D (13.0-17.5) gm/dL Hct 25.2 L (39.0-53.0) % Plt Count 218 (150-450) k/uL Current Medications Generic Name Dose Route Start Last Admin Trade Name Freq PRN Reason Stop Dose Admin Dopamine HCl/Dextrose 800 mg/ 250 mls @ 2.807 mls/hr 03/19/21 01:04 03/19/21 01:22 IV Solution IV 03/20/21 01:03 2 mcg/kg/min .Q24H ONE 2.807 mls/hr Administration Protocol 2 MCG/KG/MIN Calcium Gluconate 1 gm/ Sodium 110 mls @ 100 mls/hr 03/19/21 01:29 Chloride IVPB 03/19/21 02:34 ONCE ONE Norepinephrine Bitartrate 4 mg 254 mls @ 14.258 mls/hr 03/19/21 01:30 03/19/21 01:43 / Sodium Chloride IV 03/19/21 19:18 0.05 mcg/kg/min .[id number] ONE 14.258 mls/hr Administration Protocol 0.05 MCG/KG/MIN Intake and Output 03/18/21 03/18/21 03/19/21 14:59 22:59 06:59 Other: Weight 74.843 kg Patient Weight 03/19/21 06:59 Weight 74.843 kg 03/19/21 01:03
[2021-03-19] MEDS ORDERED: IV FLUID CONTINUATION 500 ML IV ONE (02:15)
[2021-03-19] MEDS ORDERED: LIDOCAINE 1% INJ 10MG/ML (20 ML MDV) SQ ONE (02:17)
[2021-03-19] MEDS ORDERED: ONDANSETRON 4 MG/2 ML VIAL ONE (02:18)
[2021-03-19] MEDS ORDERED: ONDANSETRON 4 MG/2 ML VIAL IVP ONE (02:20)
[2021-03-19 02:32] LABS: INR 5.7 (<1.2)
--- NOTE | 2021-03-19 02:32 | P.PCN ---
Description of Procedure: Procedure: Placement of temporary venous pacemaker Indication: Failure to capture, symptomatic bradycardia Procedure details: Patient was brought to the catheterization lab and prepped and draped in usual fashion. 1% lidocaine was used to anesthetize the right femoral area. A 6-Icelandic sheath was placed in the right femoral vein using modified Seldinger technique and ultrasound guidance. A 5-Icelandic TVP wire was advanced into the right ventricle and place of the apex. Pacing thresholds were checked and deemed appropriate. Temporary pacemaker placement 70 bpm. The right femoral sheath was sutured in place and the temporary venous pacer wire was secured. Patient tolerated the procedure well. Patient was transferred back to the holding area in stable condition.
[2021-03-19 02:57] LABS: Glucose,Whole Blood 130 mg/dL (75-99)
[2021-03-19] MEDS ORDERED: NOREPINEPHRINE 8 MG in SODIUM CHLORIDE 0.9% 250 ML IV SCH (03:45)
[2021-03-19] MEDS ORDERED: CALCIUM GLUCONATE 1 GM in SODIUM CHLORIDE 0.9% 100 ML IVPB STA (04:02)
[2021-03-19] MEDS ORDERED: INSULIN REGULAR 100 UNIT/ML VIAL (IV) IV ONE ×2 (04:03→04:54)
[2021-03-19] MEDS ORDERED: DEXTROSE 50% SYRINGE 50 ML IVP STA (04:04)
[2021-03-19 04:06] LABS: Calcium 9.8 mg/dL (8.4-10.2); Total Bilirubin 0.8 mg/dL (0.2-1.3); Total Protein 7.1 g/dL (6.3-8.2)
[2021-03-19 04:08] LABS: Magnesium 1.8 mg/dL (1.6-2.3)
[2021-03-19 04:24] LABS: Potassium 8.9 mmol/L (3.5-5.1)
[2021-03-19 04:26] LABS: Anisocytosis Slight; HCT 27.9 % (39.0-53.0); HGB 7.7 gm/dL (13.0-17.5); Hypochromasia Marked; MCH 25.4 pg (25.0-35.0); MCHC 27.7 g/dL (31.0-37.0); MCV 91.7 fL (80.0-100.0); Mean Platelet Volume 9.5; Platelet Count 241 k/uL (150-450); RBC 3.04 m/uL (4.30-5.90); WBC 5.4 k/uL (3.8-10.6)
[2021-03-19] MEDS ORDERED: SODIUM BICARB 8.4% 50 ML SYR (1 MEQ/ML) ONE ×2 (04:26→04:50)
[2021-03-19] MEDS ORDERED: CALCIUM CHLORIDE 100 MG/ML 10 ML SYRINGE ONE (04:26)
[2021-03-19] MEDS ORDERED: EPINEPHrine 10 ML SYRINGE (0.1 MG/ML) ONE (04:26)
[2021-03-19] MEDS ORDERED: propofoL 100 ML IV ONE (04:33)
[2021-03-19] MEDS ORDERED: DEXTROSE 50% SYRINGE 50 ML IVP ONE (04:54)
[2021-03-19] MEDS ORDERED: ALBUTEROL NEBULIZED 2.5 MG/3 ML INHALATION ONE (04:54)
[2021-03-19] MEDS ORDERED: ALBUTEROL NEB (CONC) 2.5 MG/0.5 ML INHALATION ONE (04:56)
--- NOTE | 2021-03-19 04:56 | XR ---
EXAMINATION TYPE: XR chest 1V portable DATE OF EXAM: 03/19/2021 COMPARISON: Today HISTORY: Respiratory failure TECHNIQUE: Single view FINDINGS: There is left axillary pacemaker. There is endotracheal tube 3.5 cm from the ganga. There is nasogastric tube in the stomach. Heart is enlarged. No obvious heart failure. IMPRESSION: Cardiomegaly. No heart failure or pulmonary consolidation. No change.
[2021-03-19] MEDS ORDERED: DEXTROSE 5% IN WATER 1,000 ML with SODIUM BICARB (1 MEQ/ML) 150 ML IV SCH (05:00)
--- NOTE | 2021-03-19 05:02 | XR ---
EXAMINATION TYPE: XR chest 1V portable DATE OF EXAM: 03/19/2021 COMPARISON: Today HISTORY: Tube placement Respiratory failure TECHNIQUE: Single view FINDINGS: Heart is enlarged. There is no gross heart failure. Endotracheal tube is 4.7 cm from the ca carmen. There is left axillary pacemaker. There is nasogastric tube in the stomach. Trachea is midline. Lungs are clear of consolidation. IMPRESSION: Cardiomegaly. No heart failure or pulmonary consolidation. No change.
--- NOTE | 2021-03-19 05:08 | P.PN ---
Progress Note - Text Cardiology Event note: Called by nursing regarding temporary venous pacemaker and AICD not capturing despite increasing output. Potassium noted to be extremely elevated with acute kidney failure and calcium gluconate was given without improvement. Therefore additional transcutaneous pacing was performed. Patient seen and examined and more lethargic and hypotensive. Attempted to reposition temporary venous pacemaker however without improvement. Patient became more lethargic with pulse lost and CPR was performed. Intubation was performed and position confirmed by breath sounds and carbon dioxide monitor. See code sheet for code details.
--- NOTE | 2021-03-19 05:19 | P.EN ---
patient presented for malfunctioning AICD he was taken to filling station laborer upon arrival for transvenous pacer insertion initially was stablized, however later he coded about 3 times, with very brief ROSCs in between. cardiology attempted to reposition pacers with no benefit. please review code sheet for details regarding meds given and sequence of events. case discussed with nephrology to consider emergent dialysis due to hyperkalemia , KEEGAN and severe acidosis, who was in agreement , plan was to perform HD if patient achieves ROSC and stable family arrived, during the last code, case discussed with them, and family elected to stop CPR effort.
[2021-03-19 05:48] VITALS: BP 205/183; PULSE 0; RESP 0; TEMP 96
[2021-03-19 06:00] LABS: Eosinophils # (M) 0.05 k/uL (0-0.7); Lymphocytes # (M) 1.08 k/uL (1.0-4.8); Monocytes # (M) 0.22 k/uL (0-1.0); Neutrophils # (M) 4.05 k/uL (1.3-7.7); Neutrophils % (M) 75 %; Nucleated Red Blood Cells 0 /100 WBC (0-0); RBC Fragments Present; Total Cells Counted 100
[2021-03-19 06:02] LABS: Anisocytosis (M) Present; Polychromasia Present
[2021-03-19 06:10] LABS: Ovalocytes Present
[2021-03-19] MEDS ORDERED: IPRATROPIUM-ALBUTEROL 3 ML NEB INHALATION SCH (08:00)
--- NOTE | 2021-03-19 08:37 | P.HPIM ---
History of Present Illness The patient prior to me seeing him for treatment. Past Medical History Past Medical History: Atrial Fibrillation, Coronary Artery Disease (CAD), Cancer, Heart Failure, COPD, CVA/TIA, Eye Disorder, Hyperlipidemia, Hypertension, Osteoarthritis (OA), Pneumonia, Prostate Disorder Additional Past Medical History / Comment(s): Hx respiratory failure due to exacerbation of COPD. 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 Hernia. Last Myocardial Infarction Date:: 2015 History of Any Multi-Drug Resistant Organisms: None Reported Past Surgical History: AICD, Back Surgery, Heart Catheterization With Stent, Pacemaker Additional Past Surgical History / Comment(s): Stents(3), low back fusion, oral surgery. Past Anesthesia/Blood Transfusion Reactions: Motion Sickness Date of Last Stent Placement:: 2015 Type of Cardiac Device: Permanent Pacemaker, AICD Device Placement Date:: 05/09/10 Past Psychological History: Anxiety Smoking Status: Former smoker Past Alcohol Use History: None Reported Past Drug Use History: None Reported - Past Family History Father Family Medical History: CVA/TIA, Dementia Mother Family Medical History: Cancer, CVA/TIA, Diabetes Mellitus, Skin Disorder Additional Family Medical History / Comment(s): Skin cancer. Brother(s) Family Medical History: Cancer Additional Family Medical History / Comment(s): Bladder cancer. Medications and Allergies Home Medications Medication Instructions Recorded Confirmed Type Multivitamins, Thera [Multivitamin 1 tab PO DAILY 12/17/15 01/24/21 History (formulary)] Vitamin B Complex 1 cap PO DAILY 12/22/15 01/24/21 History Aspirin 81 mg PO DAILY #30 chew 12/24/15 01/24/21 Rx Atorvastatin [Lipitor] 80 mg PO HS #30 tab 12/24/15 01/24/21 Rx Isosorbide Mononitrate ER [Imdur] 30 mg PO BID 05/27/17 01/24/21 History Losartan [Cozaar] 50 mg PO BID 05/05/18 01/24/21 History Warfarin [Coumadin] 2.5 mg PO MOWEFR@199905/05/18 01/24/21 History Umeclidinium Brm/Vilanterol Tr 1 puff INHALATION RT-DAILY 10/15/19 01/24/21 History [Anoro Ellipta 62.5-25 Mcg INH] allopurinoL [Zyloprim] 300 mg PO DAILY 10/15/19 01/24/21 History Ipratropium-Albuterol Nebulize 3 ml INHALATION RT-QID PRN 02/09/20 01/24/21 History [Duoneb 0.5 mg-3 mg/3 ml Soln] LORazepam [Ativan] 0.5 mg PO TID PRN 02/09/20 01/24/21 History Nitroglycerin Sl Tabs [Nitrostat] 0.4 mg SL Q5M PRN 02/09/20 01/24/21 History Cholecalciferol [Vitamin D3 (25 25 mcg PO DAILY 11/06/20 01/24/21 History Mcg = 1000 Iu)] Zolpidem [Ambien] 10 mg PO HS 11/06/20 01/24/21 History traZODone HCL 50 mg PO HS 11/06/20 01/24/21 History Metoprolol Tartrate [Lopressor] 50 mg PO TID-W/MEALS 01/24/21 01/24/21 History Warfarin [Coumadin] 3 mg PO SUTUTHSA@2000 01/24/21 01/24/21 History Furosemide [Lasix] 60 mg PO BID@0900,1600 #60 tab 01/29/21 Rx Spironolactone [Aldactone] 25 mg PO DAILY #30 tab 01/29/21 Rx Allergies Allergy/AdvReac Type Severity Reaction Status Date / Time No Known Allergies Allergy Verified 01/24/21 19:38 Physical Exam Vitals: Vital Signs Temp Pulse Resp BP Pulse Ox 03/19/21 05:40 205/183 03/19/21 05:30 205/183 03/19/21 05:20 205/183 03/19/21 05:10 0 L 0 L 03/19/21 04:20 69 20 111/87 03/19/21 04:10 90 38 H 68/46 90 L 03/19/21 04:00 29 H 74/54 99 03/19/21 03:50 81 84/49 92 L 03/19/21 03:40 70 9 L 92/58 99 03/19/21 03:30 70 11 L 93/64 98 03/19/21 03:20 0 L 12 92/67 84 L 03/19/21 03:10 96.0 F L 70 6 L 93/64 99 03/19/21 03:00 70 9 L 87 L 03/19/21 02:00 97.8 F 70 16 83/46 98 03/19/21 01:45 70 30 H 88/40 97 03/19/21 01:30 70 18 90/34 97 03/19/21 01:20 19 76/28 03/19/21 01:11 70 24 79/29 03/19/21 00:51 31 L 37 H 74/49 98 Intake and Output 03/18/21 03/19/21 03/19/21 22:59 06:59 14:59 Intake Total 73.741 Balance 73.741 Intake: IV 70 Intake, IV Titration 3.741 Amount Norepinephrine 8 mg In 3.741 Sodium Chloride 0.9% 250 ml @ 0.05 MCG/KG/MIN 7. 241 mls/hr IV .[facility] Rx#:[id number] Other: Weight 74.843 kg Results CBC & Chem 7: 03/19/21 03:20 03/19/21 03:20 Labs: Abnormal Lab Results - Last 24 Hours (Table) 03/19/21 03/19/21 03/19/21 Range/Units 01:03 01:03 01:03 RBC 2.85 L (4.30-5.90) m/uL Hgb 7.6 L D (13.0-17.5) gm/dL Hct 25.2 L (39.0-53.0) % MCHC 30.1 L (31.0-37.0) g/dL RDW 18.7 H (11.5-15.5) % PT 57.6 H (9.0-12.0) sec INR 5.7 H* (<1.2) APTT 47.8 H (22.0-30.0) sec Sodium 131 L (137-145) mmol/L Potassium (3.5-5.1) mmol/L Carbon Dioxide 13 L (22-30) mmol/L BUN 160 H* (9-20) mg/dL Creatinine 4.09 H (0.66-1.25) mg/dL Glucose 133 H (74-99) mg/dL POC Glucose (mg/dL) (75-99) mg/dL Alkaline Phosphatase (38-126) U/L Troponin I (0.000-0.034) ng/mL 03/19/21 03/19/21 03/19/21 Range/Units 01:03 02:55 03:20 RBC 3.04 L (4.30-5.90) m/uL Hgb 7.7 L (13.0-17.5) gm/dL Hct 27.9 L (39.0-53.0) % MCHC 27.7 L (31.0-37.0) g/dL RDW 19.0 H (11.5-15.5) % PT (9.0-12.0) sec INR (<1.2) APTT (22.0-30.0) sec Sodium (137-145) mmol/L Potassium (3.5-5.1) mmol/L Carbon Dioxide (22-30) mmol/L BUN (9-20) mg/dL Creatinine (0.66-1.25) mg/dL Glucose (74-99) mg/dL POC Glucose (mg/dL) 130 H (75-99) mg/dL Alkaline Phosphatase (38-126) U/L Troponin I 0.085 H* (0.000-0.034) ng/mL 03/19/21 Range/Units 03:20 RBC (4.30-5.90) m/uL Hgb (13.0-17.5) gm/dL Hct (39.0-53.0) % MCHC (31.0-37.0) g/dL RDW (11.5-15.5) % PT (9.0-12.0) sec INR (<1.2) APTT (22.0-30.0) sec Sodium 132 L (137-145) mmol/L Potassium 8.9 H* (3.5-5.1) mmol/L Carbon Dioxide 10 L (22-30) mmol/L BUN 160 H* (9-20) mg/dL Creatinine 4.16 H (0.66-1.25) mg/dL Glucose 128 H (74-99) mg/dL POC Glucose (mg/dL) (75-99) mg/dL Alkaline Phosphatase 127 H (38-126) U/L Troponin I (0.000-0.034) ng/mL Assessment and Plan (1) Chronic systolic CHF (congestive heart failure) Current Visit: No Status: Acute Code(s): I50.22 - CHRONIC SYSTOLIC (CONGESTIVE) HEART FAILURE SNOMED Code(s): 423596448 (2) Ischemic cardiomyopathy Current Visit: No Status: Acute Code(s): I25.5 - ISCHEMIC CARDIOMYOPATHY SNOMED Code(s): 115221131 Plan: Again, the patient was not seen secondary to during prior to 2 extra treatment by me.
[2021-03-19] MEDS ORDERED: CHLORHEXIDINE GLUCONATE 15 ML CUP MUCOUS MEM SCH (09:00)
--- NOTE | 2021-03-19 11:03 | CDI ---
Documentation Clarification Form Date: 03/19/2021 09:58:52 AM From: Jayla Mathews RN CCDS Admit Date: 03/19/2021 01:59:00 AM Patient Name: Juan Jackson Visit Number: [id number] Discharge Date: 03/19/2021 08:35:00 AM ATTENTION: The Clinical Documentation Specialists (CDI) and [facility] Coding Staff appreciate your assistance in clarifying documentation. Please respond to the clarification below the line at the bottom and electronically sign. The CDI & [facility] Coding staff will review the response and follow-up if needed. Please note: Queries are made part of the Legal Health Record. If you have any questions, please contact the author of this message via ITS. Dr. Giovanni Clark There is documentation of Symptomatic bradycardia, 03/19, Cardiology Consult. Additional clarification is requested. History/Risk Factors: 76-year-old male presents to the ED via EMS from home with bradycardia and hypotension. EKG showing bradycardia. 03/19, ED note. Medical History: Cardiomyopathy s/p AICD, CAD s/p PCI and persistent atrial fibrillation. Cardiology Consult, 03/19. Clinical Indicators: 03/19 VSS: B/P 74/49, HR 31, RR 37, SpO2 98% room air Labs 03/19: INR 5.7; Na 132; KCL 8.9; Carbon dioxide 10; BUN 160; CR 4.16; Alk Phos 127; Troponin 0.085. Cardiology Consult 03/19: He was found to be severely bradycardic with heart rates in the 30s with every other pacer spike conducting and failure to capture on the other pacer spike conducting and failure to capture on the other pacers and wide complex QRS. He did state he was told he needed his device changed approximately 2 years ago however never had this performed. 03/19 Procedure of temporary venous pacemaker; Indication: Failure to capture, symptomatic bradycardia. 03/19 EKG: Electronic Atrial pacemaker. Right [place] deviation (QRS [place]>100). Low QRS voltage (QRS deflection < 0.5/1.0 mV In limb/chest leads) Anterior Myocardial Infarction, possibly Acute (40+ms Q wave and / or ST/T Abnormality in V3/V4) Treatment: 03/19 Temporary Venous pacemaker, 03/19 Dopamine HCI/Dextrose 800mg 250mls @ 2.807mls/hr IV; Norepinephrine 4mg 250mls @ 14.258 mls/hr IV, changed to 8mg 258mls @ 7.241mls/hr IV. Can you please clarify the cause of the Bradycardia? [ ] AICD Malfunction [ x ] Other, please specify ___hyperkalemia [ ] Unable to determine (Template Last Revised: April 2020) MTDD
--- NOTE | 2021-03-19 11:35 | CDI ---
Documentation Clarification Form Date: 03/19/2021 11:14:05 AM From: Jayla Mathews RN CCDS Admit Date: 03/19/2021 01:59:00 AM Patient Name: Juan Jackson Visit Number: [id number] Discharge Date: 03/19/2021 08:35:00 AM ATTENTION: The Clinical Documentation Specialists (CDI) and [facility] Coding Staff appreciate your assistance in clarifying documentation. Please respond to the clarification below the line at the bottom and electronically sign. The CDI & [facility] Coding staff will review the response and follow-up if needed. Please note: Queries are made part of the Legal Health Record. If you have any questions, please contact the author of this message via ITS. Dr. Martinez Henry Your patient has the documented symptom of Altered Mental Status 03/19, Cardiology consult. Additional clarification regarding the etiology/cause of this symptom is requested. History/Risk Factors: 76-year-old male presents to the ED via EMS from home with bradycardia and hypotension. EKG showing bradycardia. 03/19, ED note. Medical History: Cardiomyopathy s/p AICD, CAD s/p PCI and persistent atrial fibrillation. Cardiology Consult, 03/19. Clinical Indicators: Labs 03/19: INR 5.7; Na 132; KCL 8.9; Carbon dioxide 10; BUN 160; CR 4.16; Alk Phos 127; Troponin 0.085. VSS 03/19: B/P 74/49, HR 31, RR 37, SpO2 98% room air CXR 03/19: Moderate cardiomegaly. There is clearing of mild pulmonary congestion. 03/19 Procedure of temporary venous pacemaker; Indication: Failure to capture, symptomatic bradycardia. Treatment: 03/19 Dopamine HCI/Dextrose 800mg 250mls @ 2.807mls/hr IV; Norepinephrine 4mg 250mls @ 14.258 mls/hr IV, changed to 8mg 258mls @ 7.241mls/hr IV; 03/19 Calcium Gluconate 1gm IVPB x1; Calcium Gluconate 1gm IVPB x 1; /8 Dextrose 50% 50ml IVP x 1; /8 Dextrose 50% 50ml IVP x 1; 03/19 Humulin R 10unit IV x 1; 03/19 Humulin R 10unit IV x 1; 03/19 Sodium Bicarb 8.4% 50ml IV, 28 0.9NS 500mls IV x 1. Please clarify the etiology of the symptom of Altered Mental Status: [ X ] Metabolic Encephalopathy due to Hypotension, acute kidney injury and Electrolyte abnormalities. [ ] Other condition (please specify) [ ] Unable to determine. (Template Last Revised: March 2020) MTDD
--- NOTE | 2021-03-20 08:37 | CDI ---
Documentation Clarification Form Date: 03/20/2021 07:31:52 AM From: Jalya Mathews RN CCDS Admit Date: 03/19/2021 01:59:00 AM Patient Name: Juan Jackson Visit Number: [id number] Discharge Date: 03/19/2021 08:35:00 AM ATTENTION: The Clinical Documentation Specialists (CDI) and [facility] Coding Staff appreciate your assistance in clarifying documentation. Please respond to the clarification below the line at the bottom and electronically sign. The CDI & [facility] Coding staff will review the response and follow-up if needed. Please note: Queries are made part of the Legal Health Record. If you have any questions, please contact the author of this message via ITS. Dr. Giovanni Clark Cardiac Arrest is documented 03/19, Event Note . Additional clarification is requested. Patient history/risk factors: 76-year-old male presents to the ED via EMS from home with bradycardia and hypotension. EKG showing bradycardia. 03/19, ED note. Medical History: Cardiomyopathy s/p AICD, CAD s/p PCI and persistent atrial fibrillation. Cardiology Consult, 03/19. Clinical Indicators: 03/19 VSS: B/P 74/49, HR 31, RR 37, SpO2 98% room air 03/19 Cardiology Progress Note: Called by nursing regarding temporary venous pacemaker and AICD not capturing despite increasing output. Potassium noted to be extremely elevated with acute kidney failure and calcium gluconate was given without improvement. Therefore, additional transcutaneous pacing was performed. Patient seen and examined and more lethargic and hypotensive. Attempted to reposition temporary venous pacemaker however without improvement. Patient became more lethargic with pulse lost and CPR was performed. Treatment: 03/19 Temporary Venous pacemaker, 03/19 Dopamine HCI/Dextrose 800mg 250mls @ 2.807mls/hr IV; Norepinephrine 4mg 250mls @ 14.258 mls/hr IV, changed to 8mg 258mls @ 7.241mls/hr IV.03/19 Attempted repositioning of temporary venous pacemaker; 03/19 CPR x 3. Please clarify the type of shock, if known: [ x ] Cardiogenic Shock [ ] Other, please specify [ ] Unable to determine (Template Last Revised: April 2020) MTDD
--- NOTE | 2021-03-20 08:39 | CDI ---
Documentation Clarification Form Date: 03/20/2021 08:17:55 AM From: Jayla Mathews RN CCDS Admit Date: 03/19/2021 01:59:00 AM Patient Name: Juan Jackson Visit Number: [id number] Discharge Date: 03/19/2021 08:35:00 AM ATTENTION: The Clinical Documentation Specialists (CDI) and [facility] Coding Staff appreciate your assistance in clarifying documentation. Please respond to the clarification below the line at the bottom and electronically sign. The CDI & [facility] Coding staff will review the response and follow-up if needed. Please note: Queries are made part of the Legal Health Record. If you have any questions, please contact the author of this message via ITS. Dr. Martinez Henry Unspecified CKD is documented 03/19, Cardiology consult. Additional clarification regarding the stage of CKD is requested. History/Risk Factors: 76-year-old male presents to the ED via EMS from home with bradycardia and hypotension. EKG showing bradycardia. 03/19, ED note. Medical History: Cardiomyopathy s/p AICD, CAD s/p PCI and persistent atrial fibrillation. Cardiology Consult, 03/19. Patients Historical : 01/24/21 BUN 72 CR 1.57: GFR: 43 11/06/20 BUN 72 CR 2.02: GFR: 31 Clinical Indicators: Current 03/19 BUN 160: CR 4.09: GFR: 13 03/19 VSS: B/P 74/49, HR 31, RR 37, SpO2 98% room air Treatment: 03/19 Dopamine HCI/Dextrose 800mg 250mls @ 2.807mls/hr IV; Norepinephrine 4mg 250mls @ 14.258 mls/hr IV, changed to 8mg 258mls @ 7.241mls/hr IV; 03/19 Sodium Bicarb 8.4% 50ml IV, 03/19 0.9NS 500mls IV x 1. Please clarify the stage of the CKD, if known: [ ] CKD Stage 3 (GFR 30-59) [ ] CKD Stage 3a (GFR 45-59) [ X ] CKD Stage 3b (GFR 30-44) [ ] CKD Stage 4 (GFR 15-29) [ ] Other, please specify [ ] Unable to determine (Template Last revised: March 2020) MTDD
--- NOTE | 2021-03-20 08:40 | CDI ---
Documentation Clarification Form Date: 03/20/2021 08:02:46 AM From: Jayla Mathews RN CCDS Admit Date: 03/19/2021 01:59:00 AM Patient Name: Juan Jackson Visit Number: [id number] Discharge Date: 03/19/2021 08:35:00 AM ATTENTION: The Clinical Documentation Specialists (CDI) and [facility] Coding Staff appreciate your assistance in clarifying documentation. Please respond to the clarification below the line at the bottom and electronically sign. The CDI & [facility] Coding staff will review the response and follow-up if needed. Please note: Queries are made part of the Legal Health Record. If you have any questions, please contact the author of this message via ITS. Dr. Giovanni Clark There is documentation of Cardiac arrest, 03/19, Event note. Additional clarification is requested. History/Risk Factors: 76-year-old male presents to the ED via EMS from home with bradycardia and hypotension. EKG showing bradycardia. 03/19, ED note. Medical History: Cardiomyopathy s/p AICD, CAD s/p PCI and persistent atrial fibrillation. Cardiology Consult, 03/19. Clinical Indicators: 03/19 VSS: B/P 74/49, HR 31, RR 37, SpO2 98% room air Labs 03/19: INR 5.7; Na 132; KCL 8.9; Carbon dioxide 10; BUN 160; CR 4.16; Alk Phos 127; Troponin 0.085. Cardiology Consult 03/19: He was found to be severely bradycardic with heart rates in the 30s with every other pacer spike conducting and failure to capture on the other pacer spike conducting and failure to capture on the other pacers and wide complex QRS. He did state he was told he needed his device changed approximately 2 years ago however never had this performed. Cardiology Progress Note 03/19: Called by nursing regarding temporary venous pacemaker and AICD not capturing despite increasing output. Potassium noted to be extremely elevated with acute kidney failure and calcium gluconate was given without improvement. Therefore, additional transcutaneous pacing was performed. Patient seen and examined and more lethargic and hypotensive. Attempted to reposition temporary venous pacemaker however without improvement. Patient became more lethargic with pulse lost and CPR was performed. Treatment: 03/19 Temporary Venous pacemaker, 03/19 Dopamine HCI/Dextrose 800mg 250mls @ 2.807mls/hr IV; Norepinephrine 4mg 250mls @ 14.258 mls/hr IV, changed to 8mg 258mls @ 7.241mls/hr IV.03/19 Attempted repositioning of temporary venous pacemaker; 03/19 CPR x 3. Can you please clarify cause of cardiac arrest ? [ ] Due to the AICD malfunction [ ] Other cardiac cause (please specify) [x ] Other, please specify hyperkalemia resulting in dysrhtymia___ [ ] Unable to determine (Template Last Revised: April 2020) MTDD
== END 2021-03-19 08:35 | disposition expired | DRG 260 ==
LOC: EC 00:49 → SUPCPDRO 00:49 → 2SICU 01:59
PROVIDERS: ADMIT Family Medicine; ATTEND Family Medicine
PROC: 5A1223Z Performance of Cardiac Pacing, Continuous (ICD-10-PCS; 2021-03-19)
PROC: 02HK3JZ Insertion of Pacemaker Lead into Right Ventricle, Percutaneous Approach (ICD-10-PCS; principal; 2021-03-19 01:37)
DX: T82.119A Breakdown (mechanical) of unspecified cardiac electronic device, initial encounter (principal); G93.41 Metabolic encephalopathy; N17.9 Acute kidney failure, unspecified; I13.0 Hypertensive heart and chronic kidney disease with heart failure and stage 1 through stage 4 chronic kidney disease, or unspecified chronic kidney disease; I48.19 Other persistent atrial fibrillation; I50.22 Chronic systolic (congestive) heart failure; E87.2 Acidosis; I46.8 Cardiac arrest due to other underlying condition; Z20.822 Contact with and (suspected) exposure to COVID-19; N18.32 Chronic kidney disease, stage 3b; Y71.2 Prosthetic and other implants, materials and accessory cardiovascular devices associated with adverse incidents; R00.1 Bradycardia, unspecified; R57.0 Cardiogenic shock; D64.9 Anemia, unspecified; I95.9 Hypotension, unspecified; R41.82 Altered mental status, unspecified; E78.5 Hyperlipidemia, unspecified; E87.5 Hyperkalemia; E86.0 Dehydration; F41.9 Anxiety disorder, unspecified; I25.10 Atherosclerotic heart disease of native coronary artery without angina pectoris; I25.2 Old myocardial infarction; I25.5 Ischemic cardiomyopathy; J44.9 Chronic obstructive pulmonary disease, unspecified; Z79.01 Long term (current) use of anticoagulants; Z79.82 Long term (current) use of aspirin; Z79.899 Other long term (current) drug therapy; Z80.52 Family history of malignant neoplasm of bladder; Z80.8 Family history of malignant neoplasm of other organs or systems; Z82.3 Family history of stroke; Z83.3 Family history of diabetes mellitus; Z86.73 Personal history of transient ischemic attack (TIA), and cerebral infarction without residual deficits; Z87.891 Personal history of nicotine dependence; Z95.810 Presence of automatic (implantable) cardiac defibrillator; Z98.1 Arthrodesis status; Z98.61 Coronary angioplasty status
CPT/HCPCS: 36415; 71045; 80053; 83735; 84484; 85025; 85610; 85730; 87635; 92953; 93005; 94002; 99291